=== PATIENT | female | born 1950 | race Caucasian/White ===

== ENCOUNTER 2018-02-09 08:09 | Day surgery (SDC) | payer OTHER ==
--- OUTSIDE RECORDS SUMMARY | 2018-02-09 08:12 | XMS REPORT | Clinical Summary ---
:1950 Author Organization [facility] Address [address] [place] [address] Care Team Providers Name Role Phone Asked, No Pcp Primary Care Provider Unavailable Allergies Active Allergy Reactions Severity Noted Date Comments Codeine 05/09/2017 DROWSY, SLOW TO EMERGE. Meperidine 05/09/2017 STATES AWARE DURING ANESTHESIA Penicillin Itching, Rash Low 05/09/2017 Sulfa (Sulfonamide Itching, Rash Low 05/09/2017 Antibiotics) Medications Medication Sig Dispensed Refills Start Date End Date Status ascorbic acid, Take 1,000 mg 0 Active vitamin C, (vitamin by mouth daily. C) 1000 MG tablet cholecalciferol, Take 1,000 0 Active vitamin D3, (VITAMIN Units by mouth D3) 1,000 unit tablet daily. VITAMIN A ORAL Take by mouth. 0 Active levothyroxine Take 75 mcg by 0 Active (SYNTHROID, LEVOXYL) mouth every 75 mcg tablet morning. CYANOCOBALAMIN, Inject as 0 Active VITAMIN B-12, directed. (VITAMIN B-12 INJ) lisinopril Take 15 mg by 0 Active (PRINIVIL,ZESTRIL) 30 mouth daily. mg tablet insulin NPH Inject 7 Units 0 Active (HumuLIN-N) 100 under the skin unit/mL injection nightly. anastrozole Take 1 mg by 0 Active (ARIMIDEX) 1 mg chemo mouth daily. tablet TRASTUZUMAB Infuse into a 0 Active (HERCEPTIN IV) venous catheter every 21 days. traMADol (ULTRAM) 50 Take 2 tablets 40 tablet 0 06/08/2017 06/18/2017 mg tablet (100 mg total) by mouth every 6 (six) hours as needed for moderate pain for up to 10 days. docusate sodium Take 1 capsule 20 capsule 0 06/08/2017 06/18/2017 (COLACE) 100 MG (100 mg total) capsule by mouth 2 (two) times a day for 10 days. Active Problems Problem Noted Date Right renal mass 06/06/2017 Encounters Date Type Specialty Care Team Description 06/06/2017 Anesthesia Event Urology Emilia Lang, ERICA 06/06/2017 Surgery Urology Calvin Rabago ROBOTIC ASSISTED MD Nichelle LAPAROSCOPIC RIGHT PARTIAL NEPHRECTOMY 06/06/2017 - Hospital Encounter General Internal Calvin Rabago Right renal mass 06/08/2017 Medicine MD Nichelle 05/23/2017 Pre-Admit Testing Pre-Admission Calvin Rabago Preop examination Appointment Testing MD Nichelle 05/09/2017 Pre-Admit Testing Pre-Admission Calvin Rabago Preop examination Appointment Testing MD Nichelle (Primary Dx) after 02/08/2017 Social History Tobacco Use Types Packs/Day Years Used Date Former Smoker Cigarettes 0.25 3 Quit: 1979 Smokeless Tobacco: Never Used Alcohol Use Drinks/Week oz/Week Comments No Sex Assigned at Date Recorded Not on file Job Start Date Occupation Industry Not on file Not on file Not on file Travel History Travel Start Travel End No recent travel history available. Last Filed Vital Signs Vital Sign Reading Time Taken Blood Pressure 135/60 06/08/2017 11:24 AM CDT Pulse 78 06/08/2017 11:24 AM CDT Temperature 37.7 C (99.9 F) 06/08/2017 11:24 AM CDT Respiratory Rate 16 06/08/2017 11:24 AM CDT Oxygen Saturation 98% 06/08/2017 11:24 AM CDT Inhaled Oxygen Concentration - - Weight 63.2 kg (139 lb 6.4 oz) 05/09/2017 3:45 PM CLINICAL PSYCHOLOGIST Height 156.2 cm (5' 1.5") 05/09/2017 3:45 PM CLINICAL PSYCHOLOGIST Body Mass Index 25.91 05/09/2017 3:45 PM CLINICAL PSYCHOLOGIST Plan of Treatment Health Maintenance Due Date Last Done Comments BREAST CANCER SCREENING 1998 COLON CANCER SCREENING 1998 SHINGRIX VACCINE (1 of 2) 1998 ZOSTER VACCINE 2008 PNEUMOCOCCAL POLYSACCHARIDE VACCINE AGE 65 AND OVER 2013 PNEUMOCOCCAL-13 2013 INFLUENZA VACCINE 10/15/2017 Implants Implanted Type Area Biodiesel Plant Superintendent Device Shelf Model / Identifier Expiration Serial / Date Lot Clip Ligtng Hem-O-Farhan Endoscpc Aplr Plymr Lg - [id number] Surgical N/A: N/A WECK CLOSURE [id number] / Implanted: 06/06/2017 (Quantity not on file) Implants; SYSTEMS / Expanders; Extenders; Surgical Wires Kit Selnt Fibrin Humn Hmsts Surgy 5ml Evicel - [id number] Surgical N/A: N/A ETHICON - [id number] / Implanted: Qty: 1 on 06/06/2017 by Calvin Rabago MD Implants; / Expanders; Extenders; Surgical Wires Procedures Procedure Name Priority Date/Time Associated Comments Diagnosis POC GLUCOSE Routine 06/08/2017 11:26 Results for this AM CDT procedure are in the results section. POC GLUCOSE Routine 06/08/2017 7:19 Results for this AM CDT procedure are in the results section. POC GLUCOSE Routine 06/07/2017 9:42 Results for this PM CDT procedure are in the results section. POC GLUCOSE Routine 06/07/2017 5:10 Results for this PM CDT procedure are in the results section. POC GLUCOSE Routine 06/07/2017 12:54 Results for this PM CDT procedure are in the results section. POC GLUCOSE Routine 06/07/2017 7:37 Results for this AM CDT procedure are in the results section. CBC HEMOGRAM Routine 06/07/2017 4:46 Results for this AM CDT procedure are in the results section. ZZESTIMATED GFR Routine 06/07/2017 4:00 Results for this AM CDT procedure are in the results section. BASIC METABOLIC PANEL Routine 06/07/2017 4:00 Results for this AM CDT procedure are in the results section. POC GLUCOSE Routine 06/06/2017 8:13 Results for this PM CDT procedure are in the results section. ZZESTIMATED GFR Routine 06/06/2017 5:25 Results for this PM CDT procedure are in the results section. BASIC METABOLIC PANEL Routine 06/06/2017 5:25 Results for this PM CDT procedure are in the results section. HEMATOCRIT Routine 06/06/2017 5:25 Results for this PM CDT procedure are in the results section. HEMOGLOBIN Routine 06/06/2017 5:25 Results for this PM CDT procedure are in the results section. POC GLUCOSE Routine 06/06/2017 5:21 Results for this PM CDT procedure are in the results section. HEMOGLOBIN, SYRINGE STAT 06/06/2017 4:23 Results for this PM CDT procedure are in the results section. GLUCOSE LEVEL, STAT 06/06/2017 4:23 Results for this SYRINGE PM CDT procedure are in the results section. POTASSIUM, SYRINGE STAT 06/06/2017 4:23 Results for this PM CDT procedure are in the results section. IONIZED CALCIUM, STAT 06/06/2017 4:23 Results for this ARTERIAL PM CDT procedure are in the results section. ARTERIAL BLOOD GAS, STAT 06/06/2017 4:23 Results for this CORRECTED PM CDT procedure are in the results section. SODIUM LEVEL, SYRINGE STAT 06/06/2017 4:23 Results for this PM CDT procedure are in the results section. HEMOGLOBIN, SYRINGE Routine 06/06/2017 3:03 Results for this PM CDT procedure are in the results section. IONIZED CALCIUM, Routine 06/06/2017 3:03 Results for this ARTERIAL PM CDT procedure are in the results section. GLUCOSE LEVEL, Routine 06/06/2017 3:03 Results for this SYRINGE PM CDT procedure are in the results section. SODIUM LEVEL, SYRINGE Routine 06/06/2017 3:03 Results for this PM CDT procedure are in the results section. POTASSIUM, SYRINGE Routine 06/06/2017 3:03 Results for this PM CDT procedure are in the results section. ARTERIAL BLOOD GAS, Routine 06/06/2017 3:03 Results for this CORRECTED PM CDT procedure are in the results section. ARTERIAL LINE Routine 06/06/2017 12:59 PM CDT Procedure Note - Tana Chandler CRNA - 06/06/2017 12:59 PM CDT Arterial line Performed by: NÉSTOR TORRES Authorized by: NÉSTOR TORRES Patient Location: OR Staff: Anesthesiologist: NÉSTOR TORRES Performed by: Anesthesiologist Pre-procedure: patient identified, IV checked, site and side verified, risks and benefits discussed, procedure verified, surgical consent complete, patient position confirmed, monitors and equipment checked and pre-op evaluation complete MSBT: antiseptic used, all elements of maximal sterile barrier technique followed, hand hygiene performed, cap/gown used by other personnel and solutions labeled Indications: Indications: multiple ABGs and hemodynamic monitoring Anesthesia: Anesthesia: General Procedure Details: Arterial Line placement: Placed post induction Line placement site: Radial Line placement side: Left Arterial line gauge: 20 G Number of attempts: 1 Ultrasound guidance used: No Post-procedure: Post-procedure: Sterile dressing applied Patient tolerance: Patient tolerated the procedure well with no immediate complications POC PANEL Routine 06/06/2017 12:39 PM Results for this CDT procedure are in the results section. ESTIMATED GFR Routine 06/06/2017 12:39 PM Results for this CDT procedure are in the results section. NEPHRECTOMY, 06/06/2017 12:30 PM Right renal mass PARTIAL, CDT LAPAROSCOPIC, ROBOT-ASSISTED Case Notes DAVINCI, POSSIBLE EXTENDED RECOVERY NEEDED Special Needs DAVINCI POSSIBLE EXTENDED RECOVERY NEEDED CBC HEMOGRAM STAT 06/06/2017 12:23 PM Results for this CDT procedure are in the results section. ZZESTIMATED GFR STAT 06/06/2017 11:54 AM Results for this CDT procedure are in the results section. BASIC METABOLIC PANEL STAT 06/06/2017 11:54 AM Results for this CDT procedure are in the results section. SURGICAL PATHOLOGY Routine 06/06/2017 7:14 AM Results for this REQUEST CDT procedure are in the results section. PREPARE RBC Routine 05/23/2017 1:35 PM Results for this CLINICAL PSYCHOLOGIST procedure are in the results section. E ANTIGEN PATIENT Routine 05/23/2017 1:35 PM Results for this TYPING CLINICAL PSYCHOLOGIST procedure are in the results section. ANTIBODY IDENTIFICATION Routine 05/23/2017 1:35 PM Results for this CLINICAL PSYCHOLOGIST procedure are in the results section. TYPE AND SCREEN Routine 05/23/2017 1:35 PM Preop examination Results for this CLINICAL PSYCHOLOGIST procedure are in the results section. URINALYSIS SCREEN AND Routine 05/09/2017 4:15 PM Preop examination Results for this MICROSCOPY, WITH REFLEX CLINICAL PSYCHOLOGIST procedure are in TO CULTURE the results section. URINE CULTURE Routine 05/09/2017 4:15 PM Results for this CLINICAL PSYCHOLOGIST procedure are in the results section. ECG PRE/POST OP Routine 05/09/2017 3:10 PM Preop examination Results for this CLINICAL PSYCHOLOGIST procedure are in the results section. ZZESTIMATED GFR Routine 05/09/2017 3:08 PM Results for this CLINICAL PSYCHOLOGIST procedure are in the results section. PARTIAL THROMBOPLASTIN Routine 05/09/2017 3:08 PM Preop examination Results for this TIME (PTT) CLINICAL PSYCHOLOGIST procedure are in the results section. PROTHROMBIN TIME WITH Routine 05/09/2017 3:08 PM Preop examination Results for this INR CLINICAL PSYCHOLOGIST procedure are in the results section. HEMOGLOBIN A1C Routine 05/09/2017 3:08 PM Preop examination Results for this CLINICAL PSYCHOLOGIST procedure are in the results section. HC COMPLETE BLD COUNT Routine 05/09/2017 3:08 PM Preop examination Results for this W/AUTO DIFF CLINICAL PSYCHOLOGIST procedure are in the results section. COMPREHENSIVE METABOLIC Routine 05/09/2017 3:08 PM Preop examination Results for this PANEL CLINICAL PSYCHOLOGIST procedure are in the results section. after 02/08/2017 Results POC glucose (06/08/2017 11:26 AM CDT)Only the most recent of8 resultswithin the time period is included. POC glucose 126 (H) 65 - 99 mg/dL [facility] DEPARTMENT OF PATHOLOGY AND Comment: [employer] MEDICINE [facility] Notified RN Meter ID: [id number] Flotation Operator: Sheriff Charlene Rene Performing Organization Address City/[facility] Cent[facility]ode Phone Number [facility] DEPARTMENT OF PATHOLOGY AND [address] [place] [phone] [employer] CBC hemogram (06/07/2017 4:46 AM CDT)Only the most recent of2 resultswithin the time period is included. WBC 6.50 4.50 - 11.00 k/uL [facility] DEPARTMENT OF PATHOLOGY AND GENOMIC MEDICINE RBC 2.42 (L) 4.20 - 5.50 m/uL [facility] DE[facility] OF PATHOLOGY AND GENOMIC MEDICINE HGB 7.9 (L) 12.0 - 16.0 g/dL [facility] DEPARTMENT OF PATHOLOGY AND GENOMIC MEDICINE HCT 23.2 (L) 37.0 - 47.0 % [facility] DEPARTMENT OF PATHOLOGY AND GENOMIC MEDICINE MCV 95.9 82.0 - 100.0 fL [facility] DE[facility]MENT OF PATHOLOGY AND GENOMIC MEDICINE MCH 32.6 27.0 - 34.0 pg [facility] DEPARTMENT OF PATHOLOGY AND GENOMIC MEDICINE MCHC 34.1 31.0 - 37.0 g/dL [facility] DEPARTMENT OF PATHOLOGY AND GENOMIC MEDICINE RDW - SD 43.3 37.0 - 55.0 fL [facility] DEPARTMENT OF PATHOLOGY AND GENOMIC MEDICINE MPV 10.4 8.8 - 13.2 fL [facility] DEPARTMENT OF PATHOLOGY AND GENOMIC MEDICINE Platelet count 113 (L) 150 - 400 k/uL [facility] DEPARTMENT OF PATHOLOGY AND GENOMIC MEDICINE Nucleated RBC 0.00 /100 WBC [facility] DEPARTMENT OF PATHOLOGY AND GENOMIC MEDICINE Specimen Blood Performing Organization Address City/[facility]ode Phone Number [facility] DEPARTMENT OF PATHOLOGY AND [address] [place] [address] [employer] [facility]IC[facility] Estimated GFR (06/07/2017 4:00 AM CDT)Only the most recent of4 resultswithin the time period is included. GFR Non Af Amer 62 mL/min/1.73 m2 [facility] DEPARTMENT OF PATHOLOGY AND GENOMIC MEDICINE GFR Af Amer 75 mL/min/1.73 m2 [facility] DEPARTMENT OF Comment: PATHOLOGY AND GENOMIC Chronic kidney disease: <60 mL/min/1.73m2 MEDICINE Kidney failure: <15 mL/min/1.73m2 The estimated GFR is calculated from the IDMS-traceable Modification of Diet in Renal Disease Equation. The accuracy of the calculation is poor when the creatinine is normal. Calculated values >90 mL/min/1.73m2 are not reported. This equation has not been validated in children (<18 years), women, the elderly (>70 years), or ethnic groups other than Caucasians and Americans. Specimen Plasma specimen Performing Organization Address City/[facility] Cent[facility]ode Phone Number [facility] DEPARTMENT OF PATHOLOGY AND [address] [place] [phone] [facility] Basic metabolic panel (06/07/2017 4:00 AM CDT)Only the most recent of3 resultswithin the time period is included. Sodium 135 135 - 148 mEq/L [facility] DEPARTMENT OF PATHOLOGY AND GENOMIC MEDICINE Potassium 4.1 3.5 - 5.0 mEq/L [facility] DEPARTMENT OF PATHOLOGY AND GENOMIC MEDICINE Chloride 99 98 - 112 mEq/L [facility] DEPARTMENT OF PATHOLOGY AND GENOMIC MEDICINE CO2 25 24 - 31 mEq/L [facility] DEPARTMENT OF PATHOLOGY AND GENOMIC MEDICINE Anion gap 11 7 - 15 mEq/L [facility] DEPARTMENT OF PATHOLOGY Comment: AND [facility] Starting from June , anion gap calculation no longer incorporates potassium. Please note the change. BUN 13 8 - 23 mg/dL [facility] DEPARTMENT OF PATHOLOGY AND GENOMIC MEDICINE Creatinine 0.9 0.5 - 0.9 mg/dL [facility] DEPARTMENT OF PATHOLOGY AND GENOMIC MEDICINE Glucose 111 (H) 65 - 99 mg/dL [facility] DE[facility]MENT OF PATHOLOGY AND GENOMIC MEDICINE Calcium 9.0 8.8 - 10.2 mg/dL [facility] DEPARTMENT OF PATHOLOGY AND GENOMIC MEDICINE Specimen Plasma specimen Performing Organization Address City/[facility]ercode Phone Number [facility] DEPARTMENT OF PATHOLOGY AND [address] [place] [phone] [facility] Hemoglobin (06/06/2017 5:25 PM CDT) HGB 7.8 (L) 12.0 - 16.0 g/dL [facility] DEPARTMENT OF PATHOLOGY AND GENOMIC MEDICINE Specimen Blood Performing Organization Address [facility] Phone Number [facility] DEPARTMENT OF PATHOLOGY AND [address] [place] [address] GENOMIC [facility] Hematocrit (06/06/2017 5:25 PM CDT) HCT 21.9 (L) 37.0 - 47.0 % [facility] DEPARTMENT OF PATHOLOGY AND GENOMIC MEDICINE Specimen Blood Performing Organization Address [facility] Phone Number [facility] DEPARTMENT OF PATHOLOGY AND [address] [place] [address] Sodium level, syringe (06/06/2017 4:23 PM CDT)Only the most recent of2 resultswithin the time period is included. Sodium, syringe 129 (L) 135 - 148 mEq/L [facility] DEPARTMENT OF PATHOLOGY AND GENOMIC MEDICINE Specimen Blood Performing Organization Address [facility] Phone Number [facility] DEPARTMENT OF PATHOLOGY AND [address] [place] [address] Potassium, syringe (06/06/2017 4:23 PM CDT)Only the most recent of2 resultswithin the time period is included. Potassium, syringe 4.1 3.5 - 5.0 mEq/L [facility] DEPARTMENT OF PATHOLOGY AND GENOMIC MEDICINE Specimen Blood Performing Organization Address [facility] Number [facility] DEPARTMENT OF PATHOLOGY AND [address] [place] [address] Ionized calcium, arterial (06/06/2017 4:23 PM CDT)Only the most recent of2 resultswithin the time period is included. Ionized calcium, arterial 1.23 1.11 - 1.32 mmol/L [facility] DEPARTMENT OF PATHOLOGY AND GENOMIC MEDICINE Specimen Blood Performing Organization Address [facility] Phone Number [facility] DEPARTMENT OF PATHOLOGY AND [address] [place] [address] Hemoglobin, syringe (06/06/2017 4:23 PM CDT)Only the most recent of2 resultswithin the time period is included. Hemoglobin, syringe 8.3 (L) 12.0 - 16.0 g/dL [facility] DEPARTMENT OF PATHOLOGY AND GENOMIC MEDICINE Specimen Blood Performing Organization Address City/[facility] Phone Number [facility] DEPARTMENT OF PATHOLOGY AND [address] [place] [phone] [place] [address] Glucose level, syringe (06/06/2017 4:23 PM CDT)Only the most recent of2 resultswithin the time period is included. Glucose, syringe 196 (H) 65 - 99 mg/dL [facility] DEPARTMENT OF PATHOLOGY AND GENOMIC MEDICINE Specimen Blood Performing Organization Address [facility] Centercode Phone Number [facility] DEPARTMENT OF PATHOLOGY AND [address] [place] [phone] [place] [address] Arterial blood gas, corrected (06/06/2017 4:23 PM CDT)Only the most recent of2 resultswithin the time period is included. pH, arterial 7.38 7.35 - 7.45 [facility] DEPARTMENT OF PATHOLOGY AND GENOMIC MEDICINE pCO2, arterial 37 35 - 45 mmHg [facility] DEPARTMENT OF PATHOLOGY AND GENOMIC MEDICINE pO2, arterial 208 (H) 80 - 90 mmHg [facility] DEPARTMENT OF PATHOLOGY AND GENOMIC MEDICINE Temperature, Celsius 37.0 Degrees C [facility] DEPARTMENT OF PATHOLOGY AND GENOMIC MEDICINE O2 saturation, arterial 100 95 - 100 % [facility] DEPARTMENT OF PATHOLOGY AND GENOMIC MEDICINE pH, arterial corrected 7.38 [facility] DEPARTMENT OF PATHOLOGY AND GENOMIC MEDICINE pCO2, arterial corrected 37 mmHg [facility] DEPARTMENT OF PATHOLOGY AND GENOMIC MEDICINE pO2, arterial corrected 208 mmHg [facility] DEPARTMENT OF PATHOLOGY AND GENOMIC MEDICINE Base excess, arterial -3 (L) -2 - 2 mEq/L [facility] DEPARTMENT OF PATHOLOGY AND GENOMIC MEDICINE Specimen Blood Performing Organization Address [facility] Phone Number [facility] DEPARTMENT OF PATHOLOGY AND [address] [place] [phone] [facility] Estimated GFR (06/06/2017 12:39 PM CDT) GFR Non Af Amer 83 mL/min/1.73 m2 [facility] DEPARTMENT OF PATHOLOGY AND GENOMIC MEDICINE GFR Af Amer >90 mL/min/1.73 m2 [facility] DEPARTMENT OF Comment: PATHOLOGY AND GENOMIC Chronic kidney disease: <60 mL/min/1.73m2 MEDICINE Kidney failure: <15 mL/min/1.73m2 The estimated GFR is calculated from the IDMS-traceable Modification of Diet in Renal Disease Equation. The accuracy of the calculation is poor when the creatinine is normal. Calculated values >90 mL/min/1.73m2 are not reported. This equation has not been validated in children (<18 years), women, the elderly (>70 years), or ethnic groups other than Caucasians and Americans. Specimen Blood Performing Organization Address City/State/Zipcode Phone Number [facility] DEPARTMENT OF PATHOLOGY AND [address] [place] [address] GENOMIC MEDICINE POC panel (06/06/2017 12:39 PM CDT) POC sodium 131 (L) 135 - 148 mmol/L [facility] DEPARTMENT OF PATHOLOGY AND GENOMIC MEDICINE POC potassium 4.0 3.5 - 5.0 mmol/L [facility] DEPARTMENT OF PATHOLOGY AND GENOMIC MEDICINE POC chloride 97 (L) 99 - 109 mmol/L [facility] DEPARTMENT OF PATHOLOGY AND GENOMIC MEDICINE POC CO2 27 24 - 31 mmol/L [facility] DEPARTMENT OF PATHOLOGY AND GENOMIC MEDICINE POC glucose 120 (H) 65 - 99 mg/dL [facility] DEPARTMENT OF PATHOLOGY AND GENOMIC MEDICINE POC BUN 15 8 - 24 mg/dL [facility] DEPARTMENT OF PATHOLOGY AND GENOMIC MEDICINE POC creatinine 0.7 0.5 - 0.9 mg/dl [facility] DEPARTMENT OF PATHOLOGY AND GENOMIC MEDICINE POC hematocrit 32 (L) 37 - 47 % [facility] DEPARTMENT OF PATHOLOGY AND GENOMIC MEDICINE POC anion gap 11 8 - 20 [facility] DEPARTMENT OF PATHOLOGY Comment: AND GENOMIC MEDICINE Meter ID: [id number] Flotation Operator: Ted Devlin Performing Organization Address City/[facility]ercode Phone Number [facility] DEPARTMENT OF PATHOLOGY AND [address] [place] [address] GENOMIC MEDICINE Surgical pathology request (06/06/2017 7:14 AM CDT) [facility] DEPARTMENT OF PATHOLOGY AND GENOMIC MEDICINE Surgical pathology report See link below for PDF [facility] DEPARTMENT OF Lab Report PATHOLOGY AND GENOMIC MEDICINE Result status This is Final Report to [facility] DEPARTMENT OF [id number] PATHOLOGY AND GENOMIC MEDICINE Performing Organization Address City/State/Zipcode Phone Number [facility] DEPARTMENT OF PATHOLOGY AND [address] [place] [address] GENOMIC MEDICINE E antigen patient typing (05/23/2017 1:35 PM CLINICAL PSYCHOLOGIST) E Antigen Patient Typing NEG [facility] DEPARTMENT OF PATHOLOGY AND GENOMIC MEDICINE Performing Organization Address City/State/Zipcode Phone Number [facility] DEPARTMENT OF PATHOLOGY AND [address] [place] [address] MEDICINE Antibody identification (05/23/2017 1:35 PM CLINICAL PSYCHOLOGIST) Antibody ID POS, Anti-E [facility] DEPARTMENT OF PATHOLOGY AND Comment: GENOMIC MEDICINE This antibody can cause red cell damage and is considered clinically significant.Red cells for transfusion will be negative for the antigen and crossmatch compatible.Verified by [id number]. Performing Organization Address City/State/Zipcode Phone Number [facility] DEPARTMENT OF PATHOLOGY AND [address] [place] [phone] GENOMIC MEDICINE Prepare RBC (05/23/2017 1:35 PM CLINICAL PSYCHOLOGIST) Product name Red Blood Cells -1, [facility] DEPARTMENT OF Leukored PATHOLOGY AND GENOMIC MEDICINE Unit number [id number] [facility] DEPARTMENT OF PATHOLOGY AND GENOMIC MEDICINE Product code [id number] [facility] DEPARTMENT OF PATHOLOGY AND GENOMIC MEDICINE Dispense status Returned to not [facility] DEPARTMENT OF transfused PATHOLOGY AND GENOMIC MEDICINE Blood expiration date [facility] DEPARTMENT OF PATHOLOGY AND GENOMIC MEDICINE Blood type code 6200 [facility] DEPARTMENT OF PATHOLOGY AND GENOMIC MEDICINE Blood type A POSITIVE [facility] DEPARTMENT OF PATHOLOGY AND GENOMIC MEDICINE Product name Red Blood Cells -1, [facility] DEPARTMENT OF Leukored PATHOLOGY AND GENOMIC MEDICINE Unit number [id number] [facility] DEPARTMENT OF PATHOLOGY AND GENOMIC MEDICINE Product code [id number] [facility] DEPARTMENT OF PATHOLOGY AND GENOMIC MEDICINE Dispense status Returned to not [facility] DEPARTMENT OF transfused PATHOLOGY AND GENOMIC MEDICINE Blood expiration date [facility] DEPARTMENT OF PATHOLOGY AND GENOMIC MEDICINE Blood type code 5100 [facility] DEPARTMENT OF PATHOLOGY AND GENOMIC MEDICINE Blood type O POSITIVE [facility] DEPARTMENT OF PATHOLOGY AND GENOMIC MEDICINE Performing Organization Address City/[facility]ode Phone Number [facility] DEPARTMENT OF PATHOLOGY AND [address] [place] [phone] GENOMIC MEDICINE Type and screen (05/23/2017 1:35 PM CLINICAL PSYCHOLOGIST) ABO grouping A [facility] DEPARTMENT OF PATHOLOGY AND GENOMIC MEDICINE Rh type POS [facility] DEPARTMENT OF PATHOLOGY AND GENOMIC MEDICINE Antibody screen (gel) POS [facility] DEPARTMENT OF PATHOLOGY AND GENOMIC MEDICINE Specimen Blood Performing Organization Address City/[facility]/Zipcode Phone Number [facility] DEPARTMENT OF PATHOLOGY AND [address] [place] [phone] GENOMIC MEDICINE Urinalysis screen and microscopy, with reflex to culture (05/09/2017 4:15 PM CLINICAL PSYCHOLOGIST) Specimen site Clean catch [facility] DEPARTMENT OF PATHOLOGY AND GENOMIC MEDICINE Color, UA Yellow [facility] DEPARTMENT OF PATHOLOGY AND GENOMIC MEDICINE Appearance, UA Hazy [facility] DEPARTMENT OF PATHOLOGY AND GENOMIC MEDICINE Specific gravity, UA 1.011 1.001 - 1.035 [facility] DEPARTMENT OF PATHOLOGY AND GENOMIC MEDICINE pH, UA 7.0 5.0 - 8.5 [facility] DEPARTMENT OF PATHOLOGY AND GENOMIC MEDICINE Protein, UA Negative Negative [facility] DEPARTMENT OF PATHOLOGY AND GENOMIC MEDICINE Glucose, UA Negative Negative [facility] DEPARTMENT OF PATHOLOGY AND GENOMIC MEDICINE Ketones, UA Negative Negative [facility] DEPARTMENT OF PATHOLOGY AND GENOMIC MEDICINE Bilirubin, UA Negative Negative [facility] DEPARTMENT OF PATHOLOGY AND GENOMIC MEDICINE Blood, UA Negative Negative [facility] DEPARTMENT OF PATHOLOGY AND GENOMIC MEDICINE Nitrite, UA Negative Negative [facility] DEPARTMENT OF PATHOLOGY AND GENOMIC MEDICINE Urobilinogen, UA <2.0 <2.0 [facility] DEPARTMENT OF PATHOLOGY AND GENOMIC MEDICINE Leukocyte esterase, UA Negative Negative [facility] DEPARTMENT OF PATHOLOGY AND GENOMIC MEDICINE Epithelial cells, UA <1 /HPF [facility] DEPARTMENT OF PATHOLOGY AND GENOMIC MEDICINE WBC, UA <1 0 - 4 /HPF [facility] DEPARTMENT OF PATHOLOGY AND GENOMIC MEDICINE RBC, UA 1 0 - 2 /HPF [facility] DEPARTMENT OF PATHOLOGY AND GENOMIC MEDICINE Bacteria, UA None seen None seen [facility] DEPARTMENT OF PATHOLOGY AND GENOMIC MEDICINE Yeast, UA None seen [facility] DEPARTMENT OF PATHOLOGY AND GENOMIC MEDICINE Yeast with pseudohyphae, UA None seen [facility] DEPARTMENT OF PATHOLOGY AND GENOMIC MEDICINE Specimen Urine Performing Organization Address City/[facility]ode Phone Number [facility] DEPARTMENT OF PATHOLOGY AND [address] [place] [phone] [facility] Urine culture (05/09/2017 4:15 PM CLINICAL PSYCHOLOGIST) Urine culture SEE COMMENTComment: Bacteriuria [facility] DEPARTMENT OF PATHOLOGY screen negative. AND GENOMIC MEDICINE Performing Organization Address [facility]ercode Phone Number [facility] DEPARTMENT OF PATHOLOGY AND [address] [place] [phone] [facility] ECG Pre/Post Op (05/09/2017 3:10 PM CLINICAL PSYCHOLOGIST) Ventricular rate 61 [facility] MUSE Atrial rate 61 [facility] AL interval 136 [facility]USE QRSD interval 82 [facility] QT interval 398 [facility] QTC interval 400 [facility] P axis 1 62 [facility] QRS axis 1 53 [facility] T wave axis 60 [facility] EKG impression Normal sinus rhythm-Normal ECG-No previous [facility] ECGs available- Performing Organization Address City/[facility]ode Phone Number [facility] [address] [place] [address] Partial thromboplastin time, activated (05/09/2017 3:08 PM CLINICAL PSYCHOLOGIST) PTT 32.4 23.0 - 36.0 sec [facility] DEPARTMENT OF PATHOLOGY Comment: AND GENOMIC MEDICINE PTT therapeutic range for unfractionated heparin is 61.0-112.0 seconds which corresponds to Anti-Xa 0.3-0.7 U/ml. Specimen Blood Performing Organization Address City/[facility]ercode Phone Number [facility] PATH[facility] AND [address] [place] [id number] [place] [address] Prothrombin time with INR (05/09/2017 3:08 PM CLINICAL PSYCHOLOGIST) Prothrombin time 13.6 12.0 - 15.0 sec [facility] DEPARTMENT OF PATHOLOGY AND GENOMIC MEDICINE INR 1.0 [facility] DEPARTMENT OF Comment: PATHOLOGY AND GENOMIC The International Normalized Ratio (INR) is a therapeutic MEDICINE monitoring tool for patients who are stable on oral anticoagulant therapy. An INR of 2.0-3.0 is suggested for deep vein thrombosis/pulmonary embolism. Specimen Blood Performing Organization Address City/[facility] Centercohi Phone Number [facility] DEPARTMENT PATHOLOGY AND [address] [place] [phone] [facility] CBC with platelet and differential (05/09/2017 3:08 PM CLINICAL PSYCHOLOGIST) WBC 5.63 4.50 - 11.00 k/uL [facility] DEPARTMENT OF PATHOLOGY AND GENOMIC MEDICINE RBC 2.98 (L) 4.20 - 5.50 m/uL [facility] DEPARTMENT OF PATHOLOGY AND GENOMIC MEDICINE HGB 10.3 (L) 12.0 - 16.0 g/dL [facility] DEPARTMENT OF PATHOLOGY AND GENOMIC MEDICINE HCT 29.8 (L) 37.0 - 47.0 % [facility] DEPARTMENT OF PATHOLOGY AND GENOMIC MEDICINE MCV 100.0 82.0 - 100.0 fL [facility] DEPARTMENT OF PATHOLOGY AND GENOMIC MEDICINE MCH 34.6 (H) 27.0 - 34.0 pg [facility] DEPARTMENT OF PATHOLOGY AND GENOMIC MEDICINE MCHC 34.6 31.0 - 37.0 g/dL [facility] DEPARTMENT OF PATHOLOGY AND GENOMIC MEDICINE RDW - SD 47.6 37.0 - 55.0 fL [facility] DEPARTMENT OF PATHOLOGY AND GENOMIC MEDICINE MPV 10.4 8.8 - 13.2 fL [facility] DEPARTMENT OF PATHOLOGY AND GENOMIC MEDICINE Platelet count 125 (L) 150 - 400 k/uL [facility] DEPARTMENT OF PATHOLOGY AND GENOMIC MEDICINE Nucleated RBC 0.00 /100 WBC [facility] DEPARTMENT OF PATHOLOGY AND GENOMIC MEDICINE Neutrophils 56.5 39.0 - 69.0 % [facility] DEPARTMENT OF PATHOLOGY AND GENOMIC MEDICINE Lymphocytes 31.4 25.0 - 45.0 % [facility] DEPARTMENT OF PATHOLOGY AND GENOMIC MEDICINE Monocytes 8.0 0.0 - 10.0 % [facility] DEPARTMENT OF PATHOLOGY AND GENOMIC MEDICINE Eosinophils 3.2 0.0 - 5.0 % [facility] DEPARTMENT OF PATHOLOGY AND GENOMIC MEDICINE Basophils 0.4 0.0 - 1.0 % [facility] DEPARTMENT OF PATHOLOGY AND GENOMIC MEDICINE Immature granulocytes 0.5Comment: 0.0 - 1.0 % [facility] DEPARTMENT OF "Immature PATHOLOGY AND GENOMIC granulocytes" MEDICINE (promyelocytes, myelocytes, metamyelocytes) Specimen Blood Performing Organization Address City/State/Zipcode Phone Number [facility] DEPARTMENT OF PATHOLOGY AND [address] [place] [address] Hemoglobin A1c (05/09/2017 3:08 PM CLINICAL PSYCHOLOGIST) Hemoglobin A1C 5.0 4.0 - 5.6 % [facility] DEPARTMENT OF PATHOLOGY Comment: AND [employer] [facility] HbA1c cutoffs for diagnosing diabetes: 4.0% - 5.6%=normal 5.7% - 6.4%=increased risk for diabetes (prediabetes) >=6.5%=diabetes Goals for glycemic control (ADA 2016) < 7.0%Target for non adults with diabetes. More or less stringent targets may be appropriate for individual patients. <7.5% Target for Children and adolescents with type 1 diabetes. Specimen Blood Performing Organization Address City/State/[facility]ercode Phone Number [facility] DEPARTMENT OF PATHOLOGY AND [address] [place] [phone] [facility] Comprehensive metabolic panel (05/09/2017 3:08 PM CLINICAL PSYCHOLOGIST) Sodium 131 (L) 135 - 148 mEq/L [facility] DEPARTMENT OF PATHOLOGY AND GENOMIC MEDICINE Potassium 4.1 3.5 - 5.0 mEq/L [facility] DEPARTMENT OF PATHOLOGY AND GENOMIC MEDICINE Chloride 90 (L) 98 - 112 mEq/L [facility] DEPARTMENT OF PATHOLOGY AND GENOMIC MEDICINE CO2 27 24 - 31 mEq/L [facility] DEPARTMENT OF PATHOLOGY AND GENOMIC MEDICINE Anion gap 14 7 - 15 mEq/L [facility] DEPARTMENT OF Comment: PATHOLOGY AND GENOMIC Starting from June , anion gap calculation MEDICINE no longer incorporates potassium. Please note the change. BUN 15 8 - 23 mg/dL [facility] DEPARTMENT OF PATHOLOGY AND GENOMIC MEDICINE Creatinine 0.7 0.5 - 0.9 mg/dL [facility] DEPARTMENT OF PATHOLOGY AND GENOMIC MEDICINE Glucose 105 (H) 65 - 99 mg/dL [facility] DEPARTMENT OF PATHOLOGY AND GENOMIC MEDICINE Calcium 10.0 8.8 - 10.2 mg/dL [facility] DEPARTMENT OF PATHOLOGY AND GENOMIC MEDICINE Protein 7.7 6.3 - 8.3 g/dL [facility] DEPARTMENT OF Comment: PATHOLOGY AND GENOMIC 4.6-7.0 g/dL MEDICINE 1 week 4.4-7.6 g/dL 7 months-1year5.1-7.3 g/dL 1-2 years5.6-7.5 g/dL >3 years6.0-8.0 g/dL 18-150 6.3-8.3 g/dL Albumin 4.0 3.5 - 5.0 g/dL [facility] DEPARTMENT OF PATHOLOGY AND GENOMIC MEDICINE A/G ratio 1.1 0.7 - 3.8 [facility] DEPARTMENT OF PATHOLOGY AND GENOMIC MEDICINE Alkaline phosphatase 44 35 - 104 U/L [facility] DEPARTMENT OF PATHOLOGY AND GENOMIC MEDICINE AST 24 10 - 35 U/L [facility] DEPARTMENT OF PATHOLOGY AND GENOMIC MEDICINE ALT 21 5 - 50 U/L [facility] DEPARTMENT OF PATHOLOGY AND GENOMIC MEDICINE Total bilirubin 0.5 0.0 - 1.2 mg/dL [facility] DEPARTMENT OF PATHOLOGY AND GENOMIC MEDICINE Specimen Plasma specimen Performing Organization Address City/State/Zipcode Phone Number [facility] DEPARTMENT OF PATHOLOGY AND [address] [place] [address] GENOMIC MEDICINE after 02/08/2017 Insurance Payer Benefit Plan / Group Subscriber ID Type Phone Address MEDICARE MEDICARE PART A AND B xxxxxxxxxx Medicare [place], [place] COMMERCIAL MISC MISC COMMERCIAL xxxxxxxx Commercial Advance Directives Patient has advance care planning documents on file. For more information, please contact:Josep Rosales[address] [place] [address]
--- OUTSIDE RECORDS SUMMARY | 2018-02-09 08:13 | XMS REPORT ---
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 Problem Type 2 diabetes mellitus without E11.9 Active complications Problem Obesity E66.9 Active Problem Hypothyroidism E03.9 Active Problem Hypertension I10 Active Problem Renal mass N28.89 Active 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 Problem Vitamin B12 deficiency E53.8 Active Problem Type 2 diabetes E11.9 Active Assessment Estrogen receptor positive status Z17.0 Active [ER+] Assessment Renal mass N28.89 Active Assessment Hypothyroidism E03.9 Active Assessment 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 Assessment Hypertension I10 Active Assessment Vitamin B12 deficiency E53.8 Active Assessment Type 2 diabetes mellitus without E11.9 Active complications Medications Medication Code Code Instructions Start End Status Dosage System Date Date Bactroban [facility] 25261186363 2 % Externally Active 1 application Three times a to affected day area Cyanocobalamin [facility] 90860029678 1000 MCG/ML June Active 1 ml Injection IM 13, 10, once a month 2017 2017 Lisinopril [place] 27084067761 30 MG Orally Active 1 tablet Once a day Vitamin B Complex [facility] 80342-[address]25 - Injection Active not defined Novolin N ND 36923894392 100 UNIT/ML Active 7 units Subcutaneous once a day in PM Levothyroxine ND 94085583321 75 MCG Orally Active 1 tablet on Sodium Once a day an empty stomach in the morning Anastrozole ND 62551467790 1 MG Orally June Active 1 tablet Once a day 2017 Results No Known Results Summary Purpose eClinicalWorks Submission
--- OUTSIDE RECORDS SUMMARY | 2018-02-09 08:13 | XMS REPORT ---
:1950 Author Organization eClinicalWorks Care Team Providers Name Role Phone Moon, Na Provider Role Unavailable Allergies, Adverse Reactions, Alerts Substance Reaction Event Type Amoxicillin Info Not Available Drug Allergy Demerol Info Not Available Drug Allergy Codeine Sulfate Info Not Available Drug Allergy Problems Problem Type Condition Code Onset Dates Condition Status Problem Vitamin B12 deficiency E53.8 Active Problem Obesity E66.9 Active Problem Hypothyroidism E03.9 Active Problem Estrogen receptor positive status Z17.0 Active [ER+] Assessment Estrogen receptor positive status Z17.0 Active [ER+] Problem Superficial abrasion T14.8XXA Active Assessment Superficial abrasion T14.8XXA Active Problem Seasonal allergies J30.2 Active Problem Type 2 diabetes mellitus without E11.9 Active complications Problem Hypertension I10 Active 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 Problem 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 Assessment Seasonal allergies J30.2 Active Assessment Hypothyroidism E03.9 Active Assessment 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 Assessment Vitamin B12 deficiency E53.8 Active Assessment Type 2 diabetes mellitus without E11.9 Active complications Assessment Hypertension I10 Active Problem Renal mass N28.89 Active 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 Problem Type 2 diabetes E11.9 Active Medications Medication Code Code Instructions Start End Status Dosage System Date Date Novolin N [facility] 27293664497 100 UNIT/ML Active 7 units Subcutaneous once a day in PM Levothyroxine [facility] 32349699599 75 MCG Orally Active 1 tablet on Sodium Once a day an empty stomach in the morning Vitamin B Complex [facility] 421[address] - Injection Active not defined Cyanocobalamin [facility] 70448621164 1000 MCG/ML Active 1 ml Injection IM once a month Mupirocin [facility] 36265052177 2 % Externally September Active 1 application Three times a 13, 28, to affected day 2017 2018 area Lisinopril [facility] 81893218440 30 MG Orally Active 1 tablet Once a day Bactroban [facility] 51892508802 2 % Externally Active 1 application Three times a to affected day area Results No Known Results Summary Purpose eClinicalWorks Submission
--- OUTSIDE RECORDS SUMMARY | 2018-02-09 08:13 | XMS REPORT ---
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 Problem Estrogen receptor positive status Z17.0 Active [ER+] Problem Superficial abrasion T14.8XXA Active Assessment Hypothyroidism E03.9 Active Assessment Type 2 diabetes mellitus without E11.9 Active complications Assessment Hypertension I10 Active Problem Renal mass N28.89 Active Problem Type 2 diabetes E11.9 Active Assessment Vitamin B12 deficiency E53.8 Active Problem Vitamin B12 deficiency E53.8 Active Problem Hypothyroidism E03.9 Active Medications Medication Code Code Instructions Start End Status Dosage System Date Date Novolin N [facility] 42046558495 100 UNIT/ML Active 7 units Subcutaneous once a day in PM Levothyroxine ND 21905792140 75 MCG Orally Active 1 tablet Sodium Once a day on an empty stomach in the morning Lisinopril ND 91527895455 30 MG Orally Active 1 tablet Once a day Cyanocobalamin [facility] 62997961509 1000 MCG/ML Active 1 ml Injection IM once a month Results No Known Results Summary Purpose eClinicalWorks Submission
--- OUTSIDE RECORDS SUMMARY | 2018-02-09 08:13 | XMS REPORT ---
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 07702214731 0.12 % September Active 15 ML swish Gluconate Mouth/Throat 26, and spit twice a day [address] [facility] 68850641349 75 MCG Orally Active 1 tablet on Sodium Once a day an empty stomach in the morning Mupirocin [facility] 16967932392 2 % Externally September Active 1 application Three times a 13, 28, to affected day [address] [facility] 41381084751 2 % Externally Active 1 application Three times a to affected day area Vitamin B Complex [facility] 86347-[address]53 - Injection Active not defined Novolin N [facility] 23488124912 100 UNIT/ML Active 7 units Subcutaneous once a day in PM Lisinopril ND 42941519721 30 MG Orally Active 1 tablet Once a day Cyanocobalamin [facility] 85273604051 1000 MCG/ML Active 1 ml Injection IM once a month Keflex [facility] 77906245750 500 MG Orally September Active 1 capsule every 12 hrs 2017 Results No Known Results Summary Purpose eClinicalWorks Submission
[2018-02-09] MEDS ORDERED: CEFAZOLIN/SWI 1gm 0 GM/0 ML SYR ONE (09:09)
[2018-02-09] MEDS ORDERED: NA CHLORIDE 0.9% 1,000 ML ONE (09:09)
[2018-02-09] MEDS ORDERED: MIDAZOLAM HCL 2 MG/2 ML INJ ONE (09:25)
[2018-02-09] MEDS ORDERED: LIDOCAINE 2% MPF 5 ML VIAL ONE (09:25)
[2018-02-09] MEDS ORDERED: PROPOFOL 200 MG/20 ML VIAL IV ONE ×2 (09:25→10:03)
[2018-02-09] MEDS ORDERED: CEFOXITIN/SWI 1gm 1 GM/10 ML SYR ONE (10:22)
--- NOTE | 2018-02-09 22:30 | OP ---
Date of Procedure: 02/09/2018 Surgeon: Franklin Bailey MD Preoperative Diagnosis: Right breast cancer. Postoperative Diagnosis: Right breast cancer. Procedure: Removal of left chest Port-A-Cath device. Estimated Blood Loss: Minimal. Specimen: Port-A-Cath device. Findings: Normal anatomy. Anesthesia: MAC. Complications: None. Disposition: The patient tolerated the procedure in stable condition. Taken to Recovery in good gen eral condition. Procedure In Detail: The patient was brought to the OR and placed in supine position. MAC anesthesi a was begun. The patient was prepped and draped in usual sterile fashion. Lidocaine 1% infiltrated locally. Then, a 15-blade was used to make a 3 cm incision over the Port-A-Cath. Subcutaneous tissu e divided, and then a Port-A-Cath device was identified and freed from the surrounding tissues with s harp and blunt dissection. Bleeding was controlled with cautery. The Port-A-Cath device was removed and sent to Pathology for identification. Wound was irrigated. Bleeding was controlled with cauter y. A 3-0 chromic was used to approximate the subcutaneous tissue and close the skin. Sterile dressing was applied. The patient was awakened and taken to [facility] very in good general condition. /MODL Voice ID: [id number] Report ID: [id number]
== END 2018-02-09 11:25 | disposition home or self-care (01) ==
LOC: OR 08:09
PROVIDERS: ATTEND Surgery
PROC: 0JPT0WZ Removal of Totally Implantable Vascular Access Device from Trunk Subcutaneous Tissue and Fascia, Open Approach (ICD-10-PCS; principal; 2018-02-09 09:30)
DX: Z45.2 Encounter for adjustment and management of vascular access device (principal); C50.911 Malignant neoplasm of unspecified site of right female breast; I10 Essential (primary) hypertension; E11.9 Type 2 diabetes mellitus without complications; E07.9 Disorder of thyroid, unspecified; Z88.0 Allergy status to penicillin; Z88.2 Allergy status to sulfonamides; Z88.6 Allergy status to analgesic agent
CPT/HCPCS: 36590; 82962 ×2; 88300; J2250; J2704 ×2; J7030; J0690

== ENCOUNTER 2022-07-12 19:12 | Inpatient (IN) | payer OTHER ==
--- OUTSIDE RECORDS SUMMARY | 2022-07-12 19:29 | XMS REPORT | Continuity of Care Document ---
:1950 Author Organization [facility] t Address [address] [place] [address] Care Team Providers Name Role Phone Asked, No Pcp Primary Care Physician Unavailable Samuel Burnham Attending Clinician Unavailable Swapna Castillo Attending Clinician Unavailable Tram BARBER Attending Clinician Unavailable MARAH MARTINEZ Attending Clinician Unavailable Payers Payer Name Policy Type Policy Number Effective Date Expiration Date S sharona PHILLIP C1 [id number] 2003 [facility] 00:00:00 - [facility] MEDICARE MB [id number] 2013 [facility] NOVITAS 00:00:00 - [facility] MEDICARE MB [id number] 2013 [facility] NOVITAS 00:00:00 - [facility] C1 [id number] 2003 [facility] 00:00:00 - [facility] MEDICARE MB [id number] 2013 [facility] NOVITAS 00:00:00 [facility] C1 [id number] 2003 [facility] 00:00:00 - [facility] MEDICARE MB [id number] 2013 [facility] NOVITAS 00:00:00 - [facility] C1 [id number] 2003 [facility] 00:00:00 [facility] MEDICARE MB [id number] 2013 [facility] [id number] 00:00:00 [facility] Problems Condition Condition Condition Status Onset Resolution Last Treating Co mments Source Name Details Category Date Date Treatment Clinician Date Right Right Disease Active Methodi renal mass renal mass 06-06 00:00: Hospita 00 l Age Age Problem Common related related Spirit osteoporos osteoporos - [facility] is is [facility] 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 [facility] kidney [facility] Iron Iron Problem Common deficiency deficiency Sp birdie anemia anemia, - [facility] unspecifie [facility] Hypothyroi Hypothyroi Problem C ommon dism dism [facility] Vitamin Vitamin Problem Common B12 B12 [facility] deficiency deficiency [facility] Hypertensi Hypertensi Problem C ommon on on [facility] Obesity Obesity Problem Common [facility] [id number] Type 2 Problem Common diabetes Spirit mellitus - [id number] care Problem Com mon current Spirit use of [facility] insulin [facility] [id number] Superficia Problem Co mmon l abrasion [facility] [id number] 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 [facility] breast [id number] Burn of Problem Commo n oral Spirit mucosa [facility] [id number] Oral Problem Common infection [facility] Pure Pure Problem Common hyperchole hyperchole Sp birdie sterolemia sterolemia - [facility] [id number] Memory Problem Common deficit [facility] [id number] Seasonal Problem Comm on allergies [facility] [id number] Arthritis Problem Co mmon [id number] of knee, Spirit left [facility] [id number] Estrogen Problem Comm on receptor Spirit positive - [facility] status St [ER+] [facility] Type II Type 2 Problem Common diabetes diabetes Spirit mellitus - [facility] without [facility] [id number] History of Problem Co mmon right Spirit breast - [facility] cancer [facility] [id number] Anemia, Problem Commo n unspecifie Spirit d [facility] [id number] Fatigue, Problem Commo n unspecifie Spirit d [facility] [id number] [place] [id number] dementia [facility] Allergies, Adverse Reactions, Alerts Allergy Allergy Status Severity Reaction(s) Onset Inactive Treating Comm ents Source Name Type Date Date Clinician Codeine Propensi Active DROWSY, Method i ty to 05-[address] adverse 00:00: EMERGE. Hospita reaction 00 l s to drug Meperidi Propensi Active STATES Method i ne ty to 05-[address] adverse 00:00: DURING Hospita reaction 00 ANESTHESI l s to A drug Penicill Propensi Active Rash Method i in ty to 05-09 st adverse 00:00: Hospita reaction 00 l s to drug Sulfa Propensi Active Rash Methodi (Sulfona ty to 05-09 st mide adverse 00:00: Hospita Antibiot reaction 00 l ics) s to drug codeine codeine Active Unknown Common [facility] meperidi meperidi Active Unknown Commo n ne ne [facility] amoxicil amoxicil Active Unknown Commo n luisa luisa [facility] Social History Social Habit Start Date Stop Date Quantity Comments Source History of Tobacco [facility] - [facility] Gender identity [facility] Sexual orientation [facility] History of Social 2022-05-23 2022-05-[address] function 00:00:00 00:00:00 Hospital Alcohol intake 2017-06-10 2017-06-10 Current [facility] 00:00:00 00:00:00 non-drinker of Hospital alcohol (finding) Cigarette 2017-05-09 2017-05-09 [facility] pack-years 00:00:00 00:00:00 Hospital Tobacco use and 2017-05-09 2017-05-09 Smokeless [facility] exposure 00:00:00 00:00:00 tobacco non-user Hospital Cigarettes smoked 2017-05-09 2017-05-[address] current (pack per 00:00:00 00:00:00 Hospita l ) - Reported Sex Ass[birth year] At [birth year] [facility] 00:00:00 00:00:00 Hospital Smoking Status Start Date Stop Date Source Former Smoker 2021-11-23 00:00:00 2021-11-23 00:00:00 [facility] Never Smoker [facility] - [facility] Medications Ordered Filled Start Stop Current Ordering Indication Dosage Frequency Signature Comments Components Source Medication Medication Date Date Medication? Clinician (SIG) Name Name Hyalgan 20 Hyalgan 20 2020-03 No 20mg C ommon mg mg 03-20 Spirit 00:00: - [facility] Hyalgan 20 Hyalgan 20 2020-03 No 20mg C ommon mg mg 03-20 Spirit 00:00: - [facility] Hyalgan 20 Hyalgan 20 2020-03 No 20mg C ommon mg mg 1 Spirit 00:00: - [facility] Hyalgan 20 Hyalgan 20 2020-03 No 20mg C ommon mg mg 1 Spirit 00:00: - [facility] Hyalgan 20 Hyalgan 20 2020-03 No 20mg C ommon mg mg 1 Spirit 00:00: - [facility] Hyalgan 20 Hyalgan 20 2020-03 No 20mg C ommon mg mg 03-20 Spirit 00:00: - [facility] Hyalgan 20 Hyalgan 20 2020-03 No 20mg C ommon mg mg 03-20 Spirit 00:00: - [facility] Hyalgan 20 Hyalgan 20 2020-03 No 20mg C ommon mg mg 0 Spirit 00:00: - [facility] Hyalgan 20 Hyalgan 20 2020-03 No 20mg C ommon mg mg 0 Spirit 00:00: - [facility] Hyalgan 20 Hyalgan 20 2020-03 No 20mg C ommon mg mg 0- Spirit 00:00: - [facility] Hyalgan 20 Hyalgan 20 2020-03 No 20mg C ommon mg mg 0-26 Spirit 00:00: - [facility] 00 [facility] Hyalgan 20 Hyalgan 20 2020-03 No 20mg C ommon mg mg 0-26 Spirit 00:00: - [facility] 00 [facility] Hyalgan 20 Hyalgan 20 2020-03 No 20mg C ommon mg mg 0-26 Spirit 00:00: - [facility] 00 [facility] Hyalgan 20 Hyalgan 20 2020-03 No 20mg C ommon mg mg 0-26 Spirit 00:00: - [facility] 00 [facility] Hyalgan 20 Hyalgan 20 2020-03 No 20mg C ommon mg mg 0-19 Spirit 00:00: - [facility] 00 [facility] Hyalgan 20 Hyalgan 20 2020-03 No 20mg C ommon mg mg 0-19 Spirit 00:00: - [facility] 00 [facility] Hyalgan 20 Hyalgan 20 2020-03 No 20mg C ommon mg mg 0-19 Spirit 00:00: - [facility] Hyalgan 20 Hyalgan 20 2020-03 No 20mg C ommon mg mg 0-19 Spirit 00:00: - [facility] 00 [facility] Hyalgan 20 Hyalgan 20 2020-03 No 20mg C ommon mg mg 0-19 Spirit 00:00: - [facility] Hyalgan 20 Hyalgan 20 2020-03 No 20mg C ommon mg mg 0-19 Spirit 00:00: - [facility] 00 [facility] Hyalgan 20 Hyalgan 20 2020-03 No 20mg C ommon mg mg 0-19 Spirit 00:00: - [facility] Bupivicaine Bupivicaine 2020-0 No Common Wirtz Wirtz 8-19 Spirit 00:00: - [facility] 00 [facility] Kenalog Kenalog 2020-0 No 40mg Common (Triamcinol (Triamcinol 8-19 S pirit one) one) 00:00: - [facility]I 00 [facility] Bupivicaine Bupivicaine 2020-0 No 2.5mg Common Wirtz Wirtz 8-19 Spirit 00:00: - [facility] 00 [facility] Kenalog Kenalog 2020-0 No 40mg Common (Triamcinol (Triamcinol 8-19 S pirit one) one) 00:00: - [facility]I 00 [facility] Bupivicaine Bupivicaine 2020-0 No 2.5mg Common Wirtz Wirtz 8-19 Spirit 00:00: - [facility] 00 [facility] Kenalog Kenalog 0 No 40mg Common (Triamcinol (Triamcinol 8-19 S pirit one) one) 00:00: - [facility] Bupivicaine Bupivicaine 0 No 2.5mg Common Wirtz Wirtz 8-19 Spirit 00:00: - [facility] 00 [facility] Kenalog Kenalog 0 No 40mg Common (Triamcinol (Triamcinol 8-19 S pirit one) one) 00:00: - [facility] Bupivicaine Bupivicaine 2020-0 No 2.5mg Common Wirtz Wirtz 8-19 Spirit 00:00: - [facility] Michael Kenalog 0 No 40mg Common (Triamcinol (Triamcinol 8-19 S pirit one) one) 00:00: - [facility] Bupivicaine Bupivicaine 2020-0 No 2.5mg Common Wirtz Wirtz 8-19 Spirit 00:00: - [facility] 00 [facility] Michael Kenalog 0 No 40mg Common (Triamcinol (Triamcinol 8-19 S pirit one) one) 00:00: - [facility] Bupivicaine Bupivicaine 2020-0 No 2.5mg Common Wirtz Wirtz 8-19 Spirit 00:00: - [facility] 00 [facility] Bradlyalog Kenalog 0 No 40mg Common (Triamcinol (Triamcinol 8-19 S pirit one) one) 00:00: - [facility] 00 [facility] anastrozole Yes 1mg QD Take 1 mg M ethodi (ARIMIDEX) 09-[address] 1 mg chemo 16:46: daily. Hospi ta tablet 53 l TRASTUZUMAB Yes Q21D Infuse Meth luis antonio (HERCEPTIN 09-[address] IV) 16:46: venous Hospita 53 catheter l every 21 days. Syringe Syringe Yes Na Barber as Comm on 03-22 directed Spirit 00:00: - [facility] Reli-On Reli-On Yes Na Barber as Comm on Insulin Insulin 03-22 directed Spiri t Syringe Syringe 00:00: - [facility] Keflex Keflex Yes Na Barber 1 capsule C ommon 10-09 Spirit 00:00: - [facility] Chlorhexidi Chlorhexidi Yes Na Barber 15 ML Common ne ne 7 swish and Spirit Gluconate Gluconate 00:00: spit - C HI [facility] Keflex 500 Keflex 500 No 1{capsu BID Keflex 500 MG MG 10-09 le} MG 00:00: 00 Chlorhexidi Chlorhexidi No BID Chlorhexid ne ne 10-09 ine Gluconate Gluconate 00:00: Gluconate 0.12 % 0.12 % 00 0.12 % Keflex 500 Keflex 500 No 1{capsu BID Keflex 500 MG MG 10-09 le} MG 00:00: 00 Chlorhexidi Chlorhexidi No BID Chlorhexid ne ne 10-09 ine Gluconate Gluconate 00:00: Gluconate 0.12 % 0.12 % 00 0.12 % Keflex 500 Keflex 500 No 1{capsu BID Keflex 500 MG MG 10-09 le} MG 00:00: 00 Chlorhexidi Chlorhexidi 0 No BID Chlorhexid ne ne 7 ine Gluconate Gluconate 00:00: Gluconate 0.12 % 0.12 % 00 0.12 % Chlorhexidi Chlorhexidi 0 No BID Chlorhexid ne ne 10-09 ine Gluconate Gluconate 00:00: Gluconate 0.12 % 0.12 % 00 0.12 % Keflex 500 Keflex 500 No 1{capsu BID Keflex 500 MG MG 10-09 le} MG 00:00: 00 Keflex 500 Keflex 500 No 1{capsu BID Keflex 500 MG MG 10-09 le} MG 00:00: 00 Chlorhexidi Chlorhexidi 0 No BID Chlorhexid ne ne 7 ine Gluconate Gluconate 00:00: Gluconate 0.12 % 0.12 % 00 0.12 % Chlorhexidi Chlorhexidi No BID Chlorhexid ne ne 10-09 ine Gluconate Gluconate 00:00: Gluconate 0.12 % 0.12 % 00 0.12 % Keflex 500 Keflex 500 No 1{capsu BID Keflex 500 MG MG 7-26 le} MG 00:00: 00 Chlorhexidi Chlorhexidi No BID Chlorhexid ne ne 10-09 ine Gluconate Gluconate 00:00: Gluconate 0.12 % 0.12 % 00 0.12 % Keflex 500 Keflex 500 No 1{capsu BID Keflex 500 MG MG 7-26 le} MG 00:00: 00 Chlorhexidi Chlorhexidi No BID Chlorhexid ne ne 10-09 ine Gluconate Gluconate 00:00: Gluconate 0.12 % 0.12 % 00 0.12 % Keflex 500 Keflex 500 No 1{capsu BID Keflex 500 MG MG 7-26 le} MG 00:00: 00 Anastrozole Anastrozole Yes Na Barber 1 tablet Common -13 Spirit 00:00: - [facility] 00 [facility] Cyanocobala Cyanocobala 2020- No Na Barber 1 ml Common min min 4-13 -04 Spirit 00:00: 00:00 - [facility]I 00 :00 [facility] ascorbic Yes 1000mg QD Take 1,000 M ethodi acid, 3-25 mg by vitamin C, 15:11: mouth Hospit a (vitamin C) 30 daily. l 1000 MG tablet cholecalcif Yes 1000U QD Take 1,000 Methodi fly, 3-25 Units by vitamin D3, 15:11: mouth Hospi ta (VITAMIN 30 daily. l D3) 1,000 unit tablet VITAMIN A Yes Take by Metho di ORAL 3-25 mouth. 15:11: Hospita 30 l levothyroxi Yes 75ug QD Take 75 Met hodi ne 3-25 mcg by (SYNTHROID, 15:11: mouth Hospi ta LEVOXYL) 75 30 every l mcg tablet morning. CYANOCOBALA Yes Inject as M ethodi MIN, 3-25 directed. VITAMIN 15:11: Hospita B-12, 30 l (VITAMIN B-12 INJ) lisinopril Yes 15mg QD Take 15 mg M ethodi (PRINIVIL,Z 3-[address] ESTRIL) 30 15:11: daily. Hospi ta mg tablet 30 l insulin NPH Yes 7U QD Inject 7 Me thodi (HumuLIN-N) 3-[address] 100 unit/mL 15:11: under the H ospita injection 30 skin l nightly. Levothyroxi Levothyroxi Yes Na Barber 1 tablet Common ne Sodium ne Sodium on an Spir it empty - CHI stomach in [facility] Bactroban Bactroban Yes Na Barber 1 Co mmon applicatio Spirit n to - [facility] affected [facility] Vitamin B Vitamin B Yes Na Barber not Co mmon Complex Complex defined [facility] Lisinopril Lisinopril Yes Na Barber 1 tablet Common [facility] Novolin N Novolin N Yes Na Barber 7 units Common [facility] Anastrozole Anastrozole No 1{table QD Anastrozol 1 MG 1 MG t} e 1 MG Bactroban 2 Bactroban 2 No 1{appli TID Bactroban % % cation_ 2 % to_affe cted_ar ea} Vitamin B Vitamin B No Vitamin B Complex - Complex - Complex - Cyanocobala Cyanocobala No 1{ml} Cyanocobal min 1000 min 1000 benson 1000 MCG/ML MCG/ML MCG/ML Syringe 25G Syringe 25G No Syringe X 1" 3 ML X 1" 3 ML 25G X 1" 3 ML Mupirocin 2 Mupirocin 2 No Mupirocin % % 2 % Levothyroxi Levothyroxi No QD Levothyrox ne Sodium ne Sodium ine Sodium 75 MCG 75 MCG 75 MCG Lisinopril Lisinopril No 1{table QD Lisinopril 30 MG 30 MG t} 30 MG Memantine Memantine No 1{table QD Memantine HCl 5 MG HCl 5 MG t} HCl 5 MG Levothyroxi Levothyroxi No QD Levothyrox ne Sodium ne Sodium ine Sodium 75 MCG 75 MCG 75 MCG Syringe 25G Syringe 25G No Syringe X 1" 3 ML X 1" 3 ML 25G X 1" 3 ML Lisinopril Lisinopril No 1{table QD Lisinopril 30 MG 30 MG t} 30 MG Rosuvastati Rosuvastati No 1{table Rosuvastat n Calcium n Calcium t} in Calcium 10 MG 10 MG 10 MG Cyanocobala Cyanocobala No 1{ml} Cyanocobal min 1000 min 1000 benson 1000 MCG/ML MCG/ML MCG/ML Vitamin B Vitamin B No Vitamin B Complex - Complex - Complex - BD Insulin BD Insulin No BD Insulin Syringe U/F Syringe U/F Syringe 1/2Unit 31G 1/2Unit 31G U/F X 16" 0.3 X 16" 0.3 1/2Unit ML ML 31G X 16" 0.3 ML Reli-On Reli-On No QD Reli-On Insulin Insulin Insulin Syringe 30G Syringe 30G Syringe 1 ML 1 ML 30G 1 ML Mupirocin 2 Mupirocin 2 No Mupirocin % % 2 % NovoLIN N NovoLIN N No NovoLIN N 100 UNIT/ML 100 UNIT/ML 100 UNIT/ML Anastrozole Anastrozole No 1{table QD Anastrozol 1 MG 1 MG t} e 1 MG Memantine Memantine No 1{table QD Memantine HCl 5 MG HCl 5 MG t} HCl 5 MG Bactroban 2 Bactroban 2 No 1{appli TID Bactroban % % cation_ 2 % to_affe cted_ar ea} Levothyroxi Levothyroxi No QD Levothyrox ne Sodium ne Sodium ine Sodium 75 MCG 75 MCG 75 MCG Syringe 25G Syringe 25G No Syringe X 1" 3 ML X 1" 3 ML 25G X 1" 3 ML Lisinopril Lisinopril No 1{table QD Lisinopril 30 MG 30 MG t} 30 MG Rosuvastati Rosuvastati No 1{table Rosuvastat n Calcium n Calcium t} in Calcium 10 MG 10 MG 10 MG Cyanocobala Cyanocobala No 1{ml} Cyanocobal min 1000 min 1000 benson 1000 MCG/ML MCG/ML MCG/ML Vitamin B Vitamin B No Vitamin B Complex - Complex - Complex - BD Insulin BD Insulin No BD Insulin Syringe U/F Syringe U/F Syringe 1/2Unit 31G 1/2Unit 31G U/F X 16" 0.3 X 5/16" 0.3 1/2Unit ML ML 31G X 5/16" 0.3 ML Reli-On Reli-On No QD Reli-On Insulin Insulin Insulin Syringe 30G Syringe 30G Syringe 1 ML 1 ML 30G 1 ML Mupirocin 2 Mupirocin 2 No Mupirocin % % 2 % NovoLIN N NovoLIN N No NovoLIN N 100 UNIT/ML 100 UNIT/ML 100 UNIT/ML Anastrozole Anastrozole No 1{table QD Anastrozol 1 MG 1 MG t} e 1 MG Memantine Memantine No 1{table QD Memantine HCl 5 MG HCl 5 MG t} HCl 5 MG Bactroban 2 Bactroban 2 No 1{appli TID Bactroban % % cation_ 2 % to_affe cted_ar ea} Cyanocobala Cyanocobala No 1{ml} Cyanocobal min 1000 min 1000 benson 1000 MCG/ML MCG/ML MCG/ML Levothyroxi Levothyroxi No QD Levothyrox ne Sodium ne Sodium ine Sodium 75 MCG 75 MCG 75 MCG NovoLIN N NovoLIN N No NovoLIN N 100 UNIT/ML 100 UNIT/ML 100 UNIT/ML Lisinopril Lisinopril No 1{table QD Lisinopril 30 MG 30 MG t} 30 MG Levothyroxi Levothyroxi No QD Levothyrox ne Sodium ne Sodium ine Sodium 75 MCG 75 MCG 75 MCG Bactroban 2 Bactroban 2 No 1{appli TID Bactroban % % cation_ 2 % to_affe cted_ar ea} Vitamin B Vitamin B No Vitamin B Complex - Complex - Complex - Reli-On Reli-On No QD Reli-On Insulin Insulin Insulin Syringe 30G Syringe 30G Syringe 1 ML 1 ML 30G 1 ML Memantine Memantine No 1{table QD Memantine HCl 5 MG HCl 5 MG t} HCl 5 MG Anastrozole Anastrozole No 1{table QD Anastrozol 1 MG 1 MG t} e 1 MG Rosuvastati Rosuvastati No 1{table Rosuvastat n Calcium n Calcium t} in Calcium 10 MG 10 MG 10 MG Cyanocobala Cyanocobala No Cyanocobal min 1000 min 1000 benson 1000 MCG/ML MCG/ML MCG/ML Mupirocin 2 Mupirocin 2 No Mupirocin % % 2 % Syringe 25G Syringe 25G No Syringe X 1" 3 ML X 1" 3 ML 25G X 1" 3 ML BD Insulin BD Insulin No BD Insulin Syringe U/F Syringe U/F Syringe 1/2Unit 31G 1/2Unit 31G U/F X 16" 0.3 X 07/30" 0.3 1/2Unit ML ML 31G X 16" 0.3 ML Levothyroxi Levothyroxi No QD Levothyrox ne Sodium ne Sodium ine Sodium 75 MCG 75 MCG 75 MCG Cyanocobala Cyanocobala No 1{ml} Cyanocobal min 1000 min 1000 benson 1000 MCG/ML MCG/ML MCG/ML Syringe 25G Syringe 25G No Syringe X 1" 3 ML X 1" 3 ML 25G X 1" 3 ML Memantine Memantine No 1{table QD Memantine HCl 5 MG HCl 5 MG t} HCl 5 MG NovoLIN N NovoLIN N No NovoLIN N 100 UNIT/ML 100 UNIT/ML 100 UNIT/ML Vitamin B Vitamin B No Vitamin B Complex - Complex - Complex - Mupirocin 2 Mupirocin 2 No Mupirocin % % 2 % Anastrozole Anastrozole No 1{table QD Anastrozol 1 MG 1 MG t} e 1 MG Reli-On Reli-On No QD Reli-On Insulin Insulin Insulin Syringe 30G Syringe 30G Syringe 1 ML 1 ML 30G 1 ML Levothyroxi Levothyroxi No QD Levothyrox ne Sodium ne Sodium ine Sodium 75 MCG 75 MCG 75 MCG Lisinopril Lisinopril No 1{table QD Lisinopril 30 MG 30 MG t} 30 MG Cyanocobala Cyanocobala No Cyanocobal min 1000 min 1000 benson 1000 MCG/ML MCG/ML MCG/ML Bactroban 2 Bactroban 2 No 1{appli TID Bactroban % % cation_ 2 % to_affe cted_ar ea} BD Insulin BD Insulin No BD Insulin Syringe U/F Syringe U/F Syringe 1/2Unit 31G 1/2Unit 31G U/F X 16" 0.3 X 07/30" 0.3 1/2Unit ML ML 31G X 16" 0.3 ML Rosuvastati Rosuvastati No 1{table Rosuvastat n Calcium n Calcium t} in Calcium 10 MG 10 MG 10 MG Lisinopril Lisinopril No 1{table QD Lisinopril 30 MG 30 MG t} 30 MG Rosuvastati Rosuvastati No 1{table Rosuvastat n Calcium n Calcium t} in Calcium 10 MG 10 MG 10 MG BD Insulin BD Insulin No BD Insulin Syringe U/F Syringe U/F Syringe 1/2Unit 31G 1/2Unit 31G U/F X 5/16" 0.3 X 5/16" 0.3 1/2Unit ML ML 31G X 5/16" 0.3 ML Syringe 25G Syringe 25G No Syringe X 1" 3 ML X 1" 3 ML 25G X 1" 3 ML Anastrozole Anastrozole No 1{table QD Anastrozol 1 MG 1 MG t} e 1 MG Bactroban 2 Bactroban 2 No 1{appli TID Bactroban % % cation_ 2 % to_affe cted_ar ea} Memantine Memantine No 1{table QD Memantine HCl 5 MG HCl 5 MG t} HCl 5 MG Levothyroxi Levothyroxi No Levothyrox ne Sodium ne Sodium ine Sodium 75 MCG 75 MCG 75 MCG Reli-On Reli-On No QD Reli-On Insulin Insulin Insulin Syringe 30G Syringe 30G Syringe 1 ML 1 ML 30G 1 ML Mupirocin 2 Mupirocin 2 No Mupirocin % % 2 % Cyanocobala Cyanocobala No Cyanocobal min 1000 min 1000 benson 1000 MCG/ML MCG/ML MCG/ML NovoLIN N NovoLIN N No NovoLIN N 100 UNIT/ML 100 UNIT/ML 100 UNIT/ML Vitamin B Vitamin B No Vitamin B Complex - Complex - Complex - Vitamin B Vitamin B No Vitamin B Complex - Complex - Complex - Levothyroxi Levothyroxi No Levothyrox ne Sodium ne Sodium ine Sodium 75 MCG 75 MCG 75 MCG Syringe 25G Syringe 25G No Syringe X 1" 3 ML X 1" 3 ML 25G X 1" 3 ML Lisinopril Lisinopril No 1{table QD Lisinopril 30 MG 30 MG t} 30 MG Cyanocobala Cyanocobala No 1{ml} Cyanocobal min 1000 min 1000 benson 1000 MCG/ML MCG/ML MCG/ML Anastrozole Anastrozole No 1{table QD Anastrozol 1 MG 1 MG t} e 1 MG Mupirocin 2 Mupirocin 2 No Mupirocin % % 2 % Reli-On Reli-On No QD Reli-On Insulin Insulin Insulin Syringe 30G Syringe 30G Syringe 1 ML 1 ML 30G 1 ML Memantine Memantine No 1{table QD Memantine HCl 5 MG HCl 5 MG t} HCl 5 MG Bactroban 2 Bactroban 2 No 1{appli TID Bactroban % % cation_ 2 % to_affe cted_ar ea} NovoLIN N NovoLIN N No NovoLIN N 100 UNIT/ML 100 UNIT/ML 100 UNIT/ML Rosuvastati Rosuvastati No 1{table Rosuvastat n Calcium n Calcium t} in Calcium 10 MG 10 MG 10 MG BD Insulin BD Insulin No BD Insulin Syringe U/F Syringe U/F Syringe 1/2Unit 31G 1/2Unit 31G U/F X 5/16" 0.3 X 5/16" 0.3 1/2Unit ML ML 31G X 5/16" 0.3 ML Cyanocobala Cyanocobala No Cyanocobal min 1000 min 1000 benson 1000 MCG/ML MCG/ML MCG/ML Levothyroxi Levothyroxi No Levothyrox ne Sodium ne Sodium ine Sodium 75 MCG 75 MCG 75 MCG Syringe 25G Syringe 25G No Syringe X 1" 3 ML X 1" 3 ML 25G X 1" 3 ML NovoLIN N NovoLIN N No NovoLIN N 100 UNIT/ML 100 UNIT/ML 100 UNIT/ML Mupirocin 2 Mupirocin 2 No Mupirocin % % 2 % Cyanocobala Cyanocobala No 1{ml} Cyanocobal min 1000 min 1000 benson 1000 MCG/ML MCG/ML MCG/ML Rosuvastati Rosuvastati No 1{table Rosuvastat n Calcium n Calcium t} in Calcium 10 MG 10 MG 10 MG Bactroban 2 Bactroban 2 No 1{appli TID Bactroban % % cation_ 2 % to_affe cted_ar ea} Anastrozole Anastrozole No 1{table QD Anastrozol 1 MG 1 MG t} e 1 MG Vitamin B Vitamin B No Vitamin B Complex - Complex - Complex - Levothyroxi Levothyroxi No QD Levothyrox ne Sodium ne Sodium ine Sodium 75 MCG 75 MCG 75 MCG Reli-On Reli-On No QD Reli-On Insulin Insulin Insulin Syringe 30G Syringe 30G Syringe 1 ML 1 ML 30G 1 ML Memantine Memantine No 1{table QD Memantine HCl 5 MG HCl 5 MG t} HCl 5 MG Lisinopril Lisinopril No 1{table QD Lisinopril 30 MG 30 MG t} 30 MG BD Insulin BD Insulin No BD Insulin Syringe U/F Syringe U/F Syringe 1/2Unit 31G 1/2Unit 31G U/F X 16" 0.3 X 16" 0.3 1/2Unit ML ML 31G X 5/16" 0.3 ML Cyanocobala Cyanocobala No Cyanocobal min 1000 min 1000 benson 1000 MCG/ML MCG/ML MCG/ML Cyanocobala Cyanocobala No 1{ml} Cyanocobal min 1000 min 1000 benson 1000 MCG/ML MCG/ML MCG/ML Levothyroxi Levothyroxi No QD Levothyrox ne Sodium ne Sodium ine Sodium 75 MCG 75 MCG 75 MCG Reli-On Reli-On No QD Reli-On Insulin Insulin Insulin Syringe 30G Syringe 30G Syringe 1 ML 1 ML 30G 1 ML Mupirocin 2 Mupirocin 2 No Mupirocin % % 2 % BD Insulin BD Insulin No BD Insulin Syringe U/F Syringe U/F Syringe 1/2Unit 31G 1/2Unit 31G U/F X /16" 0.3 X 16" 0.3 1/2Unit ML ML 31G X 16" 0.3 ML Lisinopril Lisinopril No 1{table QD Lisinopril 30 MG 30 MG t} 30 MG Levothyroxi Levothyroxi No QD Levothyrox ne Sodium ne Sodium ine Sodium 75 MCG 75 MCG 75 MCG Anastrozole Anastrozole No 1{table QD Anastrozol 1 MG 1 MG t} e 1 MG Rosuvastati Rosuvastati No 1{table Rosuvastat n Calcium n Calcium t} in Calcium 10 MG 10 MG 10 MG NovoLIN N NovoLIN N No NovoLIN N 100 UNIT/ML 100 UNIT/ML 100 UNIT/ML Syringe 25G Syringe 25G No Syringe X 1" 3 ML X 1" 3 ML 25G X 1" 3 ML Memantine Memantine No 1{table QD Memantine HCl 5 MG HCl 5 MG t} HCl 5 MG Cyanocobala Cyanocobala No Cyanocobal min 1000 min 1000 benson 1000 MCG/ML MCG/ML MCG/ML Cyanocobala Cyanocobala No 1{ml} Cyanocobal min 1000 min 1000 benson 1000 MCG/ML MCG/ML MCG/ML Levothyroxi Levothyroxi No QD Levothyrox ne Sodium ne Sodium ine Sodium 75 MCG 75 MCG 75 MCG Reli-On Reli-On No QD Reli-On Insulin Insulin Insulin Syringe 30G Syringe 30G Syringe 1 ML 1 ML 30G 1 ML Mupirocin 2 Mupirocin 2 No Mupirocin % % 2 % BD Insulin BD Insulin No BD Insulin Syringe U/F Syringe U/F Syringe 1/2Unit 31G 1/2Unit 31G U/F X 16" 0.3 X 16" 0.3 1/2Unit ML ML 31G X 516" 0.3 ML Lisinopril Lisinopril No 1{table QD Lisinopril 30 MG 30 MG t} 30 MG Levothyroxi Levothyroxi No QD Levothyrox ne Sodium ne Sodium ine Sodium 75 MCG 75 MCG 75 MCG Anastrozole Anastrozole No 1{table QD Anastrozol 1 MG 1 MG t} e 1 MG Rosuvastati Rosuvastati No 1{table Rosuvastat n Calcium n Calcium t} in Calcium 10 MG 10 MG 10 MG NovoLIN N NovoLIN N No NovoLIN N 100 UNIT/ML 100 UNIT/ML 100 UNIT/ML Syringe 25G Syringe 25G No Syringe X 1" 3 ML X 1" 3 ML 25G X 1" 3 ML Memantine Memantine No 1{table QD Memantine HCl 5 MG HCl 5 MG t} HCl 5 MG Cyanocobala Cyanocobala No Cyanocobal min 1000 min 1000 benson 1000 MCG/ML MCG/ML MCG/ML Lisinopril Lisinopril No 1{table QD Lisinopril 30 MG 30 MG t} 30 MG Syringe 25G Syringe 25G No Syringe X 1" 3 ML X 1" 3 ML 25G X 1" 3 ML NovoLIN N NovoLIN N No NovoLIN N 100 UNIT/ML 100 UNIT/ML 100 UNIT/ML NovoLIN N NovoLIN N No NovoLIN N 100 UNIT/ML 100 UNIT/ML 100 UNIT/ML Mupirocin 2 Mupirocin 2 No Mupirocin % % 2 % Levothyroxi Levothyroxi No QD Levothyrox ne Sodium ne Sodium ine Sodium 75 MCG 75 MCG 75 MCG Anastrozole Anastrozole No 1{table QD Anastrozol 1 MG 1 MG t} e 1 MG Reli-On Reli-On No QD Reli-On Insulin Insulin Insulin Syringe 30G Syringe 30G Syringe 1 ML 1 ML 30G 1 ML Memantine Memantine No 1{table QD Memantine HCl 5 MG HCl 5 MG t} HCl 5 MG BD Insulin BD Insulin No BD Insulin Syringe U/F Syringe U/F Syringe 1/2Unit 31G 1/2Unit 31G U/F X 5/16" 0.3 X 5/16" 0.3 1/2Unit ML ML 31G X 5/16" 0.3 ML Levothyroxi Levothyroxi No QD Levothyrox ne Sodium ne Sodium ine Sodium 75 MCG 75 MCG 75 MCG Cyanocobala Cyanocobala No Cyanocobal min 1000 min 1000 benson 1000 MCG/ML MCG/ML MCG/ML Rosuvastati Rosuvastati No 1{table Rosuvastat n Calcium n Calcium t} in Calcium 10 MG 10 MG 10 MG Cyanocobala Cyanocobala No 1{ml} Cyanocobal min 1000 min 1000 benson 1000 MCG/ML MCG/ML MCG/ML Lisinopril Lisinopril No 1{table QD Lisinopril 30 MG 30 MG t} 30 MG Syringe 25G Syringe 25G No Syringe X 1" 3 ML X 1" 3 ML 25G X 1" 3 ML NovoLIN N NovoLIN N No NovoLIN N 100 UNIT/ML 100 UNIT/ML 100 UNIT/ML NovoLIN N NovoLIN N No NovoLIN N 100 UNIT/ML 100 UNIT/ML 100 UNIT/ML Mupirocin 2 Mupirocin 2 No Mupirocin % % 2 % Levothyroxi Levothyroxi No QD Levothyrox ne Sodium ne Sodium ine Sodium 75 MCG 75 MCG 75 MCG Anastrozole Anastrozole No 1{table QD Anastrozol 1 MG 1 MG t} e 1 MG Reli-On Reli-On No QD Reli-On Insulin Insulin Insulin Syringe 30G Syringe 30G Syringe 1 ML 1 ML 30G 1 ML Memantine Memantine No 1{table QD Memantine HCl 5 MG HCl 5 MG t} HCl 5 MG BD Insulin BD Insulin No BD Insulin Syringe U/F Syringe U/F Syringe 1/2Unit 31G 1/2Unit 31G U/F X 16" 0.3 X 16" 0.3 1/2Unit ML ML 31G X 16" 0.3 ML Levothyroxi Levothyroxi No QD Levothyrox ne Sodium ne Sodium ine Sodium 75 MCG 75 MCG 75 MCG Cyanocobala Cyanocobala No Cyanocobal min 1000 min 1000 benson 1000 MCG/ML MCG/ML MCG/ML Rosuvastati Rosuvastati No 1{table Rosuvastat n Calcium n Calcium t} in Calcium 10 MG 10 MG 10 MG Cyanocobala Cyanocobala No 1{ml} Cyanocobal min 1000 min 1000 benson 1000 MCG/ML MCG/ML MCG/ML Lisinopril Lisinopril No 1{table QD Lisinopril 30 MG 30 MG t} 30 MG Syringe 25G Syringe 25G No Syringe X 1" 3 ML X 1" 3 ML 25G X 1" 3 ML NovoLIN N NovoLIN N No NovoLIN N 100 UNIT/ML 100 UNIT/ML 100 UNIT/ML NovoLIN N NovoLIN N No NovoLIN N 100 UNIT/ML 100 UNIT/ML 100 UNIT/ML Mupirocin 2 Mupirocin 2 No Mupirocin % % 2 % Levothyroxi Levothyroxi No QD Levothyrox ne Sodium ne Sodium ine Sodium 75 MCG 75 MCG 75 MCG Anastrozole Anastrozole No 1{table QD Anastrozol 1 MG 1 MG t} e 1 MG Reli-On Reli-On No QD Reli-On Insulin Insulin Insulin Syringe 30G Syringe 30G Syringe 1 ML 1 ML 30G 1 ML Memantine Memantine No 1{table QD Memantine HCl 5 MG HCl 5 MG t} HCl 5 MG BD Insulin BD Insulin No BD Insulin Syringe U/F Syringe U/F Syringe 1/2Unit 31G 1/2Unit 31G U/F X 16" 0.3 X 07/30" 0.3 1/2Unit ML ML 31G X 16" 0.3 ML Levothyroxi Levothyroxi No QD Levothyrox ne Sodium ne Sodium ine Sodium 75 MCG 75 MCG 75 MCG Cyanocobala Cyanocobala No Cyanocobal min 1000 min 1000 benson 1000 MCG/ML MCG/ML MCG/ML Rosuvastati Rosuvastati No 1{table Rosuvastat n Calcium n Calcium t} in Calcium 10 MG 10 MG 10 MG Cyanocobala Cyanocobala No 1{ml} Cyanocobal min 1000 min 1000 benson 1000 MCG/ML MCG/ML MCG/ML BD Insulin BD Insulin No BD Insulin Syringe U/F Syringe U/F Syringe 1/2Unit 31G 1/2Unit 31G U/F X 5/16" 0.3 X 5/16" 0.3 1/2Unit ML ML 31G X 5/16" 0.3 ML Rosuvastati Rosuvastati No 1{table Rosuvastat n Calcium n Calcium t} in Calcium 10 MG 10 MG 10 MG Reli-On Reli-On No QD Reli-On Insulin Insulin Insulin Syringe 30G Syringe 30G Syringe 1 ML 1 ML 30G 1 ML NovoLIN N NovoLIN N No NovoLIN N 100 UNIT/ML 100 UNIT/ML 100 UNIT/ML Immunizations Ordered Immunization Filled Immunization Date Status Commen ts Source Name Name FluAD FluAD 2021-01-23 [facility] FluAD FluAD 2021-01-23 [facility] 12:24[facility] - [facility] FluAD FluAD 2021-01-23 [facility] 12:24:[facility] - [facility] FluAD FluAD 2021-01-23 [facility] 12:24:[facility] - [facility] FluAD FluAD 2021-01-23 [facility] 12:24:[facility] - [facility] FluAD FluAD 2021-01-23 [facility] 12[facility]24:[facility] - [facility] FluAD FluAD 2021-01-23 [facility] 12:24:[facility] - [facility] FluAD FluAD 2021-01-23 [facility] 12:24:[facility] - [facility] FluAD FluAD 2021-01-23 [facility] 12:24:00 - [facility] FluAD FluAD 2021-01-23 [facility] 12:24:[facility] - [facility] Hyalgan 20 mg Hyalgan 20 mg 2021-01-09 Completed [facility] - [facility] Hyalgan 20 mg Hyalgan 20 mg 2021-01-02 Completed [facility]:27[facility] - [facility] Bupivicaine Wirtz Bupivicaine Wirtz 2020-11-02 [facility]pleted [facility] 14:02:[facility] - [facility] Kenalog Kenalog 2020-11-02 Com[facility] (Triamcinolone) (Triamcinolone) 14:02:00 - [facility] Bupivicaine Wirtz Bupivicaine Wirtz 2020-11-02 [facility]pleted [facility] 14:02:00 - [facility] Kenalog Kenalog 2020-11-02 [facility] (Triamcinolone) (Triamcinolone) 14:02:00 - [facility] Moderna COVID-19 Moderna COVID-19 2020-03-29 Completed [facility] Vaccine Vaccine 11:58:00 - [facility] Moderna COVID-19 Moderna COVID-19 2020-03-29 Completed [facility] Vacc[facility] 11:58:00 - [facility] Moderna COVID-19 Moderna COVID-19 2020-03-29 Completed [facility] Vacc[facility] 11:58:00 - [facility] Moderna COVID-19 Moderna COVID-19 2020-03-29 Completed [facility] 11:58:00 - [facility] Moderna COVID-19 Moderna COVID-19 2020-03-29 Completed [facility] 11:58:00 - [facility] Moderna COVID-19 Moderna COVID-19 2020-03-29 Completed [facility] 11:58:00 [facility] Moderna COVID-19 Moderna COVID-19 2020-03-29 Completed [facility] Vaccine 11:58:00 - [facility] Moderna COVID-19 Moderna COVID-19 2020-03-29 Completed [facility] Vacc[facility] 11:58:00 - [facility] Moderna COVID-19 Moderna COVID-19 2020-03-29 Completed [facility] Vacc[facility] 11:58:00 - [facility] Moderna COVID-19 Moderna COVID-19 2020-03-29 Completed [facility] Vacc[facility] 11:58:00 - [facility] Moderna COVID-19 Moderna COVID-19 2020-03-29 Completed [facility] Vacc[facility] 11:58:00 - [facility] Moderna COVID-19 Moderna COVID-19 2020-03-29 Completed [facility] Vacc[facility] 11:58:00 - [facility] Moderna COVID-19 Moderna COVID-19 2020-03-29 Completed [facility] 11:58:00 - [facility] FluAD FluAD 2019-12-20 [facility] 10:13:00 - [facility] FluAD FluAD 2019-12-20 [facility] 10:13:00 - [facility] FluAD FluAD 2019-12-20 [facility]pleted [facility] 10:13:00 - [facility] FluAD FluAD 2019-12-20 [facility]pleted [facility] 10:13:00 - [facility] FluAD FluAD 2019-12-20 [facility]pleted [facility] 10:13:00 - [facility] FluAD FluAD 2019-12-20 [facility]pleted [facility] 10:13:00 - [facility] FluAD FluAD 2019-12-20 [facility]pleted [facility] 10:13:00 - [facility] FluAD FluAD 2019-12-20 [facility]pleted [facility] 10:13:00 - [facility] FluAD FluAD 2019-12-20 Completed [facility] 10:13:00 - [facility] FluAD FluAD 2019-12-20 [facility]pleted [facility] 10:13:00 - [facility] FluAD FluAD 2019-12-20 [facility]pleted [facility] 10:13:00 - [facility] FluAD FluAD 2019-12-20 Completed [facility] 10:13:00 - [facility] FluAD FluAD 2019-12-20 [facility]pleted [facility] 10:13:00 - [facility] FluAD FluAD 2018-11-26 Completed [facility] 10:47:00 - [facility] FluAD FluAD 2018-11-26 Completed [facility] 10:47:00 - [facility] FluAD FluAD 2018-11-26 Completed [facility] 10:47:00 - [facility] FluAD FluAD 2018-11-26 Completed [facility] 10:47:00 - [facility] FluAD FluAD 2018-11-26 Completed [facility] 10:47:00 - [facility] FluAD FluAD 2018-11-26 Completed [facility] 10:47:00 - [facility] FluAD FluAD 2018-11-26 Completed [facility] 10:47:00 - [facility] FluAD FluAD 2018-11-26 Completed [facility] 10:47:00 - [facility] FluAD FluAD 2018-11-26 Completed [facility] 10:47:00 - [facility] FluAD FluAD 2018-11-26 Completed [facility] 10:47:00 - [facility] FluAD FluAD 2018-11-26 Completed [facility] 10:47:00 - [facility] FluAD FluAD 2018-11-26 [facility]pleted [facility] 10:47:00 - [facility] FluAD FluAD 2018-11-26 [facility]pleted [facility] 10:47:00 - [facility] FluAD FluAD 2018-11-26 [facility]pleted [facility] 00:00:00 - [facility] FluAD FluAD 2017-12-26 Completed [facility] 13:39:00 - [facility] FluAD FluAD 2017-12-26 [facility]pleted [facility] 13:39:00 - [facility] FluAD FluAD 2017-12-26 [facility]pleted [facility] 13:39:00 - [facility] FluAD FluAD 2017-12-26 [facility]pleted [facility] 13:39:00 - [facility] FluAD FluAD 2017-12-26 [facility]pleted [facility] 13:39:00 - [facility] FluAD FluAD 2017-12-26 Completed [facility] 13:39:00 - [facility] FluAD FluAD 2017-12-26 Completed [facility] 13:39:00 - [facility] FluAD FluAD 2017-12-26 Completed [facility] 13:39:00 - [facility] FluAD FluAD 2017-12-26 Completed [facility] 13:39:00 - [facility] FluAD FluAD 2017-12-26 Completed [facility] 13:39:00 - [facility] Flu 2017-12-26 Completed [facility] 13:39:00 - [facility] Flu 2017-12-26 Completed [facility] 13:39:00 - [facility] Flu 2017-12-26 Completed [facility] 13:39:00 - [facility] Vital Signs Vital Name Observation Time Observation Value Comments Source height 2021-11-23 14:00:00 61.00 [in_i] [facility] weight 2021-11-23 14:00:00 120.0 [lb_av] [facility] temperature 2021-11-23 14:00:00 97.2 [degF] [facility] bmi 2021-11-23 14:00:00 22.67 kg/m2 [facility] oximetry 2021-11-23 14:00:00 100 % [facility] respiratory rate 2021-11-23 14:00:00 18 /min Comm on [facility] blood pressure 2021-11-23 14:00:00 138 mm[Hg] [facility] - systolic [facility] blood pressure 2021-11-23 14:00:00 87 mm[Hg] [facility] - diastolic [facility] height 2021-11-23 13:40:00 61.00 [in_i] [facility] weight 2021-11-23 13:40:00 120.0 [lb_av] [facility] temperature 2021-11-23 13:40:00 97.2 [degF] [facility] bmi 2021-11-23 13:40:00 22.67 kg/m2 [facility] oximetry 2021-11-23 13:40:00 100 % [facility] respiratory rate 2021-11-23 13:40:00 18 /min Comm on [facility] blood pressure 2021-11-23 13:40:00 138 mm[Hg] [facility] - systolic [facility] blood pressure 2021-11-23 13:40:00 87 mm[Hg] [facility] - [facility] height 2021-08-21 10:40:00 61.00 [in_i] [facility] weight 2021-08-21 10:40:00 119 [lb_av] [facility] temperature 2021-08-21 10:40:00 97.9 [degF] [facility] bmi 2021-08-21 10:40:00 22.48 kg/m2 [facility] oximetry 2021-08-21 10:40:00 100 % [facility] respiratory rate 2021-08-21 10:40:00 16 /min Comm on [facility] blood pressure 2021-08-21 10:40:00 138 mm[Hg] [facility] - systolic [facility] blood pressure 2021-08-21 10:40:00 84 mm[Hg] [facility] - diastolic [facility] height 2021-07-24 11:40:00 61.00 [in_i] [facility] weight 2021-07-24 11:40:00 120.0 [lb_av] Common [facility] temperature 2021-07-24 11:40:00 97.3 [degF] [facility] bmi 2021-07-24 11:40:00 22.67 kg/m2 [facility] oximetry 2021-07-24 11:40:00 98 % [facility] respiratory rate 2021-07-24 11:40:00 18 /min [facility] on [facility] blood pressure 2021-07-24 11:40:00 160 mm[Hg] [facility] - [facility] blood pressure 2021-07-24 11:40:00 78 mm[Hg] [facility] - diastolic [facility] height 2021-04-26 13:00:00 61.00 [in_i] [facility] weight 2021-04-26 13:00:00 122.0 [lb_av] Common [facility] temperature 2021-04-26 13:00:00 98.0 [degF] [facility] bmi 2021-04-26 13:00:00 23.05 kg/m2 [facility] oximetry 2021-04-26 13:00:00 99 % [facility] respiratory rate 2021-04-26 13:00:00 18 /min Comm [facility] blood pressure 2021-04-26 13:00:00 136 mm[Hg] [facility] - systolic [facility] blood pressure 2021-04-26 13:00:00 80 mm[Hg] [facility] - diastolic [facility] height 2021-03-22 14:30:00 61.00 [in_i] [facility] 2021-[facility]-22 14:30:00 128 [lb_av] [facility] temperature 2021-03-22 14:30:00 98.7 [degF] [facility] bmi 2021-03-22 14:30:00 24.18 [facility]m2 [facility] 2021-03-22 14:30:00 136 mm[Hg] [facility] - systolic [facility] blood pressure 2021-03-22 14:30:00 74 mm[Hg] [facility] - diastolic [facility] height 2021-01-23 11:20:00 61.00 [in_i] [facility] weight 2021-01-23 11:20:00 128.8 [lb_av] [facility] temperature 2021-01-23 11:20:00 97.5 [degF] [facility] bmi 2021-01-23 11:20:00 24.33 kg/m2 [facility] oximetry 2021-01-23 11:20:00 100 % [facility] respiratory rate 2021-01-23 11:20:00 18 /min [facility] blood pressure 2021-01-23 11:20:00 132 mm[Hg] [facility] - systolic [facility] blood pressure 2021-01-23 11:20:00 78 mm[Hg] [facility] - diastolic [facility] height 2021-01-18 13:45:00 61.00 [in_i] [facility] weight 2021-01-18 13:45:00 134 [lb_av] [facility] temperature 2021-01-18 13:45:00 97.3 [degF] [facility] bmi 2021-01-18 13:45:00 25.32 kg/m2 [facility] blood pressure 2021-01-18 13:45:00 132 mm[Hg] [facility] - systolic [facility] blood pressure 2021-01-18 13:45:00 78 mm[Hg] [facility] - diastolic [facility] height 2021-01-09 14:45:00 61.00 [in_i] [facility] weight 2021-01-09 14:45:00 134 [lb_av] [facility] bmi 2021-01-09 14:45:00 25.32 kg/m2 [facility] blood pressure 2021-01-09 14:45:00 142 mm[Hg] [facility] - systolic [facility] blood pressure 2021-01-09 14:45:00 82 mm[Hg] [facility] - diastolic [facility] height 2021-01-02 14:30:00 61.00 [in_i] [facility] weight 2021-01-02 14:30:00 134 [lb_av] [facility] bmi 2021-01-02 14:30:00 25.32 kg/m2 [facility] blood pressure 2021-01-02 14:30:00 159 mm[Hg] [facility] - systolic [facility] blood pressure 2021-01-02 14:30:00 81 mm[Hg] [facility] - diastolic [facility] Procedures This patient has no known procedures. Plan of Care Planned Activity Planned Date Details Comments Source Future Scheduled 2022-06-15 Hepatitis C screening [facility] Test 18:27:26 (procedure) [code = [id number]] Future Scheduled 2022-06-15 BREAST CANCER [facility] Test 18:27:26 SCREENING [code = BREAST CANCER SCREENING] Future Scheduled 2022-06-15 COLONOSCOPY SCREENING [facility] Test 18:27:26 [code = COLONOSCOPY SCREENING] Future Scheduled 2022-06-15 SHINGLES VACCINES (1 [facility] Test 18:27:26 of 2) [code = SHINGLES VACCINES (1 of 2)] Future Scheduled 2022-06-15 65+ PNEUMOCOCCAL [facility] Test 18:27:26 VACCINE (1 - PCV) [code = 65+ PNEUMOCOCCAL VACCINE (1 - PCV)] Future Scheduled 2022-06-15 COVID-19 VACCINE (2 - [facility] Test 18:27:26 Moderna series) [code = COVID-19 VACCINE (2 - Moderna series)] Future Scheduled 2022-06-15 INFLUENZA VACCINE [facility] Test 18:27:26 [code = INFLUENZA VACCINE] Encounters Start End Encounter Admission Attending Care Care Encounter Source Date/Time Date/Time Type Type Clinicians Facility Department ID 2022-06-13 Outpatient Tej [facility] [id number] [facility] 15:08:00 [facility] [id number] [facility] 2022-05-09 [facility] [id number] 16:31:00 Samuel [id number] [facility] 2022-04-22 Outpatient Anna, STLMLC STL[facility]C [id number] [facility] 08:40:01 Swapna [id number] [facility] 2022-03-19 Outpatient BARBER, Na STLMLC STLMLC [id number] 2 [facility] 09:15:00 [id number] [facility] 2022-02-21 Outpatient Barber, Na STLMLC STLMLC [id number] 2 [facility] 10:25:00 [facility] 2021-11-21 Outpatient Barber, Na STLMLC STLMLC [id number] 2 [facility] 09:22:01 [facility] 2021-10-11 Outpatient Barber, Na STLMLC STLMLC [id number] 2 [facility] 12:00:00 [facility] 2021-08-23 Outpatient Barber, Na STLMLC STLMLC [id number] 2 [facility] 08:15:00 [facility] 2021-07-20 Outpatient Barber, Na STLMLC STLMLC [id number] 2 [facility] 09:12:01 [facility] 2021-04-11 Outpatient Barber, Na STLMLC STLMLC [id number] 2 [facility] 13:39:53 [id number] [facility] 2021-04-11 Outpatient Barber, Na STLMLC STLMLC [id number] 2 [facility] 13:35:01 [facility] 2021-04-11 Outpatient Barber, Na STLMLC STLMLC [id number] 2 [facility] 13:33:22 [facility] 2021-04-11 Outpatient Barber, Na STLMLC STLMLC [id number] 2 [facility] 13:31:32 [facility] 2021-04-11 Outpatient Barber, Na STLMLC STLMLC [id number] 2 [facility] 13:29:30 [facility] 2021-04-11 Outpatient Barber, Na STLMLC STLMLC [id number] 2 [facility] 13:25:17 [facility] 2021-04-11 Outpatient Barber, Na STLMLC STLMLC [id number] 2 [facility] 13:21:32 [id number] [facility] 2021-04-11 Outpatient Barber, Na STLMLC STLMLC [id number] 2 [facility] 12:47:27 [id number] [facility] 2021-04-11 Outpatient Barber, Na STLMLC STLMLC [id number] 2 [facility] 12:45:17 [id number] [facility] 2021-04-11 Outpatient Barber, Na STLMLC STLMLC [id number] 2 [facility] 12:17:29 [id number] [facility] 2021-04-11 Outpatient Barber, Na STLMLC STLMLC [id number] 2 [facility] 11:51:20 [id number] [facility] 2021-04-11 Outpatient Barber, Na STLMLC STLMLC [id number] 2 [facility] 11:29:14 [id number] [facility] 2021-04-11 Outpatient Barber, Na STLMLC STLMLC [id number] 2 [facility] 11:16:52 [id number] [facility] 2021-04-11 Outpatient Barber, Na STLMLC STLMLC [id number] 2 [facility] 11:16:46 [id number] [facility] 2021-04-11 Outpatient Barber, Na STLMLC STLMLC [id number] 2 [facility] 10:58:14 [id number] [facility] 2021-04-11 Outpatient Barber, Na STLMLC STLMLC [id number] 2 [facility] 10:57:37 [id number] [facility] 2022-03-15 2022-03-15 (TEL) STLMLC STLMLC [id number] [facility] 00:00:00 00:00:00 [facility] 2021-11-23 2021-11-23 SUB ANNUAL STLMLC STLMLC [id number] [facility] 00:00:00 00:00:00 MCR [facility] VISIT [facility] 2021-11-23 2021-11-23 OFFICE STLMLC STLMLC [id number] [facility] 00:00:00 00:00:00 VISIT EST Sp[facility] PT LEVEL 3 [facility] 2021-10-11 2021-10-11 (TEL) STLMLC STLMLC [id number] [facility] 00:00:00 00:00:00 [facility] 2021-08-21 2021-08-21 OFFICE STLMLC STLMLC [id number] [facility] 00:00:00 00:00:00 VISIT EST [facility] PT LEVEL 3 - [facility] 2021-07-24 2021-07-24 OFFICE STLMLC STLMLC [id number] [facility] 00:00:00 00:00:00 [facility] EST[facility] - [facility] LEVEL 4 [facility] 2021-04-26 2021-04-26 OFFICE STLMLC STLMLC [id number] [facility] 00:00:00 00:00:00 [facility] EST[facility] PT - [facility] LEVEL 4 [facility] 2021-03-22 2021-03-22 OFFICE STLMLC STLMLC [id number] [facility] 00:00:00 00:00:00 [facility] ESTAB PT - [facility] LEVEL 4 [facility] 2021-01-23 2021-01-23 OFFICE STLMLC STLMLC [id number] [facility] 00:00:00 00:00:00 [facility] ESTAB PT - [facility] LEVEL 4 [facility] 2021-01-18 2021-01-18 (IN/ASP) STLMLC STLMLC [id number] [facility] 00:00:00 00:00:00 INJ ASP [facility] 2021-01-09 2021-01-09 (IN/ASP) STLMLC STLMLC [id number] [facility] 00:00:00 00:00:00 INJ [facility] 2021-01-02 2021-01-02 OFFICE STLMLC STLMLC [id number] Co mmon 00:00:00 00:00:00 VISIT Spirit ESTAB PT - CHI LEVEL 4 [facility] 2020-12-21 2020-12-21 (TEL) STLMLC STLMLC [id number] Co mmon 00:00:00 00:00:00 Spirit - [facility]I [facility] 2020-11-02 2020-11-02 Outpatient STLMLC STLMLC [id number] Common 00:00:00 00:00:00 [facility] 2020-10-27 2020-10-27 Outpatient JUAN [facility] [id number] [place] 00:00:00 00:00:[address] 2020-10-23 2020-10-23 Outpatient STLMLC STLMLC [id number] Common 00:00:00 00:00:00 [facility] 2020-10-04 2020-10-04 Outpatient STLMLC STLMLC [id number] Common 00:00:00 00:00:00 [facility] 2020-09-19 2020-09-19 Outpatient STLMLC STLMLC [id number] Common 00:00:00 00:00:00 [facility] 2020-07-18 2020-07-18 Outpatient STLMLC STLMLC [id number] Common 00:00:00 00:00:00 [facility] 2020-06-19 2020-06-19 Outpatient STLMLC STLMLC [id number] Common 00:00:00 00:00:00 [facility] 2020-06-15 2020-06-15 Outpatient STLMLC STLMLC [id number] Common 00:00:00 00:00:00 [facility] 2020-05-18 2020-05-18 Outpatient STLMLC STLMLC [id number] Common 00:00:00 00:00:00 [facility] 2020-05-15 2020-05-15 Outpatient STLMLC STLMLC [id number] Common 00:00:00 00:00:00 [facility] 2020-05-12 2020-05-12 Outpatient STLMLC STLMLC [id number] Common 00:00:00 00:00:00 [facility] 2020-05-08 2020-05-08 Outpatient STLMLC STLMLC [id number] Common 00:00:00 00:00:00 [facility] 2020-04-04 2020-04-04 Outpatient STLMLC STLMLC [id number] Common 00:00:00 00:00:00 [facility] 2020-03-21 2020-03-21 Outpatient STLMLC STLMLC [id number] Common 00:00:00 00:00:00 [facility] 2020-02-16 2020-02-16 Outpatient STLMLC STLMLC [id number] Common 00:00:00 00:00:00 [facility] 2019-12-20 2019-12-20 Outpatient STLMLC STLMLC [id number] Common 00:00:00 00:00:00 [facility] 2019-11-12 2019-11-12 [id number] Common 15:19:00 15:19:[address] [facility] 2019-11-05 2019-11-05 [facility] [id number] Common 10:30:00 10:30:[address] [facility] 2019-09-20 2019-09-20 [facility] [id number] Common 10:00:00 10:00:[address] [facility] 2019-06-29 2019-06-29 [facility] [id number] Common 15:42:00 15:42:[address] [facility] 2019-06-29 2019-06-29 [facility] [id number] Common 11:10:00 11:10:[address] [facility] 2019-06-21 2019-06-21 [facility] [id number] Common 13:00:00 13:00:[address] [facility] 2019-03-22 2019-03-22 [facility] [id number] Common 11:20:00 11:20:[address] [facility] 2018-11-26 2018-11-26 [facility] [id number] Common 09:40:00 09:40:[address] [facility] 2018-10-29 2018-10-29 [facility] [id number] Common 12:00:00 12:00:[address] [facility] 2018-08-26 2018-08-26 [facility] [id number] Common 10:20:00 10:20:[address] [facility] 2018-07-16 2018-07-16 [facility] [id number] Common 14:57:00 14:57:[address] [facility] 2018-05-27 2018-05-27 [facility] [id number] Common 10:00:00 10:00:[address] [facility] 2018-03-27 2018-03-27 [facility] [id number] Common 09:30:00 09:30:[address] [facility] 2017-12-29 2017-12-29 [facility] [id number] Common 12:01:00 12:01:[address] [facility] 2017-10-09 2017-10-09 [facility] [id number] Common 10:45:00 10:45:[address] [facility] 2017-09-26 2017-09-26 [facility] [id number] Common 10:30:00 10:30:[address] [facility] 2017-06-27 2017-06-27 [facility] [id number] Common 09:15:00 09:15:[address] [facility] Results This patient has no known results.
[2022-07-12] MEDS ORDERED: ONDANSETRON 4 MG/2 ML VIAL ONE (19:56)
[2022-07-12] MEDS ORDERED: Ringers Lactate 1,000 ML IV ONE ×2 (19:56→23:33)
[2022-07-12] MEDS ORDERED: FAMOTIDINE 20 MG/2 ML VIAL IV ONE (19:56)
[2022-07-12 20:24] LABS: Absolute Lymphocytes (CBC) 1.4 K/uL (0.7-4.9); Hematocrit 43.7 % (36.0-45.0); Lymphocytes % 6.8 % (15.3-44.8); MCV 84.8 fL (80-100); MPV 8.3 fL (7.6-11.3); RBC Red Blood Cell Count 5.16 M/uL (3.86-4.86)
[2022-07-12 20:38] LABS: Albumin 4.1 g/dL (3.4-5.0); Bilirubin Total 0.5 mg/dL (0.2-1.0); Potassium 4.4 mEq/L (3.5-5.1); Protein, Total 8.4 g/dL (6.4-8.2)
--- NOTE | 2022-07-12 21:18 | RAD REPORT ---
EXAM DESCRIPTION: CT - Abdomen Pelvis W Contrast - 07/12/2022 8:59 pm CLINICAL HISTORY: Abdominal pain COMPARISON: 2019 TECHNIQUE: Computed axial tomography of the abdomen pelvis was obtained. 100 cc Isovue-300 was admin istered intravenously. Oral contrast was not requested which limits evaluation of bowel and appendix All CT scans are performed using dose optimization technique as appropriate and may include automated exposure control or mA/KV adjustment according to patient size. FINDINGS: The liver, spleen, pancreas, adrenal and left kidney appear unremarkable. Partial right nephrectomy. No hydronephrosis. No mass Cholecystectomy Calcification left hemidiaphragm There is no evidence of diverticulitis. Jejunum and most of the ileum is fluid-filled. The caliber is upper limits normal. Feces is present w ithin the distal ileum. IMPRESSION: Fluid throughout most of the small bowel which is upper limits normal caliber most likel y an enteritis. An early obstruction is considered less likely. If the patient's symptoms persist fol low-up abdominal plain film series would be recommended
[2022-07-12 21:58] LABS: Protime INR 0.97
--- NOTE | 2022-07-12 22:00 | ER ---
Nurse's Notes [facility] Name: More Bledsoe Age: 72 yrs Sex: Female : 1950 Arrival Date: 07/12/2022 Time: 19:12 Bed 3 Private MD: Diagnosis: Vomiting Presentation: 07/12 19:30 Chief complaint: Patient states: intermittent generalized abdominal cramping pain of pf1 10,onset 2 days. Patient denies any N/V/D, Patient stated LBM was today with normal stool. Patient FSBGL 177 with [facility] [employer]. Coronavirus screen: Vaccine status: Patient reports being unvaccinated. Client denies travel out of the [place] in the last 14 days. At this time, the client does not indicate any symptoms associated with coronavirus-19. Ebola Screen: Patient negative for fever greater than or equal to 101.5 degrees Fahrenheit, and additional compatible Ebola Virus Disease symptoms. Initial Sepsis Screen: Does the patient meet any 2 criteria? No. Patient's initial sepsis screen is negative. Does the patient have a suspected source of infection? No. Patient's initial sepsis screen is negative. Risk Assessment: Do you want to hurt yourself or someone else? Patient reports no desire to harm self or others. Onset of symptoms was July 10, 2022. 19:30 Method Of Arrival: EMS: [facility] pf1 19:30 Acuity: KAMALJIT 3 pf1 Historical: - Allergies: 19:33 Codeine; pf1 19:33 Demerol; pf1 19:33 PENICILLINS; pf1 19:33 Sulfa (Sulfonamide Antibiotics); pf1 - PMHx: 19:33 BREAST CA; Diabetes - IDDM; Hypertension; pf1 07/13 10:28 Alzheimer's disease; aa5 - PSHx: 07/12 19:42 bilateral breast mastectomy; Cholecystectomy; pf1 - Immunization history:: Adult Immunizations up to date, Client reports having NOT received the Covid vaccine. Last tetanus immunization: < 5 years ago. - Social history:: Smoking status: Patient denies any tobacco usage or history of. Screenin:10 [facility] ED Fall Risk Assessment (Adult) Score/Fall Risk Level 0 - 2 = Low Risk. Abuse as6 screen: Denies threats or abuse. Denies injuries from another. Nutritional screening: No deficits noted. Tuberculosis screening: No symptoms or risk factors identified. Assessment: 20:11 General: Appears ill, slender, Behavior is calm, cooperative. Pain: Denies pain. Neuro: as6 Level of Consciousness is awake, alert, obeys commands, Oriented to person, place, time, situation. GI: Reports nausea, vomiting. 21:29 Reassessment: Patient states symptoms have improved. as6 23:53 General: Son (Jake) [phone]. as6 Vital Signs: 19:30 BP 155 / 84; Pulse 71; Resp 18; Temp 97.9; Pulse Ox 100% on R/A; Weight 68.04 kg; pf1 Height 5 ft. 1 in. ; Pain 10/10; 20:10 BP 142 / 72; Pulse 74; Resp 18 S; Pulse Ox 100% on R/A; as6 21:26 BP 154 / 79; Pulse 85; Resp 18 S; Pulse Ox 100% on R/A; as6 22:30 BP 148 / 77; Pulse 76; Resp 18 S; Pulse Ox 100% on R/A; as6 23:30 BP 145 / 89; Pulse 73; Resp 20 S; Pulse Ox 99% on R/A; as6 07/13 00:30 BP 161 / 70; Pulse 77; Resp 18 S; Pulse Ox 100% on R/A; as6 01:30 BP 152 / 73; Pulse 72; Resp 18 S; Pulse Ox 100% on R/A; as6 07/12 19:30 Body Mass Index 28.34 (68.04 kg, 154.94 cm) pf1 07/12 19:30 Pain Scale: Adult pf1 ED Course: 07/12 19:29 Patient arrived in ED. as6 19:33 Triage completed. pf1 19:38 Stephon Reynolds PA is PHCP. [facility] 19:38 Monroe Schaffer MD is Attending Physician. [facility] 19:51 Marco Mcneil, SHONA is Primary Nurse. as6 20:08 Inserted saline lock: 22 gauge in right forearm, using aseptic technique. Blood as6 collected. 20:10 Arm band placed on. as6 20:10 Placed in gown. Bed in low position. Call light in reach. Side rails up X 1. Adult w/ as6 patient. Pulse ox on. NIBP on. Warm blanket given. 21:00 CT Abd/Pelvis - IV Contrast Only In Process Unspecified. [facility]CA 21:59 Monroe Schaffer MD is Hospitalizing Provider. [facility] 21:59 Srinivas Archibald MD is Hospitalizing Provider. [facility] 07/13 01:17 Bed in low position. Call light in reach. Side rails up X2. Client placed on continuous wm cardiac and pulse oximetry monitoring. NIBP monitoring applied. Pulse ox on. Assisted to bathroom. Assisted with dressing. Cleaned of incontinence. 01:36 No provider procedures requiring assistance completed. Patient admitted, IV remains in as6 place. Administered Medications: 07/12 20:09 Drug: Famotidine IVP 20 mg Route: IVP; Site: right forearm; 07/13 04:31 Follow up: Response: No adverse reaction [facility] 07/12 20:09 Drug: Ondansetron IVP 4 mg Route: IVP; Site: right forearm; 07/13 04:31 Follow up: Response: No adverse reaction [facility] 07/12 20:09 Drug: Lactated Ringers Solution IV 500 ml Route: IV; Rate: 500 bolus; Site: right as6 forearm; 07/13 04:31 Follow up: Response: No adverse reaction; IV Status: Completed infusion; IV Intake: as6 500ml 07/12 22:20 Drug: metroNIDAZOLE IVPB 500 mg Volume: 100 ml; Route: IVPB; Rate: 200 ml/hr; Infused as6 Over: 30 mins; Site: right forearm; 07/13 04:30 Follow up: Response: No adverse reaction; IV Status: Completed infusion; IV Intake: as6 100ml 07/12 22:28 CANCELLED (Other Intervention Used): Lactated Ringers Solution IV 1000 ml IV at 500 la1 bolus continuous 22:31 Drug: Lactated Ringers Solution IV 500 ml Route: IV; Rate: 150 bolus; Site: right as6 forearm; 07/13 04:30 Follow up: Response: No adverse reaction; IV Status: Completed infusion; IV Intake: as6 500ml 07/12 23:24 Drug: Ciprofloxacin IVPB 400 mg Volume: 200 ml; Route: IVPB; Infused Over: 60 mins; jb4 Site: right wrist; 07/13 04:30 Follow up: Response: No adverse reaction; IV Status: Completed infusion; IV Intake: as6 200ml 07/12 23:32 Drug: Lactated Ringers Solution IV 1000 ml Route: IV; Rate: 126 ml/hr; Site: right jb4 wrist; 07/13 04:30 Follow up: Response: No adverse reaction; IV Status: Infusion continued upon admission; as6 IV Intake: 200ml Medication: 01:36 VIS not applicable for this client. as6 Intake: 04:30 IV: 200ml; Total: 200ml. as6 04:30 IV: 500ml; Total: 700ml. as6 04:30 IV: 100ml; Total: 800ml. as6 04:30 IV: 200ml; Total: 1000ml. as6 04:31 IV: 500ml; Total: 1500ml. as6 Outcome: 07/12 21:59 Decision to Hospitalize by Provider. [facility] 07/13 01:36 Admitted to ER Hold. Please see [facility] for further documentation. as6 Condition: stable Instructed on the need for admit. 16:02 Patient left the ED. iw Signatures: Dispatcher [employer] EDMS Stephon Reynolds PA PA Alissa Pretty, RN SHONA iw Delores Turner RN RN desi5 Jeff Arias RN RN [email or web address] [address] Ashby, RN RN as6 Cassy thomas RN RN pf1 [place] [facility]
--- NOTE | 2022-07-12 22:00 | EDPHYS ---
Physician Documentation [facility] Name: More Bledsoe Age: 72 yrs Sex: Female : 1950 Arrival Date: 07/12/2022 Time: 19:12 Bed 3 Private MD: ED Physician Monroe Schaffer HPI: 07/12 21:58 This 72 yrs old Female presents to ER via EMS with complaints of abdominal pain, jmm vomiting. 21:58 The patient presents with abdominal pain. Onset: The symptoms/episode began/occurred jmm acutely, today. The symptoms do not radiate. Historical: - Allergies: 19:33 Codeine; pf1 19:33 Demerol; pf1 19:33 PENICILLINS; pf1 19:33 Sulfa (Sulfonamide Antibiotics); pf1 - PMHx: 19:33 BREAST CA; Diabetes - IDDM; Hypertension; pf1 07/13 10:28 Alzheimer's disease; aa5 - PSHx: 07/12 19:42 bilateral breast mastectomy; Cholecystectomy; pf1 - Immunization history:: Adult Immunizations up to date, Client reports having NOT received the Covid vaccine. Last tetanus immunization: < 5 years ago. - Social history:: Smoking status: Patient denies any tobacco usage or history of. ROS: 07/13 02:50 Constitutional: Positive for body aches. jmm Abdomen/GI: Positive for abdominal pain, nausea and vomiting. All other systems are negative. Exam: 02:50 Head/Face: atraumatic. Eyes: EOMI, no conjunctival erythema appreciated ENT: Moist jmm Mucus Membranes Neck: Trachea midline, Supple Chest/axilla: Normal chest wall appearance and motion. Cardiovascular: Regular rate and rhythm. No edema appreciated Respiratory: Normal respirations, no respiratory distress appreciated 02:50 Back: Normal ROM Skin: General appearance color normal MS/ Extremity: Moves all extremities, no obvious deformities appreciated, no edema noted to the lower extremities Neuro: Awake and alert Psych: Behavior is normal, Mood is normal, Patient is cooperative and pleasant 02:50 Constitutional: The patient appears alert, awake, anxious, in obvious pain. 02:50 Abdomen/GI: Inspection: abdomen appears normal, Bowel sounds: normal, Palpation: soft, mild abdominal tenderness, in all quadrants. Vital Signs: 07/12 19:30 BP 155 / 84; Pulse 71; Resp 18; Temp 97.9; Pulse Ox 100% on R/A; Weight 68.04 kg; pf1 Height 5 ft. 1 in. ; Pain 10/10; 20:10 BP 142 / 72; Pulse 74; Resp 18 S; Pulse Ox 100% on R/A; as6 21:26 BP 154 / 79; Pulse 85; Resp 18 S; Pulse Ox 100% on R/A; as6 22:30 BP 148 / 77; Pulse 76; Resp 18 S; Pulse Ox 100% on R/A; as6 23:30 BP 145 / 89; Pulse 73; Resp 20 S; Pulse Ox 99% on R/A; as6 07/13 00:30 BP 161 / 70; Pulse 77; Resp 18 S; Pulse Ox 100% on R/A; as6 01:30 BP 152 / 73; Pulse 72; Resp 18 S; Pulse Ox 100% on R/A; as6 07/12 19:30 Body Mass Index 28.34 (68.04 kg, 154.94 cm) pf1 07/12 19:30 Pain Scale: Adult pf1 MDM: 07/12 19:38 Patient medically screened. [facility] 07/13 02:51 Differential diagnosis: appendicitis, bowel obstruction, cholecystitis, Cholelithiasis, [facility] diverticulitis, gastritis, Mesenteric ischemia or infarction, non-specific abd pain, pancreatitis, Peptic Ulcer Disease. Data reviewed: vital signs, nurses notes. Consideration of Admission/Observation Patient was admitted/placed on observation. Management of patient was discussed with the following: Hospitalist: [place]. I considered the following discharge prescriptions or medication management in the emergency department Medications were administered in the Emergency Department. See MAY. 07/12 19:42 Order name: CBC with Diff; Complete Time: 22:11 [facility] 07/12 19:42 Order name: CMP; Complete Time: 20:41 [facility] 07/12 19:42 Order name: Lipase; Complete Time: 20:41 [facility] 07/12 20:38 Order name: Lactate w/ 2H reflex if indic.; Complete Time: 22:09 [facility] 07/12 20:38 Order name: Blood Culture Adult (2) [facility] 07/12 20:38 Order name: PT-INR; Complete Time: 21:59 [facility] 07/12 21:58 Order name: C.difficile la1 07/12 21:58 Order name: Stool Culture nv1 07/12 21:58 Order name: Ova And Parasites [facility] 07/12 22:11 Order name: CBC Smear Scan; Complete Time: 22:11 [facility] 07/13 02:57 Order name: CBC with Automated Diff; Complete Time: 02:57 [facility] 07/13 03:19 Order name: Basic Metabolic Panel [facility] 07/13 03:19 Order name: T4 Free [facility] 07/13 03:19 Order name: Magnesium [facility] 07/13 03:19 Order name: Thyroid Stimulating Hormone [facility] 07/13 06:41 Order name: Lactate Sepsis 2 HR Follow-up [facility] 07/13 07:50 Order name: Glucose, Ancillary Testing [facility] 07/13 11:20 Order name: Urinalysis w/ reflexes [facility] 07/13 11:50 Order name: Glucose, Ancillary Testing [facility] 07/12 20:38 Order name: CT Abd/Pelvis - IV Contrast Only; Complete Time: 21:19 [facility] 07/13 08:18 Order name: RAD [facility] 07/12 19:42 Order name: IV Saline Lock; Complete Time: 20:08 [facility] 07/12 19:42 Order name: Labs collected and sent; Complete Time: 20:08 [facility] Administered Medications: 07/12 20:09 Drug: Famotidine IVP 20 mg Route: IVP; Site: right forearm; 07/13 04:31 Follow up: Response: No adverse reaction 07/12 20:09 Drug: Ondansetron IVP 4 mg Route: IVP; Site: right forearm; 07/13 04:31 Follow up: Response: No adverse reaction 07/12 20:09 Drug: Lactated Ringers Solution IV 500 ml Route: IV; Rate: 500 bolus; Site: right as6 forearm; 07/13 04:31 Follow up: Response: No adverse reaction; IV Status: Completed infusion; IV Intake: as6 500ml 07/12 22:20 Drug: metroNIDAZOLE IVPB 500 mg Volume: 100 ml; Route: IVPB; Rate: 200 ml/hr; Infused as6 Over: 30 mins; Site: right forearm; 07/13 04:30 Follow up: Response: No adverse reaction; IV Status: Completed infusion; IV Intake: as6 100ml 07/12 22:28 CANCELLED (Other Intervention Used): Lactated Ringers Solution IV 1000 ml IV at 500 la1 bolus continuous 22:31 Drug: Lactated Ringers Solution IV 500 ml Route: IV; Rate: 150 bolus; Site: right as6 forearm; 07/13 04:30 Follow up: Response: No adverse reaction; IV Status: Completed infusion; IV Intake: as6 500ml 07/12 23:24 Drug: Ciprofloxacin IVPB 400 mg Volume: 200 ml; Route: IVPB; Infused Over: 60 mins; jb4 Site: right wrist; 07/13 04:30 Follow up: Response: No adverse reaction; IV Status: Completed infusion; IV Intake: as6 200ml 07/12 23:32 Drug: Lactated Ringers Solution IV 1000 ml Route: IV; Rate: 126 ml/hr; Site: right jb4 wrist; 07/13 04:30 Follow up: Response: No adverse reaction; IV Status: Infusion continued upon admission; as6 IV Intake: 200ml Disposition: 03:33 Co-signature as Attending Physician, Monroe Schaffer MD I agree with the assessment sp4 and plan of care. I reviewed the patient's care provided by the Advanced Practice Provider and agree with the diagnosis and treatment plan. Disposition Summary: 07/12/22 21:59 Hospitalization Ordered Hospitalization Status: Observation [facility] Provider: Srinivas Archibald Condition: Stable jmm Problem: new jmm Symptoms: have improved jmm Bed/Room Type: Standard [facility] Location: [facility] ER HOLD(07/12/22 22:59) Room Assignment: ERHOLD-(07/12/22 22:59) cg Diagnosis - Vomiting jmm Forms: - Medication Reconciliation Form jmm - SBAR form jmm Signatures: Dispatcher [employer] EDMS Stephon Reynolds PA PA jmm Delores Turner RN RN aa5 [place], INVOICE CLASSIFICATION CLERK-C INVOICE CLASSIFICATION CLERK-Cla1 Adriana Basurto RN RN cg Jeff Arias RN RN jb4 Marco Mcneil RN RN as6 Cassy thomas RN RN pf1 Monroe Schaffer MD MD sp4 Corrections: (The following items were deleted from the chart) 07/12 22:28 22:28 Lactated Ringers Solution IV 1000 ml IV at 500 bolus continuous ordered. la1 la1 22:59 21:59 Telemetry/MedSurg (observation) [facility] :59 [facility]
[2022-07-12 22:10] LABS: Platelet Estimate ADEQ; White Blood Cell Scan OK (OK)
[2022-07-12 22:11] LABS: Blood Morphology Comment NOT SEEN (NOT SEEN)
[2022-07-12] MEDS ORDERED: CIPROFLOXACIN 400mg IV 400 MG/200 ML BAG IV ONE (22:12)
[2022-07-12] MEDS ORDERED: METRONIDAZOLE 500mg IVPB 500 MG/100 ML BAG IV ONE (22:12)
--- NOTE | 2022-07-12 23:30 | P.HP ---
Certification for Inpatient Patient admitted to: Inpatient With expected LOS: >2 Midnights Patient will require the following post-hospital care: None Practitioner: I am a practitioner with admitting privileges, knowledge of patient current condition, hospital course, and medical plan of care. Services: Services provided to patient in accordance with Admission requirements found in Title 42 Section 412.3 of the Code of Federal Regulations Patient History Date of Service: 07/12/22 Reason for admission: Enteritis History of Present Illness: 72-year-old female with history of breast cancer status post bilateral mastectomy, insulin-dependent diabetes, hypertension presents to the emergency department with chief complaint of nausea/vomiting/diarrhea/abdominal pain she has been having symptoms for the past few days, she does report having a mild illness approximately 2 weeks ago at that time she had taken 3 to 4 days of some amoxicillin that she had at home. She was evaluated in the emergency department her labs were significant for leukocytosis with a white blood cell count of 20.5 sodium 132 Leukos 197 lactic acid initially two-point [address] of the abdomen pelvis was performed which revealed fluid throughout most of the small bowel which is upper limits normal caliber most likely an enteritis. An early obstruction was considered less likely. If the patient's symptoms persist follow-up abdominal plain film series would be recommended. Currently only SIRS criteria present is leukocytosis, no tachycardia tachypnea or fevers. She is given antibiotics Cipro/Flagyl blood cultures were obtained, have also ordered C. difficile, stool culture, O&P. Will admit for further evaluation and management of enteritis. Allergies Penicillins Allergy (Verified 02/09/18 09:34) Hives/Rash Sulfa (Sulfonamide Antibiotics) Allergy (Verified 02/09/18 09:34) Rash codeine Adverse Reaction (Verified 02/09/18 09:34) hyper, agitated meperidine [From Demerol] Adverse Reaction (Verified 02/09/18 09:34) "made me run all over, then cldnt move,could hear everthing" Home Medications: Ascorbic Acid [Vitamin C] 500 mg PO DAILY 08/20/16 Aspirin [Aspirin EC 81 MG] 81 mg PO DAILY 08/20/16 Cholecalciferol (Vitamin D3) [Vitamin D] 400 unit PO DAILY 08/20/16 Cyanocobalamin [B12 Injection] 1,000 mcg IM ONCE 08/20/16 Ferrous Fumarate/Vit Bcomp&C [Super B-Complex Caplet] 1 each PO DAILY 08/20/16 Folic Acid 0.4 mg PO DAILY 08/20/16 Garlic 1,000 mg PO DAILY 08/20/16 Insulin NPH Human [Novolin N (Humulin N)*] 7 units SQ DAILY AFTER SUPPER 08/20/16 Levothyroxine Sodium 75 mcg PO DAILY 08/20/16 Lisinopril [Zestril] 15 mg PO [id number] 08/20/16 Potassium Gluconate 500 mg PO DAILY 08/20/16 Vitamin A 8,000 unit PO DAILY 08/20/16 Vitamin E (Dl,Tocopheryl Acet) [Vitamin E] 400 unit PO DAILY 08/20/16 - Past Medical/Surgical History -: Insulin-dependent diabetes -: History of breast cancer -: Hypertension -: Bilateral mastectomy -: Cholecystectomy Psychosocial/ Personal History: Patient lives at home with her - Family History Mother -: Diabetes - Social History Smoking Status: Never smoker Alcohol use: No CD- Drugs: No Caffeine use: Yes Place of Residence: Home Review of Systems 10-point ROS is otherwise unremarkable Gastrointestinal: Nausea, Vomiting, Abdominal Pain, Diarrhea Physical Examination - Physical Exam General: Alert, In no apparent distress, Oriented x3 HEENT: Atraumatic, PERRLA, Mucous membr. moist/pink, EOMI, Sclerae nonicteric Neck: Supple, 2+ carotid pulse no bruit, No LAD, Without JVD or thyroid abnormality Respiratory: Clear to auscultation bilaterally, Normal air movement Cardiovascular: Regular rate/rhythm, Normal S1 S2 Gastrointestinal: No tenderness, Tenderness (Mild generalized abdominal tenderness) Musculoskeletal: No tenderness Integumentary: No rashes Neurological: Normal speech, Normal strength at 5/5 x4 extr, Normal tone, Normal affect - Studies Laboratory Data (last 24 hrs) 07/12/22 21:23: PT 10.7, INR 0.97 07/12/22 20:01: Sodium 132 L, Potassium 4.4, BUN 21 H, Creatinine 0.92, Glucose 197 H, Total Bilirubin 0.5, AST 27, ALT 26, Alkaline Phosphatase 90, Lipase 37 07/12/22 20:01: WBC 20.50 H, Hgb 14.9, Hct 43.7, Plt Count 254 Assessment and Plan - Plan Assessment: Enteritis, leukocytosis Diabetes mellitus type 2insulin-dependent Hypertension Plan: Enteritis, leukocytosis Marked leukocytosis noted, patient does report vomiting/diarrhea has also taken 3 days of oral antibiotics. Will test for C. difficile, cover with antibiotics Cipro/Flagyl, continue IV fluids. KUB in the morning. N.p.o. for today. Only SIRS criteria present currently as leukocytosis does not meet sepsis criteria. Diabetes mellitus type 2insulin-dependent ACHS Accu-Chek, sliding scale insulin. Hypertension Continue home medications when appropriate. DVT PPX: Lovenox Code status: Full Discharge Plan: Home Plan to discharge in: 48 Hours - Advance Directives Does patient have a Living Will: No Does patient have a Durable POA for Healthcare: No - Code Status/Comfort Care Code Status Assessed: Yes (Full code) Critical Care: No Time Spent Managing Pts Care (In Minutes): 55
[2022-07-13] MEDS: Ringers Lactate 1,000 ML IV SCH ×2 (01:14→08:14)
[2022-07-13] MEDS ORDERED: ACETAMINOPHEN 500 MG TAB PO PRN (01:14)
[2022-07-13] MEDS ORDERED: MORPHINE 2 MG/ML SYR IV PRN (01:14)
[2022-07-13] MEDS ORDERED: ONDANSETRON 4 MG/2 ML VIAL IV PRN (01:14)
[2022-07-13] MEDS ORDERED: METRONIDAZOLE 500mg IVPB 500 MG/100 ML BAG IV SCH ×2 (01:14→08:00)
[2022-07-13 02:51] LABS: Hematocrit 34.7 % (36.0-45.0); Lymphocytes % 8.8 % (15.3-44.8); MCV 84.3 fL (80-100); MPV 8.2 fL (7.6-11.3); RBC Red Blood Cell Count 4.12 M/uL (3.86-4.86)
[2022-07-13 03:04] VITALS: BMI 28.3
[2022-07-13 03:15] LABS: Magnesium 1.6 mg/dL (1.6-2.4); Potassium 3.8 mEq/L (3.5-5.1); Thyroid Stimulating Hormone 2.18 uIU/mL (0.358-3.740)
[2022-07-13] MEDS: INSULIN -REGULAR HUMAN 50 UNIT/0.5 ML ML SQ SCH ×2 (07:30→11:30)
--- NOTE | 2022-07-13 08:07 | P.PN ---
Date of Service: 07/13/22 Subjective: Feeling much better today; wants to go home no nausea / vomiting no abdominal pain ROS: 10 point ROS as noted above, otherwise negative Physical Exam: GEN: Alert, oriented, NAD HEENT: Normal conjunctiva, sclera anicteric CV: Regular rate and rhythm, no edema Pulm: Nonlabored respirations on room air ABD: Soft, Mild generalized abdominal tenderness, nondistended MSK: No joint tenderness Integumentary: No rashes Neuro: Normal speech, normal affect vitals reviewed Problem List: Enteritis, leukocytosis [id number] Hypertension Enteritis, leukocytosis Marked leukocytosis noted; patient does report vomiting/diarrhea has also taken 3 days of oral antibiotics. C. difficile Continue Cipro/Flagyl continue IVF KUB pending NPO [id number] continue sliding scale insulin Hypertension Continue home medications when appropriate VTE: Lovenox Code: Full Dispo: Home 24-48hrs
[2022-07-13] MEDS ORDERED: CIPROFLOXACIN 400mg IV 400 MG/200 ML BAG IV ONE (08:08)
[2022-07-13] MEDS ORDERED: METRONIDAZOLE 500mg IVPB 500 MG/100 ML BAG IV ONE (08:08)
[2022-07-13] MEDS ORDERED: Ringers Lactate 1,000 ML IV ONE (08:09)
--- NOTE | 2022-07-13 08:18 | RAD REPORT ---
EXAM DESCRIPTION: RAD - Abdomen 1 View (KUB) - 07/13/2022 7:29 am CLINICAL HISTORY: eval bowel gas pattern COMPARISON: Abdomen Pelvis W Contrast dated 07/12/2022 TECHNIQUE: Single AP view of the abdomen. FINDINGS: Mild gaseous distention along small bowel loops in the right hemiabdomen. No air-fluid lev els, free air, or pneumatosis. Mild stool burden along the ascending colon No suspicious calcificatio ns. No significant bony abnormality. IMPRESSION: Mild gaseous distention of small bowel loops in the right hemiabdomen.
[2022-07-13] MEDS ORDERED: CIPROFLOXACIN 400mg IV 400 MG/200 ML BAG IV SCH (09:00)
[2022-07-13] MEDS ORDERED: RIVASTIGMINE 9.5 MG/24 HR PATCH TD SCH (10:46)
[2022-07-13 11:20] LABS: Specific Gravity 1.028 (1.005-1.030); Urine Bacteria None Seen /HPF (<20); Urine Bilirubin NEGATIVE (Negative); Urine Blood Negative (Negative); Urine Clarity Clear (Clear); Urine Color Light-Yellow (Yellow); Urine Glucose NEGATIVE (Negative); Urine Mucus Slight /HPF (None Seen); Urine Protein TRACE (Negative); Urine RBC <5 /HPF (None Seen); Urine Urobilinogen Normal (Normal)
[2022-07-13 13:25] VITALS: BP 162/70; TEMP 98.2
[2022-07-13 14:46] LABS: C.diff Antigen/Toxin Ag neg : Tox neg (NEG : NEG)
--- NOTE | 2022-07-13 14:55 | P.DS ---
Admission Date: 07/12/22 Discharge Date: 07/13/22 Disposition: ROUTINE DISCHARGE Discharge Condition: GOOD Reason for Admission: Enteritis Brief History of Present Illness: 72yo F, PMH: breast cancer status post bilateral mastectomy, insulin-dependent diabetes, hypertension Patient presents to the emergency department with chief complaint of nausea/vomiting/diarrhea/abdominal pain she has been having symptoms for the past few days, she does report having a mild illness approximately 2 weeks ago at that time she had taken 3 to 4 days of some amoxicillin that she had at home. She was evaluated in the emergency department her labs were significant for leukocytosis with a white blood cell count of 20.5 sodium 132 Leukos 197 lactic acid initially two-point [address] of the abdomen pelvis was performed which revealed fluid throughout most of the small bowel which is upper limits normal caliber most likely an enteritis. An early obstruction was considered less likely. If the patient's symptoms persist follow-up abdominal plain film series would be recommended. Currently only SIRS criteria present is leukocytosis, no tachycardia tachypnea or fevers. She is given antibiotics Cipro/Flagyl blood cultures were obtained, have also ordered C. difficile, stool culture, O&P. Will admit for further evaluation and management of enteritis. Hospital Course: Problem List: Enteritis, leukocytosis [id number] Hypertension Patient presented with abdominal pain, nausea, and diarrhea. CT abdomen noted enteritis. She was treated with IV fluids, antibiotics, and bowel rest. She had quick improvement. WBC improved from 20k to 12k, remained afebrile. Her diet was advanced and she was tolerating full liquid diet without nausea/pain. Stool was formed and she only had 2 BMs on day of discharge. Patient and family felt she was doing much better and requesting to be discharged home. Cdiff was ordered and sent, however stool was formed. Doubt c. diff. Given her significant /quick improvement and will be monitored by family, I think it is reasonable to discharge home. Return precautions given. Complete 7 days of cipro and flagyl. Recommend daily over the counter probiotic while on antibiotics. Follow up: PCP within 1 week Physical Exam: GEN: Alert, oriented, NAD HEENT: Normal conjunctiva, sclera anicteric CV: Regular rate and rhythm, no edema Pulm: Nonlabored respirations on room air ABD: Soft, Mild generalized abdominal tenderness, nondistended Integumentary: No rashes Neuro: Normal speech, normal affect Vital Signs/Physical Exam: Temp Pulse Resp BP Pulse Ox 98.2 F 69 16 162/70 H 98 07/13/22 12:00 07/13/22 12:00 07/13/22 12:00 07/13/22 12:00 07/13/22 12:00 Laboratory Data at Discharge: WBC 11.60 thou/uL (4.3-10.9) H 07/13/22 02:28 Hgb 12.0 g/dL (12.0-15.0) D 07/13/22 02:28 Hct 34.7 % (36.0-45.0) L 07/13/22 02:28 Plt Count 231 thou/uL (152-406) 07/13/22 02:28 PT 10.7 SECONDS (9.5-12.5) 07/12/22 21:23 INR 0.97 07/12/22 21:23 Sodium 135 mEq/L (136-145) L 07/13/22 02:28 Potassium 3.8 mEq/L (3.5-5.1) D 07/13/22 02:28 BUN 16 mg/dL (7-18) 07/13/22 02:28 Creatinine 0.65 mg/dL (0.55-1.02) 07/13/22 02:28 Glucose 207 mg/dL (74-106) H 07/13/22 02:28 Magnesium 1.6 mg/dL (1.6-2.4) 07/13/22 02:28 Total Bilirubin 0.5 mg/dL (0.2-1.0) 07/12/22 20:01 AST 27 U/L (15-37) 07/12/22 20:01 ALT 26 U/L (13-56) 07/12/22 20:01 Alkaline Phosphatase 90 U/L (45-117) 07/12/22 20:01 Lipase 37 U/L (13-75) 07/12/22 20:01 Home Medications: Ciprofloxacin HCl [Cipro 500 MG Tablet] 500 mg PO BID 7 Days #14 tab 07/13/22 Rivastigmine Patch [Exelon 9.5 mg Patch] 9.5 mg DAILY 07/13/22 metroNIDAZOLE [Flagyl] 500 mg PO Q8H 7 Days #21 tab 07/13/22 New Medications: Ciprofloxacin HCl [Cipro 500 MG Tablet] 500 mg PO BID 7 Days #14 tab metroNIDAZOLE [Flagyl] 500 mg PO Q8H 7 Days #21 tab Physician Discharge Instructions: Patient presented with abdominal pain, nausea, and diarrhea. CT abdomen noted enteritis. She was treated with IV fluids, antibiotics, and bowel rest. She had quick improvement. WBC improved from 20k to 12k, remained afebrile. Her diet was advanced and she was tolerating full liquid diet without nausea/pain. Stool was formed and she only had 2 BMs on day of discharge. Patient and family felt she was doing much better and requesting to be discharged home. Cdiff was ordered and sent, however stool was formed. Doubt c. diff. Given her significant /quick improvement and will be monitored by family, I think it is reasonable to discharge home. Return precautions given. Complete 7 days of cipro and flagyl. Recommend daily over the counter probiotic while on antibiotics. Follow up: PCP within 1 week Time spent managing pt's care (in minutes): 45
[2022-07-13 16:28] VITALS: O2SAT 100
== END 2022-07-13 16:00 | disposition home or self-care (01) | DRG 392 ==
LOC: ER 19:12 → ERHOLD 22:47
PROVIDERS: ADMIT Hospitalist; ATTEND Hospitalist
DX: K52.9 Noninfective gastroenteritis and colitis, unspecified (principal); E11.9 Type 2 diabetes mellitus without complications; I10 Essential (primary) hypertension; D72.829 Elevated white blood cell count, unspecified; Z79.82 Long term (current) use of aspirin; Z79.4 Long term (current) use of insulin; Z79.899 Other long term (current) drug therapy; Z88.0 Allergy status to penicillin; Z88.2 Allergy status to sulfonamides; Z88.5 Allergy status to narcotic agent; Z88.6 Allergy status to analgesic agent; Z85.3 Personal history of malignant neoplasm of breast; Z90.13 Acquired absence of bilateral breasts and nipples; Z90.49 Acquired absence of other specified parts of digestive tract; Z28.310 Unvaccinated for COVID-19; Z83.3 Family history of diabetes mellitus
CPT/HCPCS: 36415; 74018; 74177; 80048; 80053; 81001; 82947; 83605; 83690; 83735; 84439; 84443; 85025; 85610; 87040; 87045; 87046; 87177; 87209; 87324; 99285; J0744; J2405; J7120; Q9967

== ENCOUNTER 2023-01-30 22:24 | Inpatient (IN) | payer OTHER ==
--- OUTSIDE RECORDS SUMMARY | 2023-01-30 22:30 | XMS REPORT | Continuity of Care Document ---
:1950 Author Organization [facility] t Address [address] [place] [address]. [address] [place] [address] Care Team Providers Name Role Phone Asked, No Pcp Primary Care Physician Unavailable Samuel Burnham Attending Clinician Unavailable Swapna Castillo Attending Clinician Unavailable Tram BARBER Attending Clinician Unavailable MARAH MARTINEZ Attending Clinician Unavailable Payers Payer Name Policy Type Policy Number Effective Date Expiration Date S sharona C1 [id number] 2003 [facility] 00:00:00 - [facility] MEDICARE MB [id number] 2013 [facility] NOVITAS 00:00:00 - [facility] MEDICARE MB [id number] 2013 [facility] NOVITAS 00:00:00 - [facility] C1 [id number] 2003 [facility] 00:00:00 - [facility] MEDICARE MB [id number] 2013 [facility] NOVITAS 00:00:00 - [facility] C1 [id number] 2003 [facility] 00:00:00 [facility] MEDICARE MB [id number] 2013 [facility] [id number] 00:[facility]:00 [facility] MEDICARE MB [id number] 2013 [facility] [id number] 00:[facility]:00 [facility] Problems Condition Condition Condition Status Onset Resolution Last Treating Co mments Source Name Details Category Date Date Treatment Clinician Date Right Right Disease Active [facility] renal mass renal mass 06-06 [facility] 00:00: [facility]ospita 00 l Age Age Problem Common related related Spirit osteoporos osteoporos - [facility] is is [facility] 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 - [facility] kidney, [facility] renal Medical pelvis Center Iron Iron (Fe) Problem Common deficiency deficiency Sp birdie anemia anemia - [facility] Essential Essential Problem Com mon hypertensi (primary) Spi rit on hypertensi - [facility] on [facility] [id number] Type 2 Problem Common diabetes Spirit mellitus - [facility] with [facility] Hypothyroi Hypothyroi Problem C ommon dism dism [facility] Vitamin Vitamin Problem Common B12 B12 Spirit deficiency deficiency - [facility] Hypertensi Hypertensi Problem C ommon on on [facility] Obesity Obesity Problem Common [facility] [id number] Type 2 Problem Common diabetes Spirit mellitus - [facility] [id number] continuous churn buttermaker Problem Com mon current Spirit use of - [facility]I insulin [facility] [id number] Superficia Problem Co mmon l abrasion Spirit [facility] [id number] 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[facility] of right Medical female Center breast [id number] Burn of Problem Commo n oral Spirit mucosa - [facility] [id number] Oral Problem Common infection [facility] Pure Pure Problem Common hyperchole hyperchole Sp birdie sterolemia sterolemia - [facility] [id number] Memory Problem Common deficit [facility] [id number] Seasonal Problem Comm on allergies [facility] [id number] Arthritis Problem Co mmon [id number] of knee, Spirit left [facility] [id number] Estrogen Problem Comm on receptor Spirit positive - [facility] status St [ER+] [facility] Type II Type 2 Problem Common diabetes diabetes [facility] mellitus - [facility] without St complicati [facility] [id number] History of Problem Co mmon right Spirit breast - [facility] cancer [facility] [id number] Anemia, Problem Commo n unspecifie Spirit d type [facility] [id number] Fatigue, Problem Commo n unspecifie Spirit d type [facility] [id number] [place] [id number] dementia [facility] Allergies, Adverse Reactions, Alerts Allergy Allergy Status [...] to drug codeine codeine Active Unknown Common [facility] meperidi meperidi Active Unknown Commo n ne ne [facility] amoxicil amoxicil Active Unknown Commo n luisa luisa [facility] Social History Social Habit Start Date Stop Date Quantity Comments Source Gender identity [facility] History of Tobacco [facility] - Use [facility] Sexual orientation [facility] History of Social 2018-01-27 2018-01-[address] function 00:00:00 00:00:00 Hospital Alcohol intake 2017-06-10 2017-06-10 Current [facility] 00:00:00 00:00:00 non-drinker of Hospital alcohol (finding) Tobacco use and 2017-05-09 2017-05-09 Smokeless [facility] exposure 00:00:00 00:00:00 tobacco non-user Hospital Cigarette 2017-05-09 2017-05-09 [facility] pack-years 00:00:00 00:00:00 Hospital Cigarettes smoked 2017-05-09 2017-05-[address] current (pack per 00:00:00 00:00:00 [facility] l ) - Reported Sex Ass[birth year] At [birth year] [facility] 00:00:00 00:00:00 Hospital Smoking Status Start Date Stop Date Source Former Smoker 2022-06-19 00:00:00 2022-06-19 00:00:00 Common S pirit [facility] Never Smoker Common [facility] Medications Ordered Filled Start Stop Current Ordering Indication Dosage Frequency Signature Comments Components Source Medication Medication Date Date Medication? Clinician (SIG) Name Name Hyalgan 20 Hyalgan 20 2020-03 No 20mg C ommon mg mg 03-20 Spirit 00:00: - [facility] Hyalgan 20 Hyalgan 20 2020-03 No 20mg C ommon mg mg 03-20 Spirit 00:00: - [facility] Hyalgan 20 Hyalgan 20 2020-03 No 20mg C ommon mg mg 03-20 Spirit 00:00: - [facility] Hyalgan 20 Hyalgan 20 2020-03 No 20mg C ommon mg mg 03-20 Spirit 00:00: - [facility] Hyalgan 20 Hyalgan 20 2020-03 No 20mg C ommon mg mg 03-20 Spirit 00:00: - [facility] Hyalgan 20 Hyalgan 20 2020-03 No 20mg C ommon mg mg 03-20 Spirit 00:00: - [facility] Hyalgan 20 Hyalgan 20 2020-03 No 20mg C ommon mg mg 03-20 Spirit 00:00: - [facility] Hyalgan 20 Hyalgan 20 2020-03 No 20mg C ommon mg mg 03-20 Spirit 00:00: - [facility] Hyalgan 20 Hyalgan 20 2020-03 No 20mg C ommon mg mg 03-20 Spirit 00:00: - [facility]I 00 [facility] Hyalgan 20 Hyalgan 20 2020-03 No 20mg C ommon mg mg 1 Spirit 00:00: - [facility] Hyalgan 20 Hyalgan 20 2020-03 No 20mg C ommon mg mg 0- Spirit 00:00: - [facility] Hyalgan 20 Hyalgan 20 2020-03 No 20mg C ommon mg mg 0- Spirit 00:00: - [facility]I 00 [facility] Hyalgan 20 Hyalgan 20 2020-03 No 20mg C ommon mg mg 0- Spirit 00:00: - [facility] Hyalgan 20 Hyalgan 20 2020-03 No 20mg C ommon mg mg 0- Spirit 00:00: - [facility] Hyalgan 20 Hyalgan 20 2020-03 No 20mg C ommon mg mg 0- Spirit 00:00: - [facility] Hyalgan 20 Hyalgan 20 2020-03 No 20mg C ommon mg mg 0- Spirit 00:00: - [facility] Hyalgan 20 Hyalgan 20 2020-03 No 20mg C ommon mg mg 0- Spirit 00:00: - [facility] Hyalgan 20 Hyalgan 20 2020-03 No 20mg C ommon mg mg 0- Spirit 00:00: - [facility] Hyalgan 20 Hyalgan 20 2020-03 No 20mg C ommon mg mg 0- Spirit 00:00: - [facility] Hyalgan 20 Hyalgan 20 2020-03 No 20mg C ommon mg mg 0- Spirit 00:00: - [facility]I 00 [facility] Hyalgan 20 Hyalgan 20 2020-03 No 20mg C ommon mg mg 0- Spirit 00:00: - [facility] Hyalgan 20 Hyalgan 20 2020-03 No 20mg C ommon mg mg 0- Spirit 00:00: - [facility]I 00 [facility] Hyalgan 20 Hyalgan 20 2020-03 No 20mg C ommon mg mg 0-19 Spirit 00:00: - [facility]I 00 [facility] Hyalgan 20 Hyalgan 20 2021-1 No 20mg C ommon mg mg 0-19 Spirit 00:00: - [facility]I 00 [facility] Hyalgan 20 Hyalgan 20 2020-1 No 20mg C ommon mg mg 0-19 Spirit 00:00: - [facility]I 00 [facility] Hyalgan 20 Hyalgan 20 2020-1 No 20mg C ommon mg mg 0-19 Spirit 00:00: - [facility]I 00 [facility] Hyalgan 20 Hyalgan 20 2020-1 No 20mg C ommon mg mg 0-19 Spirit 00:00: - [facility]I 00 [facility] Hyalgan 20 Hyalgan 20 2020-1 No 20mg C ommon mg mg 0-19 Spirit 00:00: - [facility]I 00 [facility] Hyalgan 20 Hyalgan 20 1 No 20mg C ommon mg mg 0-19 Spirit 00:00: - CHI 00 [facility] Hyalgan 20 Hyalgan 20 1 No 20mg C ommon mg mg 0-19 Spirit 00:00: - CHI 00 [facility] Bupivicaine Bupivicaine 2020-0 No Common [place] 8-19 Spirit 00:00: - CHI 00 [facility] Kenalog Kenalog 2020-0 No 40mg Common (Triamcinol (Triamcinol 8-19 S pirit one) one) 00:00: - CHI 00 [facility] Bupivicaine Bupivicaine 2020-0 No 2.5mg Common [place] 8-19 Spirit 00:00: - CHI 00 [facility] Kenalog Kenalog 2020-0 No 40mg Common (Triamcinol (Triamcinol 8-19 S pirit one) one) 00:00: - CHI 00 [facility] Bupivicaine Bupivicaine 2020-0 No 2.5mg Common [place] 8-19 Spirit 00:00: - CHI 00 [facility] Kenalog Kenalog 2020-0 No 40mg Common (Triamcinol (Triamcinol 8-19 S pirit one) one) 00:00: - CHI 00 [facility] Bupivicaine Bupivicaine 2020-0 No 2.5mg Common [place] 8-19 Spirit 00:00: - CHI 00 [facility] Kenalog Kenalog 2020-0 No 40mg Common (Triamcinol (Triamcinol 8-19 S pirit one) one) 00:00: - CHI 00 [facility] Bupivicaine Bupivicaine 2020-0 No 2.5mg Common [place] 8-19 Spirit 00:00: - CHI 00 [facility] Kenalog Kenalog 2020-0 No 40mg Common (Triamcinol (Triamcinol 8-19 S pirit one) one) 00:00: - CHI 00 [facility] Bupivicaine Bupivicaine 2020-0 No 2.5mg Common [place] 8-19 Spirit 00:00: - CHI 00 [facility] Kenalog Kenalog 2020-0 No 40mg Common (Triamcinol (Triamcinol 8-19 S pirit one) one) 00:00: - CHI 00 [facility] Bupivicaine Bupivicaine 2020-0 No 2.5mg Common [place] 8-19 Spirit 00:00: - CHI 00 [facility] Kenalog Kenalog 2020-0 No 40mg Common (Triamcinol (Triamcinol 8-19 S pirit one) one) 00:00: - CHI 00 [facility] Bupivicaine Bupivicaine 2020-0 No 2.5mg Common [place] 8-19 Spirit 00:00: - CHI 00 [facility] Kenalog Kenalog 2020-0 No 40mg Common (Triamcinol (Triamcinol 8-19 S pirit one) one) 00:00: - CHI 00 [facility] Bupivicaine Bupivicaine 2020-0 No 2.5mg Common [place] 8-19 Spirit 00:00: - CHI 00 [facility] Kenalog Kenalog 2020-0 No 40mg Common (Triamcinol (Triamcinol 8-19 S pirit one) one) 00:00: - CHI 00 [facility] Bupivicaine Bupivicaine 2020-0 No 2.5mg Common [place] 8-19 Spirit 00:00: - CHI 00 [facility] Kenalog Kenalog 2020-0 No 40mg Common (Triamcinol (Triamcinol 8-19 S pirit one) one) 00:00: - CHI [facility] anastrozole 0 Yes 1mg QD Take 1 mg M ethodi (ARIMIDEX) 09-[address] 1 mg chemo 16:46: daily. Hospi ta tablet 53 l TRASTUZUMAB 2020-0 Yes Q21D Infuse Meth luis atnonio (HERCEPTIN 09-[address] IV) 16:46: venous Hospita 53 catheter l every 21 days. anastrozole Yes 1mg QD Take 1 mg M ethodi (ARIMIDEX) 09-[address] 1 mg chemo 16:46: daily. Hospi ta tablet 53 l TRASTUZUMAB 0 Yes Q21D Infuse Meth luis antonio (HERCEPTIN 09-[address] IV) 16:46: venous Hospita 53 catheter l every 21 days. Syringe Syringe Yes Na Barber as Comm on 03-22 directed Spirit 00:00: - CH[facility] Reli-On Reli-On Yes Na Barber as Comm on Insulin Insulin 03-22 directed Spiri t Syringe Syringe 00:00: - CHI [facility] Keflex Keflex 0 Yes Na Barber 1 capsule C ommon 10-09 Spirit 00:00: - [facility] Chlorhexidi Chlorhexidi 0 Yes Na Barber 15 ML Common ne ne 10-09 swish and Spirit Gluconate Gluconate 00:00: spit - C HI [facility] Keflex 500 Keflex 500 No 1{capsu BID Keflex 500 MG MG 10-09 le} MG 00:00: 00 Chlorhexidi Chlorhexidi 0 No BID Chlorhexid ne ne 10-09 ine Gluconate Gluconate 00:00: Gluconate 0.12 % 0.12 % 00 0.12 % Keflex 500 Keflex 500 0 No 1{capsu BID Keflex 500 MG MG - le} MG 00:00: 00 Chlorhexidi Chlorhexidi 2017-0 No BID Chlorhexid ne ne 10-09 ine Gluconate Gluconate 00:00: Gluconate 0.12 % 0.12 % 00 0.12 % Keflex 500 Keflex 500 0 No 1{capsu BID Keflex 500 MG MG [...] No 1{capsu BID Keflex 500 MG MG 7- le} MG 00:00: 00 Keflex 500 Keflex 500 No 1{capsu BID Keflex 500 MG MG 7- le} MG 00:00: 00 Chlorhexidi Chlorhexidi No BID Chlorhexid ne ne 10-09 ine Gluconate Gluconate 00:00: Gluconate 0.12 % 0.12 % 00 0.12 % Chlorhexidi Chlorhexidi No BID Chlorhexid ne ne 10-09 ine Gluconate Gluconate 00:00: Gluconate 0.12 % 0.12 % 00 0.12 % Keflex 500 Keflex 500 No 1{capsu BID Keflex 500 MG MG - le} MG 00:00: 00 Chlorhexidi Chlorhexidi No BID Chlorhexid ne ne 10-09 ine Gluconate Gluconate 00:00: Gluconate 0.12 % 0.12 % 00 0.12 % Keflex 500 Keflex 500 No 1{capsu BID Keflex 500 MG MG - le} MG 00:00: 00 Chlorhexidi Chlorhexidi No BID Chlorhexid ne ne 10-09 ine Gluconate Gluconate 00:00: Gluconate 0.12 % 0.12 % 00 0.12 % Keflex 500 Keflex 500 No 1{capsu BID Keflex 500 MG MG - le} MG 00:00: 00 Anastrozole Anastrozole Yes Na Barber 1 tablet Common 06-27 Spirit 00:00: - CHI 00 [facility] Cyanocobala Cyanocobala 0 2020- No Na Barber 1 ml Common min min 06-27-04 Spirit 00:00: 00:00 - CHI 00 :00 [facility] ascorbic 0 Yes 1000mg QD Take 1,000 M ethodi acid, 3-25 mg by vitamin C, 15:11: mouth Hospit a (vitamin C) 30 daily. l 1000 MG tablet cholecalcif 0 Yes 1000U QD Take 1,000 Methodi fly, 3-25 Units by vitamin D3, 15:11: mouth Hospi ta (VITAMIN 30 daily. l D3) 1,000 unit tablet VITAMIN A 0 Yes Take by Metho di ORAL 3-[address] 15:11: Hospita 30 l levothyroxi 2018-0 Yes 75ug QD Take 75 Met hodi ne 3-[address] (SYNTHROID, 15:11: mouth Hospi ta LEVOXYL) 75 30 every l mcg tablet morning. CYANOCOBALA 0 Yes Inject as M ethodi MIN, 3-[address] VITAMIN 15:11: Hospita B-12, 30 l (VITAMIN B-12 INJ) lisinopril Yes 15mg QD Take 15 mg M ethodi (PRINIVIL,Z 3-[address] ESTRIL) 30 15:11: daily. Hospi ta mg tablet 30 l insulin NPH Yes 7U QD Inject 7 Me thodi (HumuLIN-N) 3-[address] 100 unit/mL 15:11: under the H ospita injection 30 skin l nightly. ascorbic 0 Yes 1000mg QD Take 1,000 M ethodi acid, 3-25 mg by vitamin C, 15:11: mouth Hospit a (vitamin C) 30 daily. l 1000 MG tablet cholecalcif 20180 Yes 1000U QD Take 1,000 Methodi fly, 3-25 Units by vitamin D3, 15:11: mouth Hospi ta (VITAMIN 30 daily. l D3) 1,000 unit tablet VITAMIN A 0 Yes Take by Metho di ORAL 3-[address] 15:11: Hospita 30 l levothyroxi 2018-0 Yes 75ug QD Take 75 Met hodi ne 3-[address] (SYNTHROID, 15:11: mouth Hospi ta LEVOXYL) 75 30 every l mcg tablet morning. CYANOCOBALA 2017-0 Yes Inject as M ethodi MIN, 3-[address] VITAMIN 15:11: Hospita B-12, 30 l (VITAMIN B-12 INJ) lisinopril 2018-0 Yes 15mg QD Take 15 mg M [...] Spir it empty - CHI stomach in [facility] Bactroban Bactroban Yes Na Barber 1 Co mmon applicatio Spirit n to - CHI affected [facility] Vitamin B Vitamin B Yes Na Barber not Co mmon Complex Complex defined [facility] Lisinopril Lisinopril Yes Na Barber 1 tablet Common [facility] Novolin N Novolin N Yes Na Barber 7 units Common [facility] Anastrozole Anastrozole No 1{table QD Anastrozol 1 [...] 1/2Unit 31G U/F X 5/16" 0.3 X 516" 0.3 1/2Unit ML ML 31G X 5/16" [...] Syringe 1/2Unit 31G 1/2Unit 31G U/F X 516" 0.3 X 16" 0.3 1/2Unit ML ML [...] 16" 0.3 1/2Unit ML ML 31G X /16" 0.3 ML Lisinopril Lisinopril No 1{table QD [...] 1/2Unit 31G U/F X 5/16" 0.3 X 516" 0.3 1/2Unit ML ML 31G X 5/16" 0.3 ML Lisinopril Lisinopril No 1{table QD [...] 1/2Unit 31G U/F X 5/16" 0.3 X 516" 0.3 1/2Unit ML ML 31G X 516" 0.3 ML Levothyroxi Levothyroxi No QD Levothyrox [...] 1 ML 1 ML 30G 1 ML Rosuvastati Rosuvastati No 1{table Rosuvastat n Calcium n Calcium t} in Calcium 10 MG 10 MG 10 MG Levothyroxi Levothyroxi No QD Levothyrox ne Sodium ne Sodium ine Sodium 75 MCG 75 MCG 75 MCG NovoLIN N NovoLIN N No NovoLIN N 100 UNIT/ML 100 UNIT/ML 100 UNIT/ML Memantine Memantine No 1{table QD Memantine HCl [...] 3 ML 25G X 1" 3 ML Levothyroxi Levothyroxi No QD Levothyrox ne Sodium ne Sodium ine Sodium 75 MCG 75 MCG 75 MCG Mupirocin 2 Mupirocin 2 No Mupirocin % % 2 % Lisinopril Lisinopril No 1{table QD Lisinopril 30 MG 30 MG t} 30 MG Cyanocobala Cyanocobala No Cyanocobal min 1000 min 1000 benson 1000 MCG/ML MCG/ML MCG/ML Anastrozole Anastrozole No 1{table QD Anastrozol 1 MG 1 MG t} e 1 MG Reli-On Reli-On No QD Reli-On Insulin Insulin Insulin Syringe 30G Syringe 30G Syringe 1 ML 1 ML 30G 1 ML Rosuvastati Rosuvastati No 1{table Rosuvastat n Calcium n Calcium t} in Calcium 10 MG 10 MG 10 MG Levothyroxi Levothyroxi No QD Levothyrox ne Sodium ne Sodium ine Sodium 75 MCG 75 MCG 75 MCG NovoLIN N NovoLIN N No NovoLIN N 100 UNIT/ML 100 UNIT/ML 100 UNIT/ML Memantine Memantine No 1{table QD Memantine HCl 5 MG HCl 5 MG t} HCl 5 MG BD Insulin BD Insulin No BD Insulin Syringe U/F Syringe U/F Syringe 1/2Unit 31G 1/2Unit 31G U/F X /16" 0.3 X /16" 0.3 1/2Unit ML ML 31G X 516" 0.3 ML Syringe 25G Syringe 25G No Syringe X 1" 3 ML X 1" 3 ML 25G X 1" 3 ML Levothyroxi Levothyroxi No QD Levothyrox ne Sodium ne Sodium ine Sodium 75 MCG 75 MCG 75 MCG Mupirocin 2 Mupirocin 2 No Mupirocin % % 2 % Lisinopril Lisinopril No 1{table QD Lisinopril 30 MG 30 MG t} 30 MG Cyanocobala Cyanocobala No Cyanocobal min 1000 min 1000 benson 1000 MCG/ML MCG/ML MCG/ML Anastrozole Anastrozole No 1{table QD Anastrozol 1 MG 1 MG t} e 1 MG Reli-On Reli-On No QD Reli-On Insulin Insulin Insulin Syringe 30G Syringe 30G Syringe 1 ML 1 ML 30G 1 ML Rosuvastati Rosuvastati No 1{table Rosuvastat n Calcium n Calcium t} in Calcium 10 MG 10 MG 10 MG Levothyroxi Levothyroxi No QD Levothyrox ne Sodium ne Sodium ine Sodium 75 MCG 75 MCG 75 MCG NovoLIN N NovoLIN N No NovoLIN N 100 UNIT/ML 100 UNIT/ML 100 UNIT/ML Memantine Memantine No 1{table QD Memantine HCl [...] 3 ML 25G X 1" 3 ML Levothyroxi Levothyroxi No QD Levothyrox ne Sodium ne Sodium ine Sodium 75 MCG 75 MCG 75 MCG Mupirocin 2 Mupirocin 2 No Mupirocin % % 2 % BD Insulin BD Insulin No BD Insulin Syringe U/F Syringe U/F Syringe 1/2Unit 31G 1/2Unit 31G U/F X 07/30" 0.3 X 07/30" 0.3 1/2Unit ML ML 31G X 07/30" 0.3 ML Rosuvastati Rosuvastati No 1{table Rosuvastat n Calcium n Calcium t} in Calcium 10 MG 10 MG 10 MG Reli-On Reli-On No QD Reli-On Insulin Insulin Insulin Syringe 30G Syringe 30G Syringe 1 ML 1 ML 30G 1 ML NovoLIN N NovoLIN N No NovoLIN N 100 UNIT/ML 100 UNIT/ML 100 UNIT/ML Immunizations Ordered Filled Immunization Date Status Comments [facility] Immunization Name Name FluAD FluAD 2021-01-23 Completed [facility] 12:24:00 - [facility] FluAD FluAD 2021-01-23 Completed [facility] 12:24:00 - [facility] FluAD FluAD 2021-01-23 Completed [facility] 12:24:00 - [facility] FluAD FluAD 2021-01-23 Completed [facility] 12:24:00 - [facility] FluAD FluAD 2021-01-23 Completed [facility] 12:24:00 - [facility] FluAD FluAD 2021-01-23 Completed [facility] 12:24:00 - [facility] FluAD FluAD 2021-01-23 Completed [facility] 12:24:00 - [facility] FluAD FluAD 2021-01-23 Completed [facility] 12:24:00 - [facility] FluAD FluAD 2021-01-23 Completed [facility] 12:24:00 - [facility] FluAD FluAD 2021-01-23 Completed [facility] 12:24:00 - [facility] Hyalgan 20 mg Hyalgan 20 mg 2021-01-09 Completed Common S pirit 15:42:00 - [facility] Hyalgan 20 mg Hyalgan 20 mg 2021-01-02 Completed Common S pirit 15:27:00 - [facility] Bupivicaine [place] Bupivicaine [place] 2020-11-02 Completed [facility] 14:02:00 - [facility] Kenalog Kenalog 2020-11-02 Completed [facility] (Triamcinolone) (Triamcinolone) 14:02:00 - [facility] Bupivicaine [place] Bupivicaine [place] 2020-11-02 Completed [facility] 14:02:00 - [facility] Kenalog Kenalog 2020-11-02 Completed [facility] (Triamcinolone) (Triamcinolone) 14:02:00 - [facility] Moderna COVID-19 Moderna COVID-19 2020-03-29 Completed Co mmon [facility] Vaccine Vaccine 11:58:00 - [facility] Moderna COVID-19 Moderna COVID-19 2020-03-29 Completed Co mmon [facility] Vaccine Vaccine 11:58:00 - [facility] Moderna COVID-19 Moderna COVID-19 2020-03-29 Completed Co mmon [facility] Vaccine Vaccine 11:58:00 - [facility] Moderna COVID-19 Moderna COVID-19 2020-03-29 Completed Co mmon [facility] Vaccine Vaccine 11:58:00 - [facility] Moderna COVID-19 Moderna COVID-19 2020-03-29 Completed Co mmon [facility] Vaccine Vaccine 11:58:00 - [facility] Moderna COVID-19 Moderna COVID-19 2020-03-29 Completed Co mmon [facility] Vaccine Vaccine 11:58:00 - [facility] Moderna COVID-19 Moderna COVID-19 2020-03-29 Completed Co mmon [facility] Vaccine Vaccine 11:58:00 - [facility] Moderna COVID-19 Moderna COVID-19 2020-03-29 Completed Co mmon [facility] Vaccine Vaccine 11:58:00 - [facility] Moderna COVID-19 Moderna COVID-19 2020-03-29 Completed Co mmon [facility] Vaccine Vaccine 11:58:00 - [facility] Moderna COVID-19 Moderna COVID-19 2020-03-29 Completed Co mmon [facility] Vaccine Vaccine 11:58:00 - [facility] Moderna COVID-19 Moderna COVID-19 2020-03-29 Completed Co mmon [facility] Vaccine Vaccine 11:58:00 - [facility] Moderna COVID-19 Moderna COVID-19 2020-03-29 Completed Co mmon [facility] Vaccine Vaccine 11:58:00 - [facility] Moderna COVID-19 Moderna COVID-19 2020-03-29 Completed Co mmon [facility] Vaccine Vaccine 11:58:00 - [facility] FluAD FluAD 2019-12-20 Completed [facility] 10:13:00 - [facility] FluAD FluAD 2019-12-20 Completed [facility] 10:13:00 - [facility] FluAD FluAD 2019-12-20 Completed [facility] 10:13:00 - [facility] FluAD FluAD 2019-12-20 Completed [facility] 10:13:00 - [facility] FluAD FluAD 2019-12-20 Completed [facility] 10:13:00 - [facility] FluAD FluAD 2019-12-20 Completed [facility] 10:13:00 - [facility] FluAD FluAD 2019-12-20 Completed [facility] 10:13:00 - [facility] FluAD FluAD 2019-12-20 Completed [facility] 10:13:00 - [facility] FluAD FluAD 2019-12-20 Completed [facility] 10:13:00 - [facility] FluAD FluAD 2019-12-20 Completed [facility] 10:13:00 - [facility] FluAD FluAD 2019-12-20 Completed [facility] 10:13:00 - [facility] FluAD FluAD 2019-12-20 Completed [facility] 10:13:00 - [facility] FluAD FluAD 2019-12-20 Completed [facility] 10:13:00 - [facility] FluAD FluAD 2018-11-26 Completed [facility] 10:47:00 - [facility] FluAD FluAD 2018-11-26 Completed [facility] 10:47:00 - [facility] FluAD FluAD 2018-11-26 Completed [facility] 10:47:00 - [facility] FluAD FluAD 2018-11-26 Completed [facility] 10:47:00 - [facility] FluAD FluAD 2018-11-26 [facility] 10:47:00 - [facility] FluAD FluAD 2018-11-26 Completed [facility] 10:47:00 - [facility] FluAD FluAD 2018-11-26 Completed [facility] 10[facility]47:00 - [facility] FluAD FluAD 2018-11-26 Completed [facility] 10:47:00 - [facility] FluAD FluAD 2018-11-26 Completed [facility] 10:47:00 - [facility] FluAD FluAD 2018-11-26 [facility]pleted [facility] 10:47:00 - [facility] FluAD FluAD 2018-11-26 [facility]pleted [facility] 10[facility]47:00 - [facility] FluAD FluAD 2018-11-26 [facility]pleted [facility] 10:47:00 - [facility] FluAD FluAD 2018-11-26 Completed [facility] 10:47:00 - [facility] FluAD FluAD 2018-11-26 Completed [facility] 00:00:00 - [facility] FluAD FluAD 2017-12-26 Completed [facility] 13:39:00 - [facility] FluAD FluAD 2017-12-26 [facility]pleted [facility] 13:39:00 - [facility] FluAD FluAD 2017-12-26 Completed [facility] 13:39:00 - [facility] FluAD FluAD 2017-12-26 Completed [facility] 13:39:00 - [facility] FluAD FluAD 2017-12-26 Completed [facility] 13:39:00 - [facility] FluAD FluAD 2017-12-26 Completed [facility] 13:39:00 - [facility] FluAD FluAD 2017-12-26 Completed [facility] 13:39:00 - [facility] FluAD FluAD 2017-12-26 Completed [facility] 13:39:00 - [facility] FluAD FluAD 2017-12-26 [facility]pleted [facility] 13:39:00 [facility] FluAD FluAD 2017-12-26 Completed [facility] 13:39:00 [facility] FluAD FluAD 2017-12-26 Completed [facility] 13:39:00 [facility] FluAD FluAD 2017-12-26 Completed [facility] 13[facility]39:00 [facility] FluAD FluAD 2017-12-26 Completed [facility] 13:39:00 [facility] Moderna COVID-19 Moderna COVID-19 Unknown Completed [facility] Vaccine Vaccine [facility] FluAD FluAD Unknown Completed [facility] FluAD FluAD Unknown Completed [facility] FluAD FluAD Unknown Completed [facility] FluAD FluAD Unknown Completed [facility] Moderna COVID-19 Moderna COVID-19 Unknown Completed [facility] Vaccine Vaccine [facility] FluAD FluAD Unknown Completed [facility] FluAD FluAD Unknown Completed [facility] FluAD FluAD Unknown Completed [facility] FluAD FluAD Unknown Completed [facility] Moderna COVID-19 Moderna COVID-19 Unknown Completed [facility] Vaccine Vaccine [facility] FluAD FluAD Unknown Completed [facility] FluAD FluAD Unknown Completed [facility] FluAD FluAD Unknown Completed [facility] FluAD FluAD Unknown Completed [facility] Vital Signs Vital Name Observation Time Observation Value Comments Source height 2022-06-19 13:30:00 61.00 [in_i] [facility] weight 2022-06-19 13:30:00 122.8 [lb_av] [facility] temperature 2022-06-19 13:30:00 97.8 [degF] [facility] bmi 2022-06-19 13:30:00 23.8 kg/m2 [facility] oximetry 2022-06-19 13:30:00 100 % [facility] respiratory rate 2022-06-19 13:30:00 16 /min Comm on [facility] blood pressure 2022-06-19 13:30:00 137 mm[Hg] Common [facility] - systolic [facility] blood pressure 2022-06-19 13:30:00 77 mm[Hg] Common [facility] - diastolic [facility] height 2021-11-23 14:00:00 61.00 [in_i] [facility] weight 2021-11-23 14:00:00 120.0 [lb_av] [facility] temperature 2021-11-23 14:00:00 97.2 [degF] [facility] bmi 2021-11-23 14:00:00 22.67 kg/m2 [facility] oximetry 2021-11-23 14:00:00 100 % [facility] respiratory rate 2021-11-23 14:00:00 18 /min Comm on [facility] blood pressure 2021-11-23 14:00:00 138 mm[Hg] [facility] systolic [facility] blood pressure 2021-11-23 14:00:00 87 mm[Hg] Common [facility] - diastolic [facility] height 2021-11-23 13:40:00 61.00 [in_i] [facility] weight 2021-11-23 13:40:00 120.0 [lb_av] [facility] temperature 2021-11-23 13:40:00 97.2 [degF] [facility] bmi 2021-11-23 13:40:00 22.67 kg/m2 [facility] oximetry 2021-11-23 13:40:00 100 % [facility] respiratory rate 2021-11-23 13:40:00 18 /min Comm on [facility] blood pressure 2021-11-23 13:40:00 138 mm[Hg] Common [facility] - systolic [facility] blood pressure 2021-11-23 13:40:00 87 mm[Hg] Common [facility] - diastolic [facility] height 2021-08-21 10:40:00 61.00 [in_i] [facility] weight 2021-08-21 10:40:00 119 [lb_av] [facility] temperature 2021-08-21 10:40:00 97.9 [degF] Common [facility] bmi 2021-08-21 10:40:00 22.48 kg/m2 [facility] oximetry 2021-08-21 10:40:00 100 % [facility] respiratory rate 2021-08-21 10:40:00 16 /min Comm on [facility] blood pressure 2021-08-21 10:40:00 138 mm[Hg] Common [facility] - systolic [facility] blood pressure 2021-08-21 10:40:00 84 mm[Hg] Common [facility] - diastolic [facility] height 2021-07-24 11:40:00 61.00 [in_i] Common [facility] weight 2021-07-24 11:40:00 120.0 [lb_av] Common [facility] temperature 2021-07-24 11:40:00 97.3 [degF] Common [facility] bmi 2021-07-24 11:40:00 22.67 kg/m2 [facility] oximetry 2021-07-24 11:40:00 98 % [facility] respiratory rate 2021-07-24 11:40:00 18 /min Comm on [facility] blood pressure 2021-07-24 11:40:00 160 mm[Hg] Common [facility] - systolic [facility] blood pressure 2021-07-24 11:40:00 78 mm[Hg] [facility] - [facility] height 2021-04-26 13:00:00 61.00 [in_i] [facility] weight 2021-04-26 13:00:00 122.0 [lb_av] Common [facility] temperature 2021-04-26 13:00:00 98.0 [degF] [facility] bmi 2021-04-26 13:00:00 23.05 kg/m2 [facility] oximetry 2021-04-26 13:00:00 99 % Common [facility] respiratory rate 2021-04-26 13:00:00 18 /min Comm on [facility] blood pressure 2021-04-26 13:00:00 136 mm[Hg] Common [facility] - systolic [facility] blood pressure 2021-04-26 13:00:00 80 mm[Hg] [facility] - diastolic [facility] height 2021-03-22 14:30:00 61.00 [in_i] [facility] weight 2021-03-22 14:30:00 128 [lb_av] [facility] temperature 2021-03-22 14:30:00 98.7 [degF] [facility] bmi 2021-03-22 14:30:00 24.18 kg/m2 [facility] blood pressure 2021-03-22 14:30:00 136 mm[Hg] [facility] - systolic [facility] blood pressure 2021-03-22 14:30:00 74 mm[Hg] [facility] - diastolic [facility] height 2021-01-23 11:20:00 61.00 [in_i] Common [facility] weight 2021-01-23 11:20:00 128.8 [lb_av] Common [facility] temperature 2021-01-23 11:20:00 97.5 [degF] [facility] bmi 2021-01-23 11:20:00 24.33 kg/m2 [facility] oximetry 2021-01-23 11:20:00 100 % [facility] respiratory rate 2021-01-23 11:20:00 18 /min Comm on [facility] - [facility] blood pressure 2021-01-23 11:20:00 132 mm[Hg] [facility] - systolic [facility] blood pressure 2021-01-23 11:20:00 78 mm[Hg] [facility] - diastolic [facility] height 2021-01-18 13:45:00 61.00 [in_i] [facility] weight 2021-01-18 13:45:00 134 [lb_av] [facility] temperature 2021-01-18 13:45:00 97.3 [degF] [facility] bmi 2021-01-18 13:45:00 25.32 kg/m2 [facility] blood pressure 2021-01-18 13:45:00 132 mm[Hg] [facility] - systolic [facility] blood pressure 2021-01-18 13:45:00 78 mm[Hg] [facility] - diastolic [facility] height 2021-01-09 14:45:00 61.00 [in_i] [facility] weight 2021-01-09 14:45:00 134 [lb_av] [facility] bmi 2021-01-09 14:45:00 25.32 kg/m2 [facility] blood pressure 2021-01-09 14:45:00 142 mm[Hg] [facility] - systolic [facility] blood pressure 2021-01-09 14:45:00 82 mm[Hg] [facility] - diastolic [facility] height 2021-01-02 14:30:00 61.00 [in_i] [facility] weight 2021-01-02 14:30:00 134 [lb_av] [facility] bmi 2021-01-02 14:30:00 25.32 kg/m2 [facility] blood pressure 2021-01-02 14:30:00 159 mm[Hg] [facility] - systolic [facility] blood pressure 2021-01-02 14:30:00 81 mm[Hg] [facility] - diastolic [facility] Procedures This patient has no known procedures. Plan of Care Planned Activity Planned Date Details Comments Source Future Scheduled 2023-01-10 Hepatitis C screening [facility] Test 16:07:23 (procedure) [code = 448133567] Future Scheduled 2023-01-10 BREAST CANCER [facility] Test 16:07:23 SCREENING [code = BREAST CANCER SCREENING] Future Scheduled 2023-01-10 SHINGLES VACCINES (1 [facility] Test 16:07:23 of 2) [code = SHINGLES VACCINES (1 of 2)] Future Scheduled 2023-01-10 65+ P[facility]UMOCOCCAL [facility] Test 16:07:23 VACCINE (1 - PCV) [code = 65+ PNEUMOCOCCAL VACCINE (1 - PCV)] Future Scheduled 2023-01-10 COVID-19 VACCINE (2 - [facility] Test 16:07:23 season) [code = COVID-19 VACCINE (2 - season)] Future Scheduled 2023-01-10 INFLUENZA VACCINE (#1) [facility] Test 16:07:23 [code = INFLUENZA VACCINE (#1)] Future Scheduled 2022-06-15 Hepatitis C screening [facility] Test 18:27:26 (procedure) [code = [id number]] Future Scheduled 2022-06-15 BREAST CANCER [facility] Test 18:27:26 SCREENING [code = BREAST CANCER SCREENING] Future Scheduled 2022-06-15 COLONOSCOPY SCREENING [facility] Test 18:27:26 [code = COLONOSCOPY SCREENING] Future Scheduled 2022-06-15 SHINGLES VACCINES (1 [facility] Test 18:27:26 of 2) [code = SHINGLES VACCINES (1 of 2)] Future Scheduled 2022-06-15 65+ [facility]AL [facility] Test 18:27:26 VACCINE (1 - PCV) [code = 65+ PNEUMOCOCCAL VACCINE (1 - PCV)] Future Scheduled 2022-06-15 COVID-19 VACCINE (2 - [facility] Test 18:27:26 Moderna series) [code = COVID-19 VACCINE (2 - Moderna series)] Future Scheduled 2022-06-15 INFLUENZA VACCINE [facility] 18:27:26 [code = INFLUENZA VACCINE] Encounters Start End Encounter Admission Attending Care Care Encounter Source Date/Time Date/Time Type Type Clinicians Facility Department ID 2022-10-04 Outpatient Burnham, STLMLC STLMLC [id number] Common 14:34:00 Samuel 06010 [facility] 2022-07-17 Outpatient Burnham, STLMLC STLMLC [id number] Common 09:25:00 Samuel 23832 [facility] 2022-06-13 Outpatient Burnham, STLMLC STLMLC [id number] Common 15:08:00 Samuel 28024 [facility] 2022-05-09 Outpatient Burnham, STLMLC STLMLC [id number] Common 16:31:00 Samuel 17358 [facility] 2022-04-22 Outpatient Anna, STLMLC STLMLC [id number] Common 08:40:01 Swapna 08386 [facility] 2022-03-19 Outpatient BARBER, Na STLMLC STLMLC [id number] 2 Common 09:15:00 [id number] [facility] 2022-02-21 Outpatient Barber, Na STLMLC STLMLC [id number] Common 10:25:00 [id number] [facility] 2021-11-21 Outpatient Barber, Na STLMLC STLMLC [id number] Common 09:22:01 [facility] 2021-10-11 Outpatient Barber, Na STLMLC STLMLC [id number] 2 Common 12:00:00 [facility] 2021-08-23 Outpatient Barber, Na STLMLC STLMLC [id number] 2 Common 08:15:00 [facility] 2021-07-20 Outpatient Barber, Na STLMLC STLMLC [id number] 2 Common 09:12:01 [facility] 2021-04-11 Outpatient Barber, Na STLMLC STLMLC [id number] 2 Common 13:39:53 [id number] [facility] 2021-04-11 Outpatient Barber, Na STLMLC STLMLC [id number] 2 Common 13:35:01 [facility] 2021-04-11 Outpatient Barber, Na STLMLC STLMLC [id number] 2 Common 13:33:22 [facility] 2021-04-11 Outpatient Barber, Na STLMLC STLMLC [id number] 2 Common 13:31:32 50604 [facility] 2021-04-11 Outpatient Barber, Na STLMLC STLMLC [id number] 2 Common 13:29:30 88631 [facility] 2021-04-11 Outpatient Barber, Na STLMLC STLMLC [id number] 2 Common 13:25:17 80291 [facility] 2021-04-11 Outpatient Barber, Na STLMLC STLMLC [id number] 2 Common 13:21:32 96877 [facility] 2021-04-11 Outpatient Barber, Na STLMLC STLMLC [id number] 2 Common 12:47:27 76879 [facility] 2021-04-11 Outpatient Barber, Na STLMLC STLMLC [id number] 2 Common 12:45:17 [id number] [facility] 2021-04-11 Outpatient Barber, Na STLMLC STLMLC [id number] 2 Common 12:17:29 26927 [facility] 2021-04-11 Outpatient Barber, Na STLMLC STLMLC [id number] 2 Common 11:51:20 17286 [facility] 2021-04-11 Outpatient Barber, Na STLMLC STLMLC [id number] 2 Common 11:29:14 43830 [facility] 2021-04-11 Outpatient Barber, Na STLMLC STLMLC [id number] 2 Common 11:16:52 19725 [facility] 2021-04-11 Outpatient Barber, Na STLMLC STLMLC [id number] 2 Common 11:16:46 59866 [facility] 2021-04-11 Outpatient Barber, Na STLMLC STLMLC [id number] 2 Common 10:58:14 35930 [facility] 2021-04-11 Outpatient Barber, Na STLMLC STLMLC [id number] 2 Common 10:57:37 [id number] [facility] 2022-06-19 2022-06-19 OFFICE STLMLC STLMLC [id number] Co mmon 00:00:00 00:00:00 [facility] ESTAB PT - [facility] LEVEL 4 [facility] 2022-06-13 2022-06-13 (TEL) STLMLC STLMLC [id number] Co mmon 00:00:00 00:00:00 [facility] 2022-05-09 2022-05-09 (TEL) STLMLC STLMLC [id number] Co mmon 00:00:00 00:00:00 [facility] 2022-03-15 2022-03-15 (TEL) STLMLC STLMLC [id number] Co mmon 00:00:00 00:00:00 [facility] 2021-11-23 2021-11-23 SUB ANNUAL STLMLC STLMLC [id number] Common 00:00:00 00:00:[address] [facility] WELLNESS - [facility] VISIT [facility] 2021-11-23 2021-11-23 OFFICE STLMLC STLMLC [id number] Co mmon 00:00:00 00:00:00 VISIT EST Spir it PT LEVEL 3 - [facility] 2021-10-11 2021-10-11 (TEL) STLMLC STLMLC [id number] Co mmon 00:00:00 00:00:00 [facility] 2021-08-21 2021-08-21 OFFICE STLMLC STLMLC [id number] Co mmon 00:00:00 00:00:00 VISIT EST Spir it PT LEVEL 3 - [facility] 2021-07-24 2021-07-24 OFFICE STLMLC STLMLC [id number] Co mmon 00:00:00 00:00:00 [facility] ESTAB PT - [facility] LEVEL 4 [facility] 2021-04-26 2021-04-26 OFFICE STLMLC STLMLC [id number] Co [facility] 00:00:00 00:00:00 [facility] ESTAB PT - [facility] LEVEL 4 [facility] 2021-03-22 2021-03-22 OFFICE STLMLC STLMLC [id number] Co mmon 00:00:00 00:00:00 [facility] ESTAB PT - [facility] LEVEL 4 [facility] 2021-01-23 2021-01-23 OFFICE STLMLC STLMLC [id number] Co mmon 00:00:00 00:00:00 [facility] ESTAB PT - [facility] LEVEL 4 [facility] 2021-01-18 2021-01-18 (IN/ASP) STLMLC STLMLC [id number] C ommon 00:00:00 00:00:00 INJ ASP [facility] 2021-01-09 2021-01-09 (IN/ASP) STLMLC STLMLC [id number] C ommon 00:00:00 00:00:00 INJ ASP [facility] 2021-01-02 2021-01-02 OFFICE STLMLC STLMLC [id number] Co [facility] 00:00:00 00:00:00 [facility] ESTAB PT - [facility] LEVEL 4 [facility] 2020-12-21 2020-12-21 (TEL) STLMLC STLMLC [id number] Co mmon 00:00:00 00:00:00 [facility] 2020-11-02 2020-11-02 Outpatient STLMLC STLMLC [id number] Common 00:00:00 00:00:00 [facility] 2020-10-27 2020-10-27 Outpatient [facility] [id number] [place] 00:00:00 00:00:[address] [facility] [address] 2020-10-23 2020-10-23 Outpatient STLMLC STLMLC [id number] Common 00:00:00 00:00:00 [facility] 2020-10-04 2020-10-04 Outpatient STLMLC STLMLC [id number] Common 00:00:00 00:00:00 [facility] 2020-09-19 2020-09-19 Outpatient STLMLC STLMLC [id number] Common 00:00:00 00:00:00 [facility] 2020-07-18 2020-07-18 Outpatient STLMLC STLMLC [id number] Common 00:00:00 00:00:00 [facility] 2020-06-19 2020-06-19 Outpatient STLMLC STLMLC [id number] Common 00:00:00 00:00:00 [facility] 2020-06-15 2020-06-15 Outpatient STLMLC STLMLC [id number] Common 00:00:00 00:00:00 [facility] 2020-05-18 2020-05-18 Outpatient STLMLC STLMLC [id number] Common 00:00:00 00:00:00 [facility] 2020-05-15 2020-05-15 Outpatient STLMLC STLMLC [id number] Common 00:00:00 00:00:00 [facility] 2020-05-12 2020-05-12 Outpatient STLMLC STLMLC [id number] Common 00:00:00 00:00:00 [facility] 2020-05-08 2020-05-08 Outpatient STLMLC STLMLC [id number] Common 00:00:00 00:00:00 [facility] 2020-04-04 2020-04-04 Outpatient STLMLC STLMLC [id number] Common 00:00:00 00:00:00 [facility] 2020-03-21 2020-03-21 Outpatient STLMLC STLMLC [id number] Common 00:00:00 00:00:00 [facility] 2020-02-16 2020-02-16 Outpatient STLMLC STLMLC [id number] Common 00:00:00 00:00:00 [facility] 2019-12-20 2019-12-20 Outpatient STLMLC STLMLC [id number] Common 00:00:00 00:00:00 [facility] 2019-11-12 2019-11-12 [facility] [id number] Common 15:19:00 15:19:[address] [facility] 2019-11-05 2019-11-05 [facility] [id number] Common 10:30:00 10:30:[address] [facility] [facility] 2019-09-20 2019-09-20 [facility] [id number] Common 10:00:00 10:00:[address] [facility] [facility] 2019-06-29 2019-06-29 [facility] [id number] Common 15:42:00 15:42:[address] [facility] [facility] 2019-06-29 2019-06-29 [facility] [id number] Common 11:10:00 11:10:[address] [facility] [facility] 2019-06-21 2019-06-21 [facility] [id number] Common 13:00:00 13:00:[address] [facility] [facility] 2019-03-22 2019-03-22 [facility] [id number] Common 11:20:00 11:20:[address] [facility] [facility] 2018-11-26 2018-11-26 [facility] [id number] Common 09:40:00 09:40:[address] [facility] [facility] 2018-10-29 2018-10-29 [facility] [id number] Common 12:00:00 12:00:[address] [facility] [facility] 2018-08-26 2018-08-26 [facility] [id number] Common 10:20:00 10:20:[address] [facility] [facility] 2018-07-16 2018-07-16 [facility] [id number] Common 14:57:00 14:57:[address] [facility] [facility] 2018-05-27 2018-05-27 [facility] [id number] Common 10:00:00 10:00:[address] [facility] [facility] 2018-03-27 2018-03-27 [facility] [id number] Common 09:30:00 09:30:[address] [facility] [facility] 2017-12-29 2017-12-29 [facility] [id number] Common 12:01:00 12:01:[address] [facility] [facility] 2017-10-09 2017-10-09 [facility] [id number] Common 10:45:00 10:45:[address] [facility] [facility] 2017-09-26 2017-09-26 [facility] [id number] Common 10:30:00 10:30:[address] [facility] [facility] 2017-06-27 2017-06-27 [facility] [id number] Common 09:15:00 09:15:[address] [facility] [facility] Results This patient has no known results.
[2023-01-30 22:48] LABS: Absolute Lymphocytes (CBC) 1.8 K/uL (0.7-4.9); Hematocrit 31.8 % (36.0-45.0); Lymphocytes % 21.5 % (15.3-44.8); MCV 80.5 fL (80-100); MPV 7.7 fL (7.6-11.3); Platelets 248 thou/uL (152-406); RBC Red Blood Cell Count 3.95 M/uL (3.86-4.86)
[2023-01-30 22:49] LABS: Protime INR 0.94
[2023-01-30 23:32] LABS: Albumin 3.2 g/dL (3.4-5.0); Bilirubin Direct 0.1 mg/dL (0-0.2); Bilirubin Indirect, Calculated 0.4 mg/dL (0.2-0.8); Bilirubin Total 0.5 mg/dL (0.2-1.0); Protein, Total 6.5 g/dL (6.4-8.2); Troponin High Sensitivity 8.1 pg/mL (<58.9)
[2023-01-30 23:35] LABS: Magnesium 1.7 mg/dL (1.6-2.4); Potassium 3.7 mEq/L (3.5-5.1)
[2023-01-31] MEDS ORDERED: HYDRALAZINE HCL 25 MG TABLET ONE (00:58)
[2023-01-31] MEDS ORDERED: NA CHLORIDE 0.9% 1,000 ML ONE (00:58)
--- NOTE | 2023-01-31 01:13 | EDPHYS ---
Physician Documentation [facility] Name: More Bledsoe Age: 72 yrs Sex: Female : 1950 Arrival Date: 01/30/2023 Time: 22:24 Bed 14 Private MD: ED Physician Monroe Schaffer HPI: 01/30 22:29 This 72 yrs old Female presents to ER via Unassigned with complaints of sp4 elevated blood sugar . 01/31 00:53 72-year-old female brought in by EMS for concern of elevated blood sugars and sp4 insulin at home. EMS noted patient's blood pressure was elevated 207/85. Patient was administered 2 doses of IV labetalol prior to arrival. Patient herself has no complaints.. Patient's past medical history includes bilateral mastectomy secondary to breast cancer, insulin-dependent diabetes, hypertension. Also enteritis with recent admission on 07/12/2022. Patient's medications include rivastigmine patch, additional medications include sorbic acid, aspirin 81 mg daily, cholecalciferol, cyanocobalamin, ferrous fumarate, folic acid, garlic, insulin NPH 70 units daily after supper, levothyroxine 75 mg p.o. daily, lisinopril 50 mg daily potassium gluconate 500. Historical: - Allergies: 01/30 22:40 Codeine; la4 22:40 Demerol; la4 22:40 PENICILLINS; la4 22:40 Sulfa (Sulfonamide Antibiotics); la4 - Home Meds: 22:40 Novolin R Sub-Q [Active]; cephalexin 500 mg Oral tab 1 tab every 6 hours [Active]; la4 lisinopril Oral [Active]; - PMHx: 22:40 Alzheimer's disease; BREAST CA; Diabetes - IDDM; Hypertension; la4 - PSHx: 22:40 bilateral breast mastectomy; Cholecystectomy; la4 - Immunization history:: Adult Immunizations up to date, Client reports receiving the 2nd dose of the Covid vaccine. - Social history:: Smoking status: Patient denies any tobacco usage or history of. - Code Status:: Full code. ROS: 01/31 01:07 Constitutional: Negative for fever, chills, and weight loss, positive for medication sp4 noncompliance All other systems are negative, Exam: 01:07 Constitutional: This is a well developed, well nourished patient who is awake, alert, sp4 and in no acute distress. Patient is frail elderly female, hypotensive on arrival, denies any complaints, signs of mild to moderate dementia Head/Face: Normocephalic, atraumatic. Eyes: Pupils equal round and reactive to light, extra-ocular motions intact. Lids and lashes normal. Conjunctiva and sclera are not injected. Cornea within normal limits. Periorbital areas with no swelling, redness, or edema. ENT: Nares patent. No nasal discharge, no septal abnormalities noted. Tympanic membranes are normal and external auditory canals are clear. Oropharynx with no redness, swelling, or masses, exudates, or evidence of obstruction, uvula midline. Mucous membranes moist. Neck: Trachea midline, no thyromegaly or masses palpated, and no cervical lymphadenopathy. Supple, full range of motion without nuchal rigidity, or vertebral point tenderness. Chest/axilla: Normal chest wall appearance and motion. Nontender with no deformity. No lesions are appreciated. Cardiovascular: Regular rate and rhythm with a normal S1 and S2. No gallops, murmurs, or rubs. Normal PMI, no JVD. No pulse deficits. Respiratory: Lungs have equal breath sounds bilaterally, clear to auscultation and percussion. No rales, rhonchi or wheezes noted. No increased work of breathing, no retractions or nasal flaring. Abdomen/GI: Soft, non-tender, with normal bowel sounds. No distension or tympany. No guarding or rebound. No evidence of tenderness throughout. Back: No spinal tenderness. No costovertebral tenderness. Skin: Warm, dry with normal turgor. Normal color with no rashes, no lesions, and no evidence of cellulitis. MS/ Extremity: Pulses equal, no cyanosis. Neurovascular intact. Full, normal range of motion. Neuro: Awake and alert, GCS 15, oriented to person, place, time, and situation. Cranial nerves II-XII grossly intact. Motor strength 5/5 in all extremities. Sensory grossly intact. Psych: Awake, alert, with orientation to person, place and time. Behavior, mood, and affect are within normal limits 01:07 ECG was reviewed by the Attending Physician. EKG 2235, sinus bradycardia at 55 bpm, no ectopy, stable EKG, no sign of acute ischemia Vital Signs: 01/30 22:20 BP 177 / 79; Pulse 59; Resp 18; Temp 97.8(O); Pulse Ox 98% ; Weight 58 kg; Height 5 ft. la4 2 in. ; Pain 0/10; 23:00 BP 153 / 71; Pulse 54; Resp 14; Pulse Ox 97% ; nw1 23:20 BP 157 / 68; Pulse 56; Resp 14; Pulse Ox 96% ; nw1 23:40 BP 134 / 104; Pulse 56; Resp 15; Pulse Ox 97% on R/A; nw1 01/31 00:00 BP 167 / 70; Pulse 61; Resp 14; Pulse Ox 94% ; nw1 00:34 BP 164 / 96; Pulse 66; Resp 14; Pulse Ox 100% ; nw1 01:00 BP 166 / 93; Pulse 66; Resp 15; Pulse Ox 98% ; la4 02:00 BP 152 / 66; Pulse 60; Resp 15; Pulse Ox 98% ; la4 01/30 22:20 Body Mass Index 23.39 (58.00 kg, 157.48 cm) la4 01/30 22:20 Pain Scale: Adult la4 [place] Coma Score: 03:12 Eye Response: spontaneous(4). Motor Response: obeys commands(6). Verbal Response: la4 confused(4). Total: 14. MDM: 01/30 22:30 Patient medically screened. sp4 01/31 00:52 ED course: CXR - COMPARISON: No relevant prior studies available. FINDINGS: LUNGS: Low sp4 right axillary surgical clips demonstrated, partially overlying the lateral right lung base. Bandlike scar versus atelectasis noted overlying the left lung base/hemidiaphragm. No additional consolidation. PLEURAL SPACE: Unremarkable. No pleural effusion. No pneumothorax. HEART: Unremarkable. No cardiomegaly. MEDIASTINUM: Unremarkable. Normal mediastinal contour. BONES/JOINTS: Multilevel spondylosis. No acute fracture. IMPRESSION: No acute findings in the chest.. 01:09 Differential Diagnosis altered mental status, sepsis, flu. sp4 01:11 Data reviewed: vital signs, nurses notes, EMS record, old medical records, lab test sp4 result(s), cardiac enzymes, CBC, electrolytes, hepatic panel, EKG, radiologic studies, plain films. Consideration of Admission/Observation Patient was admitted/placed on observation. Escalation of care including admission/observation considered. Management of patient was discussed with the following: Hospitalist: Conchita JAIME . ED course: Patient at this time warrants admission to the hospital for blood pressure control and to be established on her regular medications also for IV hydration with saline for acute hyponatremia. . 01/30 22:29 Order name: Basic Metabolic Panel; Complete Time: 00:23 sp4 01/30 22:29 Order name: CBC with Diff; Complete Time: 00:23 sp4 01/30 22:29 Order name: LFT's; Complete Time: 00:23 sp4 01/30 22:29 Order name: Magnesium; Complete Time: 00:23 sp4 01/30 22:29 Order name: NT PRO-BNP; Complete Time: 00:23 sp4 01/30 22:29 Order name: PT-INR; Complete Time: 00:23 sp4 01/30 22:29 Order name: Troponin HS; Complete Time: 00:23 sp4 01/31 01:05 Order name: TSH; Complete Time: 04: sp4 01/31 01:05 Order name: T4 Free; Complete Time: 04: sp4 01/31 01:10 Order name: COVID-19 SARS RT PCR; Complete Time: 04: 4 01/31 01:27 Order name: Basic Metabolic Panel [facility] 01/31 01:27 Order name: Basic Metabolic Panel [facility] 01/30 22:29 Order name: XRAY Chest (1 view) [facility] 01/30 22:29 Order name: EKG; Complete Time: 22:30 4 01/30 22:29 Order name: Cardiac monitoring; Complete Time: 01:13 sp4 01/30 22:29 Order name: EKG - Nurse/Tech; Complete Time: 22:39 sp4 01/30 22:29 Order name: IV Saline Lock; Complete Time: 01:13 sp4 01/30 22:29 Order name: Labs collected and sent; Complete Time: 03:11 sp4 01/30 22:29 Order name: O2 Per Protocol; Complete Time: 01:13 sp4 01/30 22:29 Order name: O2 Sat Monitoring; Complete Time: :13 sp4 EC:07 Rate is 55 beats/min. Rhythm is regular, Sinus bradycardia. QRS [place] is Normal. [place] sp4 interval is normal. QRS interval is normal. QT interval is normal. No Q waves. T waves are Normal. No ST changes noted. Clinical impression: Normal ECG. Interpreted by me. Reviewed by me. Administered Medications: 00:49 Drug: NS 0.9% IV 1000 ml IV at 125 ml/hr continuous Route: IV; Rate: 125 ml/hr; Site: nw1 right forearm; 00:50 Drug: HydrALAZINE PO 25 mg PO once Route: PO; nw1 03:11 Drug: Lisinopril PO 20 mg PO once Route: PO; la4 03:11 Drug: Synthroid PO 75 mcg PO once Route: PO; la4 03:11 Drug: foLIC Acid PO 1 mg PO once Route: PO; la4 Disposition Summary: 01/31/23 01:13 Hospitalization Ordered Notes: Hospitalization Status: Observation sp4 Provider: Adeel Arango spManas Location: Telemetry/MedSurg (observation) sp4 Condition: Stable sp4 Problem: new sp4 Symptoms: have improved sp4 Bed/Room Type: Standard sp4 Room Assignment: 205(01/31/23 01:52) jr Diagnosis - Hypo-osmolality and hyponatremia sp4 - Acute hyponatremia, noncompliance with medical management, hyperglycemia, sp4 hypertensive urgency, Forms: - Medication Reconciliation Form sp4 - SBAR form sp4 - Leadership Thank You Letter sp4 Signatures: Dispatcher [employer] Monroe Slater MD MD sp4 Daniela Ford jr12 Nancy Mckeon RN RN la4 Chiara Palacio RN RN nw1 Corrections: (The following items were deleted from the chart) 01:52 01:13 sp4 [facility]
--- NOTE | 2023-01-31 01:13 | ER ---
Nurse's Notes [facility] Name: More Bledsoe Age: 72 yrs Sex: Female : 1950 Arrival Date: 01/30/2023 Time: 22:24 Bed 14 Private MD: Diagnosis: Hypo-osmolality and hyponatremia;Acute hyponatremia, noncompliance with medical management, hyperglycemia, hypertensive urgency, Presentation: 01/30 22:20 Chief complaint: EMS states: called to home for high blood sugar and high blood la4 pressure. Sugar of 202 and BP 207/85. Given labetalol 10mg twice in route for total of 20mg last BP 163/85. Pt is pleasantly confused and recently diagnosed w/ dementia/Alzheimer's. Pt is unable to tell what medications she is taking or not. 22:20 Chief complaint: Patient's son or daughter states: Son states that he ate dinner with la4 the patient earlier, gave her her new medication prescribed by Dr. Connor for her Dementia and went home. The patient was reported fine at that time. States that the patient began to call him repeatedly around 1930. He called his aunt who went to check on the patient and upon checking her blood sugar noted it was 202. Pt is reported to normally administer her own insulin but medication was noted to be per EMS. Coronavirus screen: Vaccine status: Patient reports receiving the 2nd dose of the covid vaccine. Ebola Screen: Patient denies travel to an Ebola-affected area in the 21 days before illness onset. No symptoms or risks identified at this time. Initial Sepsis Screen: Does the patient meet any 2 criteria? No. Patient's initial sepsis screen is negative. Does the patient have a suspected source of infection? No. Patient's initial sepsis screen is negative. Risk Assessment: Do you want to hurt yourself or someone else? Patient reports no desire to harm self or others. Onset of symptoms was January 30, 2023 at 19:30. 22:20 Method Of Arrival: EMS: [facility] la4 22:20 Acuity: KAMALJIT 2 la4 Triage Assessment: 22:40 General: Appears in no apparent distress. slender, Behavior is calm, cooperative, la4 appropriate for age. Pain: Denies pain. Neuro: No deficits noted. [place] Agitation-Sedation Scale (RASS): 0 - Alert and Calm Level of Consciousness is awake, obeys commands, confused, Oriented to person, Hand Stone Polisher are equal bilaterally Moves all extremities. Speech is normal, Facial symmetry appears normal, Pupils are PERRLA, Pupil Size: 3. Respiratory: No deficits noted. Airway is patent Trachea midline Respiratory effort is even, unlabored, Respiratory pattern is regular, symmetrical, Breath sounds are clear bilaterally. GI: No deficits noted. No signs and/or symptoms were reported involving the gastrointestinal system. Abdomen is flat, non-distended, Bowel sounds present X 4 quads. Historical: - Allergies: 22:40 Codeine; la4 22:40 Demerol; la4 22:40 PENICILLINS; la4 22:40 Sulfa (Sulfonamide Antibiotics); la4 - Home Meds: 22:40 Novolin R Sub-Q [Active]; cephalexin 500 mg Oral tab 1 tab every 6 hours [Active]; la4 lisinopril Oral [Active]; - PMHx: 22:40 Alzheimer's disease; BREAST CA; Diabetes - IDDM; Hypertension; la4 - PSHx: 22:40 bilateral breast mastectomy; Cholecystectomy; la4 - Immunization history:: Adult Immunizations up to date, Client reports receiving the 2nd dose of the Covid vaccine. - Social history:: Smoking status: Patient denies any tobacco usage or history of. - Code Status:: Full code. Screenin/17 03:27 [facility] ED Fall Risk Assessment (Adult) History of falling in the last 3 months, la4 including since admission No falls in past 3 months (0 pts) Confusion or Disorientation Yes (5 pts) Intoxicated or Sedated No (0 pts) Impaired Gait No (0 pts) Mobility Assist Device Used No (0 pt) Altered Elimination No (0 pt) Score/Fall Risk Level 3 or more points = High Risk Oriented to surroundings, Educated pt \T\ family on fall prevention, incl call for assistance when getting out of bed, Provided non-skid footwear, Hourly rounding (assess needs \T\ fall precautionary measures) done, Implemented a Fall Risk Plan of Care, Apply high fall risk patient identification: yellow non skid footwear/ fall signage. Abuse screen: Denies threats or abuse. Denies injuries from another. Nutritional screening: No deficits noted. Tuberculosis screening: No symptoms or risk factors identified. Assessment: 03:12 Neuro: [place]obbins Agitation-Sedation Scale (RASS): 0 - Alert and Calm Level of la4 Consciousness is alert, obeys commands, confused, Oriented to person. Cardiovascular: No deficits noted. Heart tones S1 S2 Capillary refill < 3 seconds Rhythm is regular. Respiratory: Airway is patent Trachea deviated to right Respiratory effort is even, unlabored, Breath sounds are clear bilaterally. 04:39 General: Family Phone numbers: Son Jake [phone], [id number] [phone]. la4 Vital Signs: 01/30 22:20 BP 177 / 79; Pulse 59; Resp 18; Temp 97.8(O); Pulse Ox 98% ; Weight 58 kg; Height 5 ft. la4 2 in. ; Pain 0/10; 23:00 BP 153 / 71; Pulse 54; Resp 14; Pulse Ox 97% ; nw1 23:20 BP 157 / 68; Pulse 56; Resp 14; Pulse Ox 96% ; nw1 23:40 BP 134 / 104; Pulse 56; Resp 15; Pulse Ox 97% on R/A; nw1 01/31 00:00 BP 167 / 70; Pulse 61; Resp 14; Pulse Ox 94% ; nw1 00:34 BP 164 / 96; Pulse 66; Resp 14; Pulse Ox 100% ; nw1 01:00 BP 166 / 93; Pulse 66; Resp 15; Pulse Ox 98% ; la4 02:00 BP 152 / 66; Pulse 60; Resp 15; Pulse Ox 98% ; la4 01/30 22:20 Body Mass Index 23.39 (58.00 kg, 157.48 cm) la4 01/30 22:20 Pain Scale: Adult la4 [place] Coma Score: 03:12 Eye Response: spontaneous(4). Motor Response: obeys commands(6). Verbal Response: la4 confused(4). Total: 14. ED Course: 01/30 22:28 Patient arrived in ED. la4 22:29 Monroe Schaffer MD is Attending Physician. sp4 22:40 Triage completed. la4 22:40 Inserted saline lock: 20 gauge in right forearm, using aseptic technique. la4 22:53 XRAY Chest (1 view) In Process Unspecified. EDMS 01/31 00:20 Patient placed in an exam room, on a stretcher, on showroom executive director. la4 01:10 Nancy Mckeon, RN is Primary Nurse. la4 01:12 Adeel Arango MD is Hospitalizing Provider. sp4 03:27 Patient has correct armband on for positive identification. Bed in low position. Call la4 light in reach. Side rails up X2. Provided Education on: plan of care. 03:27 No provider procedures requiring assistance completed. Inserted saline lock: 20 gauge la4 in right wrist, using aseptic technique. Missed attempt(s): 20 gauge in right wrist. IV discontinued, intact, bleeding controlled, No redness/swelling at site. Pressure dressing applied, pt accidentally removed previously place 20G to the right forearm When attempted to get out of the bed to go to the bathroom. Pressure applied to area and bleeding controlled. Administered Medications: 00:49 Drug: NS 0.9% IV 1000 ml IV at 125 ml/hr continuous Route: IV; Rate: 125 ml/hr; Site: nw1 right forearm; 00:50 Drug: HydrALAZINE PO 25 mg PO once Route: PO; nw1 03:11 Drug: Lisinopril PO 20 mg PO once Route: PO; la4 03:11 Drug: Synthroid PO 75 mcg PO once Route: PO; la4 03:11 Drug: foLIC Acid PO 1 mg PO once Route: PO; la4 Medication: 02:00 VIS not applicable for this client. la4 Outcome: 01:13 Decision to Hospitalize by Provider. sp4 02:00 Admitted to Med/surg accompanied by tech, via stretcher, Report called to Gay NAGEL la4 02:00 Condition: stable 02:00 Instructed on the need for admit, 04:47 Patient left the ED. bp Signatures: Dispatcher [employer] EDMS Ernesto Ulloa RN RN bp Monroe Schaffer MD MD sp4 Nancy Mckeon RN RN la4 Williams, Nicole, RN RN nw1 Corrections: (The following items were deleted from the chart) 00:50 00:49 NS 0.9% IV 1000 ml IV at 125 ml/hr in left forearm nw1 nw1 03:42 01:00 BP 152 / 66; Pulse 60bpm; Resp 15bpm; Pulse Ox 98%; la4 la4
[2023-01-31] MEDS ORDERED: ONDANSETRON 4 MG/2 ML VIAL IV PRN (01:21)
[2023-01-31] MEDS ORDERED: ACETAMINOPHEN 325 MG TABLET PO PRN (01:21)
--- NOTE | 2023-01-31 01:27 | P.HP ---
Certification for Inpatient Patient admitted to: Observation With expected LOS: <2 Midnights Practitioner: I am a practitioner with admitting privileges, knowledge of patient current condition, hospital course, and medical plan of care. Services: Services provided to patient in accordance with Admission requirements found in Title 42 Section 412.3 of the Code of Federal Regulations Patient History Date of Service: 01/31/23 Reason for admission: Elevated blood pressure, hyponatremia. History of Present Illness: 72 y o female patient with medical history significant for non-insulin- dependent diabetes, hypertension, hyperlipidemia, history of hypothyroidism and history of breast cancer was evaluated for episode of elevated blood sugar and elevated blood pressure. She reported that she ran out of insulin therapy at home and she had come to the hospital for care and when she was initially evaluated and found to have a systolic blood pressure over 200. She could not tell the home medication she takes for blood pressure control. She was also worked up with lab work that showed sodium of 126 and blood glucose of 170s. She was asked to be admitted for management of elevated blood pressure and hyponatremia. She denies overt episode of nausea, vomiting, fever, chills, rigor, persistent headache prior to this encounter. Allergies Penicillins Allergy (Verified 02/09/18 09:34) Hives/Rash Sulfa (Sulfonamide Antibiotics) Allergy (Verified 02/09/18 09:34) Rash codeine Adverse Reaction (Verified 02/09/18 09:34) hyper, agitated meperidine [From Demerol] Adverse Reaction (Verified 02/09/18 09:34) "made me run all over, then cldnt move,could hear everthing" Home Medications: Ciprofloxacin HCl [Cipro 500 MG Tablet] 500 mg PO BID 7 Days #14 tab 07/13/22 Rivastigmine Patch [Exelon 9.5 mg Patch] 9.5 mg DAILY 07/13/22 metroNIDAZOLE [Flagyl] 500 mg PO Q8H 7 Days #21 tab 07/13/22 - Past Medical/Surgical History -: Insulin-dependent diabetes -: History of breast cancer -: Hypertension -: alzheimer's -: Bilateral mastectomy -: Cholecystectomy Psychosocial/ Personal History: Patient lives at home with her - Family History Mother -: Diabetes - Social History Alcohol use: No CD- Drugs: No Caffeine use: Yes Review of Systems General: Unremarkable Eyes: Unremarkable ENT: Unremarkable Respiratory: Unremarkable Cardiovascular: Unremarkable Gastrointestinal: Unremarkable Genitourinary: Unremarkable Musculoskeletal: Unremarkable Integumentary: Unremarkable Neurological: Unremarkable Physical Examination - Physical Exam General: Alert, Oriented x3 HEENT: Atraumatic Neck: Supple Cardiovascular: Regular rate/rhythm, Normal S1 S2 Gastrointestinal: Soft and benign Musculoskeletal: No swelling Integumentary: Other (reduced skin tugor.) Neurological: Normal speech, Normal strength at 5/5 x4 extr - Studies Laboratory Data (last 24 hrs) 01/30/23 01/30/23 01/30/23 22:30 22:30 22:30 WBC 8.30 Hgb 11.5 L Hct 31.8 L Plt Count 248 PT 10.3 INR 0.94 Sodium 126 L Potassium 3.7 BUN 16 Creatinine 0.67 Glucose 175 H Magnesium 1.7 Total Bilirubin 0.5 AST 16 ALT 23 Alkaline Phosphatase 68 Assessment and Plan - Plan Hypertension: Elevated blood pressure noted on admission. Oral home antihypertensive medication were restarted. We will follow vital signs per unit protocol and continue outpatient prescribe antihypertensive medication. Goal blood pressure is less than 130/80 mmHg. IDDM: We will continue patient on insulin therapy as prescribed outpatient. We will continue carb restricted diet. We will continue sliding scale insulin for as needed control of blood glucose and monitor blood glucose before meals and at bedtime. Hyponatremia: Serum sodium is low at 160. Etiology is yet to be fully determined. She is not on diuretic therapy prior to encounter. We will hydrate with IV saline infusion and monitor serum sodium on daily basis. We will follow trend of electrolyte. Prophylaxis: Lovenox for DVT prophylax Code status: Full code Disposition: We will treat her multiple medical issues and she will be discharged when she is deemed clinically stable Discharge Plan: Home - Advance Directives Does patient have a Living Will: No Does patient have a Durable POA for Healthcare: No
[2023-01-31] MEDS ORDERED: lisinopriL 20 MG TAB ONE (01:29)
[2023-01-31] MEDS ORDERED: FOLIC ACID 1 MG TABLET ONE (01:30)
[2023-01-31] MEDS ORDERED: LEVOTHYROXINE SOD 0.075 MG TAB ONE (02:15)
[2023-01-31 03:40] LABS: Thyroid Stimulating Hormone 4.89 uIU/mL (0.358-3.740)
[2023-01-31] MEDS: NA CHLORIDE 0.9% 1,000 ML IV SCH ×2 (05:42→16:18)
[2023-01-31] MEDS: INSULIN REGULAR (HUMAN) 100 UNIT/ML SQ SCH ×4 (07:30→21:00)
[2023-01-31] MEDS ORDERED: MAGNESIUM SULFATE 1 gm IVPB 1 GM/100 ML BAG IV ONE (08:00)
[2023-01-31] MEDS ORDERED: POTASSIUM CL SA 10 MEQ TAB PO ONE (09:00)
[2023-01-31] MEDS: AMLODIPINE 10 MG TAB PO SCH (10:21)
[2023-01-31] MEDS: ENOXAPARIN 40 MG/0.4 ML SQ SCH (10:22)
--- NOTE | 2023-01-31 13:26 | RAD REPORT ---
EXAM DESCRIPTION: RAD - Chest Single View - 01/30/2023 10:51 pm CLINICAL HISTORY: The patient is 72 years old and is Female; dizziness Bed Name: 14 TECHNIQUE: Frontal view of the chest. COMPARISON: No relevant prior studies available. FINDINGS: LUNGS: Low right axillary surgical clips demonstrated, partially overlying the lateral r ight lung base. Bandlike scar versus atelectasis noted overlying the left lung base/hemidiaphragm. No additional consolidation. PLEURAL SPACE: Unremarkable. No pleural effusion. No pneumothorax. HEART: Unremarkable. No cardiomegaly. MEDIASTINUM: Unremarkable. Normal mediastinal contour. BONES/JOINTS: Multilevel spondylosis. No acute fracture. IMPRESSION: No acute findings in the chest. Electronically signed by: Brenden Roque MD 01/30/2023 11:05 PM INSULATION TECHNICIAN Due to temporary technical issues with the PACS/Fluency reporting system, reports are being signed by the in house radiologists without review as a courtesy to insure prompt reporting. The interpreting radiologist is fully responsible for the content of the report.
--- NOTE | 2023-01-31 14:23 | EKG ---
Test Date: 2023-01-30 Test Time: 22:34:49 Dyer Helper: MARQUES MEASUREMENT RESULTS: Intervals: Rate: 56 SC: 144 QRSD: 84 QT: 434 QTc: 418 [place]: P: 58 SC: 144 QRS: 58 T: 59 INTERPRETIVE STATEMENTS: Sinus bradycardia Otherwise normal ECG Compared to ECG 08/20/2016 14:20:02 No significant changes Electronically Signed On 01-31-23 14:21:58 NUCLEAR TECHNICIAN by Waldemar Rouse
[2023-01-31 23:41] VITALS: O2SAT 99
[2023-02-01] MEDS: NA CHLORIDE 0.9% 1,000 ML IV SCH ×3 (00:01→16:21)
[2023-02-01] MEDS ORDERED: QUETIAPINE 25 MG TAB PO ONE (01:17)
[2023-02-01 04:54] LABS: Magnesium 1.9 mg/dL (1.6-2.4); Potassium 4.1 mEq/L (3.5-5.1)
[2023-02-01] MEDS ORDERED: HALOPERIDOL LACT 5 MG/ML INJ IM ONE (06:17)
[2023-02-01] MEDS: INSULIN REGULAR (HUMAN) 100 UNIT/ML SQ SCH ×4 (07:30→21:00)
[2023-02-01] MEDS: AMLODIPINE 10 MG TAB PO SCH (08:39)
[2023-02-01] MEDS: ENOXAPARIN 40 MG/0.4 ML SQ SCH (08:39)
[2023-02-01] MEDS ORDERED: DONEPEZIL HCL 23 MG PO SCH (09:00)
[2023-02-01] MEDS ORDERED: HALOPERIDOL LACT 5 MG/ML INJ IV ONE (10:07)
[2023-02-01] MEDS ORDERED: ZIPRASIDONE MESYLA 20 MG/VIAL IM ONE (10:16)
[2023-02-01] MEDS ORDERED: WATER FOR INJ,STERILE 10 ML IM PRN (10:17)
[2023-02-01] MEDS ORDERED: WATER FOR INJ,STERILE 10 ML ONE (10:41)
[2023-02-01] MEDS: HALOPERIDOL LACT 5 MG/ML INJ IV PRN ×2 (17:08→22:22)
[2023-02-02 03:58] VITALS: BMI 21.7
[2023-02-02] MEDS: NA CHLORIDE 0.9% 1,000 ML IV SCH (06:55)
[2023-02-02] MEDS: INSULIN REGULAR (HUMAN) 100 UNIT/ML SQ SCH ×2 (07:30→11:30)
[2023-02-02 08:54] LABS: Absolute Lymphocytes (CBC) 1.3 K/uL (0.7-4.9); Hematocrit 36.2 % (36.0-45.0); Lymphocytes % 19.1 % (15.3-44.8); MCV 82.1 fL (80-100); MPV 7.6 fL (7.6-11.3); Platelets 242 thou/uL (152-406); RBC Red Blood Cell Count 4.41 M/uL (3.86-4.86)
[2023-02-02 09:34] LABS: Albumin 3.4 g/dL (3.4-5.0); Bilirubin Total 1.2 mg/dL (0.2-1.0); Magnesium 1.7 mg/dL (1.6-2.4); Phosphorus 3.1 mg/dL (2.5-4.9); Potassium 4.1 mEq/L (3.5-5.1); Protein, Total 6.7 g/dL (6.4-8.2); Thyroid Stimulating Hormone 2.4 uIU/mL (0.358-3.740)
[2023-02-02] MEDS: AMLODIPINE 10 MG TAB PO SCH (09:45)
[2023-02-02] MEDS: ENOXAPARIN 40 MG/0.4 ML SQ SCH (09:46)
[2023-02-02 12:09] VITALS: BP 169/80; TEMP 67.8
[2023-02-02] MEDS ORDERED: LOSARTAN POTASSIUM 50 MG TABLET PO ONE (12:30)
[2023-02-02 14:40] LABS: Specific Gravity 1.012 (1.005-1.030); Urine Bilirubin NEGATIVE (Negative); Urine Blood Negative (Negative); Urine Clarity Clear (Clear); Urine Color Light-Yellow (Yellow); Urine Glucose NEGATIVE (Negative); Urine Protein NEGATIVE (Negative); Urine Urobilinogen Normal (Normal); Urine pH 6.5 (5.0-7.0)
--- NOTE | 2023-02-05 17:11 | EKG ---
Test Date: 2023-01-30 Test Time: 22:35:16 Paralegal Supervisor: MARQUES MEASUREMENT RESULTS: Intervals: Rate: 55 AR: 158 QRSD: 82 QT: 436 QTc: 417 [place]: P: 73 AR: 158 QRS: 54 T: 65 INTERPRETIVE STATEMENTS: Sinus bradycardia Otherwise normal ECG Compared to ECG 01/30/2023 22:34:49 No significant changes Electronically Signed On 02-05-23 16:56:47 ZIPPER MEASURER by Waldemar Rouse
== END 2023-02-02 15:25 | disposition home or self-care (01) | DRG 641 ==
LOC: ER 22:24 → ERHOLD 01-31 01:50 → 2ND 01-31 04:47
PROVIDERS: ADMIT Internal Medicine Nephrology; ATTEND Hospitalist
DX: E87.1 Hypo-osmolality and hyponatremia (principal); E03.9 Hypothyroidism, unspecified; E78.5 Hyperlipidemia, unspecified; I10 Essential (primary) hypertension; E11.65 Type 2 diabetes mellitus with hyperglycemia; Z85.3 Personal history of malignant neoplasm of breast; Z79.4 Long term (current) use of insulin; Z88.5 Allergy status to narcotic agent; Z88.0 Allergy status to penicillin; Z88.2 Allergy status to sulfonamides; Z90.49 Acquired absence of other specified parts of digestive tract; Z79.82 Long term (current) use of aspirin; Z11.52 Encounter for screening for COVID-19; Z90.13 Acquired absence of bilateral breasts and nipples; Z79.899 Other long term (current) drug therapy; Z79.890 Hormone replacement therapy; Z91.148 Patient's other noncompliance with medication regimen for other reason
CPT/HCPCS: 36415; 71045; 80048; 80053; 80076; 81003; 82140; 82570; 82607; 82947; 83605; 83735; 83880; 84100; 84300; 84439; 84443; 84484; 85025; 85610; 87635; 93005; 99285; J1630; J1650; J3475; J3486; J7030

== ENCOUNTER 2023-02-04 15:30 | Inpatient (IN) | payer OTHER ==
--- OUTSIDE RECORDS SUMMARY | 2023-02-04 15:37 | XMS REPORT | Continuity of Care Document ---
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 height 2021-01-23 11:20:00 61.00 [in_i] Common [facility] weight 2021-01-23 11:20:00 128.8 [lb_av] Common [facility] temperature 2021-01-23 11:20:00 97.5 [degF] Common [facility] bmi 2021-01-23 11:20:00 24.33 kg/m2 Common S [facility] oximetry 2021-01-23 11:20:00 100 % Common S [facility] respiratory rate 2021-01-23 11:20:00 18 /min Comm on [facility] blood pressure 2021-01-23 11:20:00 132 mm[Hg] [facility] blood pressure 2021-01-23 11:20:00 78 mm[Hg] [facility] - diastolic [facility] height 2021-01-18 13:45:00 61.00 [in_i] Common S pirit - [facility] weight 2021-01-18 13:45:00 134 [lb_av] Common S [facility]irit - [facility] temperature 2021-01-18 13:45:00 97.3 [degF] Common S pirit - [facility] bmi 2021-01-18 13:45:00 25.32 kg/m2 Common S pirit - [facility] blood pressure 2021-01-18 13:45:00 132 mm[Hg] [facility] - [facility] blood pressure 2021-01-18 13:45:00 78 mm[Hg] [facility] - diastolic [facility] height 2021-01-09 14:45:00 61.00 [in_i] Common S pirit - [facility] weight 2021-01-09 14:45:00 134 [lb_av] Common S pirit [facility] bmi 2021-01-09 14:45:00 25.32 kg/m2 Common S pirit - [facility] blood pressure 2021-01-09 14:45:00 142 mm[Hg] [facility] - systolic [facility] blood pressure 2021-01-09 14:45:00 82 mm[Hg] [facility] - diastolic [facility] height 2021-01-02 14:30:00 61.00 [in_i] Common S [facility]irit - [facility] weight 2021-01-02 14:30:00 134 [lb_av] Common S pirit - [facility] bmi 2021-01-02 14:30:00 25.32 kg/m2 Common S pirit - [facility] blood pressure 2021-01-02 14:30:00 159 mm[Hg] [facility] - systolic [facility] blood pressure 2021-01-02 14:30:00 81 mm[Hg] [facility] - diastolic [facility] Procedures This patient has no known procedures. Plan of Care Planned Activity Planned Date Details Comments Source Future Scheduled 2023-01-10 Hepatitis C screening [facility] Test 16:07:23 (procedure) [code = 000756722] Future Scheduled 2023-01-10 BREAST CANCER [facility] Test 16:07:23 SCREENING [code = BREAST CANCER SCREENING] Future Scheduled 2023-01-10 SHINGLES VACCINES ([address] [facility] Test 16:07:23 of 2) [code = SHINGLES VACCINES (1 of 2)] Future Scheduled 2023-01-10 65+ PNEUMOCOCCAL [facility] Test 16:07:23 VACCINE (1 - PCV) [code = 65+ PNEUMOCOCCAL VACCINE (1 - PCV)] Future Scheduled 2023-01-10 COVID-19 VACCINE (2 - [facility] Test 16:07:23 season) [code = COVID-19 VACCINE (2 - season)] Future Scheduled 2023-01-10 INFLUENZA VACCINE (#1) [facility] Test 16:07:23 [code = INFLUENZA VACCINE (#1)] Future Scheduled 2023-01-10 Hepatitis C screening [facility] Test 16:07:23 (procedure) [code = [id number]] Future Scheduled 2023-01-10 BREAST CANCER [facility] Test 16:07:23 SCREENING [code = BREAST CANCER SCREENING] Future Scheduled 2023-01-10 SHINGLES VACCINES ([address] [facility] Test 16:07:23 of 2) [code = SHINGLES VACCINES (1 of 2)] Future Scheduled 2023-01-10 65+ PNEUMOCOCCAL [facility] Test 16:07:23 VACCINE (1 - PCV) [code = 65+ PNEUMOCOCCAL VACCINE (1 - PCV)] Future Scheduled 2023-01-10 COVID-19 VACCINE (2 - [facility] Test 16:07:23 season) [code = COVID-19 VACCINE (2 - season)] Future Scheduled 2023-01-10 INFLUENZA VACCINE (#1) [facility] Test 16:07:23 [code = INFLUENZA VACCINE (#1)] Future Scheduled 2022-06-15 Hepatitis C screening [facility] Test 18:27:26 (procedure) [code = [id number]] Future Scheduled 2022-06-15 BREAST CANCER [facility] Test 18:27:26 SCREENING [code = BREAST CANCER SCREENING] Future Scheduled 2022-06-15 COLONOSCOPY SCREENING [facility] Test 18:27:26 [code = COLONOSCOPY SCREENING] Future Scheduled 2022-06-15 SHINGLES VACCINES (1 Met [facility] Test 18:27:26 of 2) [code = SHINGLES VACCINES (1 of 2)] Future Scheduled 2022-06-15 65+ [facility] Test 18:27:26 VACCINE (1 - PCV) [code = 65+ PNEUMOCOCCAL VACCINE (1 - PCV)] Future Scheduled 2022-06-15 COVID-19 VACCINE (2 - [facility] Test 18:27:26 Moderna series) [code = COVID-19 VACCINE (2 - Moderna series)] Future Scheduled 2022-06-15 [facility]INE [facility] 18:27:26 [code = INFLUENZA VACCINE] Encounters Start End Encounter Admission Attending Care Care Encounter Source Date/Time Date/Time Type Type Clinicians Facility Department ID 2023-02-03 Outpatient Burnham, STLMLC STLC [id number] Common 14:13:00 Samuel [id number] [facility] 2022-10-04 Outpatient Burnham, STLMLC STLMLC [id number] Common 14:34:00 Samuel [id number] [facility] 2022-07-17 Outpatient Burnham, STLMLC STLMLC [id number] Common 09:25:00 Samuel [id number] [facility] 2022-06-13 Outpatient Burnham, STLMLC STLMLC [id number] Common 15:08:00 Samuel 81730 [facility] 2022-05-09 Outpatient Burnham, STLMLC STLMLC [id number] Common 16:31:00 Samuel 88633 [facility] 2022-04-22 Outpatient Anna, STLMLC STLMLC [id number] Common 08:40:01 Swapna [id number] [facility] 2022-03-19 Outpatient BARBER, Na STLMLC STLC [id number] Common 09:15:00 [id number] [facility] 2022-02-21 Outpatient Barber, Na STLMLC STLMLC [id number] Common 10:25:00 [facility] 2021-11-21 Outpatient Barber, Na STLMLC STLMLC [id number] Common 09:22:01 [facility] 2021-10-11 Outpatient Barber, Na STLMLC STLMLC [id number] Common 12:00:00 [facility] 2021-08-23 Outpatient Barber, Na STLMLC STLMLC [id number] Common 08:15:00 [facility] 2021-07-20 Outpatient Barber, Na STLMLC STLMLC [id number] Common 09:12:01 [facility] 2021-04-11 Outpatient Barber, Na STLMLC STLMLC [id number] Common 13:39:53 [id number] [facility] 2021-04-11 Outpatient Barber, Na STLMLC STLMLC [id number] Common 13:35:01 [facility] 2021-04-11 Outpatient Barber, Na STLMLC STLMLC [id number] Common 13:33:22 [facility] 2021-04-11 Outpatient Barber, Na STLMLC STLMLC [id number] Common 13:31:32 [id number] [facility] 2021-04-11 Outpatient Barber, Na STLMLC STLMLC [id number] Common 13:29:30 [id number] [facility] 2021-04-11 Outpatient Barber, Na STLMLC STLMLC [id number] Common 13:25:17 [id number] [facility] 2021-04-11 Outpatient Barber, Na STLMLC STLMLC [id number] Common 13:21:32 13071 [facility] 2021-04-11 Outpatient Barber, Na STLMLC STLMLC [id number] Common 12:47:27 [id number] [facility] 2021-04-11 Outpatient Barber, Na STLMLC STLMLC [id number] Common 12:45:17 13903 [facility] 2021-04-11 Outpatient Barber, Na STLMLC STLMLC [id number] Common 12:17:29 13910 [facility] 2021-04-11 Outpatient Barber, Na STLMLC STLMLC [id number] Common 11:51:20 [id number] [facility] 2021-04-11 Outpatient Barber, Na STLMLC STLMLC [id number] Common 11:29:14 23596 [facility] 2021-04-11 Outpatient Barber, Na STLMLC STLMLC [id number] Common 11:16:52 [id number] [facility] 2021-04-11 Outpatient Barber, Na STLMLC STLMLC [id number] Common 11:16:46 [id number] [facility] 2021-04-11 Outpatient Barber, Na STLMLC STLMLC [id number] Common 10:58:14 [id number] [facility] 2021-04-11 Outpatient Barber, Na STLMLC STLMLC [id number] Common 10:57:37 [id number] [facility] 2022-06-19 2022-06-19 OFFICE STLMLC STLMLC [id number] Co mmon 00:00:00 00:00:00 VISIT [facility] 4 [facility] 2022-06-13 2022-06-13 (TEL) STLMLC STLMLC [id number] Co mmon 00:00:00 00:00:00 [facility] 2022-05-09 2022-05-09 (TEL) STLMLC STLMLC [id number] Co mmon 00:00:00 00:00:00 [facility] 2022-03-15 2022-03-15 (TEL) STLMLC STLMLC [id number] Co mmon 00:00:00 00:00:00 [facility] 2021-11-23 2021-11-23 SUB ANNUAL STLMLC STLMLC [id number] Common 00:00:00 00:00:00 [facility] WELLNESS - CHI VISIT [facility] 2021-11-23 2021-11-23 OFFICE STLMLC STLMLC [id number] Co mmon 00:00:00 00:00:00 VISIT EST Spir it PT LEVEL 3 - CHI [facility] 2021-10-11 2021-10-11 (TEL) STLMLC STLMLC [id number] Co mmon 00:00:00 00:00:00 Spirit - [facility] 2021-08-21 2021-08-21 OFFICE STLMLC STLMLC [id number] Co mmon 00:00:00 00:00:00 VISIT EST Spir it PT LEVEL 3 - CHI [facility] 2021-07-24 2021-07-24 OFFICE STLMLC STLMLC [id number] Co mmon 00:00:00 00:00:00 VISIT Spirit ESTAB PT - CHI LEVEL 4 [facility] 2021-04-26 2021-04-26 OFFICE STLMLC STLMLC [id number] Co mmon 00:00:00 00:00:00 VISIT Spirit ESTAB PT - CHI LEVEL 4 [facility] 2021-03-22 2021-03-22 OFFICE STLMLC STLMLC [id number] Co mmon 00:00:00 00:00:00 VISIT Spirit ESTAB PT - CHI LEVEL 4 [facility] 2021-01-23 2021-01-23 OFFICE STLMLC STLMLC [id number] Co mmon 00:00:00 00:00:00 VISIT Spirit ESTAB PT - CHI LEVEL 4 [facility] 2021-01-18 2021-01-18 (IN/ASP) STLMLC STLMLC [id number] C ommon 00:00:00 00:00:00 INJ ASP [facility] - CHI [facility] 2021-01-09 2021-01-09 (IN/ASP) STLMLC STLMLC [id number] C ommon 00:00:00 00:00:00 INJ ASP [facility] - [facility]I [facility] 2021-01-02 2021-01-02 OFFICE STLMLC STLMLC [id number] Co mmon 00:00:00 00:00:00 VISIT Spirit ESTAB PT - CHI LEVEL 4 [facility] 2020-12-21 2020-12-21 (TEL) STLMLC STLMLC [id number] Co mmon 00:00:00 00:00:00 [facility] 2020-11-02 2020-11-02 Outpatient STLMLC STLMLC [id number] Common 00:00:00 00:00:00 [facility] 2020-10-27 2020-10-27 [facility] [id number] [place] 00:00:00 00:00:[address] [facility]AH [address] 2020-10-23 2020-10-23 Outpatient STLMLC STLMLC [id number] Common 00:00:00 00:00:00 [facility] 2020-10-04 2020-10-04 Outpatient STLMLC STLMLC [id number] Common 00:00:00 00:00:00 [facility] 2020-09-19 2020-09-19 Outpatient STLMLC STLMLC [id number] Common 00:00:00 00:00:00 [facility] 2020-07-18 2020-07-18 Outpatient STLMLC STLMLC [id number] Common 00:00:00 00:00:00 [facility] 2020-06-19 2020-06-19 Outpatient STLMLC STLMLC [id number] Common 00:00:00 00:00:00 [facility] 2020-06-15 2020-06-15 Outpatient STLMLC STLMLC [id number] Common 00:00:00 00:00:00 [facility] 2020-05-18 2020-05-18 Outpatient STLMLC STLMLC [id number] Common 00:00:00 00:00:00 [facility] 2020-05-15 2020-05-15 Outpatient STLMLC STLMLC [id number] Common 00:00:00 00:00:00 [facility] 2020-05-12 2020-05-12 Outpatient STLMLC STLMLC [id number] Common 00:00:00 00:00:00 [facility] 2020-05-08 2020-05-08 Outpatient STLMLC STLMLC [id number] Common 00:00:00 00:00:00 [facility] 2020-04-04 2020-04-04 Outpatient STLMLC STLMLC [id number] Common 00:00:00 00:00:00 [facility] 2020-03-21 2020-03-21 Outpatient STLMLC STLMLC [id number] Common 00:00:00 00:00:00 [facility] 2020-02-16 2020-02-16 Outpatient STLMLC STLMLC [id number] Common 00:00:00 00:00:00 [facility] 2019-12-20 2019-12-20 Outpatient STLMLC STLMLC [id number] Common 00:00:00 00:00:00 [facility] 2019-11-12 2019-11-12 [id number] Common 15:19:00 15:19:[address] [facility] 2019-11-05 2019-11-05 [facility] [id number] Common 10:30:00 10:30:[address] [facility] 2019-09-20 2019-09-20 [facility] [id number] Common 10:00:00 10:00:[address] [facility] 2019-06-29 2019-06-29 [facility] [id number] Common 15:42:00 15:42:[address] [facility] 2019-06-29 2019-06-29 [facility] [id number] Common 11:10:00 11:10:[address] [facility] 2019-06-21 2019-06-21 [facility] [id number] Common 13:00:00 13:00:[address] [facility] 2019-03-22 2019-03-22 [facility] [id number] Common 11:20:00 11:20:[address] [facility] 2018-11-26 2018-11-26 [facility] [id number] Common 09:40:00 09:40:[address] [facility] 2018-10-29 2018-10-29 [facility] [id number] Common 12:00:00 12:00:[address] [facility] 2018-08-26 2018-08-26 [facility] [id number] Common 10:20:00 10:20:[address] [facility] 2018-07-16 2018-07-16 [facility] [id number] Common 14:57:00 14:57:[address] [facility] 2018-05-27 2018-05-27 [facility] [id number] Common 10:00:00 10:00:[address] [facility] 2018-03-27 2018-03-27 [facility] [id number] Common 09:30:00 09:30:[address] [facility] 2017-12-29 2017-12-29 [facility] [id number] Common 12:01:00 12:01:[address] [facility] 2017-10-09 2017-10-09 [facility] [id number] Common 10:45:00 10:45:[address] [facility] 2017-09-26 2017-09-26 [facility] [id number] Common 10:30:00 10:30:[address] [facility] 2017-06-27 2017-06-27 [facility] [id number] Common 09:15:00 09:15:00 [facility] Results This patient has no known results.
[2023-02-04 15:52] LABS: Absolute Lymphocytes (CBC) 1.3 K/uL (0.7-4.9); Hematocrit 35.1 % (36.0-45.0); Lymphocytes % 14.5 % (15.3-44.8); MCV 80.4 fL (80-100); MPV 7.4 fL (7.6-11.3); Platelets 284 thou/uL (152-406); RBC Red Blood Cell Count 4.37 M/uL (3.86-4.86)
[2023-02-04 16:06] LABS: Urine Bacteria None Seen /HPF (<20); Urine Bilirubin NEGATIVE (Negative); Urine Blood Negative (Negative); Urine Clarity Clear (Clear); Urine Color Yellow (Yellow); Urine Glucose 1+ (Negative); Urine Mucus Slight /HPF (None Seen); Urine Protein TRACE (Negative); Urine Urobilinogen 1+ (Normal); Urine pH 6.5 (5.0-7.0)
[2023-02-04 16:15] LABS: Albumin 3.4 g/dL (3.4-5.0); Potassium 3.7 mEq/L (3.5-5.1); Protein, Total 7.1 g/dL (6.4-8.2)
--- NOTE | 2023-02-04 16:15 | RAD REPORT ---
EXAM DESCRIPTION: RAD - Chest Single View - 02/04/2023 4:03 pm CLINICAL HISTORY: eval for pna COMPARISON: Chest Single View dated 01/30/2023; Abdomen 1 View (KUB) dated 07/13/2022; Chest Single V iew dated 12/16/2016; Chest Single View dated 08/31/2016 FINDINGS: Lines: None. Lungs: No evidence of edema or pneumonia. Pleural: No significant pleural effusions or pneumothorax. Cardiac: The heart size is within normal limits. Mediastinum: Within normal limits. Bones: No acute fractures. Other: Surgical clips in the right breast. IMPRESSION: No acute cardiopulmonary disease.
--- NOTE | 2023-02-04 16:26 | EDPHYS ---
Physician Documentation [facility] Name: More Bledsoe Age: 72 yrs Sex: Female : 1950 Arrival Date: 02/04/2023 Time: 15:30 Bed 7 Private MD: ED Physician Kostas Rosen HPI: 02/04 15:47 This 72 yrs old Female presents to ER via EMS with complaints of General ec2 Weakness. 15:47 Patient arrives today for evaluation of generalized weakness. Patient was recently ec2 hospitalized for hyponatremia, has been having issues with strength. No reported falls or trauma, patient with history of dementia, history limited due to patient's dementia. Patient does not complain of any headache or chest pain or shortness of breath or abdominal pain or issue with the urine.. Historical: - Allergies: 15:34 Codeine; mb9 15:34 Demerol; mb9 15:34 PENICILLINS; mb9 15:34 Sulfa (Sulfonamide Antibiotics); mb9 - Home Meds: 15:34 lisinopril Oral [Active]; mb9 - PMHx: 15:34 Alzheimer's disease; BREAST CA; Diabetes - IDDM; Hypertension; mb9 - PSHx: 15:34 bilateral breast mastectomy; Cholecystectomy; mb9 - Immunization history:: Adult Immunizations up to date. - Social history:: Smoking status: Patient denies any tobacco usage or history of. ROS: 15:47 Constitutional: as per hpi ec2 Exam: 15:47 Constitutional: GEN: NAD Head: atraumatic Eyes: EOMI Ears: External ears are ec2 normal. CV: regular rate LUNGS: no respiratory distress ABD: non-distended, soft, nontender, guarding, not rigid SKIN: no evidence of rashes MSK: no evidence of trauma NEURO: moves all extremities equally Vital Signs: 15:32 BP 157 / 82; Pulse 73; Resp 18; Temp 98.5(O); Pulse Ox 100% on R/A; Weight 65.77 kg; mb9 Height 5 ft. 2 in. ; Pain 0/10; 16:34 BP 153 / 70; Pulse 74; Resp 14; Pulse Ox 99% ; mb9 18:04 BP 167 / 73; Pulse 64; Resp 16; Pulse Ox 100% on R/A; mb9 15:32 Body Mass Index 26.52 (65.77 kg, 157.48 cm) mb9 15:32 Pain Scale: Adult mb9 MDM: 15:37 Patient medically screened. ec2 15:47 Data reviewed: vital signs. ED course: Patient is well-appearing nontoxic dividual who ec2 is in no acute distress with a reassuring examination. Will obtain basic lab work to evaluate for electrolyte disturbance such as hyponatremia or acute renal failure, also send urine studies to evaluate for UTI. Currently considering multiple processes.. 16:24 ED course: CBC is reassuring without evidence of anemia. Metabolic profile shows ec2 hyponatremia with a sodium of 124. Urine is noninfectious appearing. Chest x-ray shows no acute intrathoracic process. Will admit for hyponatremia. Discussed case with hospitalist, pending admission. . 02/04 15:38 Order name: CBC with Diff; Complete Time: 16:24 ec2 02/04 15:38 Order name: CMP; Complete Time: 16:24 ec2 02/04 15:38 Order name: UAM; Complete Time: 16:24 ec2 02/04 17:57 Order name: Magnesium EDWA 02/04 17:57 Order name: Phosphorus EDWA 02/04 17:57 Order name: T4 Free EDWA 02/04 17:58 Order name: Thyroid Stimulating Hormone EDWA 02/04 17:58 Order name: Urinalysis w/ reflexes EDMS 02/04 17:58 Order name: Basic Metabolic Panel EDWA 02/04 17:58 Order name: Basic Metabolic Panel EDWA 02/04 17:58 Order name: CBC with Automated Diff EDMS 02/04 17:58 Order name: CBC with Automated Diff EDMS 02/04 17:58 Order name: Lipid Profile EDWA 02/04 17:58 Order name: Lipid Profile EDMS 02/04 17:58 Order name: Hemoglobin A1c EDWA 02/04 15:38 Order name: CXR XRAY; Complete Time: 16:24 ec2 02/04 15:39 Order name: IV Saline Lock; Complete Time: 15:44 9 02/04 15:56 Order name: Straight Cath - Urine; Complete Time: 15:56 9 Administered Medications: 16:33 Drug: NS IV 0.45 % 1000 ml IV at 125 ml/hr continuous Route: IV; Rate: 125 ml/hr; Site: [facility] right hand; Disposition Summary: 02/04/23 16:26 Hospitalization Ordered Notes: Hospitalization Status: Inpatient Admission ec2 Location: Telemetry/MedSurg (Inpatient) ec2 Condition: Stable ec2 Problem: an acute exacerbation ec2 Symptoms: are unchanged ec2 Bed/Room Type: Standard ec2 Provider: Adeel Arango(02/04/23 16:27) ec2 Room Assignment: [facility](02/04/23 18:22) bd Diagnosis - Hypo-osmolality and hyponatremia ec2 Forms: - Medication Reconciliation Form ec2 - SBAR form ec2 - Leadership Thank You Letter ec2 Signatures: Dispatcher [employer] EDAna Martinez Mary Beth, RN RN mb9 Kostas Rosen MD MD ec2 Corrections: (The following items were deleted from the chart) 16: 16:26 Srinivas Archibald ec2 ec2 18:22 16:26 ec2 bd
--- NOTE | 2023-02-04 16:26 | ER ---
Nurse's Notes [facility] Name: More Bledsoe Age: 72 yrs Sex: Female : 1950 Arrival Date: 02/04/2023 Time: 15:30 Bed 7 Private MD: Diagnosis: Hypo-osmolality and hyponatremia Presentation: 02/04 15:32 Chief complaint: EMS states: "toned out for being unsteady on feet, not acting like mb9 self, and weaker than normal per family. BGL 173". Coronavirus screen: Vaccine status: Patient reports receiving the 2nd dose of the covid vaccine. Ebola Screen: No symptoms or risks identified at this time. Initial Sepsis Screen: Does the patient meet any 2 criteria? No. Patient's initial sepsis screen is negative. Does the patient have a suspected source of infection? No. Patient's initial sepsis screen is negative. Risk Assessment: Do you want to hurt yourself or someone else? Patient reports no desire to harm self or others. Onset of symptoms was February 04, 2023. 15:32 Method Of Arrival: EMS: [facility] mb9 15:32 Acuity: KAMALJIT 3 mb9 Triage Assessment: 15:34 General: Appears in no apparent distress. Behavior is calm, cooperative. Pain: Denies mb9 pain. EENT: No signs and/or symptoms were reported regarding the EENT system. Neuro: Dobbins Agitation-Sedation Scale (RASS): 0 - Alert and Calm. Neuro: Level of Consciousness is awake, alert, obeys commands, Oriented to person, place, situation, Appropriate for age. Cardiovascular: Heart tones S1 S2 present Patient's skin is warm and dry. Respiratory: Airway is patent Respiratory effort is even, unlabored, Respiratory pattern is regular, symmetrical, Breath sounds are clear bilaterally. GI: Abdomen is flat, non-distended, Bowel sounds present X 4 quads. Abd is soft and non tender X 4 quads. : No signs and/or symptoms were reported regarding the genitourinary system. Derm: Skin is pink, warm \\T\\ dry. Musculoskeletal: Range of motion: intact in all extremities. Historical: - Allergies: 15:34 Codeine; mb9 15:34 Demerol; mb9 15:34 PENICILLINS; mb9 15:34 Sulfa (Sulfonamide Antibiotics); mb9 - Home Meds: 15:34 lisinopril Oral [Active]; mb9 - PMHx: 15:34 Alzheimer's disease; BREAST CA; Diabetes - IDDM; Hypertension; mb9 - PSHx: 15:34 bilateral breast mastectomy; Cholecystectomy; mb9 - Immunization history:: Adult Immunizations up to date. - Social history:: Smoking status: Patient denies any tobacco usage or history of. Screenin:[address] [facility] ED Fall Risk Assessment (Adult) History of falling in the last 3 months, mb9 including since admission No falls in past 3 months (0 pts) Confusion or Disorientation Yes (5 pts) Intoxicated or Sedated No (0 pts) Impaired Gait Yes (1 pt) Mobility Assist Device Used No (0 pt) Altered Elimination No (0 pt) Score/Fall Risk Level 3 or more points = High Risk Oriented to surroundings, Maintained a safe environment, Educated pt \\T\\ family on fall prevention, incl call for assistance when getting out of bed. Abuse screen: Denies threats or abuse. Nutritional screening: No deficits noted. Tuberculosis screening: No symptoms or risk factors identified. Assessment: 15:35 Reassessment: see triage assessment. mb9 16:34 Reassessment: Son at bedside. mb9 17:13 Reassessment: No changes from previously documented assessment. Patient and/or family mb9 updated on plan of care and expected duration. Pain level reassessed. 18:04 Reassessment: No changes from previously documented assessment. Patient and/or family mb9 updated on plan of care and expected duration. Pain level reassessed. 18:30 Reassessment: see [facility] for further charting. mb9 19:20 Reassessment: notified pts sonJake, about new room assignment, rm 408. mb9 Vital Signs: 15:32 BP 157 / 82; Pulse 73; Resp 18; Temp 98.5(O); Pulse Ox 100% on R/A; Weight 65.77 kg; mb9 Height 5 ft. 2 in. ; Pain 0/10; 16:34 BP 153 / 70; Pulse 74; Resp 14; Pulse Ox 99% ; mb9 18:04 BP 167 / 73; Pulse 64; Resp 16; Pulse Ox 100% on R/A; mb9 15:32 Body Mass Index 26.52 (65.77 kg, 157.48 cm) mb9 15:32 Pain Scale: Adult mb9 ED Course: 15:20 Inserted saline lock: 20 gauge in right hand, using aseptic technique. mb9 15:32 Patient arrived in ED. mb9 15:34 Triage completed. mb9 15:34 Arm band placed on. mb9 15:35 Dilma Avalos, SHONA is Primary Nurse. mb9 15:35 Placed in gown. Bed in low position. Call light in reach. Side rails up X 1. Client mb9 placed on continuous cardiac and pulse oximetry monitoring. NIBP monitoring applied. manager monitoring on. 15:36 No provider procedures requiring assistance completed. mb9 15:37 Kostas Rosen MD is Attending Physician. ec2 15:44 CMP Sent. mb9 15:44 CBC with Diff Sent. mb9 15:52 UAM Sent. mb9 15:54 Straight cath inserted, using sterile technique, 16 Fr. Specimen obtained. Returned zm clear yellow urine. Patient tolerated well. 16:05 CXR XRAY In Process Unspecified. EDMS 16:25 Srinivas Archibald MD is Hospitalizing Provider. ec2 16:27 Adeel Arango MD is Hospitalizing Provider. ec2 19:31 Patient admitted, IV remains in place. mb9 Administered Medications: 16:33 Drug: NS IV 0.45 % 1000 ml IV at 125 ml/hr continuous Route: IV; Rate: 125 ml/hr; Site: mb9 right hand; Medication: 15:35 VIS not applicable for this client. mb9 Outcome: 16:26 Decision to Hospitalize by Provider. ec2 19:30 Admitted to Tele room 408, with chart, Report called to SHONA Jordan mb9 19:30 Condition: stable 19:30 Instructed on the need for admit, Demonstrated understanding of follow-up care, 19:40 Patient left the ED. mb9 Signatures: Dispatcher [employer] EDDemetrice Hansen Mary Beth, RN RN mb9 Corral, Edwin, MD MD ec2
[2023-02-04] MEDS ORDERED: NACHLORIDE 0.45% 1,000 ML IV ONE (16:42)
[2023-02-04] MEDS ORDERED: ACETAMINOPHEN 325 MG TABLET PO PRN (17:53)
[2023-02-04] MEDS ORDERED: ONDANSETRON 4 MG/2 ML VIAL IV PRN (17:55)
--- NOTE | 2023-02-04 17:56 | P.HP ---
Certification for Inpatient Patient admitted to: Observation With expected LOS: <2 Midnights Patient will require the following post-hospital care: None Practitioner: I am a practitioner with admitting privileges, knowledge of patient current condition, hospital course, and medical plan of care. Services: Services provided to patient in accordance with Admission requirements found in Title 42 Section 412.3 of the Code of Federal Regulations Patient History Date of Service: 02/04/23 Reason for admission: Weakness, History of Present Illness: Patient is a 72-year-old female with past medical history significant Alzheimer's dementia, breast cancer, DM 2, hypertension, hypothyroidism, hyperlipidemia who presents with c\\o of weakness. Patient alert and oriented x 2, confused and unable to provide accurate history. Family reported that patient became more confused yesterday and was also noted to be weak and fatigued. Family also reported that patient has not been compliant with her home medications and has also had poor appetite. Patient reported associated signs and symptoms of nausea. Patient denies any other signs and symptoms. Symptoms are aggravated and relieved by nothing. Patient was brought to the hospital for medical evaluation. Allergies Penicillins Allergy (Verified 02/09/18 09:34) Hives/Rash Sulfa (Sulfonamide Antibiotics) Allergy (Verified 02/09/18 09:34) Rash codeine Adverse Reaction (Verified 02/09/18 09:34) hyper, agitated meperidine [From Demerol] Adverse Reaction (Verified 02/09/18 09:34) "made me run all over, then cldnt move,could hear everthing" Home Medications: Donepezil HCl 1 tab PO DAILY 01/31/23 Rosuvastatin [Crestor*] 1 tab PO BEDTIME 02/04/23 lisinopriL [Lisinopril] 1 tab PO DAILY 02/04/23 - Past Medical/Surgical History -: Insulin-dependent diabetes -: History of breast cancer -: Hypertension -: alzheimer's -: Bilateral mastectomy -: Cholecystectomy Psychosocial/ Personal History: Patient lives at home with her - Family History Mother -: Diabetes - Social History Smoking Status: Unknown if ever smoked Alcohol use: No CD- Drugs: No Caffeine use: Yes Place of Residence: Home Review of Systems is unable to be obtained (Patint confused) Physical Examination - Physical Exam General: Alert, In no apparent distress, Oriented x2, Confused HEENT: Atraumatic, PERRLA, Mucous membr. moist/pink, EOMI, Sclerae nonicteric Neck: Supple, 2+ carotid pulse no bruit, No LAD, Without JVD or thyroid abnormality Respiratory: Clear to auscultation bilaterally, Normal air movement Cardiovascular: No edema, Regular rate/rhythm, Normal S1 S2 Capillary refill: <2 Seconds Gastrointestinal: Normal bowel sounds, Soft and benign, No tenderness Musculoskeletal: No clubbing, No swelling, No tenderness Integumentary: No rashes Neurological: Normal speech, Normal tone, Normal affect, Dementia Lymphatics: No axilla or inguinal lymphadenopathy - Studies Laboratory Data (last 24 hrs) 02/04/23 02/04/23 15:43 15:43 WBC 8.90 Hgb 12.7 Hct 35.1 L Plt Count 284 Sodium 124 L Potassium 3.7 BUN 14 Creatinine 0.66 Glucose 147 H Total Bilirubin 1.0 AST 38 H ALT 43 Alkaline Phosphatase 76 Assessment and Plan - Plan -- Hyponatremia. Unclear etiology. Urine\\Serum osmolality, serum sodium, urine Sodium\\Potassium pending for further evaluation. Nephrology consulted. Will await further recommendations. --DM2. BS monitoring with sliding scale insulin. --Hypertension. Poorly controlled. Continue home medications and hydralazine as needed. --Hypothyroidism. Continue Synthroid. --Alzheimer's dementia. Continue home medication. --Nausea. Antiemetics on board. --Hyperlipidemia. Continue statin. --Hypomagnesemia. Replete as needed. --DVT prophylaxis with Lovenox subQ - Advance Directives Does patient have a Living Will: No Does patient have a Durable POA for Healthcare: No
[2023-02-04] MEDS ORDERED: D10W 250 ML BAG IV PRN (17:57)
[2023-02-04] MEDS ORDERED: GLUCAGON 1 MG/VIAL IM PRN (17:57)
[2023-02-04 18:35] VITALS: BMI 26.5
[2023-02-04] MEDS ORDERED: ENOXAPARIN 40 MG/0.4 ML SQ ONE (18:53)
[2023-02-04] MEDS: ENOXAPARIN 40 MG/0.4 ML SQ SCH (18:57)
[2023-02-04 20:00] LABS: Magnesium 1.5 mg/dL (1.6-2.4); Phosphorus 2.7 mg/dL (2.5-4.9)
[2023-02-04] MEDS: INSULIN REGULAR (HUMAN) 100 UNIT/ML SQ SCH (20:01)
[2023-02-04 20:10] LABS: Thyroid Stimulating Hormone 3.96 uIU/mL (0.358-3.740)
[2023-02-04] MEDS ORDERED: POTASSIUM CL SA 10 MEQ TAB PO ONE (20:40)
[2023-02-04] MEDS ORDERED: MAGNESIUM SULFATE 1 gm IVPB 1 GM/100 ML BAG IV ONE (20:41)
[2023-02-04] MEDS ORDERED: HYDRALAZINE HCL 20 MG/ML VIAL IV PRN (21:02)
[2023-02-04] MEDS: lisinopriL 20 MG TAB PO SCH (21:26)
[2023-02-05 01:30] LABS: Specific Gravity 1.007 (1.005-1.030); Urine Bilirubin NEGATIVE (Negative); Urine Blood Negative (Negative); Urine Clarity Clear (Clear); Urine Color Colorless (Yellow); Urine Glucose NEGATIVE (Negative); Urine Protein NEGATIVE (Negative); Urine Urobilinogen Normal (Normal)
[2023-02-05 07:07] LABS: Absolute Lymphocytes (CBC) 1.1 K/uL (0.7-4.9); Hematocrit 33.3 % (36.0-45.0); Lymphocytes % 12.4 % (15.3-44.8); MCV 80.2 fL (80-100); MPV 7.4 fL (7.6-11.3); Platelets 271 thou/uL (152-406); RBC Red Blood Cell Count 4.15 M/uL (3.86-4.86)
[2023-02-05 07:17] LABS: Potassium 3.9 mEq/L (3.5-5.1)
[2023-02-05] MEDS: INSULIN REGULAR (HUMAN) 100 UNIT/ML SQ SCH ×4 (07:30→19:48)
[2023-02-05] MEDS: DONEPEZIL HCL 5 MG TAB PO SCH (08:27)
[2023-02-05] MEDS: lisinopriL 20 MG TAB PO SCH (08:27)
[2023-02-05] MEDS: ASPIRIN 81 MG CHEWABLE TABLET PO SCH (08:27)
[2023-02-05] MEDS: ENOXAPARIN 40 MG/0.4 ML SQ SCH (08:28)
--- NOTE | 2023-02-05 11:31 | P.CNS ---
Date of Consult: 02/05/23 Reason for Consult: Acute on chronic hyponatremia Requesting Physician: Adeel Arango Chief Complaint: Weakness, History of Present Illness: Patient is a 72-year-old female with reports in the medical records of underlying Alzheimer's dementia, unspecified severity, breast cancer, hypertension with ACEi listed among mes, hypothyroidism who presents with primary complaint of weakness. Pt apparently was admitted just recently to the hospital and was found on that admission to have low serum Na levels as well. Pt denies knowledge of hyponatremia. Pt denies loss of appetite, N/V/D. She does not know if her weight has decreased. No family members present at bedside but per the records, family had suggested pt was more confused from baseline, easily fatigued and with poor appetite. n. Allergies Penicillins Allergy (Verified 02/09/18 09:34) Hives/Rash Sulfa (Sulfonamide Antibiotics) Allergy (Verified 02/09/18 09:34) Rash codeine Adverse Reaction (Verified 02/09/18 09:34) hyper, agitated meperidine [From Demerol] Adverse Reaction (Verified 02/09/18 09:34) "made me run all over, then cldnt move,could hear everthing" Home Medications: Donepezil HCl 1 tab PO DAILY 01/31/23 Rosuvastatin [Crestor*] 1 tab PO BEDTIME 02/04/23 lisinopriL [Lisinopril] 1 tab PO DAILY 02/04/23 - Past Medical/Surgical History -: Insulin-dependent diabetes -: History of breast cancer -: Hypertension -: alzheimer's -: Bilateral mastectomy -: Cholecystectomy Psychosocial/ Personal History: Patient lives at home with her - Family History Mother Medical History: Diabetes - Social History Alcohol use: No CD- Drugs: No Caffeine use: Yes Place of Residence: Home Review of Systems General: Weakness Eyes: Unremarkable ENT: Unremarkable Respiratory: Unremarkable Cardiovascular: Unremarkable Gastrointestinal: As per HPI Genitourinary: Unremarkable Musculoskeletal: As per HPI Integumentary: Unremarkable Neurological: Weakness, As per HPI Physical Examination Temp Pulse Resp BP Pulse Ox 97.3 F 64 16 135/67 98 02/05/23 07:26 02/05/23 07:26 02/05/23 07:26 02/05/23 07:26 02/05/23 07:26 General: Other (Appears mildly lethargic but NAD) HEENT: Atraumatic, Normocephalic Neck: Supple Respiratory: Clear to auscultation bilaterally, Normal air movement Cardiovascular: Regular rate/rhythm, Normal S1 S2 Gastrointestinal: Soft and benign, Non-distended, No tenderness, No rebound Musculoskeletal: No swelling, No contractures Integumentary: No rashes, No tenderness/swelling Neurological: Other (Awake, flat affect, responds slowly/briefly, partially oriented, did not know year ) Laboratory Data (last 24 hrs) 02/04/23 02/04/23 02/04/23 15:43 15:43 15:43 WBC 8.90 Hgb 12.7 Hct 35.1 L Plt Count 284 Sodium 124 L Potassium 3.7 BUN 14 Creatinine 0.66 Glucose 147 H Phosphorus 2.7 Magnesium 1.5 L Total Bilirubin 1.0 AST 38 H ALT 43 Alkaline Phosphatase 76 Conclusions/Impression: A/P) 1. Sub-acute on chronic moderately severe hypotonic hyponatremia, euvolemic, symptomatic. 2. Urine studies fit with SIADH pattern given random Sindi > 40 and Uosm > 100. Unclear exact etiology at this time. 3. Will attempt conservative measures first such as free water restriction, salts tabs given reports of low appetite/intake and Ure-Na 15 gm BID x 48h. 4. If pt does not respond to these measures and serum Na level remains < 130, m ay consider low dose Tolvaptan 5. Chronic HTN -labile pressures here, cont to trend, ok to cont ACEi. Rarely, ACEi/lisinopril can be associated with SIADH, will cont for now but may explore alternatives such as lower dose CCB therapy/other Sd Catherine MD, JASVIR
[2023-02-05] MEDS: SODIUM CHLORIDE 1 GM TAB PO SCH ×2 (12:39→19:47)
[2023-02-05] MEDS: UREA 15 GM POWDER PACKET PO SCH ×2 (12:40→19:47)
[2023-02-05] MEDS ORDERED: TRAZODONE 50 MG TABLET PO PRN (19:26)
[2023-02-05] MEDS: ROSUVASTATIN 10 MG TAB PO SCH (19:47)
[2023-02-05] MEDS: TRAMADOL HCL 50 MG TAB PO PRN (19:47)
[2023-02-05] MEDS: ENSURE ENLIVE 237 ML CAN PO SCH (19:51)
--- NOTE | 2023-02-05 23:23 | P.PN ---
Subjective Date of Service: 02/05/23 Chief Complaint: Weakness Subjective: No new changes Patient seen at bedside. No complaints reported. Continue supportive care. Review of Systems is unable to be obtained (Patient confused.) Physical Examination - Vital Signs Temperature: 97 F Blood Pressure: 131/63 Pulse: 69 Respirations: 16 Pulse Ox (%): 99 - Physical Exam General: Alert, In no apparent distress, Oriented x1, Confused HEENT: Atraumatic, PERRLA, EOMI Neck: Supple, JVD not distended Respiratory: Clear to auscultation bilaterally, Normal air movement Cardiovascular: No edema, Regular rate/rhythm, Normal S1 S2 Capillary refill: <2 Seconds Gastrointestinal: Normal bowel sounds, Non-distended, No tenderness Musculoskeletal: No clubbing, No tenderness Integumentary: No rashes Neurological: Normal speech, Normal tone, Normal affect Lymphatics: No axilla or inguinal lymphadenopathy - Studies Laboratory Data (last 24 hrs) 02/05/23 02/05/23 02/04/23 06:46 06:46 Unknown WBC 9.10 Hgb 12.0 Hct 33.3 L Plt Count 271 Sodium 125 L Cancelled Potassium 3.9 BUN 9 Creatinine 0.51 L Glucose 141 H Triglycerides 77 Cholesterol 172 HDL Cholesterol 83 H Cholesterol/HDL Ratio 2.07 Assessment And Plan - Plan Interval history. 02/05/23 Patient seen at bedside. Denies any signs and symptoms of distress. Patient alert oriented x 1 but confused. Sodium levels improving gradually. Rotor Balancer suspects patient has SIADH based on Lab results. Patient placed on urea and sodium tablets by assistant real estate manager. Further management by assistant real estate manager. --DVT prophylaxis with Lovenox subQ. -- Hyponatremia. Unclear etiology. Urine\Serum osmolality, serum sodium, urine Sodium\Potassium pending for further evaluation. Nephrology consulted. Will await further recommendations. --DM2. BS monitoring with sliding scale insulin. --Hypertension. Poorly controlled. Continue home medications and hydralazine as needed. --Hypothyroidism. Continue Synthroid. --Alzheimer's dementia. Continue home medication. --Nausea. Antiemetics on board. --Hyperlipidemia. Continue statin. --Hypomagnesemia. Replete as needed. --DVT prophylaxis with Lovenox subQ Discharge Plan: Home Plan to discharge in: 48 Hours - Code Status/Comfort Care Code Status Assessed: Yes Physician Review: Patient Assessed, Agree with Above Assessment and Plan Critical Care: No
[2023-02-06] MEDS: INSULIN REGULAR (HUMAN) 100 UNIT/ML SQ SCH ×4 (07:30→20:27)
[2023-02-06 07:38] LABS: Potassium 4.3 mEq/L (3.5-5.1)
[2023-02-06] MEDS: TRAMADOL HCL 50 MG TAB PO PRN (08:44)
[2023-02-06] MEDS: ASPIRIN 81 MG CHEWABLE TABLET PO SCH (08:45)
[2023-02-06] MEDS: SODIUM CHLORIDE 1 GM TAB PO SCH ×2 (08:45→20:27)
[2023-02-06] MEDS: ENOXAPARIN 40 MG/0.4 ML SQ SCH (08:45)
[2023-02-06] MEDS: DONEPEZIL HCL 5 MG TAB PO SCH (08:45)
[2023-02-06] MEDS: lisinopriL 20 MG TAB PO SCH (08:45)
[2023-02-06] MEDS: UREA 15 GM POWDER PACKET PO SCH (08:46)
[2023-02-06] MEDS: ENSURE ENLIVE 237 ML CAN PO SCH ×2 (08:59→20:27)
[2023-02-06] MEDS ORDERED: TOLVAPTAN 15 MG TABLET PO ONE (13:00)
--- NOTE | 2023-02-06 13:37 | P.PN ---
(S) Na levels remain low, did not respond to measures yesterday, based on total recorded PO intake, fluid intake exceeded fluid restrictions placed. Pt denies any acute complaints, remains a bit lethargic and symptomatic from hyponatrmia (O) Vitals reviewed in the EMR General: Other (Appears mildly lethargic but NAD) HEENT: Atraumatic, Normocephalic Neck: Supple Respiratory: Clear to auscultation bilaterally, Normal air movement Cardiovascular: Regular rate/rhythm, Normal S1 S2 Gastrointestinal: Soft and benign, Non-distended, No tenderness, No rebound Musculoskeletal: No swelling, No contractures Integumentary: No rashes, No tenderness/swelling Neurological: Other (Awake, flat affect, responds slowly/briefly, partially oriented, some confusion evident ) Conclusions/Impression: A/P) 1. Sub-acute on chronic moderately severe hypotonic hyponatremia, euvolemic, symptomatic. 2. Urine studies fit with SIADH pattern given random Sindi > 40 and Uosm > 100. Unclear exact etiology at this time. 3. Did attempt conservative measures first such as free water restriction, salts tabs given reports of low appetite/intake and Ure-Na 15 gm BID x 48h. 4. Since pt did not respond to these measures and serum Na level remains < 125, will proceed with V2 receptor antagonist, tolvaptan 7.5 mg PO once and recheck Na level 6h post dose 5. Chronic HTN -labile pressures here, cont to trend. Rarely, ACEi/lisinopril can be associated with SIADH, will explore alternatives such as lower dose CCB therapy/other Sd Catherine MD, JASVIR
--- NOTE | 2023-02-06 15:27 | P.PN ---
Subjective Date of Service: 02/06/23 Chief Complaint: Weakness Subjective: Worsening Patient aggressive earlier in the day but Patient calm when son arrived. No signs or symptoms of distress noted or reported. Continue supportive care. Review of Systems is unable to be obtained (Patient confused) Physical Examination - Vital Signs Temperature: 97.4 F Blood Pressure: 145/69 Pulse: 68 Respirations: 16 Pulse Ox (%): 100 - Physical Exam General: Alert, In no apparent distress, Oriented x1, Confused HEENT: Atraumatic, PERRLA, EOMI Neck: Supple, JVD not distended Respiratory: Clear to auscultation bilaterally, Normal air movement Cardiovascular: No edema, Regular rate/rhythm, Normal S1 S2 Capillary refill: <2 Seconds Gastrointestinal: Normal bowel sounds, No tenderness Musculoskeletal: No clubbing, No tenderness Integumentary: No rashes Neurological: Normal speech, Normal tone, Normal affect Lymphatics: No axilla or inguinal lymphadenopathy Assessment And Plan - Plan Interval history. 02/06/23 Patient seen at bedside. Patient confused at baseline. Sodium levels worsening--further management per facilities mechanical design engineer. Nursing staff reported that patient was aggressive earlier in the day but patient remains calm when her family member came. Continue supportive care. 02/05/23 Patient seen at bedside. Denies any signs and symptoms of distress. Patient alert oriented x 1 but confused. Sodium levels improving gradually. Security Nurse suspects patient has SIADH based on Lab results. Patient placed on urea and sodium tablets by facilities mechanical design engineer. Further management by facilities mechanical design engineer. --DVT prophylaxis with Lovenox subQ. -- Hyponatremia. Unclear etiology. Urine\Serum osmolality, serum sodium, urine Sodium\Potassium pending for further evaluation. Nephrology consulted. Will await further recommendations. --DM2. BS monitoring with sliding scale insulin. --Hypertension. Poorly controlled. Continue home medications and hydralazine as needed. --Hypothyroidism. Continue Synthroid. --Alzheimer's dementia. Continue home medication. --Nausea. Antiemetics on board. --Hyperlipidemia. Continue statin. --Hypomagnesemia. Replete as needed. --DVT prophylaxis with Lovenox subQ Discharge Plan: Home Plan to discharge in: Greater than 2 days Physician Review: Patient Assessed, Agree with Above Assessment and Plan Critical Care: No
[2023-02-06] MEDS ORDERED: LORazepam 2 MG/ML VIAL IV ONE (15:40)
[2023-02-06] MEDS ORDERED: AMLODIPINE 5 MG TAB PO SCH (17:30)
[2023-02-06] MEDS: ROSUVASTATIN 10 MG TAB PO SCH (20:27)
[2023-02-07] MEDS: INSULIN REGULAR (HUMAN) 100 UNIT/ML SQ SCH ×3 (07:30→16:30)
[2023-02-07 08:39] LABS: Absolute Lymphocytes (CBC) 1.5 K/uL (0.7-4.9); Hematocrit 36.3 % (36.0-45.0); Lymphocytes % 21.9 % (15.3-44.8); MCV 81.8 fL (80-100); MPV 7.9 fL (7.6-11.3); Platelets 301 thou/uL (152-406); RBC Red Blood Cell Count 4.44 M/uL (3.86-4.86)
[2023-02-07 08:48] LABS: Potassium 4.4 mEq/L (3.5-5.1)
[2023-02-07] MEDS: ASPIRIN 81 MG CHEWABLE TABLET PO SCH (09:00)
[2023-02-07] MEDS: ENOXAPARIN 40 MG/0.4 ML SQ SCH (09:14)
[2023-02-07] MEDS: ENSURE ENLIVE 237 ML CAN PO SCH (09:15)
[2023-02-07 09:27] VITALS: O2SAT 97
[2023-02-07 12:12] VITALS: TEMP 97.8
[2023-02-07] MEDS ORDERED: TOLVAPTAN 15 MG TABLET PO ONE (13:30)
--- NOTE | 2023-02-07 14:51 | P.PN ---
(S) Na level improved after Tolvaptan dose and closer to 130, pt's condition stable, pt is taking in PO intake, discussed fluid restriction with primary RN. No family at bedside (O) Vitals reviewed in the EMR General: Other (Appears mildly lethargic but NAD) HEENT: Atraumatic, Normocephalic Neck: Supple Respiratory: Clear to auscultation bilaterally, Normal air movement Cardiovascular: Regular rate/rhythm, Normal S1 S2 Gastrointestinal: Soft and benign, Non-distended, No tenderness, No rebound Musculoskeletal: No swelling, No contractures Integumentary: No rashes, No tenderness/swelling Neurological: Other (Awake, flat affect, responds slowly/briefly, partially oriented, some confusion evident ) Conclusions/Impression: A/P) 1. Sub-acute on chronic moderately severe hypotonic hyponatremia, euvolemic, symptomatic on admission. 2. Urine studies fit with SIADH pattern given random Sindi > 40 and Uosm > 100. Unclear exact etiology at this time. 3. Did attempt conservative measures first such as free water restriction, salts tabs given reports of low appetite/intake and Ure-Na 15 gm BID x 48h. 4. Since pt did not respond to these measures and serum Na level remainsed yesterday < 125, did proceed with V2 receptor antagonist, tolvaptan 7.5 mg PO once. Good response with Na level up to 129. On discharge will cont NaCl tabs and Ure-Na and fluid restriction and offer pt f/u 5. Chronic HTN -labile pressures here, cont to trend. Rarely, ACEi/lisinopril can be associated with SIADH, so will suspend and did place on alternative, lower dose CCB therapy/other Sd Catherine MD, JASVIR
[2023-02-07] MEDS ORDERED: UREA 15 GM POWDER PACKET PO SCH (15:00)
--- NOTE | 2023-02-07 15:40 | P.DS ---
Admission Date: 02/05/23 Discharge Date: 02/07/23 Disposition: ROUTINE DISCHARGE Discharge Condition: GOOD Reason for Admission: Weakness Brief History of Present Illness: Patient is a 72-year-old female with past medical history significant Alzheimer's dementia, breast cancer, DM 2, hypertension, hypothyroidism, hyperlipidemia who presents with c\o of weakness. Patient alert and oriented x 2, confused and unable to provide accurate history. Family reported that patient became more confused yesterday and was also noted to be weak and fatigued. Family also reported that patient has not been compliant with her home medications and has also had poor appetite. Patient reported associated signs and symptoms of nausea. Patient denies any other signs and symptoms. Symptoms are aggravated and relieved by nothing. Patient was brought to the hospital for medical evaluation. Vital Signs/Physical Exam: Temp Pulse Resp BP Pulse Ox 97.8 F 68 17 140/63 100 02/07/23 12:00 02/07/23 12:00 02/07/23 12:00 02/07/23 12:00 02/07/23 12:00 Laboratory Data at Discharge: WBC 7.00 thou/uL (4.3-10.9) 02/07/23 07:50 Hgb 13.0 g/dL (12.0-15.0) 02/07/23 07:50 Hct 36.3 % (36.0-45.0) 02/07/23 07:50 Plt Count 301 thou/uL (152-406) 02/07/23 07:50 Sodium 129 mEq/L (136-145) L D 02/07/23 07:50 Potassium 4.4 mEq/L (3.5-5.1) 02/07/23 07:50 BUN 15 mg/dL (7-18) 02/07/23 07:50 Creatinine 0.63 mg/dL (0.55-1.02) 02/07/23 07:50 Glucose 132 mg/dL (74-106) H 02/07/23 07:50 Phosphorus 2.7 mg/dL (2.5-4.9) 02/04/23 15:43 Magnesium 1.5 mg/dL (1.6-2.4) L 02/04/23 15:43 Total Bilirubin 1.0 mg/dL (0.2-1.0) 02/04/23 15:43 AST 38 U/L (15-37) H 02/04/23 15:43 ALT 43 U/L (13-56) 02/04/23 15:43 Alkaline Phosphatase 76 U/L (45-117) 02/04/23 15:43 Triglycerides 77 mg/dL (<150) 02/05/23 06:46 Cholesterol 172 mg/dL (<200) 02/05/23 06:46 HDL Cholesterol 83 mg/dL (40-60) H 02/05/23 06:46 Cholesterol/HDL Ratio 2.07 02/05/23 06:46 Home Medications: Donepezil HCl 1 tab PO DAILY 01/31/23 Rosuvastatin [Crestor*] 1 tab PO BEDTIME 02/04/23 lisinopriL [Lisinopril] 1 tab PO DAILY 02/04/23 Levothyroxine [Synthroid*] 75 mcg PO [id number] 02/05/23 Sodium Chloride Tab [Sodium Chloride*] 1 gm PO BID 30 Days #60 tab 02/07/23 Urea [Ure-Na] 15 gm PO DAILY 30 Days #30 packet 02/07/23 New Medications: Sodium Chloride Tab [Sodium Chloride*] 1 gm PO BID 30 Days #60 tab Urea [Ure-Na] 15 gm PO DAILY 30 Days #30 packet Diet: HH Activity: Weight bearing as tolerated Followup: Samuel Burnham DO [Primary Care Provider] - 1 Week Sd Catherine [ACTIVE - CAN ADMIT] - 1 Week
[2023-02-07 16:20] VITALS: BP 158/74
[2023-02-07] MEDS ORDERED: SODIUM CHLORIDE 1 GM TAB PO SCH (17:00)
[2023-02-07] MEDS ORDERED: DONEPEZIL HCL 5 MG TAB PO SCH (17:00)
== END 2023-02-07 18:11 | disposition home or self-care (01) | DRG 645 ==
LOC: ER 15:30 → ERHOLD 17:58 → 4TH 19:34 → OBSVTOIN 02-05 19:37 → 4TH 02-06 09:44
PROVIDERS: ADMIT Internal Medicine Nephrology; ATTEND Internal Medicine Nephrology
DX: E22.2 Syndrome of inappropriate secretion of antidiuretic hormone (principal); I10 Essential (primary) hypertension; E03.9 Hypothyroidism, unspecified; E83.42 Hypomagnesemia; E78.5 Hyperlipidemia, unspecified; E11.9 Type 2 diabetes mellitus without complications; G30.9 Alzheimer's disease, unspecified; F02.80 Dementia in other diseases classified elsewhere, unspecified severity, without behavioral disturbance, psychotic disturbance, mood disturbance, and anxiety; Z85.3 Personal history of malignant neoplasm of breast; Z88.0 Allergy status to penicillin; Z88.2 Allergy status to sulfonamides; Z88.5 Allergy status to narcotic agent; Z79.4 Long term (current) use of insulin; Z90.49 Acquired absence of other specified parts of digestive tract; Z90.13 Acquired absence of bilateral breasts and nipples; Z79.899 Other long term (current) drug therapy
CPT/HCPCS: 36415; 51702; 71045; 80048; 80053; 80061; 81001; 81003; 82947; 83036; 83735; 83930; 83935; 84100; 84132; 84300; 84439; 84443; 85025; 97116; 97161; 99285; G0378; J0360; J1650; J1815; J3475; J8499

== ENCOUNTER 2023-06-26 12:34 | Emergency (ER) | payer OTHER ==
[2023-06-26] MEDS ORDERED: NA CHLORIDE 0.9% 1,000 ML ONE ×2 (12:45→15:49)
[2023-06-26] MEDS ORDERED: LORazepam 2 MG/ML VIAL ONE ×2 (12:57→15:28)
[2023-06-26 13:02] LABS: Absolute Basophils 0.1 K/uL (0-0.5); Absolute Lymphocytes (CBC) 1.5 K/uL (0.7-4.9); Absolute Monocytes 0.5 K/uL (0.1-1.3); Absolute Neutrophil 6.6 K/uL (1.8-8.0); Basophils % 0.9 % (0-1.3); Eosinophils % 0.1 % (0-4.4); Hematocrit 36.6 % (36.0-45.0); Lymphocytes % 17.3 % (15.3-44.8); MCH 29.2 pg (27.0-35.0); MCHC 35.7 g/dL (32.0-36.0); MCV 81.9 fL (80-100); Monocytes % 5.4 % (3.3-12.3); Neutrophils % 76.3 % (41.7-73.7); Platelets 277 thou/uL (152-406); RBC Red Blood Cell Count 4.47 M/uL (3.86-4.86); Red Cell Distribution Width 14.1 % (12.1-15.2)
[2023-06-26 13:22] LABS: Albumin 4.2 g/dL (3.4-5.0); Albumin/Globulin Ratio 1.1 (1.1-1.8); Anion Gap 13.9 mEq/L (5.0-15.0); Bilirubin Direct 0.4 mg/dL (0-0.2); Bilirubin Indirect, Calculated 1.2 mg/dL (0.2-0.8); Bilirubin Total 1.6 mg/dL (0.2-1.0); Magnesium 1.5 mg/dL (1.6-2.4); Potassium 4.9 mEq/L (3.5-5.1); Protein, Total 8.2 g/dL (6.4-8.2); Troponin High Sensitivity 34.1 pg/mL (<58.9)
[2023-06-26 13:31] LABS: PT Prothrombin Time 11.7 SECONDS (9.5-12.5); Protime INR 1.07
--- NOTE | 2023-06-26 13:36 | RAD REPORT ---
EXAM DESCRIPTION: CT - Head Brain Wo Cont - 06/26/2023 1:29 pm CLINICAL HISTORY: MENTAL STATUS CHANGE Headache, drowsiness COMPARISON: <Comparisons> TECHNIQUE: All CT scans are performed using dose optimization technique as appropriate and may inclu de automated exposure control or mA/KV adjustment according to patient size. FINDINGS: No intracranial hemorrhage, hydrocephalus or extra-axial fluid collection.Moderate general ized brain atrophy is present with moderate periventricular and deep white matter chronic microvascul ar ischemic changes.No areas of brain edema or evidence of midline shift. The paranasal sinuses and mastoids are clear. The calvarium is intact. IMPRESSION: No acute intracranial abnormality.
[2023-06-26 14:12] LABS: Specific Gravity 1.009 (1.005-1.030); Sqamous Epithelial <5 /HPF (None Seen); Urine Bacteria None Seen /HPF (<20); Urine Bilirubin NEGATIVE (Negative); Urine Blood 1+ (Negative); Urine Clarity Clear (Clear); Urine Color Light-Yellow (Yellow); Urine Culture Reflex Order NOT NEEDED; Urine Glucose NEGATIVE (Negative); Urine Ketones 1+ (Negative); Urine Microscopic Reflex YN ORDER UMIC; Urine Mucus Slight /HPF (None Seen); Urine Nitrite NEGATIVE (Negative); Urine Protein 1+ (Negative); Urine RBC <5 /HPF (None Seen); Urine Urobilinogen Normal (Normal); Urine WBC <5 /HPF (<5); Urine pH 6.5 (5.0-7.0)
--- NOTE | 2023-06-26 14:17 | RAD REPORT ---
EXAM DESCRIPTION: RAD - Chest Single View - 06/26/2023 1:53 pm CLINICAL HISTORY: COUGH Chest pain. COMPARISON: <Comparisons> FINDINGS: Portable technique limits examination quality. The lungs are grossly clear. The heart is normal in size. No displaced fractures. IMPRESSION: No acute intrathoracic process suspected.
[2023-06-26] MEDS ORDERED: FAMOTIDINE 20 MG/2 ML VIAL IV ONE (15:49)
[2023-06-26] MEDS ORDERED: MAGNESIUM SULFATE 1 gm IVPB 1 GM/100 ML BAG IV ONE (15:49)
--- NOTE | 2023-06-26 16:10 | EDPHYS ---
Physician Documentation [facility] Name: More Bledsoe Age: 73 yrs Sex: Female : 1950 Arrival Date: 06/26/2023 Time: 12:34 Bed 5 Private MD: [facility] ED Physician Frandy Alejandro HPI: 06/25 16:00 This 73 yrs old Female presents to ER via Ambulatory with complaints of horacio Altered Mental Status. 16:00 The patient presents with agitation, confusion, decreased mental status, decreased horacio responsiveness, disorientation, trouble concentrating. Onset: The symptoms/episode began/occurred this morning, last night. Possible causes: CVA or TIA, head injury, low blood sugar, seizure, sepsis, unknown. Associated signs and symptoms: Pertinent positives: agitation, combativeness, confusion. Current symptoms: In the emergency department the patient's symptoms are unchanged from the initial presentation. Patient's baseline: Neuro: alert and fully oriented. The patient has not experienced similar symptoms in the past. Historical: - Allergies: 12:37 Codeine; ll1 12:37 Demerol; ll1 12:37 PENICILLINS; ll1 12:37 Sulfa (Sulfonamide Antibiotics); ll1 - Home Meds: 15:55 memantine 5 mg oral tablet [Active]; lisinopril 20 mg Oral tablet [Active]; mb9 rosuvastatin 10 mg oral tablet [Active]; levothyroxine 75 mcg capsule [Active]; folic acid 1 mg Oral tablet [Active]; - PMHx: 12:37 Alzheimer's disease; BREAST CA; Diabetes - IDDM; Hypertension; ll1 - PSHx: 12:37 bilateral breast mastectomy; Cholecystectomy; ll1 - Immunization history:: Adult Immunizations up to date. - Infectious Disease History:: Denies. - Social history:: Smoking status: Patient denies any tobacco usage or history of. ROS: 16:01 Neuro: Positive for altered mental status, weakness, horacio Exam: 16:01 Constitutional: This is a well developed, well nourished patient who is awake, alert, horacio and in no acute distress. Head/Face: Normocephalic, atraumatic. Eyes: Pupils equal round and reactive to light, extra-ocular motions intact. Lids and lashes normal. Conjunctiva and sclera are non-icteric and not injected. Cornea within normal limits. Periorbital areas with no swelling, redness, or edema. ENT: Nares patent. No nasal discharge, no septal abnormalities noted. Tympanic membranes are normal and external auditory canals are clear. Oropharynx with no redness, swelling, or masses, exudates, or evidence of obstruction, uvula midline. Mucous membranes moist. Neck: Trachea midline, no thyromegaly or masses palpated, and no cervical lymphadenopathy. Supple, full range of motion without nuchal rigidity, or vertebral point tenderness. No Meningismus. Chest/axilla: Normal chest wall appearance and motion. Nontender with no deformity. No lesions are appreciated. Cardiovascular: Regular rate and rhythm with a normal S1 and S2. No gallops, murmurs, or rubs. Normal PMI, no JVD. No pulse deficits. Respiratory: Lungs have equal breath sounds bilaterally, clear to auscultation and percussion. No rales, rhonchi or wheezes noted. No increased work of breathing, no retractions or nasal flaring. Abdomen/GI: Soft, non-tender, with normal bowel sounds. No distension or tympany. No guarding or rebound. No evidence of tenderness throughout. Back: No spinal tenderness. No costovertebral tenderness. Full range of motion. Female : Normal external genitalia. MS/ Extremity: Pulses equal, no cyanosis. Neurovascular intact. Full, normal range of motion. Psych: Awake, alert, with orientation to person, place and time. Behavior, mood, and affect are within normal limits. 16:01 Skin: Appearance: Color: pale, Temperature: normal temperature, Moisture: normal moisture, petechiae, not noted, abscess, not appreciated, cellulitis, is not appreciated, 18:13 ECG was reviewed by the Attending Physician. horacio Vital Signs: 12:48 BP 142 / 106; Pulse 72; Resp 18; Temp 98; Pulse Ox 99% ; Pain 0/10; iw 14:10 BP 170 / 93; Pulse 70; Resp 16; Pulse Ox 100% on R/A; mb9 15:09 BP 175 / 72; Pulse 78; Resp 16; Pulse Ox 100% on R/A; mb9 16:45 BP 160 / 71; Pulse 68; Resp 16; Pulse Ox 98% on R/A; mb9 17:50 BP 197 / 87; Pulse 71; Resp 15; Pulse Ox 100% on R/A; mb9 18:36 BP 157 / 92; Pulse 61; Resp 15; Pulse Ox 100% on R/A; mb9 19:58 BP 149 / 65; Pulse 59; Resp 12; Pulse Ox 99% on R/A; tm6 12:48 Pain Scale: Adult iw MDM: 12:42 Patient medically screened. horacio 16:03 Differential Diagnosis altered mental status, sepsis, flu. Differential Diagnosis: CVA, horacio electrolyte abnormality, alcohol intoxication, hypoglycemia, intracranial bleed, overdose, pneumonia, TIA, UTI, volume depletion. Data reviewed: vital signs, nurses notes, lab test result(s), EKG, radiologic studies, CT scan, plain films. Consideration of Admission/Observation Patient was admitted/placed on observation. Escalation of care including admission/observation considered. I considered the following discharge prescriptions or medication management in the emergency department Medications were administered in the Emergency Department. See MAR. Independent interpretation of the following test(s) in the Emergency Department EKG: See my EKG interpretation above. Test considered but Not performed: MRI: no mri brain. Historians other than the Patient: EMS: ems well informed. Family Member: son and daughter well informed. Care significantly affected by the following chronic conditions: Diabetes, Hypertension, Obesity, Cancer, alzheimers. Counseling: I had a detailed discussion with the patient and/or guardian regarding the historical points, exam findings, and any diagnostic results supporting the discharge/admit diagnosis, lab results, radiology results, the need for further work-up and treatment in the hospital. 06/25 12:44 Order name: Basic Metabolic Panel; Complete Time: 15:43 [facility] 06/25 12:44 Order name: CBC with Diff; Complete Time: 15:43 06/25 12:44 Order name: LFT's; Complete Time: 15:43 06/25 12:44 Order name: Magnesium; Complete Time: 15:43 06/25 12:44 Order name: NT PRO-BNP; Complete Time: 15:43 06/25 12:44 Order name: PT-INR; Complete Time: 15:43 06/25 12:44 Order name: Troponin HS; Complete Time: 15:43 06/25 12:44 Order name: Urinalysis w/ reflexes; Complete Time: 15:43 06/25 12:44 Order name: Lipase; Complete Time: 15:43 06/25 15:45 Order name: Urine Osmolality; Complete Time: 17:46 06/25 15:45 Order name: Urine Sodium Random; Complete Time: 17:26 06/25 15:45 Order name: Osmolality, Serum; Complete Time: 17:46 06/25 16:00 Order name: AMMONIA; Complete Time: 17:26 06/25 16:10 Order name: TSH; Complete Time: 17:06/25 16:10 Order name: Flu; Complete Time: 17:06/25 16:10 Order name: SARS RAPID; Complete Time: 17:06/25 17:38 Order name: ABG; Complete Time: 18:04 06/25 12:44 Order name: XRAY Chest (1 view); Complete Time: 15:43 06/25 12:44 Order name: CT Head Brain wo Cont; Complete Time: 15:43 06/25 12:44 Order name: EKG; Complete Time: 12:45 06/25 12:44 Order name: Cardiac monitoring; Complete Time: 12:44 06/25 12:44 Order name: EKG - Nurse/Tech; Complete Time: 12:58 06/25 12:44 Order name: IV Saline Lock; Complete Time: 13:00 06/25 12:44 Order name: Labs collected and sent; Complete Time: 13:00 06/25 12:44 Order name: O2 Per Protocol; Complete Time: 12:44 06/25 12:44 Order name: O2 Sat Monitoring; Complete Time: 12:44 06/25 15:45 Order name: IV Saline Lock - Large Bore; Complete Time: 15:46 06/25 15:45 Order name: Seizure Precautions; Complete Time: 15:46 06/25 16:00 Order name: Restraint:Violent/Self Destructive (Adult:18yo or >); Complete Time: 16:08 [facility] EC:13 Rate is 100 beats/min. Rhythm is regular. QRS [place] is Normal. FL interval is normal. horacio QRS interval is normal. QT interval is normal. No Q waves. T waves are Normal. No ST changes noted. Clinical impression: NSR w/ Non-specific ST/T Changes and No evidence of ischemia. Interpreted by me. Reviewed by me. Administered Medications: 12:59 Drug: Ativan IVP 1 mg IVP once Route: IVP; Site: right forearm; mb9 13:45 Follow up: Response: No adverse reaction mb9 18:31 Follow up: Response: No adverse reaction mb9 13:59 Drug: NS 0.9% IV 1000 ml IV at 1 bolus Per protocol; 1000 mL bolus Route: IV; Rate: 1 mb9 bolus; Site: right forearm; 18:32 Follow up: Response: No adverse reaction; IV Status: Completed infusion mb9 14:32 Not Given (Physician Discretion): ativan1 mg IVP once mb9 15:32 Drug: Ativan IVP 1 mg IVP once Route: IVP; Site: right forearm; tl4 18:32 Follow up: Response: No adverse reaction mb9 15:44 CANCELLED (Duplicate Order): ativan1 mg IVP once tl4 15:55 Drug: Famotidine IVP 20 mg IVP once; dilute with 10 mL 0.9% NaCl; give over 2 minutes mb9 Route: IVP; Site: right forearm; 16:45 Follow up: Response: No adverse reaction mb9 15:57 Drug: Magnesium Sulfate IVPB 1 grams IVPB once over 1 hrs Route: IVPB; Infused Over: 1 mb9 hrs; Site: right forearm; 18:31 Follow up: Response: No adverse reaction; IV Status: Completed infusion mb9 15:57 Drug: NS 0.9% IV 1000 ml IV at 75 ml/hr continuous Route: IV; Rate: 75 ml/hr; Site: mb9 right forearm; 18:31 Follow up: Response: No adverse reaction; IV Status: Infusion continued upon transfer mb9 16:53 Drug: Solu-CORTEF IVP 100 mg IVP once Route: IVP; Site: right forearm; mb9 18:31 Follow up: Response: No adverse reaction mb9 18:18 Drug: hydrALAZINE IVP 5 mg IVP once Route: IVP; Site: right upper arm; iw 18:37 Follow up: Response: No adverse reaction mb9 18:37 Not Given (Hemodynamic Parameters): hydralazine5 mg IVP once mb9 Disposition Summary: 06/26/23 17:39 Transfer Ordered Notes: Transfer Location: [facility] horacio Reason: Higher level of care horacio Condition: Fair(06/26/23 17:39) horacio Problem: new(06/26/23 17:39) horacio Symptoms: have improved(06/26/23 17:39) horacio Accepting Physician: to [facility] neuro icu(06/26/23 20:00) curt Diagnosis - Altered mental status, unspecified(06/26/23 17:39) horacio - Hypomagnesemia(06/26/23 17:39) horacio - Hypo-osmolality and hyponatremia(06/26/23 17:39) horacio - Essential (primary) hypertension horacio - Alzheimer's disease, unspecified(06/26/23 18:28) horacio Forms: - Medication Reconciliation Form horacio - SBAR form horacio Signatures: Dispatcher [employer] EDMS Frandy Alejandro MD MD cha Williams, Irene, RN RN iw Eugenio Riggs RN RN ll1 Jasmin Fernandez PACarlitosC PACarlitosC sb4 Dilma Avalos RN RN mb9 Omari Parker RN RN tl4 Corrections: (The following items were deleted from the chart) 15:44 15:27 Ativan IVP 1 mg IVP once ordered. iw tl4 15:44 15:40 Ativan IVP 1 mg IVP once given. tl4 tl4 15:44 15:44 Ativan IVP 1 mg IVP once ordered. tl4 tl4 16:00 16:00 AMMONIA+C.LAB.BRZ ordered. EDHI EDMS 16:05 16:05 Constitutional: Negative for fever, chills, and weight loss, Eyes: Negative for horacio injury, pain, redness, and discharge, Cardiovascular: Negative for chest pain, palpitations, and edema, Respiratory: Negative for shortness of breath, cough, wheezing, and pleuritic chest pain, horacio 17:26 16:09 Inpatient Admission horacio horacio 17:26 16:09 [place] horacio horacio 17:26 16:09 Telemetry/MedSurg (Inpatient) horacio horacio 17:26 16:09 Fair horacio horacio 17:26 16:09 new horacio horacio 17:26 16:09 have improved horacio horacio 17:26 16:09 Standard horacio horacio 17:26 16:09 horacio horacio 17:26 16:09 Hypo-osmolality and hyponatremia horacio horacio 17:26 16:09 Altered mental status, unspecified horacio horacio 17:26 16:09 Hypomagnesemia horacio horacio 17: 16:09 Alzheimer's disease, unspecified horacio horacio 18:15 17:39 to [facility] neuro icu horacio horacio 18:28 17:39 Parkinson's disease horacio horacio 18:28 18:15 to [facility] neuro icu horacio horacio 20:00 18:28 to [facility] neuro icu horacio mb9
--- NOTE | 2023-06-26 16:10 | ER ---
Nurse's Notes [facility] Name: More Bledsoe Age: 73 yrs Sex: Female : 1950 Arrival Date: 06/26/2023 Time: 12:34 Bed 5 Private MD: Samuel Burnham Diagnosis: Altered mental status, unspecified;Hypomagnesemia;Hypo-osmolality and hyponatremia;Essential (primary) hypertension;Alzheimer's disease, unspecified Presentation: 06/25 12:43 Coronavirus screen: Client denies travel out of the [place] in the last 14 days. At this iw time, the client does not indicate any symptoms associated with coronavirus-19. Ebola Screen: Patient denies travel to an Ebola-affected area in the 21 days before illness onset. Initial Sepsis Screen: Does the patient meet any 2 criteria? No. Patient's initial sepsis screen is negative. Does the patient have a suspected source of infection? No. Patient's initial sepsis screen is negative. Risk Assessment: Do you want to hurt yourself or someone else? Patient reports no desire to harm self or others. 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 Not speaking, iw pulling at things, not acting like her normal self. Onset of symptoms was June 26, 2023. Triage Assessment: 12:42 General: Appears uncomfortable, ill, unkempt, Behavior is cooperative, appropriate for iw age, anxious. Neuro: Reports AMS per family. Historical: - Allergies: 12:37 Codeine; ll1 12:37 Demerol; ll1 12:37 PENICILLINS; ll1 12:37 Sulfa (Sulfonamide Antibiotics); ll1 - Home Meds: 15:55 memantine 5 mg oral tablet [Active]; lisinopril 20 mg Oral tablet [Active]; mb9 rosuvastatin 10 mg oral tablet [Active]; levothyroxine 75 mcg capsule [Active]; folic acid 1 mg Oral tablet [Active]; - PMHx: 12:37 Alzheimer's disease; BREAST CA; Diabetes - IDDM; Hypertension; ll1 - PSHx: 12:37 bilateral breast mastectomy; Cholecystectomy; ll1 - Immunization history:: Adult Immunizations up to date. - Infectious Disease History:: Denies. - Social history:: Smoking status: Patient denies any tobacco usage or history of. Screenin:02 [facility] ED Fall Risk Assessment (Adult) History of falling in the last 3 months, mb9 including since admission No falls in past 3 months (0 pts) Confusion or Disorientation Yes (5 pts) Intoxicated or Sedated No (0 pts) Impaired Gait No (0 pts) Mobility Assist Device Used No (0 pt) Altered Elimination No (0 pt) Score/Fall Risk Level 3 or more points = High Risk Oriented to surroundings, Maintained a safe environment, Educated pt \\T\\ family on fall prevention, incl call for assistance when getting out of bed, Assessed \\T\\ reinforced patient's understanding of fall precautions. Abuse screen: Denies threats or abuse. Nutritional screening: No deficits noted. Tuberculosis screening: No symptoms or risk factors identified. Assessment: 13:01 General: Appears uncomfortable, Behavior is agitated. Pain: Denies pain. Neuro: Level mb9 of Consciousness is confused, Oriented to none. Cardiovascular: Patient's skin is warm and dry. Respiratory: Airway is patent Respiratory effort is even, unlabored, Respiratory pattern is regular, symmetrical. GI: Abdomen is round non-distended, Bowel sounds present X 4 quads. Abd is soft and non tender X 4 quads. : No signs and/or symptoms were reported regarding the genitourinary system. EENT: No signs and/or symptoms were reported regarding the EENT system. Derm: Skin is pink, warm \\T\\ dry. Musculoskeletal: Range of motion: intact in all extremities. 14:10 Reassessment: No changes from previously documented assessment. Patient and/or family mb9 updated on plan of care and expected duration. Pain level reassessed. 15:12 Reassessment: Pt states she needs to urinate. Pt unable to be coached on remaining on tl4 bedpan. Pt states "I need to get up". Pt unable to use bedpan. Perineum cleaned and patient placed in new brief. Pt has removed the brief. Will attempt to reapply after medication is given. MD Alejandro aware of patient status. severity of illness coordinator Alissa aware of need for sitter for patient. 15:33 Reassessment: Pt remains agitated. Pt behavior unable to redirect verbally. Family at tl4 bedside states "I can't keep her in bed". severity of illness coordinator Alissa aware of need for sitter for patient safety. She states to medicate patient. Additional order for Ativan obtained from Dr. Alejandro. Medication administered. Family states they want to see a MD immediately or they are going to another hospital. MD Alejandro and severity of illness coordinator Alissa aware. Family remains at bedside. 16:40 Reassessment: Patient appears in no apparent distress at this time. No changes from mb9 previously documented assessment. Patient and/or family updated on plan of care and expected duration. Pain level reassessed. 17:45 Reassessment: Patient appears in no apparent distress at this time. No changes from mb9 previously documented assessment. Patient and/or family updated on plan of care and expected duration. Pain level reassessed. 17:51 Reassessment: ERP notified of pts BP. mb9 18:20 Reassessment: spoke with pts son, Jake, and updated on plan of care and transfer. mb9 20:00 Reassessment: report given to [facility]. mb9 20:01 Reassessment: Patient appears in no apparent distress at this time. No changes from tm6 previously documented assessment. Vital Signs: 12:48 BP 142 / 106; Pulse 72; Resp 18; Temp 98; Pulse Ox 99% ; Pain 0/10; iw 14:10 BP 170 / 93; Pulse 70; Resp 16; Pulse Ox 100% on R/A; mb9 15:09 BP 175 / 72; Pulse 78; Resp 16; Pulse Ox 100% on R/A; mb9 16:45 BP 160 / 71; Pulse 68; Resp 16; Pulse Ox 98% on R/A; mb9 17:50 BP 197 / 87; Pulse 71; Resp 15; Pulse Ox 100% on R/A; mb9 18:36 BP 157 / 92; Pulse 61; Resp 15; Pulse Ox 100% on R/A; mb9 19:58 BP 149 / 65; Pulse 59; Resp 12; Pulse Ox 99% on R/A; tm6 12:48 Pain Scale: Adult iw ED Course: 12:35 Patient arrived in ED. rg4 12:35 Samuel Burnham, is Private Physician. rg4 12:37 Arm band placed on. ll1 12:40 Patient placed in an exam room, on a stretcher. iw 12:41 Notified ED physician of other s/s started 0830. iw 12:42 Frandy Alejandro MD is Attending Physician. [facility] 12:43 Triage completed. iw 13:00 Dilma Avalos, RN is Primary Nurse. mb9 13:00 Basic Metabolic Panel Sent. mb9 13:00 CBC with Diff Sent. mb9 13:00 LFT's Sent. mb9 13:00 Magnesium Sent. mb9 13:00 NT PRO-BNP Sent. mb9 13:00 PT-INR Sent. mb9 13:00 Troponin HS Sent. mb9 13:00 EKG done, by ED staff, reviewed by Frandy Alejandro MD. Inserted saline lock: 22 gauge in mb9 right forearm, using aseptic technique. 13:02 Placed in gown. Bed in low position. Call light in reach. Side rails up X 1. Provided mb9 Education on: press call light if needing anything. Client placed on continuous cardiac and pulse oximetry monitoring. NIBP monitoring applied. site monitor on. Door closed. Noise minimized. Warm blanket given. 13:02 No provider procedures requiring assistance completed. mb9 13:03 Initial lab(s) drawn, by sc, sent to lab. mb9 13:29 CT Head Brain wo Cont In Process Unspecified. EDMS 13:55 XRAY Chest (1 view) In Process Unspecified. EDMS 16:08 Santos Meadows MD is Hospitalizing Provider. [facility] 16:45 AMMONIA Sent. mb9 16:45 TSH Sent. mb9 16:45 Flu Sent. mb9 16:45 SARS RAPID Sent. mb9 16:45 Inserted saline lock: 22 gauge in right upper arm, using aseptic technique. mb9 18:44 Patient transferred, IV remains in place. mb9 20:00 Report given to SHONA Gann. mb9 Restraints: 16:15 Non-Violent Restraint: Order obtained. Initiated on June 26, 2023 at 16:00 Restraint mb9 Education provided to family/significant other/legally authorized pest control service representative. Actions/Behavior observed: Confused/disoriented, has impaired decision making, repeated attempts to get up from bed/chair w/o assistance, unable to follow instructions, repeated attempts to remove/tamper lines/tubes/IV med devices \\T\\ wound dressing, Clinical justification for use: line protection, patient safety, Mental status: agitated/restless, Cognition: poor judgement, poor safety awareness, unable to follow commands, Circulation: Within defined parameters (based on Cardiovascular assessment) Skin integrity: Within defined parameters (based on Integumentary assessment) Range of Motion (ROM): performed. Elimination/Hygiene: perineal care performed, Restraint status: Soft wrist restraint (Right) Soft wrist restraint (Left) Started. 16:15 Non-Violent Restraint: Less restrictive alternatives attempted: decrease environmental mb9 stimuli, 1:1 patient care, placed near Nurse station, family at bedside, medicated for pain/anxiety, repositioned. 17:52 Non-Violent Restraint: Mental status: agitated/restless, Cognition: poor judgement, mb9 poor safety awareness, unable to follow commands, Circulation: Within defined parameters (based on Cardiovascular assessment) Skin integrity: Within defined parameters (based on Integumentary assessment) Signs of injury related to restraint: No injuries noted. Range of Motion (ROM): performed. Elimination/Hygiene: diapers changed. 18:57 Non-Violent Restraint: Mental status: agitated/restless, confused, Cognition: poor mb9 judgement, poor safety awareness, impulsive, Circulation: Within defined parameters (based on Cardiovascular assessment) Skin integrity: Within defined parameters (based on Integumentary assessment) Signs of injury related to restraint: No injuries noted. Range of Motion (ROM): performed. Elimination/Hygiene: diapers changed. Restraint status: Soft wrist restraint (Right) Continued. Soft wrist restraint (Left) Continued. 19:59 Non-Violent Restraint: Mental status: patient asleep, Cognition: Unable to assess. tm6 Circulation: Within defined parameters (based on Cardiovascular assessment) Skin integrity: Within defined parameters (based on Integumentary assessment) Signs of injury related to restraint: No injuries noted. Range of Motion (ROM): patient asleep. Hydration/Food: patient asleep. Elimination/Hygiene: perineal care performed, diapers changed. Restraint Discontinued on June 26, 2023 at 19:59 Effective alternative interventions implemented: medicated for pain/anxiety. Administered Medications: 12:59 Drug: Ativan IVP 1 mg IVP once Route: IVP; Site: right forearm; mb9 13:45 Follow up: Response: No adverse reaction mb9 18:31 Follow up: Response: No adverse reaction mb9 13:59 Drug: NS 0.9% IV 1000 ml IV at 1 bolus Per protocol; 1000 mL bolus Route: IV; Rate: 1 mb9 bolus; Site: right forearm; 18:32 Follow up: Response: No adverse reaction; IV Status: Completed infusion mb9 14:32 Not Given (Physician Discretion): ativan1 mg IVP once mb9 15:32 Drug: Ativan IVP 1 mg IVP once Route: IVP; Site: right forearm; tl4 18:32 Follow up: Response: No adverse reaction mb9 15:44 CANCELLED (Duplicate Order): ativan1 mg IVP once tl4 15:55 Drug: Famotidine IVP 20 mg IVP once; dilute with 10 mL 0.9% NaCl; give over 2 minutes mb9 Route: IVP; Site: right forearm; 16:45 Follow up: Response: No adverse reaction mb9 15:57 Drug: Magnesium Sulfate IVPB 1 grams IVPB once over 1 hrs Route: IVPB; Infused Over: 1 mb9 hrs; Site: right forearm; 18:31 Follow up: Response: No adverse reaction; IV Status: Completed infusion mb9 15:57 Drug: NS 0.9% IV 1000 ml IV at 75 ml/hr continuous Route: IV; Rate: 75 ml/hr; Site: mb9 right forearm; 18:31 Follow up: Response: No adverse reaction; IV Status: Infusion continued upon transfer mb9 16:53 Drug: Solu-CORTEF IVP 100 mg IVP once Route: IVP; Site: right forearm; mb9 18:31 Follow up: Response: No adverse reaction mb9 18:18 Drug: hydrALAZINE IVP 5 mg IVP once Route: IVP; Site: right upper arm; iw 18:37 Follow up: Response: No adverse reaction mb9 18:37 Not Given (Hemodynamic Parameters): hydralazine5 mg IVP once mb9 Medication: 13:02 VIS not applicable for this client. mb9 Outcome: 16:09 Decision to Hospitalize by Provider. horacio 17:39 ER care complete, transfer ordered by . horacio 18:44 Transferred by ground EMS to [facility], Transfer form completed. mb9 18:44 Condition: stable 18:44 Instructed on the need for transfer, Demonstrated understanding of instructions, follow-up care, 20:00 Patient left the ED. mb9 Signatures: Dispatcher [employer] Frandy Smith MD MD cha Williams, Irene, RN RN Joseline Oreilly rg4 Eugenio Riggs RN RN ll1 Dilma Avalos RN RN mb9 Rebecca Schulz RN RN tm6 Omari Parker RN RN tl4 Corrections: (The following items were deleted from the chart) 15:44 15:40 Ativan IVP 1 mg IVP in right forearm tl4 tl4 17:50 17:00 Pulse 68bpm; Resp 16bpm; Pulse Ox 98% RA; mb9 mb9
[2023-06-26] MEDS ORDERED: HYDROCORTISONE SUC 100 MG INJ ONE (16:46)
[2023-06-26 17:06] LABS: SARS-CoV-2 Antigen CONTROL BLUE LINE VIS/BG OK; SARS-CoV-2 Antigen Rapid Res Negative (Negative)
[2023-06-26 17:50] LABS: Arterial Blood Carboxyhemoglob 1.6 % (0-1.5); Blood Gas Oxyhemoglobin 93.5 % (94-97); Blood O2 Saturation 96.6 % (92-98.5)
[2023-06-26] MEDS ORDERED: HYDRALAZINE HCL 20 MG/ML VIAL ONE (18:17)
[2023-06-27 01:00] VITALS: TEMP 98
[2023-06-27 01:34] VITALS: BP 149/65; O2SAT 99
== END 2023-06-26 20:00 | disposition short-term general hospital (02) ==
LOC: ER 12:34
DX: R41.82 Altered mental status, unspecified (principal); E83.42 Hypomagnesemia; E87.1 Hypo-osmolality and hyponatremia; I10 Essential (primary) hypertension; G30.9 Alzheimer's disease, unspecified; F02.80 Dementia in other diseases classified elsewhere, unspecified severity, without behavioral disturbance, psychotic disturbance, mood disturbance, and anxiety; E11.9 Type 2 diabetes mellitus without complications; Z11.52 Encounter for screening for COVID-19; Z88.0 Allergy status to penicillin; Z88.2 Allergy status to sulfonamides; Z88.5 Allergy status to narcotic agent
CPT/HCPCS: 93005; 85025; 81001; 80048; 36415; 82140; 83735; 85610; 84300; 80076; 84443; 84484; 83690; 83880; 83930; 83935; 87804 ×2; 70450; 71045; 82805; 99285; 87811; 36600; J3475; J0360; J1720; J7030 ×2

== ENCOUNTER 2023-08-19 16:14 | Inpatient (IN) | payer OTHER ==
[2023-08-19 17:28] LABS: Absolute Eosinophils 0.1 K/uL (0-0.5); Absolute Lymphocytes (CBC) 1.7 K/uL (0.7-4.9); Absolute Monocytes 0.6 K/uL (0.1-1.3); Absolute Neutrophil 6.7 K/uL (1.8-8.0); Basophils % 0.5 % (0-1.3); Eosinophils % 0.7 % (0-4.4); Hematocrit 32.5 % (36.0-45.0); Hemoglobin 11.9 g/dL (12.0-15.0); Lymphocytes % 19.1 % (15.3-44.8); MCH 29.6 pg (27.0-35.0); MCHC 36.4 g/dL (32.0-36.0); MCV 81.4 fL (80-100); MPV 7.9 fL (7.6-11.3); Monocytes % 6.8 % (3.3-12.3); Neutrophils % 72.9 % (41.7-73.7); Platelets 299 thou/uL (152-406); Red Cell Distribution Width 14.6 % (12.1-15.2)
--- NOTE | 2023-08-19 17:40 | RAD REPORT ---
EXAM DESCRIPTION: Esteban Single View08/19/2023 5:18 pm CLINICAL HISTORY: cough COMPARISON: June 2023 FINDINGS: The lungs appear clear of acute infiltrate. The heart is normal size IMPRESSION: No acute abnormalities displayed
[2023-08-19 17:43] LABS: Anion Gap 11.5 mEq/L (5.0-15.0); Magnesium 1.5 mg/dL (1.6-2.4); Potassium 4.5 mEq/L (3.5-5.1)
[2023-08-19 17:59] LABS: Specific Gravity 1.008 (1.005-1.030); Sqamous Epithelial <5 /HPF (None Seen); Urine Bacteria <20 /HPF (<20); Urine Bilirubin NEGATIVE (Negative); Urine Blood Negative (Negative); Urine Clarity Turbid (Clear); Urine Color Light-Yellow (Yellow); Urine Crystals Unidentified Few /HPF (None Seen); Urine Culture Reflex Order REFLEXED; Urine Glucose NEGATIVE (Negative); Urine Ketones NEGATIVE (Negative); Urine Micro Reflex YN NO BILL MICROSCOPIC; Urine Nitrite NEGATIVE (Negative); Urine Protein NEGATIVE (Negative); Urine RBC <5 /HPF (None Seen); Urine Urobilinogen Normal (Normal); Urine WBC 20-50 /HPF (<5); Urine WBC Clump Rare /HPF (None Seen); Urine Yeast (Budding) Trace /HPF (None Seen)
--- NOTE | 2023-08-19 18:01 | ER ---
Nurse's Notes [facility] Name: More Bledsoe Age: 73 yrs Sex: Female : 1950 Arrival Date: 08/19/2023 Time: 16:14 Bed 18 Private MD: Diagnosis: Hypo-osmolality and hyponatremia Presentation: 08/18 16:31 Chief complaint: Patient's son or daughter states: "Dr. Catherine sent us here because her mb9 sodium level is 121. She is acting more confused than normal.". Coronavirus screen: Vaccine status: Patient reports receiving the 2nd dose of the covid vaccine. Ebola Screen: No symptoms or risks identified at this time. Initial Sepsis Screen: Does the patient meet any 2 criteria? No. Patient's initial sepsis screen is negative. Does the patient have a suspected source of infection? No. Patient's initial sepsis screen is negative. Risk Assessment: Do you want to hurt yourself or someone else? Patient reports no desire to harm self or others. Onset of symptoms was August 19, 2023. 16:31 Method Of Arrival: Ambulatory mb9 16:31 Acuity: KAMALJIT 3 mb9 Historical: - Allergies: 16:32 Codeine; mb9 16:32 Demerol; mb9 16:32 PENICILLINS; mb9 16:32 Sulfa (Sulfonamide Antibiotics); mb9 - Home Meds: 22:38 folic acid 1 mg Oral tablet 1 tab daily [Active]; levothyroxine 75 mcg oral tablet 1 tl4 tab daily [Active]; memantine 10 mg oral tablet 1 tab daily [Active]; rosuvastatin 10 mg Oral tablet 1 tab daily [Active]; lisinopril 40 mg oral tablet 1 tab daily [Active]; metformin 500 mg oral Tablet, Extended Release 24 hr 1 tab daily [Active]; clonazepam 0.25 mg Oral Tablet,disintegrating [Active]; - PMHx: 16:32 Alzheimer's disease; BREAST CA; BREAST CA; Diabetes - IDDM; Hypertension; mb9 - PSHx: 16:32 bilateral breast mastectomy; Cholecystectomy; mb9 - Immunization history:: Adult Immunizations up to date. - Infectious Disease History:: Denies. - Social history:: Smoking status: Patient denies any tobacco usage or history of. Screenin:47 [facility] ED Fall Risk Assessment (Adult) History of falling in the last 3 months, tl4 including since admission No falls in past 3 months (0 pts) Confusion or Disorientation No (0 pts) Intoxicated or Sedated No (0 pts) Impaired Gait No (0 pts) Mobility Assist Device Used No (0 pt) Altered Elimination No (0 pt) Score/Fall Risk Level 0 - 2 = Low Risk Oriented to surroundings, Maintained a safe environment, Educated pt \\T\\ family on fall prevention, incl call for assistance when getting out of bed, Assessed \\T\\ reinforced patient's understanding of fall precautions. Abuse screen: Denies threats or abuse. Denies injuries from another. Nutritional screening: No deficits noted. Tuberculosis screening: No symptoms or risk factors identified. Assessment: 17:30 General: Appears in no apparent distress. Behavior is calm, cooperative. Pain: Denies tl4 pain. Neuro: Level of Consciousness is awake, alert, obeys commands, Oriented to person, place, time, situation, Moves all extremities. Full function Gait is steady, Speech is normal, Facial symmetry appears normal. Cardiovascular: Capillary refill < 3 seconds Patient's skin is warm and dry. Respiratory: Airway is patent Respiratory effort is even, unlabored, Respiratory pattern is regular, symmetrical, Breath sounds are clear bilaterally. GI: No signs and/or symptoms were reported involving the gastrointestinal system. : No signs and/or symptoms were reported regarding the genitourinary system. EENT: No signs and/or symptoms were reported regarding the EENT system. Derm: No signs and/or symptoms reported regarding the dermatologic system. Musculoskeletal: No signs and/or symptoms reported regarding the musculoskeletal system. 18:22 Reassessment: Patient and/or family updated on plan of care and expected duration. Pain tl4 level reassessed. Patient is alert, oriented x 3, equal unlabored respirations, skin warm/dry/pink. Pt denies any needs at this time. Family at bedside. Will continue to monito. 19:30 Reassessment: Patient and/or family updated on plan of care and expected duration. Pain tl4 level reassessed. Patient is alert, oriented x 3, equal unlabored respirations, skin warm/dry/pink. Pt denies any needs at this time. Family at bedside. Will continue to monitor. 20:25 Reassessment: Patient and/or family updated on plan of care and expected duration. Pain tl4 level reassessed. Patient is alert, oriented x 3, equal unlabored respirations, skin warm/dry/pink. Pt resting quietly, denies any needs at this time. Son, Jake Paez [phone], call with updates. Will continue to monitor. Vital Signs: 16:31 BP 166 / 61; Pulse 82; Resp 18; Temp 97.3; Pulse Ox 100% on R/A; Weight 74.84 kg; mb9 Height 5 ft. 2 in. ; 17:30 BP 165 / 67; Pulse 73; Resp 16; Pulse Ox 100% on R/A; tl4 18:00 BP 161 / 70; Pulse 70; Resp 20; Pulse Ox 100% on R/A; tl4 18:30 BP 141 / 68; Pulse 70; Resp 15; Pulse Ox 100% on R/A; tl4 19:00 BP 133 / 64; Pulse 66; Resp 13; Pulse Ox 99% on R/A; tl4 19:30 BP 117 / 59; Pulse 66; Resp 16; Pulse Ox 99% on R/A; tl4 16:31 Body Mass Index 30.18 (74.84 kg, 157.48 cm) mb9 ED Course: 16:16 Patient arrived in ED. mr 16:32 Triage completed. mb9 16:32 Arm band placed on. mb9 16:33 Kostas Rosen MD is Attending Physician. ec2 17:20 XRAY Chest (1 view) In Process Unspecified. EDMS 17:30 Basic Metabolic Panel Sent. tl4 17:30 CBC with Diff Sent. tl4 17:30 Magnesium Sent. tl4 17:30 Initial lab(s) drawn, by ED staff, sent to lab. Urine collected: clean catch specimen, jg11 clear, EKG done, by ED staff, reviewed by Kostas Rosen MD. 17:30 Inserted saline lock: 22 gauge in right forearm, using aseptic technique. Blood jg11 collected. Missed attempt(s): 24 gauge in right hand. Bleeding controlled, band aid applied, catheter tip intact. 17:45 Notified ED physician of a critical lab result(s). sodium 114. mb9 17:48 Patient has correct armband on for positive identification. Placed in gown. Bed in low tl4 position. Call light in reach. Side rails up X2. Adult w/ patient. Provided Education on: ed process, call sutton. Client placed on continuous cardiac and pulse oximetry monitoring. NIBP monitoring applied. cold storage superintendent on. Door closed. Noise minimized. Lights dimmed. Moved to private room. Warm blanket given. Pillow given. 18:01 Dafne Martinez MD is Hospitalizing Provider. ec2 18:29 Warm blanket given. jg11 19:51 Omari Parker, RN is Primary Nurse. tl4 08/19 00:08 Report given to SHONA Fernandez. tl4 00:08 No provider procedures requiring assistance completed. tl4 00:38 Rebecca Schulz RN is Primary Nurse. tm6 00:40 Patient admitted, IV remains in place. tm6 08:16 Primary Nurse role handed off by Rebecca Schulz RN bd 12:18 Diet: Patient given a diabetic meal tray. jg11 Administered Medications: 08/18 18:08 Drug: NS 0.9% IV 1000 ml IV at 75 ml/hr continuous Route: IV; Rate: 75 ml/hr; Site: tl4 right forearm; Medication: 17:47 VIS not applicable for this client. tl4 Outcome: 18:01 Decision to Hospitalize by Provider. ec2 06 00:40 Admitted to ER Hold. [facility]. tm6 Condition: stable Instructed on the need for admit, 21:30 Patient left the ED. jb4 Signatures: Dispatcher [employer] EDMS Ana Anderson Mary, Reg Reg Jeff Benoit, RN RN jb4 Dilma Avalos, RN RN Kostas Bowie MD MD 2 Rebecca Schulz RN RN tm6 Omari Parker RN RN tl4 Scout Mejia jg11 Corrections: (The following items were deleted from the chart) 00:08 00:05 Reassessment: Report to SHONA Fernandez tl4 tl4
--- NOTE | 2023-08-19 18:02 | EDPHYS ---
Physician Documentation [facility] Name: More Bledsoe Age: 73 yrs Sex: Female : 1950 Arrival Date: 08/19/2023 Time: 16:14 Bed 18 Private MD: ED Physician Kostas Rosen HPI: 08/18 16:41 This 73 yrs old Female presents to ER via Ambulatory with complaints of ec2 Abnormal Lab Results. 16:41 Patient arrives today for evaluation of abnormal blood work. Patient reportedly had ec2 outpatient lab work that showed hyponatremia with a sodium of 121. Patient reports no significant concerns. Son also provides history, reports that she has history of hyponatremia, previous admissions. Some bouts of vomiting, no diarrhea symptoms. No issues with p.o. intake.. Historical: - Allergies: 16:32 Codeine; mb9 16:32 Demerol; mb9 16:32 PENICILLINS; mb9 16:32 Sulfa (Sulfonamide Antibiotics); mb9 - Home Meds: 22:38 folic acid 1 mg Oral tablet 1 tab daily [Active]; levothyroxine 75 mcg oral tablet 1 tl4 tab daily [Active]; memantine 10 mg oral tablet 1 tab daily [Active]; rosuvastatin 10 mg Oral tablet 1 tab daily [Active]; lisinopril 40 mg oral tablet 1 tab daily [Active]; metformin 500 mg oral Tablet, Extended Release 24 hr 1 tab daily [Active]; clonazepam 0.25 mg Oral Tablet,disintegrating [Active]; - PMHx: 16:32 Alzheimer's disease; BREAST CA; BREAST CA; Diabetes - IDDM; Hypertension; mb9 - PSHx: 16:32 bilateral breast mastectomy; Cholecystectomy; mb9 - Immunization history:: Adult Immunizations up to date. - Infectious Disease History:: Denies. - Social history:: Smoking status: Patient denies any tobacco usage or history of. ROS: 16:41 Constitutional: as per hpi ec2 Exam: 16:41 Constitutional: GEN: NAD Head: atraumatic Eyes: EOMI Ears: External ears are ec2 normal. CV: regular rate LUNGS: no respiratory distress ABD: non-distended SKIN: no evidence of rashes MSK: no evidence of trauma NEURO: moves all extremities equally Vital Signs: 16:31 BP 166 / 61; Pulse 82; Resp 18; Temp 97.3; Pulse Ox 100% on R/A; Weight 74.84 kg; mb9 Height 5 ft. 2 in. ; 17:30 BP 165 / 67; Pulse 73; Resp 16; Pulse Ox 100% on R/A; tl4 18:00 BP 161 / 70; Pulse 70; Resp 20; Pulse Ox 100% on R/A; tl4 18:30 BP 141 / 68; Pulse 70; Resp 15; Pulse Ox 100% on R/A; tl4 19:00 BP 133 / 64; Pulse 66; Resp 13; Pulse Ox 99% on R/A; tl4 19:30 BP 117 / 59; Pulse 66; Resp 16; Pulse Ox 99% on R/A; tl4 16:31 Body Mass Index 30.18 (74.84 kg, 157.48 cm) mb9 MDM: 16:33 Patient medically screened. ec2 16:41 Data reviewed: vital signs. ED course: Patient arrives today for evaluation of altered ec2 mental status. Examination remarkable for well-appearing nontoxic individual is otherwise in no acute distress with a reassuring examination. Will obtain lab work, urine studies. Differential diagnosis includes hyponatremia, renal dysfunction, anemia. . 17:10 ED course: EKG independently reviewed and interpreted by me, shows normal sinus rhythm, ec2 rate 77, no acute ST segment elevations, intervals are nonconcerning.. 18:00 ED course: Metabolic profile pertinent for hyponatremia with a sodium of 114, CBC with ec2 anemia noted, urine is noninfectious appearing. . 18:00 ED course: I will admit the patient for hyponatremia, sodium of 114. Patient is ec2 cooperative, awake and alert, no evidence of seizures. Discussed case with hospitalist, pending admission.. 18:03 ED course: MDM: Differential diagnosis as documented above in ED course; All lab tests ec2 ordered and reviewed as documented above; Independent interpretation of tests: EKG as above; History gathered from independent historian: Yes, family; Discuss inpatient hospitalization: Yes; I discussed the case with: Hospitalist . 08/18 16:34 Order name: Basic Metabolic Panel ec2 08/18 16:34 Order name: CBC with Diff; Complete Time: 18:00 ec2 08/18 16:34 Order name: UAM; Complete Time: 18:00 ec2 08/18 16:34 Order name: Urine Sodium Random; Complete Time: 18:00 ec2 08/18 16:34 Order name: Urine Osmolality ec2 08/18 16:34 Order name: Urine Creatinine; Complete Time: 18:00 ec2 08/18 16:34 Order name: Magnesium ec2 08/18 18:02 Order name: Urine Culture EDMS 08/18 19:40 Order name: Osmolality, Serum EDMS 08/18 19:40 Order name: Thyroid Stimulating Hormone EDMS 08/18 19:40 Order name: UR POTASSIUM EDMS 08/18 19:40 Order name: UR SODIUM EDMS 08/18 19:40 Order name: Uric Acid EDMS 08/18 19:40 Order name: Osmolality, Urine EDMS 08/18 19:40 Order name: CBC with Automated Diff EDMS 08/18 19:40 Order name: CBC with Automated Diff EDMS 08/18 19:40 Order name: Comprehensive Metabolic Panel EDMS 08/18 19:40 Order name: Comprehensive Metabolic Panel EDMS 08/18 19:40 Order name: Sodium Level EDMS 08/18 19:40 Order name: Sodium Level EDMS 08/18 19:40 Order name: Sodium Level EDMS / 19:40 Order name: Sodium Level EDMS 08/18 19:40 Order name: Sodium Level EDMS / 00:31 Order name: Uric Acid EDMS / 00:31 Order name: Thyroid Stimulating Hormone EDMS / 04:02 Order name: Glucose, Ancillary Testing EDMS / 08:12 Order name: Glucose, Ancillary Testing EDMS / 12:30 Order name: Glucose, Ancillary Testing EDMS / 17:19 Order name: Glucose, Ancillary Testing EDMS / 20:15 Order name: Basic Metabolic Panel EDMS / 20:15 Order name: Magnesium EDMS 08/18 16:34 Order name: XRAY Chest (1 view); Complete Time: 18:00 ec2 08/18 19:40 Order name: Echo with Doppler EDMS 08/18 19:41 Order name: Abdomen Exam Complete EDMS 08/18 19:40 Order name: CONS Physician Consult EDMS 08/18 16:34 Order name: Cardiac monitoring; Complete Time: 17:20 ec2 08/18 16:34 Order name: EKG - Nurse/Tech; Complete Time: 17:27 ec2 08/18 16:34 Order name: IV Saline Lock; Complete Time: 17:27 ec2 08/18 16:34 Order name: Labs collected and sent; Complete Time: 17:27 ec2 08/18 16:34 Order name: O2 Per Protocol; Complete Time: 17:20 ec2 08/18 16:34 Order name: O2 Sat Monitoring; Complete Time: 17:20 ec2 Administered Medications: 18:08 Drug: NS 0.9% IV 1000 ml IV at 75 ml/hr continuous Route: IV; Rate: 75 ml/hr; Site: tl4 right forearm; Disposition Summary: 08/19/23 18:01 Hospitalization Ordered Notes: Hospitalization Status: Inpatient Admission ec2 Provider: Dafne Martinez ec2 Condition: Stable ec2 Problem: an ongoing problem ec2 Symptoms: are unchanged ec2 Bed/Room Type: Standard ec2 Location: Intensive Care Unit(08/20/23 20:56) jb4 Room Assignment: 5-(08/20/23 20:56) [facility] Diagnosis - Hypo-osmolality and hyponatremia ec2 Forms: - Medication Reconciliation Form ec2 - SBAR form ec2 - Leadership Thank You Letter ec2 Critical care time excluding procedures: 18:01 Critical care time: Bedside Care: 30 minutes, Consultation: 5 minutes. Total time: 35 ec2 minutes Signatures: Dispatcher [employer] Jeff Walls, RN RN jb4 Dilma Avalos RN RN mb9 Fabiana Ford rv1 Kostas Rosen MD MD ec2 Omari Parker RN RN tl4 Corrections: (The following items were deleted from the chart) 16:35 16:34 BASIC METABOLIC PANEL+C.LAB.BRZ ordered. EDMS EDMS 16:35 16:34 CBC+H.LAB.BRZ ordered. EDMS EDMS 16:35 16:35 Urinalysis W/Microscopic+U.LAB.BRZ ordered. EDMS EDMS 16:35 16:35 URINE SODIUM RANDOM+CHEM UR.LAB.BRZ ordered. EDMS EDMS 16:35 16:35 Osmolality, Urine ordered. EDMS EDMS 16:35 16:35 URINE CREATININE+CHEM UR.LAB.BRZ ordered. EDMS EDMS 16:35 16:35 MAGNESIUM+C.LAB.BRZ ordered. EDMS EDMS 16:35 16:35 Chest Single View+RAD.RAD.BRZ ordered. EDMS EDMS 08/19 00:38 06 18:01 Intensive Care Unit ec2 rv08/19 00:38 06 18:01 ec2 rv08/19 20:56 00:38 [facility] ER HOLD rv1 jb4 20:56 00:38 ERHOLD- rv1 jb4
[2023-08-19] MEDS ORDERED: NA CHLORIDE 0.9% 1,000 ML ONE (18:06)
--- NOTE | 2023-08-19 19:30 | P.HP ---
Certification for Inpatient With expected LOS: >2 Midnights Patient will require the following post-hospital care: None Practitioner: I am a practitioner with admitting privileges, knowledge of patient current condition, hospital course, and medical plan of care. Services: Services provided to patient in accordance with Admission requirements found in Title 42 Section 412.3 of the Code of Federal Regulations Patient History Date of Service: 08/19/23 Reason for admission: Abnormal blood work History of Present Illness: 73-year-old female with past medical history of hypertension, dementia, history of breast cancer status post bilateral mastectomy, history of breast right kidney nephrectomy for kidney mass, recurrent chronic hyponatremia, status post hospitalization 6 months ago and follows with nephrology Dr. Lawton, patient was taken by family to do blood work today for Dr. Lawton I was called that serum sodium was low at 121 advised to come to the ED. On arrival in the ED and serum sodium repeat was low at 114. She admits to some regular free water intake but denies any excessive fluid intake. She has not had any recent fall. No reported seizures. Patient has a poor memory recall. Family at bedside helping with information. They said patient has never been diagnosed with SIADH. unsure what her cause of low serum sodium is. She was apparently on salt ta blets before but was taken off. She has been complaining of some increasing abdominal distention as well as body swelling. On arrival in the ED vital signs are stable. Chest x-ray shows no pulmonary edema Allergies Penicillins Allergy (Verified 02/09/18 09:34) Hives/Rash Sulfa (Sulfonamide Antibiotics) Allergy (Verified 02/09/18 09:34) Rash codeine Adverse Reaction (Verified 02/09/18 09:34) hyper, agitated meperidine [From Demerol] Adverse Reaction (Verified 02/09/18 09:34) "made me run all over, then cldnt move,could hear everthing" Home Medications: Donepezil HCl 1 tab PO DAILY 01/31/23 Rosuvastatin [Crestor*] 1 tab PO BEDTIME 02/04/23 lisinopriL [Lisinopril] 1 tab PO DAILY 02/04/23 Levothyroxine [Synthroid*] 75 mcg PO [id number] 02/05/23 Urea [Ure-Na] 15 gm PO DAILY 30 Days #30 packet 02/07/23 Sodium Chloride Tab [NaCl Tabs] 1 gm PO BID 30 Days #60 tab 02/08/23 - Past Medical/Surgical History -: Insulin-dependent diabetes -: History of breast cancer -: Hypertension -: alzheimer's -: Bilateral mastectomy -: Cholecystectomy Psychosocial/ Personal History: Patient lives at home with her - Family History Mother -: Diabetes - Social History Smoking Status: Never smoker Alcohol use: No CD- Drugs: No Caffeine use: Yes Place of Residence: Home Review of Systems 10-point ROS is otherwise unremarkable Physical Examination - Physical Exam General: Alert, In no apparent distress, Oriented x3 HEENT: Atraumatic, Normocephalic Neck: Supple, 2+ carotid pulse no bruit, JVD not distended Respiratory: Clear to auscultation bilaterally, Normal air movement Cardiovascular: Regular rate/rhythm, Normal S1 S2, Edema Gastrointestinal: Normal bowel sounds, Soft and benign, No ascites, Distended Musculoskeletal: No clubbing, Swelling Neurological: Normal speech, Normal strength at 5/5 x4 extr, Sensation intact, Cranial nerves 3-12 intact - Studies Laboratory Data (last 24 hrs) 08/19/23 08/19/23 17:06 17:06 WBC 9.20 Hgb 11.9 L Hct 32.5 L Plt Count 299 Sodium 114 L* Potassium 4.5 BUN 25 H Creatinine 0.83 Glucose 187 H Magnesium 1.5 L Assessment and Plan - Problems (Diagnosis) (1) Acute hyponatremia Current Visit: Yes Status: Acute - Plan Impression Acute on chronic hyponatremia Fluid overload with bilateral lower extremity edema and ascites Hypertension Hypothyroidism History of dementia Diabetes mellitus Plan Will admit patient to the ICU Serum sodium every 4 Fluid restriction to less than 1200 cc/day Nephrology consultDr. Cross in a.m. Follow TSH/uric acid Urine studies for free water clearance Start patient on salt tabs/urea packet as well as Lasix since fluid overload May benefit from hypertonic saline with Lasix diuresis if not improving Hold lisinopril since possible contribution to SIADH Obtain echo as well as ultrasound of the liver Insulin sliding scale with Accu-Cheks Total time spent in review of records and discussion with patient greater than 70 minutes - Advance Directives Does patient have a Living Will: No Does patient have a Durable POA for Healthcare: No Critical Care: Yes Time Spent Managing Pts Care (In Minutes): 70
[2023-08-19] MEDS ORDERED: MORPHINE 2 MG/ML SYR IV PRN (19:33)
[2023-08-19] MEDS ORDERED: ALBUTEROL 2.5 MG/3 ML NEB SOL NEB PRN (19:33)
[2023-08-19] MEDS: SODIUM CHLORIDE 1 GM TAB PO SCH (20:00)
--- NOTE | 2023-08-19 21:49 | RAD REPORT ---
EXAM DESCRIPTION: US - Abdomen Exam Complete - 08/19/2023 8:36 pm CLINICAL HISTORY: Acute renal failure COMPARISON: 2017 FINDINGS: The liver has a normal echotexture Cholecystectomy. The biliary tree is normal caliber. Poor visualization of the pancreas secondary to overlying bowel gas The right kidney measures 9 centimeters centimeters with a normal echotexture. . Partial right nephre ctomy The left kidney measures 11 centimeters centimeters with a normal echotexture. No hydronephrosis The spleen measures 9 centimeters. Abdominal aorta/IVC do not demonstrate a significant abnormality IMPRESSION: No acute abnormality displayed. No hydronephrosis
[2023-08-19] MEDS: ROSUVASTATIN 10 MG TAB PO SCH (22:15)
[2023-08-19] MEDS: UREA 15 GM POWDER PACKET PO SCH (22:15)
[2023-08-20 00:31] LABS: Thyroid Stimulating Hormone 1.13 uIU/mL (0.358-3.740); Uric Acid 2.7 mg/dL (2.6-6.0)
[2023-08-20 05:06] LABS: Absolute Eosinophils 0.1 K/uL (0-0.5); Absolute Lymphocytes (CBC) 1.5 K/uL (0.7-4.9); Absolute Monocytes 0.5 K/uL (0.1-1.3); Absolute Neutrophil 3.7 K/uL (1.8-8.0); Basophils % 0.5 % (0-1.3); Eosinophils % 1.1 % (0-4.4); Hematocrit 31.7 % (36.0-45.0); Hemoglobin 11.3 g/dL (12.0-15.0); Lymphocytes % 25.8 % (15.3-44.8); MCH 29.3 pg (27.0-35.0); MCHC 35.6 g/dL (32.0-36.0); MCV 82.1 fL (80-100); MPV 8.2 fL (7.6-11.3); Monocytes % 9.3 % (3.3-12.3); Neutrophils % 63.3 % (41.7-73.7); Platelets 238 thou/uL (152-406); RBC Red Blood Cell Count 3.86 M/uL (3.86-4.86); Red Cell Distribution Width 14.7 % (12.1-15.2)
[2023-08-20 05:15] LABS: Albumin 3.3 g/dL (3.4-5.0); Albumin/Globulin Ratio 0.9 (1.1-1.8); Anion Gap 10.3 mEq/L (5.0-15.0); Bilirubin Total 0.8 mg/dL (0.2-1.0); Globulin 3.6 g/dL (2.3-3.5); Potassium 4.3 mEq/L (3.5-5.1); Protein, Total 6.9 g/dL (6.4-8.2)
[2023-08-20] MEDS: LEVOTHYROXINE SOD 0.075 MG TAB PO SCH (06:00)
--- NOTE | 2023-08-20 08:53 | P.CNS ---
Date of Consult: 08/20/23 Reason for Consult: Hyponatremia Requesting Physician: Srinivas Archibald Chief Complaint: Abnormal blood work History of Present Illness: 73-year-old female with past medical history of hypertension, dementia, history of breast cancer status post bilateral mastectomy, history of breast right kidney nephrectomy for kidney mass, recurrent chronic hyponatremia, status post hospitalization 6 months ago and follows with nephrology Dr. Lawton, patient was taken by family to do blood work today for Dr. Lawton I was called that serum sodium was low at 121 advised to come to the ED. On arrival in the ED and serum sodium repeat was low at 114. She admits to some regular free water intake but denies any excessive fluid intake. She has not had any recent fall. No reported seizures. Patient has a poor memory recall. Family at bedside helping with information. They said patient has never been diagnosed with SIADH. unsure what her cause of low serum sodium is. She was apparently on salt tablets before but was taken off. She has been complaining of some increasing abdominal distention as well as body swelling. On arrival in the ED vital signs are stable. Chest x-ray shows no pulmonary edema [id number] 16:41 This 73 yrs old Female presents to ER via Ambulatory with complaints of ec2 Abnormal Lab Results. 16:41 Patient arrives today for evaluation of abnormal blood work. Patient reportedly had ec2 outpatient lab work that showed hyponatremia with a sodium of 121. Patient reports no significant concerns. Son also provides history, reports that she has history of hyponatremia, previous admissions. Some bouts of vomiting, no diarrhea symptoms. No issues with p.o. intake.. Allergies Penicillins Allergy (Verified 02/09/18 09:34) Hives/Rash Sulfa (Sulfonamide Antibiotics) Allergy (Verified 02/09/18 09:34) Rash codeine Adverse Reaction (Verified 02/09/18 09:34) hyper, agitated meperidine [From Demerol] Adverse Reaction (Verified 02/09/18 09:34) "made me run all over, then cldnt move,could hear everthing" Home medications list reviewed: Yes Home Medications: Rosuvastatin [Crestor*] 1 tab PO BEDTIME 02/04/23 Levothyroxine [Synthroid*] 75 mcg PO [id number] 02/05/23 Folic Acid 1 mg PO DAILY 08/20/23 Lisinopril [Zestril] 40 mg PO DAILY 08/20/23 Memantine HCl 1 tab PO DAILY 08/20/23 Metformin ER [Glucophage ER*] 1 tab PO DAILY 08/20/23 clonazePAM [Clonazepam] 0.25 mg PO DAILY 08/20/23 - Past Medical/Surgical History Diabetic: Yes -: Insulin-dependent diabetes -: History of breast cancer -: Hypertension -: Alzheimer's -: Bilateral mastectomy -: Cholecystectomy Psychosocial/ Personal History: Patient lives at home with her - Family History Mother Medical History: Diabetes - Social History Alcohol use: No CD- Drugs: No Caffeine use: Yes Place of Residence: Home Review of Systems 10-point ROS is otherwise unremarkable Physical Examination Temp Pulse Resp BP Pulse Ox 98 F 61 14 170/69 H 100 08/20/23 07:50 08/20/23 07:50 08/20/23 07:50 08/20/23 07:50 08/20/23 07:50 General: In no apparent distress, Cooperative HEENT: Atraumatic Neck: Supple Respiratory: Clear to auscultation bilaterally Cardiovascular: No edema, Regular rate/rhythm Gastrointestinal: Soft and benign, Non-distended Musculoskeletal: No clubbing, No contractures Integumentary: No rashes, No cyanosis Neurological: Normal speech Laboratory Data (last 24 hrs) 08/19/23 08/19/23 08/19/23 19:31 17:06 17:06 WBC 9.20 Hgb 11.9 L Hct 32.5 L Plt Count 299 Sodium 114 L* Potassium 4.5 BUN 25 H Creatinine 0.83 Glucose 187 H Uric Acid Cancelled 2.7 Magnesium 1.5 L Imagings Data: [id number] EXAM DESCRIPTION: US - Abdomen Exam Complete - 08/19/2023 8:36 pm CLINICAL HISTORY: Acute renal failure COMPARISON: 2017 FINDINGS: The liver has a normal echotexture Cholecystectomy. The biliary tree is normal caliber. Poor visualization of the pancreas secondary to overlying bowel gas The right kidney measures 9 centimeters centimeters with a normal echotexture. . Partial right nephrectomy The left kidney measures 11 centimeters centimeters with a normal echotexture. No hydronephrosis The spleen measures 9 centimeters. Abdominal aorta/IVC do not demonstrate a significant abnormality IMPRESSION: No acute abnormality displayed. No hydronephrosis [id number] EXAM DESCRIPTION: Esteban Single View08/19/2023 5:18 pm CLINICAL HISTORY: cough COMPARISON: June 2023 FINDINGS: The lungs appear clear of acute infiltrate. The heart is normal size IMPRESSION: No acute abnormalities displayed Conclusions/Impression: Hyponatremia -Encourage nutrition -Hold salt tabs and ure-na Hypomagnesemia -Replete as ordered HTN -Start Lisinopril DM II -RISS prn Anemia in chronic illness -Monitor H&H Hospitalist and ER notes reviewed Thank you kindly for the consultation
[2023-08-20] MEDS ORDERED: Magnesium Sulfate 2gm IVPB 2 G/50 ML BAG IV ONE (08:58)
[2023-08-20] MEDS: DONEPEZIL HCL 5 MG TAB PO SCH (09:00)
[2023-08-20] MEDS: Magnesium Sulfate 2gm IVPB 2 G/50 ML BAG IV ONE (09:45)
[2023-08-20] MEDS ORDERED: clonazePAM 0.5 MG TAB ONE (10:37)
[2023-08-20] MEDS: clonazePAM 0.5 MG TAB PO PRN (10:39)
--- NOTE | 2023-08-20 10:45 | P.PN ---
Date of Service: 08/20/23 Subjective: pleasant, confused does not recall events earlier today / prior to admision ROS: 10 point ROS as noted above, otherwise negative Physical Exam: GEN: Alert, orientedx1, NAD HEENT: Normal conjunctiva, sclera anicteric, CV: Regular rate and rhythm, no edema Pulm: Nonlabored respirations on room air, clear bilaterally ABD: soft, nontender, nondistended Neuro: Normal speech, normal affect, moves all extremities Problem List: Acute on chronic hyponatremia with confusion Fluid overload Hypertension Hypothyroidism Alzhiemer's Dementia IDDM2 hx breast cancer s/p bilateral mastectomy Acute on chronic hyponatremia with confusion Fluid overload Presented to ED following outpatient bloodwork with sodium of 121 abdominal u/s (08/19): no acute abnormalities. No hydro CXR negative for acute findings Nephrology consulted given salt tabs, Ure-Na overnight sodium corrected quickly - stopped Na replacement Daily labs. Check sodium q4h until more stable strict I/Os. Fluid restriction unclear etiology prior history of hypoNa as wel urine lytes ordered Hypertension Hypothyroidism Dementia confirm home meds restart as appropriate IDDM2 accu-checks, SSI confirm home dose insulin hx breast cancer s/p bilateral mastectomy confirm home meds, restart as appropriate continue supportive care Code: Full Dispo: Home, 1-2 days
[2023-08-20] MEDS: lisinopriL 10 MG TAB PO ONE (11:00)
[2023-08-20] MEDS ORDERED: lisinopriL 10 MG TAB ONE (11:07)
[2023-08-20] MEDS ORDERED: ONDANSETRON 4 MG/2 ML VIAL ONE (12:20)
[2023-08-20] MEDS: ONDANSETRON 4 MG/2 ML VIAL IV PRN (12:26)
--- NOTE | 2023-08-20 16:33 | EKG ---
Test Date: 2023-08-19 Test Time: 16:53:43 Electric [employer]cker: DANN MEASUREMENT RESULTS: Intervals: Rate: 77 MA: 142 QRSD: 88 QT: 372 QTc: 420 [place]: P: 66 MA: 142 QRS: 20 T: 54 INTERPRETIVE STATEMENTS: Normal sinus rhythm Normal ECG Compared to ECG 06/26/2023 12:53:58 Atrial premature complex(es) no longer present Accelerated junctional rhythm no longer present Fusion complex(es) no longer present Ventricular premature complex(es) no longer present ST (T wave) deviation no longer present Possible ischemia no longer present Electronically Signed On 08-20-23 16:31:48 CDT by Erik De La Fuente
[2023-08-21] MEDS: QUETIAPINE 25 MG TAB PO ONE ×2 (00:45→01:00)
[2023-08-21 05:08] LABS: Absolute Eosinophils 0.1 K/uL (0-0.5); Absolute Lymphocytes (CBC) 1.5 K/uL (0.7-4.9); Absolute Monocytes 0.5 K/uL (0.1-1.3); Absolute Neutrophil 3.7 K/uL (1.8-8.0); Basophils % 0.4 % (0-1.3); Eosinophils % 1.5 % (0-4.4); Hematocrit 31.7 % (36.0-45.0); Hemoglobin 11.5 g/dL (12.0-15.0); Lymphocytes % 25.5 % (15.3-44.8); MCH 29.7 pg (27.0-35.0); MCHC 36.3 g/dL (32.0-36.0); MCV 81.8 fL (80-100); Monocytes % 8.7 % (3.3-12.3); Neutrophils % 63.9 % (41.7-73.7); Platelets 240 thou/uL (152-406); RBC Red Blood Cell Count 3.88 M/uL (3.86-4.86); Red Cell Distribution Width 14.4 % (12.1-15.2)
[2023-08-21 05:29] LABS: Albumin 3.6 g/dL (3.4-5.0); Anion Gap 7.9 mEq/L (5.0-15.0); Bilirubin Total 0.9 mg/dL (0.2-1.0); Globulin 3.5 g/dL (2.3-3.5); Magnesium 1.9 mg/dL (1.6-2.4); Phosphorus 2.8 mg/dL (2.5-4.9); Potassium 3.9 mEq/L (3.5-5.1); Protein, Total 7.1 g/dL (6.4-8.2); Uric Acid 2.5 mg/dL (2.6-6.0)
--- NOTE | 2023-08-21 07:14 | ECHO ---
HEIGHT: 5 ft 2 in WEIGHT: 165 lb 0 oz DATE OF STUDY: 08/20/[address]: Dafne Martinez MD 2-DIMENSIONAL: YES M.MODE: YES DOPPLER: YES COLOR FLOW: YES TDS: PORTABLE: YES DEFINITY: BUBBLE STUDY: DIAGNOSIS: CEREBRAL VASCULAR ACCIDENT, RULE OUT VEGETATION CARDIAC HISTORY: CATHERIZATION: NO SURGERY: NO PROSTHETIC VALVE: NO PACEMAKER: NO MEASUREMENTS (cm) DIASTOLIC (NORMALS) SYSTOLIC (NORMALS) IVSd 0.7 (0.6-1.2) LA Diam 2.8 (1.9-4.0) LVEF 60-65% LVIDd 3.5 (3.5-5.7) LVIDs 2.2 (2.0-3.5) %FS 37% LVPWd 0.9 (0.6-1.2) Ao Diam 1.9 (2.0-3.7) 2 DIMENSIONAL ASSESSMENT: RIGHT ATRIUM: NORMAL LEFT ATRIUM: NORMAL RIGHT VENTRICLE: NORMAL LEFT VENTRICLE: NORMAL TRICUSPID VALVE: TRACE TRICUSPID REGURGITATION MITRAL VALVE: NORMAL PULMONIC VALVE: NORMAL AORTIC VALVE: NORMAL PERICARDIAL EFFUSION: NONE AORTIC ROOT: NORMAL LEFT VENTRICULAR WALL MOTION: NORMAL DOPPLER/COLOR FLOW: NORMAL COMMENTS: 1. NORMAL LEFT VENTRICULAR SYSTOLIC FUNCTION, EJECTION FRACTION 60-65%, NORMAL WALL MOTION 2. NORMAL DIASTOLIC FUNCTION 3. NORMAL PULMONARY HYPERTENSION (RIGHT VENTRICULAR SYSTOLIC PRESSURE 25-30 mmHg) TECHNOLOGIST: CORY MANNING
[2023-08-21] MEDS: lisinopriL 10 MG TAB PO SCH ×2 (07:50→20:23)
[2023-08-21] MEDS: MEMANTINE HCL 10 MG TABLET PO SCH (07:51)
[2023-08-21] MEDS: FOLIC ACID 1 MG TABLET PO SCH (07:51)
[2023-08-21] MEDS: UREA 15 GM POWDER PACKET PO SCH (08:53)
[2023-08-21] MEDS: SODIUM CHLORIDE 1 GM TAB PO SCH (08:53)
--- NOTE | 2023-08-21 10:02 | P.PN ---
Date of Service: 08/21/23 Subjective: remains confused. needing frequent reorientation attempting to get out of bed multiple times throughout the day/night Sister at bedside states this is how patient gets when her sodium is low ROS: 10 point ROS as noted above, otherwise negative Physical Exam: GEN: orientedx1, NAD, confused HEENT: Normal conjunctiva, sclera anicteric CV: Regular rate and rhythm, no edema Pulm: Nonlabored respirations on room air, clear bilaterally ABD: soft, nontender, nondistended Neuro: Normal speech, confused, moves extremities repeating same questions - due to not remembering Problem List: Acute on chronic hyponatremia with confusion h/o Hypertension Hypothyroidism advanced Alzhiemer's Dementia IDDM2 hx breast cancer s/p bilateral mastectomy Acute on chronic hyponatremia with confusion Unclear etiology, possibly multifactorial, workup partially consistent with hypervolemia / increased free water intake, possibly some SIADH in the background Presented to ED following outpatient bloodwork with sodium of 121, in ER was 114 abdominal u/s (08/19): no acute abnormalities. No hydro CXR negative for acute findings Nephrology consulted Restarted salt tabs, Ure-Na on 08/20 sodium ~same (08/20) Daily labs. strict I/Os. Fluid restriction 1.2L/day prior history of hypoNa as well in the last 6-12 months urine lytes ordered Hypertension Hypothyroidism Dementia resume home synthroid, memantine, folic acid, donepezil, klonopin lisinopril increased to 10 mg BID Sister reports patient's baseline is "5-minute memory" but typically "calm unless she doesn't get her way" was more closer to baseline 08/19 afternoon. this morning, more agitated son states melatonin helps at night, the klonopin doesn't see to help much at home IDDM2 accu-checks, SSI confirm home dose insulin hx breast cancer s/p bilateral mastectomy confirm home meds, restart as appropriate continue supportive care Code: Full Dispo: back to [facility], 1-2 days
[2023-08-21] MEDS ORDERED: ALBUTEROL 2.5 MG/3 ML NEB SOL NEB PRN (10:18)
--- NOTE | 2023-08-21 11:32 | P.PN ---
Date of Service: 08/21/23 Vital Signs Temp Pulse Resp BP Pulse Ox 97.6 F 57 14 172/77 H 100 08/21/23 07:00 08/21/23 10:00 08/21/23 10:00 08/21/23 10:00 08/21/23 10:00 Medications Albuterol Sulfate (Albuterol 2.5 Mg/3 Ml Neb Lidia) 2.5 mg NEB [id number] PRN PRN Reason: SHORTNESS OF BREATH Clonazepam (Clonazepam 0.5 Mg Tab) 0.25 mg PO DAILY PRN PRN Reason: ANXIETY Last Admin: 08/21/23 07:50 Dose: 0.25 mg Donepezil HCl (Donepezil Hcl 5 Mg Tab) 20 mg PO DAILY [facility] Last Admin: 08/21/23 07:50 Dose: 20 mg Folic Acid (Folic Acid 1 Mg Tablet) 1 mg PO DAILY [facility] Last Admin: 08/21/23 07:51 Dose: 1 mg Levothyroxine Sodium (Levothyroxine Sod 0.075 Mg Tab) 0.075 mg PO [id number] [facility] Last Admin: 08/21/23 06:24 Dose: 0.075 mg Lisinopril (Lisinopril 10 Mg Tab) 10 mg PO 1X ONE Stop: 08/21/23 12:01 Lisinopril (Lisinopril 10 Mg Tab) 10 mg PO BID [facility] Memantine (Memantine Hcl 10 Mg Tablet) 10 mg PO DAILY [facility] Last Admin: 08/21/23 07:51 Dose: 10 mg Morphine Sulfate (Morphine 2 Mg/Ml Syr) 2 mg IV Q4H PRN PRN Reason: Pain scale 8-10 (Severe) Ondansetron HCl (Ondansetron 4 Mg/2 Ml Vial) 4 mg IV Q8H PRN PRN Reason: NAUSEA / VOMITING Last Admin: 08/21/23 09:30 Dose: 4 mg Rosuvastatin Calcium (Rosuvastatin 10 Mg Tab) 10 mg PO BEDTIME [facility] Last Admin: 08/20/23 20:48 Dose: 10 mg Sodium Chloride (Sodium Chloride 1 Gm Tab) 1 gm PO TIDWM [facility] Last Admin: 08/21/23 08:53 Dose: 1 gm Urea (Urea 15 Gm Powder Packet) 30 gm PO DAILY [facility] Last Admin: 08/21/23 08:53 Dose: 30 gm Microbiology Results 08/19/23 17:04 Clean Catch Urine [place] Count - Preliminary >100,000 CFU/ML. 08/19/23 17:04 Clean Catch Urine - Preliminary MIXED [facility]AL[facility]. Assessment/ Plan: Nephrology Progress Note No Dyspnea No Chest Pain No Acute Events Overnight Limited IH/ ROS due to dementia Vital Signs, Medications, Blood Work, and Imaging reviewed in the chart General: In no apparent distress, Cooperative HEENT: Atraumatic Neck: Supple Respiratory: Clear to auscultation bilaterally Cardiovascular: No edema, Regular rate/rhythm Gastrointestinal: Soft and benign, Non-distended Musculoskeletal: No clubbing, No contractures Integumentary: No rashes, No cyanosis Neurological: Normal speech Laboratory Data (last 24 hrs) 08/19/23 08/19/23 08/19/23 19:31 17:06 17:06 WBC 9.20 Hgb 11.9 L Hct 32.5 L Plt Count 299 Sodium 114 L* Potassium 4.5 BUN 25 H Creatinine 0.83 Glucose 187 H Uric Acid Cancelled 2.7 Magnesium 1.5 L Imagings Data: [id number] EXAM DESCRIPTION: US - Abdomen Exam Complete - 08/19/2023 8:36 pm CLINICAL HISTORY: Acute renal failure COMPARISON: 2016 FINDINGS: The liver has a normal echotexture Cholecystectomy. The biliary tree is normal caliber. Poor visualization of the pancreas secondary to overlying bowel gas The right kidney measures 9 centimeters centimeters with a normal echotexture. . Partial right nephrectomy The left kidney measures 11 centimeters centimeters with a normal echotexture. No hydronephrosis The spleen measures 9 centimeters. Abdominal aorta/IVC do not demonstrate a significant abnormality IMPRESSION: No acute abnormality displayed. No hydronephrosis [id number] [facility] 5[facility]18 pm CLINICAL HISTORY: cough COMPARISON: June 2023 FINDINGS: The lungs appear clear of acute infiltrate. The heart is normal size IMPRESSION: No acute abnormalities displayed Conclusions/Impression: Hyponatremia -Encourage nutrition -Ure-na bid -Salt tab -Fluid restriction Hypomagnesemia -Replete prn HTN -Increase Lisinopril bid DM II -RISS prn Anemia in chronic illness -Monitor H&H Hospitalist note reviewed Case reviewed with hospitalist
[2023-08-21] MEDS: PROMETHAZINE INJ 25 MG/ML AMP IV ONE (12:01)
[2023-08-21] MEDS: lisinopriL 10 MG TAB PO ONE (12:01)
[2023-08-21] MEDS: LORazepam 2 MG/ML VIAL IV ONE ×2 (13:25→19:45)
[2023-08-21] MEDS ORDERED: WATER FOR INJ,STERILE 10 ML IM PRN (14:00)
[2023-08-21] MEDS: ZIPRASIDONE MESYLA 20 MG/VIAL IM ONE (14:00)
[2023-08-21 17:36] LABS: Anion Gap 8.8 mEq/L (5.0-15.0); Potassium 3.8 mEq/L (3.5-5.1)
[2023-08-21] MEDS: MELATONIN 5 MG TABLET PO SCH (20:23)
[2023-08-22 05:31] LABS: Anion Gap 8.8 mEq/L (5.0-15.0); Potassium 3.8 mEq/L (3.5-5.1)
--- NOTE | 2023-08-22 06:55 | P.PN ---
Date of Service: 08/22/23 Subjective: continues with intermittent agitation overnight more calm this morning breathing okay on room air Na improving not much appetite this morning ROS: 10 point ROS as noted above, otherwise negative Physical Exam: GEN: orientedx1, NAD, confused, calm HEENT: Normal conjunctiva, sclera anicteric CV: Regular rate and rhythm, no edema Pulm: Nonlabored respirations on room air, clear bilaterally ABD: soft, nontender, nondistended Neuro: Normal speech, confused, moves extremities Problem List: Acute on chronic hyponatremia with confusion h/o Hypertension Hypothyroidism advanced Alzhiemer's Dementia IDDM2 hx breast cancer s/p bilateral mastectomy Acute on chronic hyponatremia with confusion Unclear etiology, possibly multifactorial, workup partially consistent with hypervolemia / increased free water intake, possibly some SIADH in the background Presented to ED following outpatient bloodwork with sodium of 121, in ER was 114 abdominal u/s (08/19): no acute abnormalities. No hydro CXR negative for acute findings Nephrology consulted continue salt tabs, restarted (08/20) continue Ure-Na, decreased (08/21) sodium improving (08/21) Daily labs strict I/Os. Fluid restriction 1.2L/day prior history of hypoNa as well in the last 6-12 months urine cx with mixed reji urine lytes ordered h/o Hypertension Hypothyroidism advanced Alzhiemer's Dementia resume home synthroid, memantine, folic acid, donepezil, klonopin lisinopril increased to 10 mg BID Sister reports patient's baseline is "5-minute memory" but typically "calm unless she doesn't get her way" was more closer to baseline 08/19 afternoon. son states melatonin helps at night, the klonopin doesn't see to help much at home melatonin added (08/20) IDDM2 accu-checks, SSI confirm home dose insulin hx breast cancer s/p bilateral mastectomy confirm home meds, restart as appropriate continue supportive care Code: Full Dispo: back to [facility], 1-2 days
[2023-08-22] MEDS: lisinopriL 20 MG TAB PO SCH ×2 (07:58→20:14)
[2023-08-22] MEDS: UREA 15 GM POWDER PACKET PO SCH (07:59)
--- NOTE | 2023-08-22 11:57 | P.PN ---
(S) Pt known to me from hospitalization last yr and f/u clinic visits which in between her Na levels have maintained at 130 or higher but dropped again leading to ICU admission. Son at bedside, pt has had mild on going confusion, delirium although calm and more sleep this AM. BP labile (O) Vitals reviewed in the EMR General: Other (Appears mildly lethargic but NAD) HEENT: Atraumatic, Normocephalic Neck: Supple Respiratory: Clear to auscultation bilaterally, Normal air movement Cardiovascular: Regular rate/rhythm, Normal S1 S2 Gastrointestinal: Soft and benign, Non-distended, No tenderness Musculoskeletal: No swelling Integumentary: No rashes, No tenderness Neurological: Other (Awake, responds slowly/briefly, partially oriented, some confusion evident ) Conclusions/Impression: A/P) 1. Sub-acute on chronic severe hypotonic hyponatremia, euvolemic, symptomatic 2. Urine studies fit with SIADH pattern prev and here given random Sindi > 20 and Uosm > 100. 3. Initial more rapid correction of Na but rate of further correction over the past 48h has been acceptable. 4. Again counseled on fluid restriction which family reports pt does not follow, drinks through out the day. Cont salt tabs temp and cont Ure-Na, doses lowered 5. Chronic HTN -labile pressures here, cont to trend. Rarely, ACEi/lisinopril can be associated with SIADH, but for now will cont Sd Catherine MD, JASVIR
[2023-08-22 19:00] LABS: Albumin 3.3 g/dL (3.4-5.0); Albumin/Globulin Ratio 0.9 (1.1-1.8); Anion Gap 10.9 mEq/L (5.0-15.0); Bilirubin Total 0.8 mg/dL (0.2-1.0); Globulin 3.6 g/dL (2.3-3.5); Potassium 3.9 mEq/L (3.5-5.1); Protein, Total 6.9 g/dL (6.4-8.2)
[2023-08-22] MEDS: SODIUM CHLORIDE 1 GM TAB PO SCH (20:14)
[2023-08-23 05:22] LABS: Albumin 3.4 g/dL (3.4-5.0); Anion Gap 7.8 mEq/L (5.0-15.0); Magnesium 1.6 mg/dL (1.6-2.4); Phosphorus 3.3 mg/dL (2.5-4.9); Potassium 3.8 mEq/L (3.5-5.1)
[2023-08-23] MEDS: MORPHINE 4 MG/ML SYR IV PRN (05:47)
--- NOTE | 2023-08-23 07:24 | P.PN ---
Date of Service: 08/23/23 Subjective: more calm, close to baseline per sister at bedside ate dinner ~normal amount didn't eat much breakfast today weak ROS: 10 point ROS as noted above, otherwise negative Physical Exam: GEN: orientedx1, NAD, confused, calm HEENT: Normal conjunctiva, sclera anicteric CV: Regular rate and rhythm, no edema Pulm: Nonlabored respirations on room air, clear bilaterally ABD: soft, nontender, nondistended Neuro: Normal speech, confused, moves extremities Problem List: Acute on chronic hyponatremia with confusion Advanced Alzhiemer's Dementia h/o Hypertension Hypothyroidism IDDM2 hx breast cancer s/p bilateral mastectomy Acute on chronic hyponatremia with confusion Unclear etiology, possibly multifactorial, workup partially consistent with increased free water intake, possibly some SIADH in the background Discussed importance of maintaining fluid restriction with patient/family. Family reports patient drinks throughout the day at home Presented to ED following outpatient bloodwork with sodium of 121, in ER was 114 abdominal u/s (08/19): no acute abnormalities. No hydro CXR negative for acute findings Echo (08/18): with 60-65% EF, normal diastolic function. Nephrology consulted continue salt tabs, decreased (08/21) continue Ure-Na, decreased (08/21) sodium ~same (08/22) Daily labs strict I/Os. Fluid restriction 1.2L/day prior history of hypoNa as well in the last 6-12 months urine cx with mixed reji Advanced Alzhiemer's Dementia resume home memantine, folic acid, donepezil, klonopin Sister reports patient's baseline is "5-minute memory" but typically "calm unless she doesn't get her way" son states melatonin helps at night, the klonopin doesn't see to help much at home melatonin added (08/20) h/o Hypertension lisinopril increased to 20 mg BID (08/21) labile BP Hypothyroidism resume home synthroid IDDM2 accu-checks, SSI confirm home dose insulin hx breast cancer s/p bilateral mastectomy confirm home meds, restart as appropriate continue supportive care Code: Full Dispo: back to [facility] once sodium is improved/more stable, possibly tomorrow
[2023-08-23] MEDS: UREA 15 GM POWDER PACKET PO SCH (08:22)
[2023-08-23] MEDS ORDERED: ACETAMINOPHEN 325 MG TABLET PO PRN (16:12)
--- NOTE | 2023-08-23 20:36 | P.PN ---
Date of Service: 08/23/23 Vital Signs Temp Pulse Resp BP Pulse Ox 97.6 F 82 16 145/67 H 99 08/23/23 17:30 08/23/23 19:44 08/23/23 17:30 08/23/23 19:44 08/23/23 17:30 Medications Acetaminophen (Acetaminophen 325 Mg Tablet) 650 mg PO Q6H PRN PRN Reason: Pain scale 2-4 (Mild) Albuterol Sulfate (Albuterol 2.5 Mg/3 Ml Neb Lidia) 2.5 mg NEB [id number] PRN PRN Reason: SHORTNESS OF BREATH Clonazepam (Clonazepam 0.5 Mg Tab) 0.25 mg PO DAILY PRN PRN Reason: ANXIETY Last Admin: 08/23/23 14:02 Dose: 0.25 mg Donepezil HCl (Donepezil Hcl 5 Mg Tab) 20 mg PO DAILY [facility] Last Admin: 08/23/23 08:21 Dose: 20 mg Folic Acid (Folic Acid 1 Mg Tablet) 1 mg PO DAILY [facility] Last Admin: 08/23/23 08:21 Dose: 1 mg Levothyroxine Sodium (Levothyroxine Sod 0.075 Mg Tab) 0.075 mg PO [id number] [facility] Last Admin: 08/23/23 05:23 Dose: 0.075 mg Lisinopril (Lisinopril 20 Mg Tab) 20 mg PO BID [facility] Last Admin: 08/23/23 19:44 Dose: 20 mg Melatonin (Melatonin 5 Mg Tablet) 5 mg PO BEDTIME [facility] Last Admin: 08/23/23 19:43 Dose: 5 mg Memantine (Memantine Hcl 10 Mg Tablet) 10 mg PO DAILY [facility] Last Admin: 08/23/23 08:22 Dose: 10 mg Ondansetron HCl (Ondansetron 4 Mg/2 Ml Vial) 4 mg IV Q8H PRN PRN Reason: NAUSEA / VOMITING Last Admin: 08/21/23 09:30 Dose: 4 mg Rosuvastatin Calcium (Rosuvastatin 10 Mg Tab) 10 mg PO BEDTIME [facility] Last Admin: 08/23/23 19:42 Dose: 10 mg Sodium Chloride (Sodium Chloride 1 Gm Tab) 1 gm PO BID [facility] Last Admin: 08/23/23 19:43 Dose: 1 gm Sterile Water (Water For Inj,Sterile 10 Ml) 1.2 ml IM UD PRN PRN Reason: DILUTION OF MED Urea (Urea 15 Gm Powder Packet) 15 gm PO DAILY [facility] Last Admin: 08/23/23 08:22 Dose: 15 gm Microbiology Results 08/19/23 17:04 Clean Catch Urine [place] Count - Final >100,000 CFU/ML. 08/19/23 17:04 Clean Catch Urine - Final MIXED [facility]ALINA. Assessment/ Plan: Nephrology Progress Note No Dyspnea No Chest Pain No Acute Events Overnight Limited IH/ ROS due to dementia Vital Signs, Medications, Blood Work, and Imaging reviewed in the chart General: In no apparent distress, Cooperative HEENT: Atraumatic Neck: Supple Respiratory: Clear to auscultation bilaterally Cardiovascular: No edema, Regular rate/rhythm Gastrointestinal: Soft and benign, Non-distended Musculoskeletal: No clubbing, No contractures Integumentary: No rashes, No cyanosis Neurological: Normal speech Laboratory Data (last 24 hrs) 08/19/23 08/19/23 08/19/23 19:31 17:06 17:06 WBC 9.20 Hgb 11.9 L Hct 32.5 L Plt Count 299 Sodium 114 L* Potassium 4.5 BUN 25 H Creatinine 0.83 Glucose 187 H Uric Acid Cancelled 2.7 Magnesium 1.5 L Imagings Data: [id number] EXAM DESCRIPTION: US - Abdomen Exam Complete - 08/19/2023 8:36 pm CLINICAL HISTORY: Acute renal failure COMPARISON: 2016 FINDINGS: The liver has a normal echotexture Cholecystectomy. The biliary tree is normal caliber. Poor visualization of the pancreas secondary to overlying bowel gas The right kidney measures 9 centimeters centimeters with a normal echotexture. . Partial right nephrectomy The left kidney measures 11 centimeters centimeters with a normal echotexture. No hydronephrosis The spleen measures 9 centimeters. Abdominal aorta/IVC do not demonstrate a significant abnormality IMPRESSION: No acute abnormality displayed. No hydronephrosis [id number] EXAM DESCRIPTION: [facility] Single View08/19/2023 5:18 pm CLINICAL HISTORY: cough COMPARISON: June 2023 FINDINGS: The lungs appear clear of acute infiltrate. The heart is normal size IMPRESSION: No acute abnormalities displayed Conclusions/Impression: Hyponatremia -Encourage nutrition -Ure-na bid -Salt tab -Fluid restriction Hypomagnesemia -Replete prn HTN -Continue lisinopril bid DM II -RISS prn Anemia in chronic illness -Monitor H&H Hospitalist note reviewed Case reviewed with hospitalist
[2023-08-24 04:43] VITALS: BMI 23.6
[2023-08-24 05:03] LABS: Albumin 3.3 g/dL (3.4-5.0); Anion Gap 7.7 mEq/L (5.0-15.0); Magnesium 1.5 mg/dL (1.6-2.4); Phosphorus 3.1 mg/dL (2.5-4.9); Potassium 3.7 mEq/L (3.5-5.1)
[2023-08-24 07:48] VITALS: O2SAT 100
--- NOTE | 2023-08-24 08:58 | P.PN ---
Date of Service: 08/24/23 Subjective: remains confused but improving compared to mentation on admission attempting to get out of bed multiple days throughout the night appears more calm / relaxed. ~baseline denies any abdominal pains afebrile ROS: 10 point ROS as noted above, otherwise negative Physical Exam: GEN: orientedx2 (self and place) NAD, confused, calm HEENT: Normal conjunctiva, sclera anicteric CV: Regular rate and rhythm, no edema Pulm: Nonlabored respirations on room air, clear bilaterally ABD: soft, nontender, nondistended Neuro: Normal speech, confused, moves extremities Problem List: Acute on chronic hyponatremia with confusion Advanced Alzhiemer's Dementia h/o Hypertension Hypothyroidism IDDM2 hx breast cancer s/p bilateral mastectomy Acute on chronic hyponatremia with confusion Unclear etiology, possibly multifactorial, workup partially consistent with increased free water intake, possibly some SIADH in the background Discussed importance of maintaining fluid restriction with patient/family. Family reports patient drinks throughout the day at home Presented to ED following outpatient bloodwork with sodium of 121, in ER was 114 abdominal u/s (08/19): no acute abnormalities. No hydro CXR negative for acute findings Echo (08/18): with 60-65% EF, normal diastolic function. Nephrology consulted continue salt tabs, increased to TID from BID (08/23) continue Ure-Na, increased to BID from daily (08/23) slight bump to sodium 128 -> 127 (08/23) Daily labs strict I/Os. Fluid restriction 1.2L/day prior history of hypoNa as well in the last 6-12 months urine cx with mixed reji Advanced Alzhiemer's Dementia resume home memantine, folic acid, donepezil, klonopin Sister reports patient's baseline is "5-minute memory" but typically "calm unless she doesn't get her way" son states melatonin helps at night, the klonopin doesn't see to help much at home melatonin added (08/20) h/o Hypertension lisinopril increased to 20 mg BID (08/21) Hypothyroidism resume home synthroid IDDM2 accu-checks, SSI confirm home dose insulin hx breast cancer s/p bilateral mastectomy confirm home meds, restart as appropriate continue supportive care Code: Full Dispo: back to [facility] once sodium is improved/more stable, possibly tomorrow
--- NOTE | 2023-08-24 10:03 | P.PN ---
Date of Service: 08/24/23 Vital Signs Temp Pulse Resp BP Pulse Ox 98.2 F 80 14 157/63 H 96 08/24/23 08:00 08/24/23 08:19 08/24/23 08:00 08/24/23 08:19 08/24/23 08:00 Medications Acetaminophen (Acetaminophen 325 Mg Tablet) 650 mg PO Q6H PRN PRN Reason: Pain scale 2-4 (Mild) Albuterol Sulfate (Albuterol 2.5 Mg/3 Ml Neb Lidia) 2.5 mg NEB [id number] PRN PRN Reason: SHORTNESS OF BREATH Clonazepam (Clonazepam 0.5 Mg Tab) 0.25 mg PO DAILY PRN PRN Reason: ANXIETY Last Admin: 08/23/23 14:02 Dose: 0.25 mg Donepezil HCl (Donepezil Hcl 5 Mg Tab) 20 mg PO DAILY [facility] Last Admin: 08/24/23 08:18 Dose: 20 mg Folic Acid (Folic Acid 1 Mg Tablet) 1 mg PO DAILY [facility] Last Admin: 08/24/23 08:18 Dose: 1 mg Levothyroxine Sodium (Levothyroxine Sod 0.075 Mg Tab) 0.075 mg PO [id number] [facility] Last Admin: 08/24/23 05:35 Dose: 0.075 mg Lisinopril (Lisinopril 20 Mg Tab) 20 mg PO BID [facility] Last Admin: 08/24/23 08:19 Dose: 20 mg Melatonin (Melatonin 5 Mg Tablet) 5 mg PO BEDTIME [facility] Last Admin: 08/23/23 19:43 Dose: 5 mg Memantine (Memantine Hcl 10 Mg Tablet) 10 mg PO DAILY [facility] Last Admin: 08/24/23 08:18 Dose: 10 mg Ondansetron HCl (Ondansetron 4 Mg/2 Ml Vial) 4 mg IV Q8H PRN PRN Reason: NAUSEA / VOMITING Last Admin: 08/21/23 09:30 Dose: 4 mg Rosuvastatin Calcium (Rosuvastatin 10 Mg Tab) 10 mg PO BEDTIME [facility] Last Admin: 08/23/23 19:42 Dose: 10 mg Sterile Water (Water For Inj,Sterile 10 Ml) 1.2 ml IM UD PRN PRN Reason: DILUTION OF MED Microbiology Results 08/19/23 17:04 Clean Catch Urine [place] Count - Final >100,000 CFU/ML. 08/19/23 17:04 Clean Catch Urine - Final MIXED [facility]ALINA. Assessment/ Plan: Nephrology Progress Note No Dyspnea No Chest Pain No Acute Events Overnight Limited IH/ ROS due to dementia but feeling better today Vital Signs, Medications, Blood Work, and Imaging reviewed in the chart General: In no apparent distress, Cooperative HEENT: Atraumatic Neck: Supple Respiratory: Clear to auscultation bilaterally Cardiovascular: No edema, Regular rate/rhythm Gastrointestinal: Soft and benign, Non-distended Musculoskeletal: No clubbing, No contractures Integumentary: No rashes, No cyanosis Neurological: Normal speech Laboratory Data (last 24 hrs) 08/19/23 08/19/23 08/19/23 19:31 17:06 17:06 WBC 9.20 Hgb 11.9 L Hct 32.5 L Plt Count 299 Sodium 114 L* Potassium 4.5 BUN 25 H Creatinine 0.83 Glucose 187 H Uric Acid Cancelled 2.7 Magnesium 1.5 L Imagings Data: [id number] EXAM DESCRIPTION: US - Abdomen Exam Complete - 08/19/2023 8:36 pm CLINICAL HISTORY: Acute renal failure COMPARISON: 2016 FINDINGS: The liver has a normal echotexture Cholecystectomy. The biliary tree is normal caliber. Poor visualization of the pancreas secondary to overlying bowel gas The right kidney measures 9 centimeters centimeters with a normal echotexture. . Partial right nephrectomy The left kidney measures 11 centimeters centimeters with a normal echotexture. No hydronephrosis The spleen measures 9 centimeters. Abdominal aorta/IVC do not demonstrate a significant abnormality IMPRESSION: No acute abnormality displayed. No hydronephrosis [id number] EXAM DESCRIPTION: [facility] Single View08/19/2023 5:18 pm CLINICAL HISTORY: cough COMPARISON: June 2023 FINDINGS: The lungs appear clear of acute infiltrate. The heart is normal size IMPRESSION: No acute abnormalities displayed Conclusions/Impression: Hyponatremia -Encourage nutrition -Increase Ure-na bid -Increase Salt tab TID -Continue Fluid restriction -Pharmacy advised that tolvaptan is not available for today; requested availability for tomorrow Hypomagnesemia -Start Slo-Mag BID HTN -Continue Lisinopril bid DM II -RISS prn Anemia in chronic illness -Monitor H&H Hospitalist note reviewed Case reviewed with Dr. Archibald
[2023-08-24] MEDS: SODIUM CHLORIDE 1 GM TAB PO SCH (12:02)
[2023-08-24] MEDS: POTASSIUM CL SA 10 MEQ TAB PO ONE (12:02)
[2023-08-24] MEDS: MAGNESIUM CHLORIDE 64 MG TAB PO SCH (12:02)
[2023-08-24] MEDS: UREA 15 GM POWDER PACKET PO SCH (17:30)
[2023-08-25 05:09] LABS: Hematocrit 29.9 % (36.0-45.0); Hemoglobin 10.7 g/dL (12.0-15.0); MCH 29.5 pg (27.0-35.0); MCHC 35.7 g/dL (32.0-36.0); MCV 82.7 fL (80-100); MPV 7.5 fL (7.6-11.3); Platelets 256 thou/uL (152-406); RBC Red Blood Cell Count 3.62 M/uL (3.86-4.86); Red Cell Distribution Width 14.7 % (12.1-15.2)
[2023-08-25 05:19] LABS: Albumin 3.1 g/dL (3.4-5.0); Anion Gap 7.8 mEq/L (5.0-15.0); Magnesium 1.6 mg/dL (1.6-2.4); Phosphorus 3.1 mg/dL (2.5-4.9); Potassium 3.8 mEq/L (3.5-5.1); Uric Acid 2.4 mg/dL (2.6-6.0)
--- NOTE | 2023-08-25 08:36 | P.PN ---
Date of Service: 08/25/23 Subjective: Feeling better today. Doesn't feel anything is getting worse mentation improved ~baseline. Less agitated and more calm today reports usually drinks a glass of water when she wakes up and at bedtime at home denies any pains ROS: 10 point ROS as noted above, otherwise negative Physical Exam: GEN: orientedx2 (self and place) NAD, confused, calm HEENT: Normal conjunctiva, sclera anicteric CV: Regular rate and rhythm, no edema Pulm: Nonlabored respirations on room air, clear bilaterally ABD: soft, nontender, nondistended Neuro: Normal speech, confused, moves extremities Problem List: Acute on chronic hyponatremia with confusion Advanced Alzhiemer's Dementia h/o Hypertension Hypothyroidism IDDM2 hx breast cancer s/p bilateral mastectomy Acute on chronic hyponatremia with confusion Unclear etiology, possibly multifactorial, workup partially consistent with increased free water intake, possibly some SIADH in the background Discussed importance of maintaining fluid restriction with patient/family. Family reports patient drinks throughout the day at home Presented to ED following outpatient bloodwork with sodium of 121, in ER was 114 abdominal u/s (08/19): no acute abnormalities. No hydro CXR negative for acute findings Echo (08/18): with 60-65% EF, normal diastolic function. Nephrology consulted continue salt tabs, increased to TID from BID (08/23) continue Ure-Na, increased to BID from daily (08/23) sodium improving Daily labs strict I/Os. Fluid restriction 1.2L/day prior history of hypoNa as well in the last 6-12 months urine cx with mixed reji Advanced Alzhiemer's Dementia resume home memantine, folic acid, donepezil, klonopin Sister reports patient's baseline is "5-minute memory" but typically "calm unless she doesn't get her way" son states melatonin helps at night, the klonopin doesn't see to help much at home melatonin added (08/20) h/o Hypertension lisinopril increased to 20 mg BID (08/21) Hypothyroidism resume home synthroid IDDM2 accu-checks, SSI confirm home dose insulin hx breast cancer s/p bilateral mastectomy confirm home meds, restart as appropriate continue supportive care Code: Full Dispo: back to [facility] once sodium is improved/more stable, possibly tomorrow
--- NOTE | 2023-08-25 11:09 | P.PN ---
Date of Service: 08/25/23 Vital Signs Temp Pulse Resp BP Pulse Ox 97.7 F 80 14 157/97 H 98 08/25/23 08:00 08/25/23 08:13 08/25/23 08:00 08/25/23 08:13 08/25/23 08:00 Medications Acetaminophen (Acetaminophen 325 Mg Tablet) 650 mg PO Q6H PRN PRN Reason: Pain scale 2-4 (Mild) Albuterol Sulfate (Albuterol 2.5 Mg/3 Ml Neb Lidia) 2.5 mg NEB [id number] PRN PRN Reason: SHORTNESS OF BREATH Clonazepam (Clonazepam 0.5 Mg Tab) 0.25 mg PO DAILY PRN PRN Reason: ANXIETY Last Admin: 08/23/23 14:02 Dose: 0.25 mg Donepezil HCl (Donepezil Hcl 5 Mg Tab) 20 mg PO DAILY [facility] Last Admin: 08/25/23 08:13 Dose: 20 mg Folic Acid (Folic Acid 1 Mg Tablet) 1 mg PO DAILY [facility] Last Admin: 08/25/23 08:14 Dose: 1 mg Levothyroxine Sodium (Levothyroxine Sod 0.075 Mg Tab) 0.075 mg PO [id number] [facility] Last Admin: 08/25/23 06:22 Dose: 0.075 mg Lisinopril (Lisinopril 20 Mg Tab) 20 mg PO BID [facility] Last Admin: 08/25/23 08:13 Dose: 20 mg Magnesium Chloride (Magnesium Chloride 64 Mg Tab) 64 mg PO BID [facility] Last Admin: 08/25/23 08:14 Dose: 64 mg Melatonin (Melatonin 5 Mg Tablet) 5 mg PO BEDTIME [facility] Last Admin: 08/24/23 20:19 Dose: 5 mg Memantine (Memantine Hcl 10 Mg Tablet) 10 mg PO DAILY [facility] Last Admin: 08/25/23 08:14 Dose: 10 mg Ondansetron HCl (Ondansetron 4 Mg/2 Ml Vial) 4 mg IV Q8H PRN PRN Reason: NAUSEA / VOMITING Last Admin: 08/21/23 09:30 Dose: 4 mg Rosuvastatin Calcium (Rosuvastatin 10 Mg Tab) 10 mg PO BEDTIME [facility] Last Admin: 08/24/23 20:18 Dose: 10 mg Sodium Chloride (Sodium Chloride 1 Gm Tab) 1 gm PO TIDWM [facility] Last Admin: 08/25/23 08:14 Dose: 1 gm Sterile Water (Water For Inj,Sterile 10 Ml) 1.2 ml IM UD PRN PRN Reason: DILUTION OF MED Urea (Urea 15 Gm Powder Packet) 15 gm PO BIDPC [facility] Last Admin: 08/25/23 08:15 Dose: 15 gm Microbiology Results 08/19/23 17:04 Clean Catch Urine [place] Count - Final >100,000 CFU/ML. 08/19/23 17:04 Clean Catch Urine - Final MIXED KALINA. Assessment/ Plan: Nephrology Progress Note No Dyspnea No Chest Pain No Acute Events Overnight Limited IH/ ROS due to dementia Vital Signs, Medications, Blood Work, and Imaging reviewed in the chart General: In no apparent distress, Cooperative HEENT: Atraumatic Neck: Supple Respiratory: Clear to auscultation bilaterally Cardiovascular: No edema, Regular rate/rhythm Gastrointestinal: Soft and benign, Non-distended Musculoskeletal: No clubbing, No contractures Integumentary: No rashes, No cyanosis Neurological: Normal speech Laboratory Data (last 24 hrs) 08/19/23 08/19/23 08/19/23 19:31 17:06 17:06 WBC 9.20 Hgb 11.9 L Hct 32.5 L Plt Count 299 Sodium 114 L* Potassium 4.5 BUN 25 H Creatinine 0.83 Glucose 187 H Uric Acid Cancelled 2.7 Magnesium 1.5 L Imagings Data: [id number] EXAM DESCRIPTION: US - Abdomen Exam Complete - 08/19/2023 8:36 pm CLINICAL HISTORY: Acute renal failure COMPARISON: 2016 FINDINGS: The liver has a normal echotexture Cholecystectomy. The biliary tree is normal caliber. Poor visualization of the pancreas secondary to overlying bowel gas The right kidney measures 9 centimeters centimeters with a normal echotexture. . Partial right nephrectomy The left kidney measures 11 centimeters centimeters with a normal echotexture. No hydronephrosis The spleen measures 9 centimeters. Abdominal aorta/IVC do not demonstrate a significant abnormality IMPRESSION: No acute abnormality displayed. No hydronephrosis [id number] EXAM DESCRIPTION: [facility] Single View08/19/2023 5:18 pm CLINICAL HISTORY: cough COMPARISON: June 2023 FINDINGS: The lungs appear clear of acute infiltrate. The heart is normal size IMPRESSION: No acute abnormalities displayed Conclusions/Impression: Hyponatremia -Encourage nutrition -Continue Ure-na bid -Continue Salt tab TID -Continue Fluid restriction Hypomagnesemia -Continue Slo-Mag BID HTN -Continue Lisinopril bid DM II -RISS prn Anemia in chronic illness -Monitor H&H Hospitalist note reviewed Case reviewed with Dr. Archibald
[2023-08-26 05:19] LABS: Albumin 3.1 g/dL (3.4-5.0); Anion Gap 7.7 mEq/L (5.0-15.0); Magnesium 1.5 mg/dL (1.6-2.4); Phosphorus 2.5 mg/dL (2.5-4.9); Potassium 3.7 mEq/L (3.5-5.1)
--- NOTE | 2023-08-26 13:19 | P.PN ---
Subjective Date of Service: 08/26/23 Chief Complaint: Abnormal blood work Patient has no new complaint. No issues overnight. No reported agitation. Patient is eating well. Physical Examination - Vital Signs Temperature: 97.8 F Blood Pressure: 188/71 Pulse: 94 Respirations: 12 Pulse Ox (%): 97 Assessment And Plan - Plan Physical Exam: GEN: orientedx2 (self and place) NAD, confused, calm CV: Regular rate and rhythm, no edema Pulm: Nonlabored respirations on room air, clear bilaterally ABD: soft, nontender, nondistended Neuro: Normal speech, confused, moves extremities Problem List: Acute on chronic hyponatremia with confusion Advanced Alzhiemer's Dementia h/o Hypertension Hypothyroidism IDDM2 hx breast cancer s/p bilateral mastectomy Acute on chronic hyponatremia with confusion Unclear etiology, possibly multifactorial Presented to ED following outpatient bloodwork with sodium of 121, in ER was 114 SIADH versus increased water intake. Sodium level improve with sodium tablets, urea-Na and fluid restriction. Nephrology is assisting with management. Sodium level is up to 128 (08/25) abdominal u/s (08/19): no acute abnormalities. No hydro CXR negative for acute findings Echo (08/18): with 60-65% EF, normal diastolic function. Daily labs Fluid restriction 1.2L/day urine cx with mixed rjei Advanced Alzhiemer's Dementia Continue home memantine, folic acid, donepezil, klonopin Sister reports short-term memory. Continue melatonin for insomnia. No agitation overnight. Son reports Klonopin has not been effective at night. melatonin added (08/20) Occupational Therapy to assess ADLs. h/o Hypertension lisinopril increased to 20 mg BID (08/21) Added amlodipine 08/25 Hypothyroidism Continue home synthroid IDDM2 accu-checks, SSI hx breast cancer s/p bilateral mastectomy Outpatient follow-up. Code: Full Dispo: back to [facility] once sodium is improved/more stable and agitation improved.
[2023-08-26] MEDS: AMLODIPINE 5 MG TAB PO SCH (14:21)
[2023-08-26] MEDS: QUETIAPINE 25 MG TAB PO SCH (19:42)
[2023-08-26] MEDS: MAGNES/ALUMIN/SIMET 30ML UCUP PO PRN (19:42)
--- NOTE | 2023-08-26 20:08 | P.PN ---
Date of Service: 08/26/23 Vital Signs Temp Pulse Resp BP Pulse Ox 97.6 F 85 12 158/62 H 98 08/26/23 16:00 08/26/23 16:00 08/26/23 16:00 08/26/23 16:00 08/26/23 16:00 Medications Acetaminophen (Acetaminophen 325 Mg Tablet) 650 mg PO Q6H PRN PRN Reason: Pain scale 2-4 (Mild) Al Hydrox/Mg Hydrox/Simethicone (Magnes/Alumin/Simet 30ml Ucup) 30 ml PO Q6H PRN PRN Reason: INDIGESTION Last Admin: 08/26/23 19:42 Dose: 30 ml Albuterol Sulfate (Albuterol 2.5 Mg/3 Ml Neb Lidia) 2.5 mg NEB [id number] PRN PRN Reason: SHORTNESS OF BREATH Amlodipine Besylate (Amlodipine 5 Mg Tab) 5 mg PO DAILY [facility] Last Admin: 08/26/23 14:21 Dose: 5 mg Donepezil HCl (Donepezil Hcl 5 Mg Tab) 20 mg PO DAILY [facility] Last Admin: 08/26/23 08:27 Dose: 20 mg Folic Acid (Folic Acid 1 Mg Tablet) 1 mg PO DAILY [facility] Last Admin: 08/26/23 08:27 Dose: 1 mg Levothyroxine Sodium (Levothyroxine Sod 0.075 Mg Tab) 0.075 mg PO [id number] [facility] Last Admin: 08/26/23 06:30 Dose: 0.075 mg Lisinopril (Lisinopril 20 Mg Tab) 20 mg PO BID [facility] Last Admin: 08/26/23 08:27 Dose: 20 mg Magnesium Chloride (Magnesium Chloride 64 Mg Tab) 64 mg PO BID [facility] Last Admin: 08/26/23 19:42 Dose: 64 mg Melatonin (Melatonin 5 Mg Tablet) 5 mg PO BEDTIME [facility] Last Admin: 08/25/23 21:00 Dose: 5 mg Memantine (Memantine Hcl 10 Mg Tablet) 10 mg PO DAILY [facility] Last Admin: 08/26/23 08:27 Dose: 10 mg Metformin HCl (Metformin Er 500 Mg Tab) 500 mg PO DAILY [facility] Ondansetron HCl (Ondansetron 4 Mg/2 Ml Vial) 4 mg IV Q8H PRN PRN Reason: NAUSEA / VOMITING Last Admin: 08/21/23 09:30 Dose: 4 mg Quetiapine Fumarate (Quetiapine 25 Mg Tab) 12.5 mg PO BEDTIME [facility] Last Admin: 08/26/23 19:42 Dose: 12.5 mg Rosuvastatin Calcium (Rosuvastatin 10 Mg Tab) 10 mg PO BEDTIME [facility] Last Admin: 08/26/23 19:42 Dose: 10 mg Sodium Chloride (Sodium Chloride 1 Gm Tab) 1 gm PO TIDWM [facility] Last Admin: 08/26/23 16:44 Dose: 1 gm Sterile Water (Water For Inj,Sterile 10 Ml) 1.2 ml IM UD PRN PRN Reason: DILUTION OF MED Urea (Urea 15 Gm Powder Packet) 15 gm PO BIDPC [facility] Last Admin: 08/26/23 16:44 Dose: 15 gm Microbiology Results 08/19/23 17:04 Clean Catch Urine [place] Count - Final >100,000 CFU/ML. 08/19/23 17:04 Clean Catch Urine - Final MIXED KALINA. Assessment/ Plan: Nephrology Progress Note No Dyspnea No Chest Pain No Acute Events Overnight Limited IH/ ROS due to dementia Vital Signs, Medications, Blood Work, and Imaging reviewed in the chart General: In no apparent distress, Cooperative HEENT: Atraumatic Neck: Supple Respiratory: Clear to auscultation bilaterally Cardiovascular: No edema, Regular rate/rhythm Gastrointestinal: Soft and benign, Non-distended Musculoskeletal: No clubbing, No contractures Integumentary: No rashes, No cyanosis Neurological: Normal speech Laboratory Data (last 24 hrs) 08/19/23 08/19/23 08/19/23 19:31 17:06 17:06 WBC 9.20 Hgb 11.9 L Hct 32.5 L Plt Count 299 Sodium 114 L* Potassium 4.5 BUN 25 H Creatinine 0.83 Glucose 187 H Uric Acid Cancelled 2.7 Magnesium 1.5 L Imagings Data: [id number] EXAM DESCRIPTION: US - Abdomen Exam Complete - 08/19/2023 8:36 pm CLINICAL HISTORY: Acute renal failure COMPARISON: 2016 FINDINGS: The liver has a normal echotexture Cholecystectomy. The biliary tree is normal caliber. Poor visualization of the pancreas secondary to overlying bowel gas The right kidney measures 9 centimeters centimeters with a normal echotexture. . Partial right nephrectomy The left kidney measures 11 centimeters centimeters with a normal echotexture. No hydronephrosis The spleen measures 9 centimeters. Abdominal aorta/IVC do not demonstrate a significant abnormality IMPRESSION: No acute abnormality displayed. No hydronephrosis EXAM DESCRIPTION: [facility] Single View08/19/2023 5:18 pm CLINICAL HISTORY: cough COMPARISON: June 2023 FINDINGS: The lungs appear clear of acute infiltrate. The heart is normal size IMPRESSION: No acute abnormalities displayed Conclusions/Impression: Hyponatremia -Encourage nutrition -Continue Ure-na bid -Continue Salt tab TID -Continue Fluid restriction Hypomagnesemia -Continue Slo-Mag BID HTN -Continue Lisinopril bid DM II -RISS prn Anemia in chronic illness -Monitor H&H Hospitalist note reviewed
[2023-08-27 05:25] LABS: Anion Gap 8.9 mEq/L (5.0-15.0); Potassium 3.9 mEq/L (3.5-5.1); Uric Acid 1.8 mg/dL (2.6-6.0)
[2023-08-27] MEDS: METFORMIN ER 500 MG TAB PO SCH (08:17)
[2023-08-27] MEDS ORDERED: HOME MED 1 EA UNK (Lisinopril [Zestril] 40 MG Tablet) PO SCH (09:00)
--- NOTE | 2023-08-27 12:35 | P.DS ---
Admission Date: 08/19/23 Discharge Date: 08/27/23 Disposition: DC HOME/HOME HEALTH CARE Discharge Condition: FAIR Reason for Admission: Abnormal blood work Hospital Course: Diagnosis Acute on chronic hyponatremia with confusion Acute metabolic encephalopathy Advanced Alzhiemer's Dementia h/o Hypertension Hypothyroidism IDDM2 hx breast cancer s/p bilateral mastectomy Patient with past medical history of hypertension, dementia, history of breast cancer status post bilateral mastectomy, history of right kidney nephrectomy for kidney mass, recurrent chronic hyponatremia, status post hospitalization 6 mon ths ago and follows with nephrology Dr. Lawton, was referred to the emergency department due to have blood work showing hyponatremia with sodium of 121. Patient's sodium level in the ED was 114. 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 She was evaluated by nephrology and patient placed on sodium tablets, urea-Na and fluid restriction. Patient's sodium level improved to 131. abdominal u/s (08/19): no acute abnormalities. CXR negative for acute findings Echo (08/18): with 60-65% EF, normal diastolic function. urine cx done showed mixed reji Advanced Alzhiemer's Dementia Continued home memantine, folic acid, donepezil. Sister reports short-term memory. Continue melatonin for insomnia. No agitation overnight. Son reports Klonopin has not been effective and was discontinued due to potential anticholinergic effect in the context of dementia melatonin added (08/20) She was also started on low dose Seroquel at bedtime. Recommend Seroquel only for temporary use. Patient has not been agitated over the last couple of days. Recommend 24 x 7 supervision given patient's level of dementia. h/o Hypertension lisinopril increased to 20 mg BID (08/21) She was on low-dose amlodipine briefly but patient blood pressure today has been in the low teens so amlodipine has been discontinued on discharge. Hypothyroidism Continued home synthroid Vital Signs/Physical Exam: Temp Pulse Resp BP Pulse Ox 97.5 F 85 12 117/65 98 08/27/23 08:00 08/27/23 08:19 08/27/23 08:00 08/27/23 08:19 08/27/23 08:00 General: In no apparent distress, Other (Interacting appropriately.) HEENT: Mucous membr. moist/pink Neck: Supple, JVD not distended Respiratory: Clear to auscultation bilaterally, Normal air movement Cardiovascular: No edema, Regular rate/rhythm, Normal S1 S2 Gastrointestinal: Normal bowel sounds, Soft and benign, Non-distended, No tenderness Musculoskeletal: No swelling Integumentary: No rashes Neurological: Normal strength at 5/5 x4 extr, Cranial nerves 3-12 intact Laboratory Data at Discharge: WBC 6.10 thou/uL (4.3-10.9) 08/25/23 04:43 Hgb 10.7 g/dL (12.0-15.0) L 08/25/23 04:43 Hct 29.9 % (36.0-45.0) L 08/25/23 04:43 Plt Count 256 thou/uL (152-406) 08/25/23 04:43 Sodium 131 mEq/L (136-145) L 08/27/23 04:23 Potassium 3.9 mEq/L (3.5-5.1) 08/27/23 04:23 BUN 30 mg/dL (7-18) H 08/27/23 04:23 Creatinine 0.64 mg/dL (0.55-1.02) 08/27/23 04:23 Glucose 148 mg/dL (74-106) H 08/27/23 04:23 Uric Acid 1.8 mg/dL (2.6-6.0) L 08/27/23 04:23 Phosphorus 2.5 mg/dL (2.5-4.9) 08/26/23 04:42 Magnesium 1.5 mg/dL (1.6-2.4) L 08/26/23 04:42 Total Bilirubin 0.8 mg/dL (0.2-1.0) 08/22/23 18:18 AST 17 U/L (15-37) 08/22/23 18:18 ALT 22 U/L (13-56) 08/22/23 18:18 Alkaline Phosphatase 66 U/L (45-117) 08/22/23 18:18 Home Medications: Rosuvastatin [Crestor*] 1 tab PO BEDTIME 02/04/23 Levothyroxine [Synthroid*] 75 mcg PO [id number] 02/05/23 Folic Acid 1 mg PO DAILY 08/20/23 Memantine HCl 1 tab PO DAILY 08/20/23 Metformin ER [Glucophage ER*] 1 tab PO DAILY 08/20/23 Donepezil [Aricept*] 20 mg PO DAILY #30 tab 08/27/23 Magnesium Chloride [Slow-Mag*] 64 mg PO BID #30 tab 08/27/23 Melatonin 5 mg PO BEDTIME #60 tab 08/27/23 Quetiapine [Seroquel*] 12.5 mg PO BEDTIME #30 tab 08/27/23 Sodium Chloride Tab [Sodium Chloride*] 1 gm PO TIDWM #90 tab 08/27/23 Urea [Ure-Na] 15 gm PO BIDPC #60 packet 08/27/23 lisinopriL [Prinivil*] 20 mg PO BID #60 tab 08/27/23 New Medications: Donepezil [Aricept*] 20 mg PO DAILY #30 tab Melatonin 5 mg PO BEDTIME #60 tab lisinopriL [Prinivil*] 20 mg PO BID #60 tab Quetiapine [Seroquel*] 12.5 mg PO BEDTIME #30 tab Magnesium Chloride [Slow-Mag*] 64 mg PO BID #30 tab Sodium Chloride Tab [Sodium Chloride*] 1 gm PO TIDWM #90 tab Urea [Ure-Na] 15 gm PO BIDPC #60 packet Physician Discharge Instructions: Patient with past medical history of hypertension, dementia, history of breast cancer status post bilateral mastectomy, history of right kidney nephrectomy for kidney mass, recurrent chronic hyponatremia, status post hospitalization 6 months ago and follows with nephrology Dr. Lawton, was referred to the emergency department due to have blood work showing hyponatremia with sodium of 121. Patient's sodium level in the ED was 114. 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 She was evaluated by nephrology and patient placed on sodium tablets, urea-Na and fluid restriction. Patient's sodium level improved to 131. abdominal u/s (08/19): no acute abnormalities. CXR negative for acute findings Echo (08/18): with 60-65% EF, normal diastolic function. urine cx done showed mixed reji Advanced Alzhiemer's Dementia Continued home memantine, folic acid, donepezil. Sister reports short-term memory. Continue melatonin for insomnia. No agitation overnight. Son reports Klonopin has not been effective and was discontinued due to potential anticholinergic effect in the context of dementia melatonin added (08/20) She was also started on low dose Seroquel at bedtime. Recommend Seroquel only for temporary use. Patient has not been agitated over the last couple of days. Recommend 24 x 7 supervision given patient's level of dementia. h/o Hypertension lisinopril increased to 20 mg BID (08/21) She was on low-dose amlodipine briefly but patient blood pressure today has been in the low teens so amlodipine has been discontinued on discharge. Hypothyroidism Continued home synthroid Diet: AHA Activity: Fall precautions Followup: Maxine Catherine MD [Primary Care Provider] - 1 Week Time spent managing pt's care (in minutes): 38
[2023-08-27 12:42] VITALS: BP 132/85; TEMP 97.7
--- NOTE | 2023-08-27 20:05 | P.PN ---
Date of Service: 08/27/23 Vital Signs Temp Pulse Resp BP Pulse Ox 97.7 F 75 14 132/85 99 08/27/23 12:00 08/27/23 12:00 08/27/23 12:00 08/27/23 12:00 08/27/23 12:00 Microbiology Results 08/19/23 17:04 Clean Catch Urine [place] Count - Final >100,000 CFU/ML. 08/19/23 17:04 Clean Catch Urine - Final MIXED KALINA. Assessment/ Plan: Nephrology Progress Note No Dyspnea No Chest Pain No Acute Events Overnight Limited IH/ ROS due to dementia Vital Signs, Medications, Blood Work, and Imaging reviewed in the chart General: In no apparent distress, Cooperative HEENT: Atraumatic Neck: Supple Respiratory: Clear to auscultation bilaterally Cardiovascular: No edema, Regular rate/rhythm Gastrointestinal: Soft and benign, Non-distended Musculoskeletal: No clubbing, No contractures Integumentary: No rashes, No cyanosis Neurological: Normal speech Laboratory Data (last 24 hrs) 08/19/23 08/19/23 08/19/23 19:31 17:06 17:06 WBC 9.20 Hgb 11.9 L Hct 32.5 L Plt Count 299 Sodium 114 L* Potassium 4.5 BUN 25 H Creatinine 0.83 Glucose 187 H Uric Acid Cancelled 2.7 Magnesium 1.5 L Imagings Data: [id number] EXAM DESCRIPTION: US - Abdomen Exam Complete - 08/19/2023 8:36 pm CLINICAL HISTORY: Acute renal failure COMPARISON: 2016 FINDINGS: The liver has a normal echotexture Cholecystectomy. The biliary tree is normal caliber. Poor visualization of the pancreas secondary to overlying bowel gas The right kidney measures 9 centimeters centimeters with a normal echotexture. . Partial right nephrectomy The left kidney measures 11 centimeters centimeters with a normal echotexture. No hydronephrosis The spleen measures 9 centimeters. Abdominal aorta/IVC do not demonstrate a significant abnormality IMPRESSION: No acute abnormality displayed. No hydronephrosis EXAM DESCRIPTION: [facility] Single View08/19/2023 5:18 pm CLINICAL HISTORY: cough COMPARISON: June 2023 FINDINGS: The lungs appear clear of acute infiltrate. The heart is normal size IMPRESSION: No acute abnormalities displayed Conclusions/Impression: Hyponatremia -Encourage nutrition -Continue Ure-na bid -Continue Salt tab TID -Continue Fluid restriction Hypomagnesemia -Continue Slo-Mag BID HTN -Continue Lisinopril bid DM II -RISS prn Anemia in chronic illness -Monitor H&H Hospitalist note reviewed Case reviewed with Dr. Tay
== END 2023-08-27 12:55 | disposition home or self-care (01) | DRG 643 ==
LOC: ER 16:14 → ERHOLD 19:33 → 3RD-ICU 08-20 21:19
PROVIDERS: ADMIT Internal Medicine; ATTEND Internal Medicine
DX: E22.2 Syndrome of inappropriate secretion of antidiuretic hormone (principal); G93.41 Metabolic encephalopathy; F02.811 Dementia in other diseases classified elsewhere, unspecified severity, with agitation; R18.8 Other ascites; F05 Delirium due to known physiological condition; G30.9 Alzheimer's disease, unspecified; E03.9 Hypothyroidism, unspecified; E87.70 Fluid overload, unspecified; I10 Essential (primary) hypertension; G47.00 Insomnia, unspecified; E11.9 Type 2 diabetes mellitus without complications; D63.8 Anemia in other chronic diseases classified elsewhere; E83.42 Hypomagnesemia; Z90.5 Acquired absence of kidney; Z88.5 Allergy status to narcotic agent; Z88.2 Allergy status to sulfonamides; Z88.0 Allergy status to penicillin; Z85.3 Personal history of malignant neoplasm of breast; Z79.84 Long term (current) use of oral hypoglycemic drugs; Z90.13 Acquired absence of bilateral breasts and nipples; Z90.49 Acquired absence of other specified parts of digestive tract; Z79.890 Hormone replacement therapy; Z79.899 Other long term (current) drug therapy
CPT/HCPCS: 36415; 71045; 76700; 80048; 80053; 80069; 81001; 82533; 82570; 82947; 83735; 83930; 83935; 84100; 84132; 84295; 84300; 84443; 84550; 85025; 85027; 87086; 87088; 93005; 93306; 97116; 97161; 99285; J2405; J2550; J3475; J3486; J7030

== ENCOUNTER 2023-09-12 14:50 | Observation (INO) | payer OTHER ==
[2023-09-12] MEDS ORDERED: NA CHLORIDE 0.9% 500 ML ONE ×2 (15:49→19:06)
[2023-09-12 15:53] LABS: Absolute Eosinophils 0.1 K/uL (0-0.5); Absolute Lymphocytes (CBC) 1.5 K/uL (0.7-4.9); Absolute Monocytes 0.4 K/uL (0.1-1.3); Absolute Neutrophil 4.2 K/uL (1.8-8.0); Basophils % 0.6 % (0-1.3); Eosinophils % 1.3 % (0-4.4); Hematocrit 31.2 % (36.0-45.0); Hemoglobin 10.8 g/dL (12.0-15.0); Lymphocytes % 24.2 % (15.3-44.8); MCH 29.4 pg (27.0-35.0); MCHC 34.8 g/dL (32.0-36.0); MCV 84.6 fL (80-100); MPV 7.9 fL (7.6-11.3); Monocytes % 6.2 % (3.3-12.3); Neutrophils % 67.7 % (41.7-73.7); Nucleated Red Blood Cells % 0.2 % (0-0); Platelets 308 thou/uL (152-406); RBC Red Blood Cell Count 3.68 M/uL (3.86-4.86); Red Cell Distribution Width 14.9 % (12.1-15.2)
--- NOTE | 2023-09-12 15:55 | RAD REPORT ---
EXAM DESCRIPTION: CT - Head Brain Wo Cont - 09/12/2023 3:41 pm CLINICAL HISTORY: Alteration of awareness/confusion COMPARISON: June 2023 TECHNIQUE: Computed axial tomography of the head was obtained. IV contrast was not requested. All CT scans are performed using dose optimization technique as appropriate and may include automated exposure control or mA/KV adjustment according to patient size. FINDINGS: An intracranial bleed is not seen The ventricles are normal in caliber No extra-axial fluid collection is noted. No significant hyperdensity within the brain is noted. Prominent cerebral atrophy Fluid within the sinuses/ mastoids is not seen. IMPRESSION: No acute intracranial abnormality is seen If patient's symptoms persist MRI of the brain would be recommended
[2023-09-12 16:23] LABS: ALT/SGPT 16 U/L (13-56); AST/SGOT 14 U/L (15-37); Albumin 3.4 g/dL (3.4-5.0); Alkaline Phosphatase 73 U/L (45-117); BUN Blood Urea Nitrogen 11 mg/dL (7-18); Bicarbonate 27 mEq/L (21-32); Bilirubin Total 0.5 mg/dL (0.2-1.0); Globulin 3.4 g/dL (2.3-3.5); Glomerular Filtration Rate 90 ml/min (=/>90); Glucose Level 147 mg/dL (74-106); Magnesium 1.9 mg/dL (1.6-2.4); Protein, Total 6.8 g/dL (6.4-8.2); Sodium Level 136 mEq/L (136-145); Troponin High Sensitivity 6.2 pg/mL (<58.9)
[2023-09-12 16:38] LABS: Bilirubin Direct < 0.2 mg/dL (0-0.2); Bilirubin Indirect, Calculated 0.3 mg/dL (0.2-0.8)
--- NOTE | 2023-09-12 16:43 | RAD REPORT ---
EXAM DESCRIPTION: [facility] Single View09/12/2023 4:04 pm CLINICAL HISTORY: Confusion COMPARISON: June 2023 FINDINGS: The lungs appear clear of acute infiltrate. The heart is normal size IMPRESSION: No acute abnormalities displayed
[2023-09-12] MEDS ORDERED: NA CHLORIDE 0.9% 0 ML ONE (19:05)
--- NOTE | 2023-09-12 19:05 | EDPHYS ---
Physician Documentation [facility] Name: More Bledsoe Age: 73 yrs Sex: Female : 1950 Arrival Date: 09/12/2023 Time: 14:50 Bed 15 Private MD: ED Physician Twan Girard HPI: 09/11 15:20 This 73 yrs old Female presents to ER via Ambulatory with complaints of Dizziness, rt General Weakness. 15:20 Patient with history of dementia, episodes of hyponatremia presents to the ED with rt confusion, lightheadedness, generalized weakness starting today. Son states that this is consistent with prior episodes of hyponatremia. Denies other acute complaints at this time, symptoms are moderate in severity, no other aggravating or alleviating factors.. Historical: - Allergies: 15:00 Codeine; aa5 15:00 Demerol; aa5 15:00 PENICILLINS; aa5 15:00 Sulfa (Sulfonamide Antibiotics); aa5 - PMHx: 15:00 Alzheimer's disease; BREAST CA; Diabetes - IDDM; Hypertension; aa5 - PSHx: 15:00 bilateral breast mastectomy; Cholecystectomy; aa5 - Immunization history:: Adult Immunizations up to date. - Infectious Disease History:: Denies. - Social history:: Smoking status: Patient denies any tobacco usage or history of. ROS: 15:20 Unable to obtain ROS due to baseline dementia, rt Exam: 15:20 Constitutional: This is a well developed, well nourished patient who is awake, alert, rt and in no acute distress. Head/Face: Normocephalic, atraumatic. Chest/axilla: Normal chest wall appearance and motion. Nontender with no deformity. No lesions are appreciated. Cardiovascular: Regular rate and rhythm with a normal S1 and S2. No gallops, murmurs, or rubs. Normal PMI, no JVD. No pulse deficits. Respiratory: Lungs have equal breath sounds bilaterally, clear to auscultation and percussion. No rales, rhonchi or wheezes noted. No increased work of breathing, no retractions or nasal flaring. Abdomen/GI: Soft, non-tender, with normal bowel sounds. No distension or tympany. No guarding or rebound. No evidence of tenderness throughout. Skin: Warm, dry with normal turgor. Normal color with no rashes, no lesions, and no evidence of cellulitis. MS/ Extremity: Pulses equal, no cyanosis. Neurovascular intact. Full, normal range of motion. Neuro: Awake and alert, GCS 15, oriented to person, place, time, and situation. Cranial nerves II-XII grossly intact. Motor strength 5/5 in all extremities. Sensory grossly intact. Cerebellar exam normal. Normal gait. 15:20 ENT: Dry mucous membranes. 15:37 ECG was reviewed by the Attending Physician. rt Vital Signs: 15:00 BP 158 / 65; Pulse 67; Resp 18 S; Temp 97.8(TE); Pulse Ox 100% on R/A; aa5 18:10 BP 141 / 77; Pulse 72; Resp 17; Pulse Ox 99% on R/A; rs5 19:00 BP 192 / 73; Pulse 56; Resp 16 S; Pulse Ox 100% on R/A; jw7 20:59 BP 190 / 75; Pulse 60; Resp 16 S; Pulse Ox 99% on R/A; jw7 MDM: 15:02 Patient medically screened. rt 19:14 Differential diagnosis: Electrolyte disturbance, cranial hemorrhage, AMS. Data rt reviewed: vital signs, nurses notes, lab test result(s), EKG, radiologic studies. Consideration of Admission/Observation Patient was admitted/placed on observation. Management of patient was discussed with the following: Hospitalist: Agrees to admit. I considered the following discharge prescriptions or medication management in the emergency department Medications were administered in the Emergency Department. See MAR. Independent interpretation of the following test(s) in the Emergency Department CT Scan: My interpretation is No intracranial hemorrhage seen on interpretation of CT scan images. Care significantly affected by the following chronic conditions: Dementia. Counseling: I had a detailed discussion with the patient and/or guardian regarding the historical points, exam findings, and any diagnostic results supporting the discharge/admit diagnosis, lab results, radiology results, the need for further work-up and treatment in the hospital. Response to treatment: There is no appreciated change of the patient's symptoms at this time. 09/11 15:17 Order name: Basic Metabolic Panel; Complete Time: 16:40 rt 09/11 15:17 Order name: CBC with Diff; Complete Time: 16:40 rt 09/11 15:17 Order name: LFT's; Complete Time: 16:40 rt 09/11 15:17 Order name: Magnesium; Complete Time: 16:40 rt 09/11 15:17 Order name: Troponin HS; Complete Time: 16:40 rt 09/11 15:20 Order name: Osmolality, Serum; Complete Time: 18:06 rt 09/11 15:20 Order name: Urine Osmolality; Complete Time: 18:06 rt 09/11 15:20 Order name: Urine Sodium Random; Complete Time: 16:40 rt 09/11 16:44 Order name: UAM rt 09/11 19:41 Order name: Urinalysis w/ reflexes EDMS 09/11 19:41 Order name: CBC with Automated Diff EDMS 09/11 19:41 Order name: CBC with Automated Diff EDMS 09/11 19:41 Order name: Comprehensive Metabolic Panel EDMS 09/11 19:41 Order name: Comprehensive Metabolic Panel EDMS 09/11 15:17 Order name: XRAY Chest (1 view); Complete Time: 16:43 rt 09/11 15:17 Order name: CT Head Brain wo Cont; Complete Time: 16:40 rt 09/11 15:17 Order name: EKG; Complete Time: 15:17 rt 09/11 15:17 Order name: Cardiac monitoring; Complete Time: 15:43 rt 09/11 15:17 Order name: EKG - Nurse/Tech; Complete Time: 15:43 rt 09/11 15:17 Order name: IV Saline Lock; Complete Time: 15:43 rt 09/11 15:17 Order name: Labs collected and sent; Complete Time: 15:44 rt 09/11 15:17 Order name: O2 Per Protocol; Complete Time: 15:44 rt 09/11 15:17 Order name: O2 Sat Monitoring; Complete Time: 15:44 rt EC:37 Rate is 63 beats/min. Rhythm is regular, Normal Sinus Rhythm with No ectopy. QRS [place] rt is Normal. NM interval is normal. QRS interval is normal. QT interval is normal. No Q waves. T waves are Normal. No ST changes noted. Interpreted by me. Administered Medications: 15:22 Drug: NS 0.9% IV 500 ml IV at bolus continuous Route: IV; Rate: bolus; Site: right rs5 wrist; 16:00 Follow up: Response: No adverse reaction rs5 21:01 Follow up: Response: No adverse reaction; IV Status: Completed infusion; IV Intake: jw7 500ml 19:16 Drug: NS 0.9% IV 500 ml IV at bolus once Route: IV; Rate: bolus; Site: right wrist; jw7 21:01 Follow up: Response: No adverse reaction; IV Status: Completed infusion; IV Intake: jw7 500ml Disposition Summary: 09/12/23 19:04 Hospitalization Ordered Notes: Hospitalization Status: Observation rt Provider: Chito Del Angel rt Location: Telemetry/MedSurg (observation) rt Condition: Stable rt Problem: new rt Symptoms: are unchanged rt Bed/Room Type: Standard rt Room Assignment: 208(09/12/23 19:49) [facility] Diagnosis - Altered mental status rt Forms: - Medication Reconciliation Form rt - SBAR form rt - Leadership Thank You Letter rt Signatures: Dispatcher [employer] Delores Paris, RN RN aa5 Kathy Sanchez RN RN jw7 Twan Girard MD MD rt Haroldo Freed RN RN rs5 Vivien James kmf Corrections: (The following items were deleted from the chart) 15:17 15:17 BASIC METABOLIC PANEL+C.LAB.BRZ ordered. EDMS EDMS 15:17 15:17 CBC+H.LAB.BRZ ordered. EDMS EDMS 15:17 15:17 HEPATIC FUNCTION+C.LAB.BRZ ordered. EDMS EDMS 15:17 15:17 MAGNESIUM+C.LAB.BRZ ordered. EDMS EDMS 15:17 15:17 Troponin High Sensitivity+C.LAB.BRZ ordered. EDMS EDMS 19:49 19:04 rt kmf
--- NOTE | 2023-09-12 19:05 | ER ---
Nurse's Notes [facility] Name: More Bledsoe Age: 73 yrs Sex: Female : 1950 Arrival Date: 09/12/2023 Time: 14:50 Bed 15 Private MD: Diagnosis: Altered mental status Presentation: 09/11 15:00 Chief complaint: Pt's son reports confusion since today. Pt's son reports hx of aa5 hyponatremia. Coronavirus screen: At this time, the client does not indicate any symptoms associated with coronavirus-19. Ebola Screen: Patient denies travel to an Ebola-affected area in the 21 days before illness onset. Initial Sepsis Screen: Does the patient meet any 2 criteria? No. Patient's initial sepsis screen is negative. Does the patient have a suspected source of infection? No. Patient's initial sepsis screen is negative. Risk Assessment: Do you want to hurt yourself or someone else? Unable to obtain. Onset of symptoms was September 12, 2023. 15:00 Method Of Arrival: Ambulatory aa5 15:00 Acuity: KAMALJIT 2 aa5 Historical: - Allergies: 15:00 Codeine; aa5 15:00 Demerol; aa5 15:00 PENICILLINS; aa5 15:00 Sulfa (Sulfonamide Antibiotics); aa5 - PMHx: 15:00 Alzheimer's disease; BREAST CA; Diabetes - IDDM; Hypertension; aa5 - PSHx: 15:00 bilateral breast mastectomy; Cholecystectomy; aa5 - Immunization history:: Adult Immunizations up to date. - Infectious Disease History:: Denies. - Social history:: Smoking status: Patient denies any tobacco usage or history of. Screenin:00 [facility] ED Fall Risk Assessment (Adult) History of falling in the last 3 months, rs5 including since admission No falls in past 3 months (0 pts) Confusion or Disorientation No (0 pts) Intoxicated or Sedated No (0 pts) Impaired Gait No (0 pts) Mobility Assist Device Used No (0 pt) Altered Elimination No (0 pt) Score/Fall Risk Level 0 - 2 = Low Risk Oriented to surroundings, Maintained a safe environment. Abuse screen: Denies threats or abuse. Nutritional screening: No deficits noted. Tuberculosis screening: No symptoms or risk factors identified. Assessment: 15:00 General: Appears in no apparent distress. uncomfortable, Behavior is calm, cooperative. rs5 Pain: Denies pain. Neuro: Level of Consciousness is awake, alert, obeys commands, Oriented to person, place, not oriented to time or situation . Cardiovascular: Patient's skin is warm and dry. Respiratory: Airway is patent Respiratory effort is even, unlabored, Respiratory pattern is regular, symmetrical. GI: Abdomen is round non-distended, Abd is soft and non tender X 4 quads. : No signs and/or symptoms were reported regarding the genitourinary system. EENT: No signs and/or symptoms were reported regarding the EENT system. Derm: Skin is intact, Skin is pink, warm \T\ dry. Musculoskeletal: Range of motion: intact in all extremities, Reports generalized weakness. 16:06 Reassessment: Patient and/or family updated on plan of care and expected duration. Pain rs5 level reassessed. Patient is alert, oriented x 3, equal unlabored respirations, skin warm/dry/pink. Patient states feeling better. Patient states symptoms have improved. 17:10 Reassessment: No changes from previously documented assessment. rs5 18:09 Reassessment: Patient and/or family updated on plan of care and expected duration. Pain rs5 level reassessed. Patient is alert, oriented x 3, equal unlabored respirations, skin warm/dry/pink. 19:05 General: Appears in no apparent distress. comfortable, Behavior is calm, cooperative, jw7 appropriate for age. Pain: Denies pain. Neuro: Level of Consciousness is awake, alert, obeys commands, Oriented to person, place. Cardiovascular: Heart tones S1 S2 present Capillary refill < 3 seconds Clubbing of nail beds is absent JVD is absent Patient's skin is warm and dry. Respiratory: Airway is patent Trachea midline Respiratory effort is even, unlabored, Respiratory pattern is regular, symmetrical. GI: Abdomen is flat, non-distended, Bowel sounds present X 4 quads. Abd is soft and non tender X 4 quads. : No deficits noted. No signs and/or symptoms were reported regarding the genitourinary system. EENT: No deficits noted. No signs and/or symptoms were reported regarding the EENT system. Derm: Skin is intact, is healthy with good turgor, Skin is dry, Skin is normal, Skin temperature is warm. Derm: Skin is intact, is healthy with good turgor, Skin is dry, Skin is normal, Skin temperature is warm. Musculoskeletal: Circulation, motion, and sensation intact. Range of motion: intact in all extremities. Vital Signs: 15:00 BP 158 / 65; Pulse 67; Resp 18 S; Temp 97.8(TE); Pulse Ox 100% on R/A; aa5 18:10 BP 141 / 77; Pulse 72; Resp 17; Pulse Ox 99% on R/A; rs5 19:00 BP 192 / 73; Pulse 56; Resp 16 S; Pulse Ox 100% on R/A; jw7 20:59 BP 190 / 75; Pulse 60; Resp 16 S; Pulse Ox 99% on R/A; jw7 ED Course: 14:53 Patient arrived in ED. ts1 14:53 Twan Girard MD is Attending Physician. rt 15:00 Arm band placed on. aa5 15:00 Patient has correct armband on for positive identification. Placed in gown. Bed in low rs5 position. Call light in reach. Side rails up X2. 15:01 Triage completed. aa5 15:10 Inserted saline lock: 22 gauge in right wrist, using aseptic technique. rs5 15:10 No provider procedures requiring assistance completed. rs5 15:18 Haroldo Freed, RN is Primary Nurse. rs5 15:42 CT Head Brain wo Cont In Process Unspecified. EDMS 16:06 XRAY Chest (1 view) In Process Unspecified. EDMS 19:00 Provided Education on: Use of Call Light. jw7 19:04 Chito Del Angel MD is Hospitalizing Provider. rt 21:00 Patient admitted, IV remains in place. jw7 Administered Medications: 15:22 Drug: NS 0.9% IV 500 ml IV at bolus continuous Route: IV; Rate: bolus; Site: right rs5 wrist; 16:00 Follow up: Response: No adverse reaction rs5 21:01 Follow up: Response: No adverse reaction; IV Status: Completed infusion; IV Intake: jw7 500ml 19:16 Drug: NS 0.9% IV 500 ml IV at bolus once Route: IV; Rate: bolus; Site: right wrist; jw7 21:01 Follow up: Response: No adverse reaction; IV Status: Completed infusion; IV Intake: jw7 500ml Medication: 21:01 VIS not applicable for this client. jw7 Intake: 21:01 IV: 500ml; Total: 500ml. jw7 21:01 IV: 500ml; Total: 1000ml. jw7 Outcome: 19:04 Decision to Hospitalize by Provider. rt 21:00 Admitted to Med/surg accompanied by tech, via stretcher, room 208, jw7 21:00 Condition: stable 21:00 Instructed on the need for admit, Demonstrated understanding of instructions, 21:02 Patient left the ED. jw7 Signatures: Dispatcher [employer] EDMS Delores Turner, RN RN aa5 Kathy Sanchez RN RN jw7 Twan Girard MD MD rt Haroldo Freed RN RN rs5 Lucia Sebastian PAS PAS ts1 Corrections: (The following items were deleted from the chart) 18:10 15:00 Neuro: Level of Consciousness is awake, alert, obeys commands, Oriented to rs5 person, place, time, situation, rs5
[2023-09-12] MEDS ORDERED: ONDANSETRON 4 MG/2 ML VIAL IV PRN (19:35)
[2023-09-12] MEDS ORDERED: ACETAMINOPHEN 325 MG TABLET PO PRN (19:35)
--- NOTE | 2023-09-12 19:35 | P.HP ---
Certification for Inpatient Patient admitted to: Observation With expected LOS: <2 Midnights Practitioner: I am a practitioner with admitting privileges, knowledge of patient current condition, hospital course, and medical plan of care. Services: Services provided to patient in accordance with Admission requirements found in Title 42 Section 412.3 of the Code of Federal Regulations Patient History Date of Service: 09/13/23 Reason for admission: AMS History of Present Illness: 73 yrs old Female with past medical history of Diabetes , Dementia , Hyperten fan , Dementia , Breast Cancer status post bilateral mastectomy, history of cholecystectomy and history of hyponatremia previously came to ER with dizziness and generalized weakness which has been going on for the last 2 days. Denies any fever or chills. No nausea vomiting or diarrhea. Denies any fall. No chest pain or shortness of breath. She had multiple episodes of hyponatremic previously. Family stated that the patient has been hyponatremic similar to previous episodes. Patient was assessed in the ER and was admitted for close monitoring. Allergies Penicillins Allergy (Verified 09/12/23 21:02) Hives/Rash Sulfa (Sulfonamide Antibiotics) Allergy (Verified 09/12/23 21:02) Rash codeine Adverse Reaction (Verified 09/12/23 21:02) hyper, agitated meperidine [From Demerol] Adverse Reaction (Verified 09/12/23 21:02) "made me run all over, then cldnt move,could hear everthing" Home medications list reviewed: Yes Home Medications: Rosuvastatin [Crestor*] 1 tab PO BEDTIME 02/04/23 Levothyroxine [Synthroid*] 75 mcg PO [id number] 02/05/23 Folic Acid 1 mg PO DAILY 08/20/23 Memantine HCl 1 tab PO DAILY 08/20/23 Metformin ER [Glucophage ER*] 1 tab PO DAILY 08/20/23 Urea [Ure-Na] 15 gm PO BIDPC #60 packet 08/27/23 lisinopriL [Prinivil*] 20 mg PO BID #60 tab 08/27/23 - Past Medical/Surgical History Diabetic: Yes Past Medical History: Reviewed- Non-Contributory -: Insulin-dependent diabetes -: History of breast cancer -: Hypertension -: Alzheimer's Past Surgical History: Reviewed- Non-Contributory -: Bilateral mastectomy -: Cholecystectomy Psychosocial/ Personal History: Patient lives at home with her - Family History Family History: Reviewed- Non-Contributory - Family History Mother -: Diabetes - Social History Smoking Status: Never smoker Alcohol use: No CD- Drugs: No Caffeine use: Yes Review of Systems 10-point ROS is otherwise unremarkable Physical Examination - Vital Signs Temperature: 97.8 F Blood Pressure: 156/64 Pulse: 66 Respirations: 18 Pulse Ox (%): 94 - Physical Exam General: Alert, In no apparent distress, Confused HEENT: Atraumatic, Normocephalic Neck: Supple, 2+ carotid pulse no bruit Respiratory: Clear to auscultation bilaterally, Normal air movement Cardiovascular: Regular rate/rhythm, Normal S1 S2 Capillary refill: <2 Seconds Gastrointestinal: Soft and benign, W/out hepatosplenomegaly, No tenderness Musculoskeletal: No clubbing Integumentary: No rashes, No breakdown Neurological: Normal strength at 5/5 x4 extr, Cranial nerves 3-12 intact, Normal reflexes 2+ Lymphatics: No axilla or inguinal lymphadenopathy - Studies Laboratory Data (last 24 hrs) 09/12/23 09/12/23 15:35 15:35 WBC 6.20 Hgb 10.8 L Hct 31.2 L Plt Count 308 Sodium 136 Potassium 4.0 BUN 11 Creatinine 0.70 Glucose 147 H Magnesium 1.9 Total Bilirubin 0.5 AST 14 L ALT 16 Alkaline Phosphatase 73 Assessment and Plan - Problems (Diagnosis) (1) Acute encephalopathy Current Visit: Yes Status: Acute Plan: Acute Encephalopathy Monitor under wildlife biology internship Neurovital Signs CT head negative UA pending Hypertension Antihypertensives titrated Continue home medications and titrate as needed Hyperlipidemia Continue statin Diabetes Insulin sliding scale Accu-Chek before every meal and at bedtime Hypothyroidism History of dementia Continue home medications and titrate as needed Will get a TSH level Anemia of chronic disease Monitor H&H closely No overt bleeding at this time GI/DVT prophylaxis Advanced directive full code Discharge Plan: Home Plan to discharge in: 48 Hours - Advance Directives Does patient have a Living Will: No Does patient have a Durable POA for Healthcare: No - Code Status/Comfort Care Code Status: Full Code Time Spent Managing Pts Care (In Minutes): 48
[2023-09-12 21:41] VITALS: BMI 25.7
[2023-09-12 22:05] VITALS: O2SAT 99
[2023-09-12] MEDS: NA CHLORIDE 0.9% 1,000 ML IV SCH (22:32)
[2023-09-12] MEDS: lisinopriL 20 MG TAB PO SCH (23:29)
[2023-09-12] MEDS: AMLODIPINE 5 MG TAB PO SCH (23:29)
[2023-09-13 00:59] LABS: Renal Epithelial <5 /HPF (None Seen); Specific Gravity 1.007 (1.005-1.030); Sqamous Epithelial <5 /HPF (None Seen); Urine Bacteria None Seen /HPF (<20); Urine Bilirubin NEGATIVE (Negative); Urine Blood Negative (Negative); Urine Clarity Clear (Clear); Urine Color Colorless (Yellow); Urine Culture Reflex Order NOT NEEDED; Urine Glucose NEGATIVE (Negative); Urine Ketones NEGATIVE (Negative); Urine Micro Reflex YN NO BILL MICROSCOPIC; Urine Nitrite NEGATIVE (Negative); Urine Protein NEGATIVE (Negative); Urine RBC None Seen /HPF (None Seen); Urine Urobilinogen Normal (Normal); Urine WBC <5 /HPF (<5)
[2023-09-13] MEDS: LEVOTHYROXINE SOD 0.075 MG TAB PO SCH (05:29)
[2023-09-13 05:41] LABS: Absolute Eosinophils 0.2 K/uL (0-0.5); Absolute Lymphocytes (CBC) 1.3 K/uL (0.7-4.9); Absolute Monocytes 0.4 K/uL (0.1-1.3); Absolute Neutrophil 2.9 K/uL (1.8-8.0); Basophils % 0.5 % (0-1.3); Eosinophils % 3.2 % (0-4.4); Hematocrit 29.2 % (36.0-45.0); Hemoglobin 10.3 g/dL (12.0-15.0); Lymphocytes % 27.2 % (15.3-44.8); MCH 29.7 pg (27.0-35.0); MCHC 35.4 g/dL (32.0-36.0); MCV 83.9 fL (80-100); MPV 7.7 fL (7.6-11.3); Monocytes % 8.9 % (3.3-12.3); Neutrophils % 60.2 % (41.7-73.7); Nucleated Red Blood Cells % 0.1 % (0-0); Platelets 261 thou/uL (152-406); RBC Red Blood Cell Count 3.48 M/uL (3.86-4.86); Red Cell Distribution Width 14.8 % (12.1-15.2)
[2023-09-13 05:54] LABS: Albumin 2.9 g/dL (3.4-5.0); Alkaline Phosphatase 59 U/L (45-117); Anion Gap 8.7 mEq/L (5.0-15.0); BUN Blood Urea Nitrogen 6 mg/dL (7-18); Bicarbonate 28 mEq/L (21-32); Bilirubin Total 0.7 mg/dL (0.2-1.0); Globulin 2.9 g/dL (2.3-3.5); Glomerular Filtration Rate 97 ml/min (=/>90); Glucose Level 111 mg/dL (74-106); Potassium 3.7 mEq/L (3.5-5.1); Protein, Total 5.8 g/dL (6.4-8.2); Sodium Level 142 mEq/L (136-145)
[2023-09-13 05:59] LABS: ALT/SGPT < 14 U/L (13-56); AST/SGOT < 10 U/L (15-37)
[2023-09-13] MEDS: POTASSIUM CL SA 10 MEQ TAB PO ONE (06:34)
--- NOTE | 2023-09-13 07:32 | P.PN ---
Date of Service: 09/13/23 Subjective Admitted with altered mental status, presented with dizziness, Review of Systems Per HPI Physical Examination - Vital Signs reviewed - Physical Exam General: Alert, In no apparent distress, Confused HEENT: Atraumatic, Normocephalic Neck: Supple, 2+ carotid pulse no bruit, Respiratory: Clear to auscultation bilaterally, Normal air movement Cardiovascular: Regular rate/rhythm, Normal S1 S2 Capillary refill: <2 Seconds, no edema Gastrointestinal: Soft and benign, W/out hepatosplenomegaly, No tenderness Musculoskeletal: No clubbing Integumentary: No rashes, No breakdown Neurological: Normal strength at 5/5 x4 extr, Cranial nerves 3-12 intact, Normal reflexes 2+ Lymphatics: No axilla or inguinal lymphadenopathy Assessment and Plan - Problems (Diagnosis) Acute Encephalopathy Monitor under merchandise presentation associate Neurovital Signs CT head negative UA pending Hypertensive urgency As needed antihypertensives titrated Continue home medications and titrate as needed Bradycardic patient will need hydralazine instead of Lopressor to avoid Hyperlipidemia Continue statin Diabetes Insulin sliding scale Accu-Chek before every meal and at bedtime Hypothyroidism History of dementia Continue home medications and titrate as needed Will get a TSH level Anemia of chronic disease Monitor H&H closely No overt bleeding at this time GI/DVT prophylaxis Advanced directive full code Discharge Plan: Home Plan to discharge in: 48 Hours - Advance Directives Does patient have a Living Will: No Does patient have a Durable POA for Healthcare: No - Code Status/Comfort Care Code Status: Full Code Time Spent Managing Pts Care (In Minutes): 35
[2023-09-13] MEDS: MEMANTINE HCL 10 MG TABLET PO SCH (08:16)
[2023-09-13] MEDS: FOLIC ACID 1 MG TABLET PO SCH (08:17)
[2023-09-13] MEDS: ENOXAPARIN 40 MG/0.4 ML SQ SCH (08:17)
[2023-09-13 12:11] VITALS: BP 162/73; TEMP 98.5
--- NOTE | 2023-09-13 14:05 | EKG ---
Test Date: 2023-09-12 Test Time: 15:27:32 Fisher Spear: VANDANA MEASUREMENT RESULTS: Intervals: Rate: 63 RI: 136 QRSD: 74 QT: 400 QTc: 409 Sparkill: P: 59 RI: 136 QRS: 29 T: 44 INTERPRETIVE STATEMENTS: Normal sinus rhythm with sinus arrhythmia Normal ECG Compared to ECG 08/19/2023 16:53:43 No significant changes Electronically Signed On 09-13-23 14:05:01 CDT by Erik De La Fuente
--- NOTE | 2023-09-13 19:17 | PN ---
Code 44 note. The patient is an elderly female with advanced Alzheimer's who came in with change in mental status. Workup was negative. At this time family wants to take her home and I agreed with the code 44. I d iscussed the case with Dr. Bowman. ENA/JENNIFER Voice ID: [id number] Report ID: [id number]
[2023-09-13] MEDS ORDERED: ROSUVASTATIN 10 MG TAB PO SCH (21:00)
--- NOTE | 2023-09-14 15:44 | P.DS ---
Admission Date: 09/12/23 Discharge Date: 09/13/23 Disposition: ROUTINE DISCHARGE Discharge Condition: GOOD Reason for Admission: AMS Brief History of Present Illness: 73 yrs old Female with past medical history of Diabetes , Dementia , Hypertension , Dementia , Breast Cancer status post bilateral mastectomy, history of cholecystectomy and history of hyponatremia previously came to ER with dizziness and generalized weakness which has been going on for the last 2 days. Denies any fever or chills. No nausea vomiting or diarrhea. Denies any fall. No chest pain or shortness of breath. She had multiple episodes of hyponatremic previously. Family stated that the patient has been hyponatremic similar to previous episodes. Patient was assessed in the ER and was admitted for close monitoring. - Physical Exam General: Alert, In no apparent distress, Confused HEENT: Atraumatic, Normocephalic Neck: Supple, 2+ carotid pulse no bruit Respiratory: Clear to auscultation bilaterally, Normal air movement Cardiovascular: Regular rate/rhythm, Normal S1 S2 Capillary refill: <2 Seconds Gastrointestinal: Soft and benign, W/out hepatosplenomegaly, No tenderness Musculoskeletal: No clubbing Integumentary: No rashes, No breakdown Neurological: Normal strength at 5/5 x4 extr, Cranial nerves 3-12 intact, Normal reflexes 2+ Lymphatics: No axilla or inguinal lymphadenopathy Hospital Course: 73 yrs old Female with past medical history of Diabetes , Dementia , Hypertension , Dementia , Breast Cancer status post bilateral mastectomy, history of cholecystectomy and history of hyponatremia previously came to ER with dizziness and generalized weakness. Was noted to have Condition improved with metabolic encephalopathy, dementia, microcytic anemia. Patient tolerating diet, stable for discharge to home with follow-up appointment with primary care physician. PROBLEM: Weakness, dizziness-was noted to be hypertensive, resume home amlodipine, prescription for amlodipine Microcytic anemia Rad/Lab/Micro: CT of the head Prominent cerebral atrophy Fluid within the sinuses/ mastoids is not seen. IMPRESSION: No acute intracranial abnormality is seen If patient's symptoms persist MRI of the brain would be recommended Chest x-ray IMPRESSION: No acute abnormalities displayed Continue home medicines as previously prescribed GOAL: Clear understanding of disease process INSTRUCTIONS: Physician Discharge Instructions: -Follow-up with PCP in 1 to 2 weeks -Please call Dr. Bowman at [phone] if any questions regarding hospital stay -Please call nursing station at [phone] if any nursing or medication questions -Return to the emergency room if symptoms worsen Diet: ADA, low sodium Activity: Fall precautions Vital Signs/Physical Exam: Temp Pulse Resp BP Pulse Ox 98.5 F 63 16 162/73 H 98 09/13/23 12:00 09/13/23 12:00 09/13/23 12:00 09/13/23 12:00 09/13/23 12:00 Laboratory Data at Discharge: WBC 4.90 thou/uL (4.3-10.9) 09/13/23 05:11 Hgb 10.3 g/dL (12.0-15.0) L 09/13/23 05:11 Hct 29.2 % (36.0-45.0) L 09/13/23 05:11 Plt Count 261 thou/uL (152-406) 09/13/23 05:11 Sodium 142 mEq/L (136-145) D 09/13/23 05:11 Potassium 3.7 mEq/L (3.5-5.1) 09/13/23 05:11 BUN 6 mg/dL (7-18) L 09/13/23 05:11 Creatinine 0.52 mg/dL (0.55-1.02) L 09/13/23 05:11 Glucose 111 mg/dL (74-106) H 09/13/23 05:11 Magnesium 1.9 mg/dL (1.6-2.4) 09/12/23 15:35 Total Bilirubin 0.7 mg/dL (0.2-1.0) 09/13/23 05:11 AST < 10 U/L (15-37) L 09/13/23 05:11 ALT < 14 U/L (13-56) 09/13/23 05:11 Alkaline Phosphatase 59 U/L (45-117) 09/13/23 05:11 Home Medications: Rosuvastatin [Crestor*] 1 tab PO BEDTIME 02/04/23 Levothyroxine [Synthroid*] 75 mcg PO [id number] 02/05/23 Folic Acid 1 mg PO DAILY 08/20/23 Memantine HCl 1 tab PO DAILY 08/20/23 Metformin ER [Glucophage ER*] 1 tab PO DAILY 08/20/23 Urea [Ure-Na] 15 gm PO BIDPC #60 packet 08/27/23 lisinopriL [Prinivil*] 20 mg PO BID #60 tab 08/27/23 Amlodipine [Norvasc*] 5 mg PO DAILY #30 tab 09/13/23 New Medications: Amlodipine [Norvasc*] 5 mg PO DAILY #30 tab Physician Discharge Instructions: -DC IV and DC home -Follow-up with PCP in 1 to 2 weeks -Follow-up with Neurology in 1 to 2 weeks -Please call Dr. Bowman at [phone] if any questions regarding hospital stay -Please call nursing station at [phone] if any nursing or medication questions -Return to the emergency room if symptoms worsen Diet: Regular Activity: Fall precautions Followup: NONE,NONE [Primary Care Provider] - Time spent managing pt's care (in minutes): 55
== END 2023-09-13 14:36 | disposition home or self-care (01) ==
LOC: ER 14:50 → ERHOLD 19:35 → INTOOBSV 19:35 → 2ND 20:11
PROVIDERS: ADMIT Family Medicine; ATTEND Hospitalist
DX: G93.40 Encephalopathy, unspecified (principal); E03.9 Hypothyroidism, unspecified; D63.1 Anemia in chronic kidney disease; R41.82 Altered mental status, unspecified; E11.9 Type 2 diabetes mellitus without complications; I10 Essential (primary) hypertension; F03.90 Unspecified dementia, unspecified severity, without behavioral disturbance, psychotic disturbance, mood disturbance, and anxiety; Z85.3 Personal history of malignant neoplasm of breast; R53.1 Weakness; R42 Dizziness and giddiness; Z88.0 Allergy status to penicillin; Z88.2 Allergy status to sulfonamides; Z88.5 Allergy status to narcotic agent
CPT/HCPCS: 96361; 93005; 85025 ×2; 81001; 80048; 36415; 83735; 84300; 82947 ×2; 80076; 84484; 80053; 83930; 83935; 70450; 71045; 96360; 99285; J1650; J7040 ×2; J7030; G0378 ×3

== ENCOUNTER 2024-01-06 13:28 | Inpatient (IN) | payer OTHER ==
[2024-01-06] MEDS ORDERED: HYDRALAZINE HCL 20 MG/ML VIAL ONE ×2 (14:10→19:18)
--- NOTE | 2024-01-06 14:35 | RAD REPORT ---
EXAMINATION: CT HEAD WITHOUT CONTRAST CLINICAL INDICATION: Female, 73 years old.ams TECHNIQUE: Axial CT images from the skull base to the vertex without intravenous contrast. Coronal an d sagittal reformatted images were created from the data set. One or more of the following dose reduction techniques were used: Automated exposure control, adjustment of the mA and/or kV according to patient size, and/or iterative reconstruction. Unless otherwise specified, incidental findings do not require dedicated imaging follow-up. [id number]. COMPARISON: 09/12/2023 FINDINGS: INTRACRANIAL: No acute intracranial hemorrhage. No hydrocephalus. No mass effect or midline shift. No significant white matter disease. Cerebral atrophy. VASCULATURE: No visualized abnormalities in the arteries or dural venous sinuses. SCALP/SKULL: No significant soft tissue or osseous abnormalities. SINUSES: The visualized paranasal sinuses and mastoid air cells are predominantly clear. IMPRESSION: No acute intracranial abnormality.
--- NOTE | 2024-01-06 14:41 | RAD REPORT ---
EXAMINATION: ONE VIEW CHEST XR CLINICAL INDICATION: Female, 73 years old.ams TECHNIQUE: 1 View, AP supine, X-ray of the chest was performed. [id number]. COMPARISON: 09/12/2023 FINDINGS: Lungs and pleura: Clear lungs. No effusion. Heart and mediastinum: Normal heart size. Unremarkable mediastinal contours. Osseous structures: No acute abnormality. Tubes/lines: None Other: Surgical clips in the right axilla and right upper quadrant. IMPRESSION: No acute intrathoracic abnormality.
[2024-01-06 15:24] LABS: Absolute Monocytes 1.4 K/uL (0.1-1.3); Absolute Neutrophil 7.1 K/uL (1.8-8.0); Basophils % 0.4 % (0-1.3); Eosinophils % 0.1 % (0-4.4); Hemoglobin 13.6 g/dL (12.0-15.0); Lymphocytes % 10.8 % (15.3-44.8); MCH 29.4 pg (27.0-35.0); MCHC 34.9 g/dL (32.0-36.0); MCV 84.3 fL (80-100); MPV 7.4 fL (7.6-11.3); Monocytes % 14.4 % (3.3-12.3); Neutrophils % 74.3 % (41.7-73.7); Platelets 100 thou/uL (152-406); RBC Red Blood Cell Count 4.62 M/uL (3.86-4.86); Red Cell Distribution Width 17.3 % (12.1-15.2)
[2024-01-06 17:12] LABS: Albumin/Globulin Ratio 0.7 (1.1-1.8); Anion Gap 9.4 mEq/L (5.0-15.0); Bilirubin Direct 0.4 mg/dL (0-0.2); Bilirubin Indirect, Calculated 0.7 mg/dL (0.2-0.8); Bilirubin Total 1.1 mg/dL (0.2-1.0); Globulin 4.5 g/dL (2.3-3.5); Potassium 3.4 mEq/L (3.5-5.1); Protein, Total 7.5 g/dL (6.4-8.2); Troponin High Sensitivity 16.9 pg/mL (<58.9)
--- NOTE | 2024-01-06 18:03 | ER ---
Nurse's Notes [facility] Name: More Bledsoe Age: 73 yrs Sex: Female : 1950 Arrival Date: 01/06/2024 Time: 13:28 Bed 17 Private MD: Diagnosis: Altered mental status, unspecified Presentation: 01/05 13:39 Chief complaint: EMS states: Pt from [place], hx of dementia but usually speaks and ph ambulates, has been lethargic, not ambulating or speaking since last night, family reports hx of low sodium levels. BGL 193, BP 200s/100s, did not take morning BP medications. Coronavirus screen: Vaccine status: Patient reports receiving the 2nd dose of the covid vaccine. Ebola Screen: No symptoms or risks identified at this time. Initial Sepsis Screen: Does the patient meet any 2 criteria? No. Patient's initial sepsis screen is negative. Does the patient have a suspected source of infection? No. Patient's initial sepsis screen is negative. Risk Assessment: Do you want to hurt yourself or someone else? Patient reports no desire to harm self or others. Onset of symptoms was January 06, 2024. 13:39 Method Of Arrival: EMS: [facility] 13:39 Acuity: KAMALJIT 2 ph Triage Assessment: 13:50 General: Appears in no apparent distress. well groomed, Behavior is quiet. Pain: Unable ph to use pain scale. Patient is disoriented. Does not appear to understand pain scale. Patient appears quiet. Neuro: Level of Consciousness is lethargic, Oriented to none. Cardiovascular: Capillary refill < 3 seconds in bilateral fingers Patient's skin is warm and dry. Respiratory: Airway is patent Respiratory effort is even, unlabored. GI: No signs and/or symptoms were reported involving the gastrointestinal system. Abdomen is flat, non-distended. Derm: Skin is pink, warm \T\ dry. Musculoskeletal: Circulation, motion, and sensation intact. Range of motion: intact in all extremities. Historical: - Allergies: 13:47 Codeine; ph 13:47 Demerol; ph 13:47 PENICILLINS; ph 13:47 Sulfa (Sulfonamide Antibiotics); ph - PMHx: 13:47 Alzheimer's disease; BREAST CA; Diabetes - IDDM; Hypertension; ph - PSHx: 13:47 bilateral breast mastectomy; Cholecystectomy; ph - Immunization history:: Adult Immunizations unknown. - Infectious Disease History:: Denies. - Social history:: Smoking status: unknown. Screenin:02 [facility] ED Fall Risk Assessment (Adult) History of falling in the last 3 months, ph including since admission No falls in past 3 months (0 pts) Confusion or Disorientation Yes (5 pts) Intoxicated or Sedated No (0 pts) Impaired Gait No (0 pts) Mobility Assist Device Used No (0 pt) Altered Elimination Yes (1 pt) Score/Fall Risk Level 3 or more points = High Risk Oriented to surroundings, Maintained a safe environment, Hourly rounding (assess needs \T\ fall precautionary measures) done, Used ambulatory aids as needed (educated on \T\ assisted with). Abuse screen: Denies threats or abuse. Denies injuries from another. Nutritional screening: No deficits noted. Tuberculosis screening: No symptoms or risk factors identified. Assessment: 14:00 General: SEE TRIAGE ASSESSMENT. ph 15:15 Reassessment: Pt more alert, opening eyes and mumbling to son at bedside. ph 15:35 Reassessment: Multiple IV attempts by staff unsuccessful, charge nurse at bedside to ph attempt IV start, family states that they do not want pt to be stuck anymore. 16:18 Reassessment: Phlebotomy at bedside. ph 18:15 Reassessment: Patient appears in no apparent distress at this time. No changes from ph previously documented assessment. Patient and/or family updated on plan of care and expected duration. Pain level reassessed. 19:01 Reassessment: Patient appears in no apparent distress at this time. No changes from ph previously documented assessment. Patient and/or family updated on plan of care and expected duration. Pain level reassessed. 20:39 Reassessment: Pt resting in bed, no s/s of pain or distress noted. respirations are jb4 even and unlabored. Son reports pt is normally A\T\Ox0. Vital Signs: 13:39 BP 223 / 93; Pulse 68; Resp 18; Temp 98.8; Pulse Ox 98% on R/A; Weight 56.7 kg; Height ph 5 ft. 2 in. ; 15:00 BP 189 / 78; Pulse 74; Resp 18; Pulse Ox 98% on R/A; ph 16:00 BP 186 / 92; Pulse 75; Resp 18; Pulse Ox 99% on R/A; ph 17:00 BP 198 / 87; Pulse 76; Resp 18; Pulse Ox 99% on R/A; ph 18:30 BP 221 / 85; Pulse 74; Resp 18; Pulse Ox 98% on R/A; ph 20:39 BP 176 / 91; Pulse 95; Resp 12; Pulse Ox 99% on R/A; jb4 13:39 Body Mass Index 22.86 (56.70 kg, 157.48 cm) ph ED Course: 13:38 Patient arrived in ED. ph 13:38 Jonnie Doran DO is Attending Physician. ms3 13:47 Triage completed. ph 13:48 Arm band placed on Patient placed in an exam room, on a stretcher. ph 13:58 Patricia Donaldson, RN is Primary Nurse. ph 14:24 CT Head Brain wo Cont In Process Unspecified. EDMS 14:34 XRAY Chest (1 view) In Process Unspecified. EDMS 14:37 Missed attempt(s): 22 gauge in right antecubital area. Bleeding controlled, band aid ph applied, catheter tip intact. 15:01 Missed attempt(s): 24 gauge in right hand. Bleeding controlled, band aid applied, ph catheter tip intact. Missed attempt(s): 24 gauge in right wrist. Bleeding controlled, band aid applied, catheter tip intact. 16:02 Patient has correct armband on for positive identification. Client placed on continuous ph cardiac and pulse oximetry monitoring. NIBP monitoring applied. automobile rental clerk on. Door closed. Noise minimized. Warm blanket given. 16:18 No provider procedures requiring assistance completed. ph 18:02 Srinivas Archibald MD is Hospitalizing Provider. ms3 19:56 Urine Culture Sent. jb4 19:56 Urinalysis w/ reflexes Sent. jb4 19:56 Collazo cath inserted, using sterile technique, 16 Fr., returned lesly urine. Patient oe tolerated well. 19:57 Urinalysis w/ reflexes Sent. jb4 21:35 Provided Education on: family updated on plan of care. jb4 21:35 Patient admitted, IV remains in place. jb4 Administered Medications: 19:22 Drug: hydrALAZINE IVP 10 mg IVP once Route: IVP; Site: right hand; jb4 Medication: 16:02 VIS not applicable for this client. ph Outcome: 18:02 Decision to Hospitalize by Provider. ms3 21:35 Admitted to Med/surg accompanied by tech, via wheelchair, room 229, with chart, Report jb4 called to SHONA Chen 21:35 Condition: stable 21:35 Discharge instructions given to family, Instructed on the need for admit, Demonstrated understanding of instructions, 21:37 Patient left the ED. jb4 Signatures: Dispatcher [employer] EDPatricia Smith RN RN Jeff Arias RN RN jb4 Felton Ndiaye oe Jonnie Doran, DO ms3 Corrections: (The following items were deleted from the chart) 20:01 19:56 Collazo cath inserted, using sterile technique, 16 Fr., returned lesly urine. oe Patient tolerated well. oe
--- NOTE | 2024-01-06 18:03 | EDPHYS ---
Physician Documentation [facility] Name: More Bledsoe Age: 73 yrs Sex: Female : 1950 Arrival Date: 01/06/2024 Time: 13:28 Bed 17 Private MD: ED Physician Jonnie Doran HPI: 01/05 15:54 This 73 yrs old Female presents to ER via EMS with complaints of Altered Mental Status. ms3 15:54 73-year-old female with past medical history of Alzheimer's disease, breast cancer, ms3 diabetes, hypertension presents to the emergency department for altered mental status that has been ongoing for 2 days according to patient's fpc. Patient's son states they were unable to wake the patient up today. Patient is currently on hospice and patient's son is unaware of hospice has given patient any medications. Patient's son states patient is normally more active. Historical: - Allergies: 13:47 Codeine; ph 13:47 Demerol; ph 13:47 PENICILLINS; ph 13:47 Sulfa (Sulfonamide Antibiotics); ph - PMHx: 13:47 Alzheimer's disease; BREAST CA; Diabetes - IDDM; Hypertension; ph - PSHx: 13:47 bilateral breast mastectomy; Cholecystectomy; ph - Immunization history:: Adult Immunizations unknown. - Infectious Disease History:: Denies. - Social history:: Smoking status: unknown. ROS: 15:54 Unable to obtain ROS due to altered mental status, ms3 Exam: 15:54 Head/Face: Normocephalic, atraumatic. Neck: Trachea midline, no cervical ms3 lymphadenopathy. Supple, full range of motion without nuchal rigidity, or vertebral point tenderness. No Meningismus. Chest/axilla: Normal chest wall appearance and motion. Nontender with no deformity. Cardiovascular: Regular rate and rhythm with a normal S1 and S2. No gallops, murmurs, or rubs. Normal PMI, no JVD. No pulse deficits. Respiratory: Lungs have equal breath sounds bilaterally, clear to auscultation and percussion. No rales, rhonchi or wheezes noted. No increased work of breathing, no retractions or nasal flaring. Abdomen/GI: Soft, non-tender, with normal bowel sounds. No distension or tympany. No guarding or rebound. No evidence of tenderness throughout. Skin: Warm, dry with normal turgor. Normal color with no rashes, no lesions, and no evidence of cellulitis. MS/ Extremity: Pulses equal, no cyanosis. Neurovascular intact. Full, normal range of motion. 15:54 Neuro: Patient rousable in ED room with touch, 15:59 ECG was reviewed by the Attending Physician. ms3 Vital Signs: 13:39 BP 223 / 93; Pulse 68; Resp 18; Temp 98.8; Pulse Ox 98% on R/A; Weight 56.7 kg; Height ph 5 ft. 2 in. ; 15:00 BP 189 / 78; Pulse 74; Resp 18; Pulse Ox 98% on R/A; ph 16:00 BP 186 / 92; Pulse 75; Resp 18; Pulse Ox 99% on R/A; ph 17:00 BP 198 / 87; Pulse 76; Resp 18; Pulse Ox 99% on R/A; ph 18:30 BP 221 / 85; Pulse 74; Resp 18; Pulse Ox 98% on R/A; ph 20:39 BP 176 / 91; Pulse 95; Resp 12; Pulse Ox 99% on R/A; jb4 13:39 Body Mass Index 22.86 (56.70 kg, 157.48 cm) ph MDM: 13:56 Medical Screening Exam initiated ms3 19:57 Differential Diagnosis: electrolyte abnormality, intracranial bleed, Polypharmacy. Data ms3 reviewed: vital signs, nurses notes, lab test result(s), EKG, radiologic studies, and as a result, I will admit patient. Consideration of Admission/Observation Patient was admitted/placed on observation. Management of patient was discussed with the following: Hospitalist: Angelique Blanco NP. Independent interpretation of the following test(s) in the Emergency Department EKG: See my EKG interpretation above court monitor: rate is 74 beats/min, Rhythm is normal sinus rhythm, regular, with no ectopy, Interpretation: normal rate, normal rhythm. Care significantly affected by the following chronic conditions: Dementia, DM, HTN. Counseling: I had a detailed discussion with the patient and/or guardian regarding the historical points, exam findings, and any diagnostic results supporting the discharge/admit diagnosis, lab results, radiology results, the need for further work-up and treatment in the hospital. ED course: Discussed observation with patient's family and they agree with that. All questions were answered. 01/05 13:57 Order name: Basic Metabolic Panel; Complete Time: 17:30 ms3 01/05 13:57 Order name: CBC with Diff; Complete Time: 15:31 ms3 01/05 13:57 Order name: LFT's; Complete Time: 17:30 ms3 01/05 13:57 Order name: Troponin HS; Complete Time: 17:30 ms3 01/05 18:00 Order name: Urinalysis w/ reflexes ms3 01/05 18:40 Order name: Urinalysis w/ reflexes; Complete Time: 20:45 snw 01/05 18:40 Order name: Urine Culture snw 01/05 20:26 Order name: Urinalysis w/ reflexes EDMS 01/05 20:27 Order name: Urinalysis w/ reflexes EDMS 01/05 20:27 Order name: CBC with Automated Diff EDMS 01/05 20:27 Order name: CBC with Automated Diff EDMS 01/05 20:27 Order name: Comprehensive Metabolic Panel EDMS 01/05 20:27 Order name: Comprehensive Metabolic Panel EDMS 01/05 20:27 Order name: Magnesium EDMS 01/05 20:27 Order name: Magnesium EDMS 01/05 13:57 Order name: XRAY Chest (1 view); Complete Time: 15:31 ms3 01/05 13:57 Order name: CT Head Brain wo Cont; Complete Time: 15:31 ms3 01/05 13:57 Order name: Cardiac monitoring; Complete Time: 15:01 ms3 01/05 13:57 Order name: EKG - Nurse/Tech; Complete Time: 16:01 ms3 01/05 13:57 Order name: IV Saline Lock; Complete Time: 19:13 ms3 01/05 13:57 Order name: Labs collected and sent; Complete Time: 16:01 ms3 01/05 13:57 Order name: O2 Per Protocol; Complete Time: 15:01 ms3 01/05 13:57 Order name: O2 Sat Monitoring; Complete Time: 15:01 ms3 01/05 15:43 Order name: Labs - recollect needed: recollect green top; Complete Time: 16:20 bd 01/05 18:40 Order name: Cath; Complete Time: 19:56 snw EC:59 Rate is 80 beats/min. Rhythm is irregular. QRS [place] is Normal. QRS interval is normal. ms3 Clinical impression: NSR w/ Non-specific ST/T Changes. Interpreted by me. Reviewed by me. Administered Medications: 19:22 Drug: hydrALAZINE IVP 10 mg IVP once Route: IVP; Site: right hand; jb4 Disposition: 19:59 Chart complete. ms3 Disposition Summary: 01/06/24 18:02 Hospitalization Ordered Notes: Hospitalization Status: Observation ms3 Provider: Srinivas Archibald ms3 Location: Telemetry/MedSurg (observation) ms3 Condition: Stable ms3 Problem: new ms3 Symptoms: are unchanged ms3 Bed/Room Type: Standard ms3 Room Assignment: 229(01/06/24 20:31) lg3 Diagnosis - Altered mental status, unspecified ms3 Forms: - Medication Reconciliation Form ms3 - SBAR form ms3 - Leadership Thank You Letter ms3 Signatures: Dispatcher [employer] EDMS Ana Anderson Shelly, CERTIFIED DRUG COUNSELOR-C CERTIFIED DRUG COUNSELOR-Csnw Patricia Donaldson, RN RN Jeff Arias, RN SHONA jb4 Lori Goodson RN RN lg3 Jonnie Doran DO DO ms3 Corrections: (The following items were deleted from the chart) 13:58 13:58 BASIC METABOLIC PANEL+C.LAB.BRZ ordered. EDMS EDMS 13:58 13:58 CBC+H.LAB.BRZ ordered. EDMS EDMS 13:58 13:58 HEPATIC FUNCTION+C.LAB.BRZ ordered. EDMS EDMS 13:58 13:58 Troponin High Sensitivity+C.LAB.BRZ ordered. EDMS EDMS 13:58 13:58 Chest Single View+RAD.RAD.BRZ ordered. EDMS EDMS 13:58 13:58 Head Brain Wo Cont+CT.RAD.BRZ ordered. EDMS EDMS 20:31 18:02 ms3 lg3
[2024-01-06] MEDS ORDERED: lisinopriL 20 MG TAB ONE (18:46)
--- NOTE | 2024-01-06 20:20 | P.HP ---
Certification for Inpatient Patient admitted to: Observation Practitioner: I am a practitioner with admitting privileges, knowledge of patient current condition, hospital course, and medical plan of care. Services: Services provided to patient in accordance with Admission requirements found in Title 42 Section 412.3 of the Code of Federal Regulations Patient History Date of Service: 01/07/24 Reason for admission: Altered mental status History of Present Illness: 73 yrs old Female with a past medical history advanced Alzheimer's disease; BREAST CA with bilateral mastectomy; Diabetes - IDDM; Hypertension; presents to the emergency room with altered mental status. HPI Per medical record, confusion started 2 days ago. Reports patient was difficult to arouse, patient is currently on hospice at [facility], son reported patient is normally more alert reactive. ER evaluation BP 223 / 93; Pulse 68; Resp 18; Temp 98.8; Pulse Ox 98% on R/A; Weight 56.7 kg; Height p 5 ft. 2 in. ; EKG 9 Rate is 80 beats/min. Rhythm is irregular. QRS [place] is Normal. QRS interval is normal. Clinical impression: NSR w/ Non-specific ST/T Changes. Laboratory evaluation, mild hypokalemia 3.4 CBC, no leukocytosis, thrombocytopenia platelets 100, early left shift at 74.3, CT of the head, no acute abnormality, chest x-ray no acute abnormality Allergies Penicillins Allergy (Verified 09/12/23 21:02) Hives/Rash Sulfa (Sulfonamide Antibiotics) Allergy (Verified 09/12/23 21:02) Rash codeine Adverse Reaction (Verified 09/12/23 21:02) hyper, agitated meperidine [From Demerol] Adverse Reaction (Verified 09/12/23 21:02) "made me run all over, then cldnt move,could hear everthing" Home Medications: Levothyroxine [Synthroid*] 75 mcg PO [id number] 02/05/23 Folic Acid 1 mg PO DAILY 08/20/23 Metformin ER [Glucophage ER*] 1 tab PO DAILY 08/20/23 Diazepam [Valium] 5 mg PO Q8HP 01/07/24 Divalproex Sodium [Depakote Sprinkle] 4 cap PO BID 01/07/24 LORazepam [Ativan] 0.5 mg PO Q2HP PRN 01/07/24 Melatonin [Melatoninmax] 10 mg PO BEDTIME 01/07/24 Sodium Chloride Tab [NaCl Tabs] 1 gm PO TID 01/07/24 lisinopriL [Lisinopril] 40 mg PO DAILY 01/07/24 - Past Medical/Surgical History Diabetic: Yes -: Insulin-dependent diabetes -: History of breast cancer -: Hypertension -: Advance Alzheimer's -: Bilateral mastectomy -: Cholecystectomy Psychosocial/ Personal History: Patient lives at home with her - Family History Mother -: Diabetes - Social History Alcohol use: No CD- Drugs: No Caffeine use: Yes Review of Systems is unable to be obtained General: As per HPI Physical Examination - Physical Exam General: Confused, Other (Lethargic) HEENT: Atraumatic, Normocephalic Neck: 2+ carotid pulse no bruit, JVD not distended Respiratory: Normal air movement, Diminished Cardiovascular: Normal pulses, Regular rate/rhythm Gastrointestinal: Normal bowel sounds, Soft and benign Musculoskeletal: No clubbing, No swelling Integumentary: No breakdown, No significant lesion Neurological: Abnormal gait, Abnormal speech, Abnormal strength, Dementia - Studies Laboratory Data (last 24 hrs) 01/06/24 01/06/24 16:17 15:14 WBC 9.50 Hgb 13.6 Hct 39.0 Plt Count 100 L Sodium 139 Potassium 3.4 L BUN 15 Creatinine 0.56 Glucose 165 H Total Bilirubin 1.1 H AST 19 ALT 15 Alkaline Phosphatase 75 Assessment and Plan - Problems (Diagnosis) (1) Alzheimer's dementia Current Visit: Yes Status: Acute (2) History of breast cancer Current Visit: Yes Status: Acute (3) H/O bilateral mastectomy Current Visit: Yes Status: Acute (4) Hypertensive urgency Current Visit: Yes Status: Acute (5) Acute encephalopathy Current Visit: No Status: Acute - Plan Patient from [facility] on hospice Admitted for altered mental status Patient has a history of advanced dementia, Fall precautions Hypertensive urgency, as needed antihypertensives Hypothyroidism resume home med Normal saline, Urine cultures, trend cultures O2 2 L keep sats greater than 92% rn support services to discuss hospice with patient and family for discharge plan Discharge Plan: Shelter - Advance Directives Does patient have a Living Will: No Does patient have a Durable POA for Healthcare: No - Code Status/Comfort Care Code Status: Do Not Attempt Resuscitat Critical Care: No Time Spent Managing Pts Care (In Minutes): 55
[2024-01-06 20:21] LABS: Specific Gravity 1.028 (1.005-1.030); Sqamous Epithelial <5 /HPF (None Seen); Urine Bacteria None Seen /HPF (<20); Urine Bilirubin NEGATIVE (Negative); Urine Blood 1+ (Negative); Urine Clarity Turbid (Clear); Urine Color Yellow (Yellow); Urine Culture Reflex Order NOT NEEDED; Urine Glucose 3+ (Negative); Urine Ketones 1+ (Negative); Urine Microscopic Reflex YN ORDER UMIC; Urine Mucus 1+ /HPF (None Seen); Urine Nitrite NEGATIVE (Negative); Urine Protein 3+ (Negative); Urine RBC >50 /HPF (None Seen); Urine Urobilinogen 4+ (Over) (Normal); Urine WBC <5 /HPF (<5); Urine pH 6.5 (5.0-7.0)
[2024-01-06] MEDS ORDERED: ONDANSETRON 4 MG/2 ML VIAL IV PRN (20:24)
[2024-01-06] MEDS: HYDRALAZINE HCL 20 MG/ML VIAL IV PRN (23:22)
[2024-01-06] MEDS: NA CHLORIDE 0.9% 1,000 ML IV SCH (23:23)
[2024-01-07] MEDS: HYDRALAZINE HCL 20 MG/ML VIAL IV ONE (03:53)
[2024-01-07 05:00] LABS: Absolute Monocytes 1.6 K/uL (0.1-1.3); Absolute Neutrophil 6.8 K/uL (1.8-8.0); Basophils % 0.5 % (0-1.3); Hematocrit 33.5 % (36.0-45.0); Hemoglobin 11.9 g/dL (12.0-15.0); Lymphocytes % 10.2 % (15.3-44.8); MCH 29.4 pg (27.0-35.0); MCHC 35.5 g/dL (32.0-36.0); MCV 82.8 fL (80-100); Monocytes % 16.6 % (3.3-12.3); Neutrophils % 72.7 % (41.7-73.7); Platelets 122 thou/uL (152-406); RBC Red Blood Cell Count 4.05 M/uL (3.86-4.86)
[2024-01-07 05:24] LABS: AST/SGOT 17 U/L (15-37); Albumin 2.5 g/dL (3.4-5.0); Albumin/Globulin Ratio 0.6 (1.1-1.8); Alkaline Phosphatase 72 U/L (45-117); BUN Blood Urea Nitrogen 21 mg/dL (7-18); Bicarbonate 28 mEq/L (21-32); Bilirubin Total 0.9 mg/dL (0.2-1.0); Globulin 4.5 g/dL (2.3-3.5); Glomerular Filtration Rate 99 ml/min (=/>90); Glucose Level 176 mg/dL (74-106); Magnesium 1.5 mg/dL (1.6-2.4); Sodium Level 141 mEq/L (136-145)
[2024-01-07 05:25] LABS: ALT/SGPT < 14 U/L (13-56)
[2024-01-07] MEDS: Magnesium Sulfate 2gm IVPB 2 G/50 ML BAG IV ONE (06:12)
[2024-01-07] MEDS: INSULIN REGULAR (HUMAN) 100 UNIT/ML SQ SCH (07:30)
[2024-01-07] MEDS ORDERED: INSULIN REGULAR (HUMAN) 100 UNIT/ML SQ SCH (07:30)
[2024-01-07] MEDS: lisinopriL 20 MG TAB PO SCH (09:00)
[2024-01-07] MEDS: DIVALPROEX NA 125 MG CAP PO SCH (09:00)
[2024-01-07] MEDS: KCL 20 MEQ/100 mL IVPB 20 MEQ/100 ML BAG IV SCH (10:11)
--- NOTE | 2024-01-07 11:11 | P.PN ---
Date of Service: 01/07/24 Subjective: remains confused ~same. +somnolent/fatigued family updated at bedside no significant changes overnight afebrile able to tell me her first name, then doesn't seem to want to answer any further questions ROS: 10 point ROS unable to be fully obtained secondary to mentation Physical Exam: GEN: awake, confused, somnolent. responds to verbal stimuli, tells me her name HEENT: Normal conjunctiva, sclera anicteric, CV: Regular rate and rhythm, no edema Pulm: Nonlabored respirations on room air, clear bilaterally ABD: soft, nontender, nondistended Neuro: Normal speech, normal affect Problem List: Acute encephalopathy, unknown etiology Advanced Alzheimer's dementia IDDM2 Hypertension Hypothyroidism Hx breast cancer s/p bilateral mastectomy Hx chronic hyponatremia Acute encephalopathy , unknown etiology Advanced Alzheimer's dementia on admission, presents with worsening confusion, decreased responsiveness for last 2 days. family reports increased difficulty waking patient up recently. Reports patient is normally more active. seen at [facility] ER ~1 month ago for worsening confusion/behavioral issues at [facility]. son at bedside - describes overall progression of patient's dementia, and for last ~4-6 weeks has been minimally speaking, but has maintained her ability to ambulate. with her progression, she was transitioned to hospice in last 1-2 months. Son feels she has progressed more rapidly since on hospice feels like they may be giving too much meds to make her this way. Currently no available MAR to review what exactly she has received in last few days. several sedating medications are listed on her home med list, and no longer on her previous dementia medications unclear if acute encephalopathy vs progression of her dementia at this time - no clear infectious source Previously on hospice services CXR (01/05): no acute findings CT head (01/05): no acute intracranial abnormalities urinalysis negative for nitritites/ leuk est / WBC / bacteria Monitor on telemetry. Fall precautions continue IV fluids monitor and replete electrolytes as needed continue to monitor renal function confirm and restart home meds IDDM2 accu-cheks, SSI confirm home dose insulin Hypertension resume home lisinopril PRN IV hydralazine Hypothyroidism Hx breast cancer s/p bilateral mastectomy confirm home meds, restart as appropriate Hx chronic hyponatremia Sodium stable VTE: SCD for now Code: Full discussed with son at bedside - states he does not feel comfortable making a decision on code status, and does not have any advance directive from patient I explained in the absence of a decision, it would default to full code - and explained what this would entail. Son was in agreement. Time Spent Managing Pts Care (In Minutes): 51
[2024-01-08 05:02] LABS: Absolute Lymphocytes (CBC) 1.2 K/uL (0.7-4.9); Absolute Monocytes 1.2 K/uL (0.1-1.3); Absolute Neutrophil 5.1 K/uL (1.8-8.0); Basophils % 0.6 % (0-1.3); Eosinophils % 0.4 % (0-4.4); Hematocrit 31.6 % (36.0-45.0); Hemoglobin 10.9 g/dL (12.0-15.0); Lymphocytes % 15.5 % (15.3-44.8); MCH 29.3 pg (27.0-35.0); MCHC 34.4 g/dL (32.0-36.0); Monocytes % 16.3 % (3.3-12.3); Neutrophils % 67.2 % (41.7-73.7); Nucleated RBC Absolute Count 0.1 (0-0); Nucleated Red Blood Cells % 0.9 % (0-0); Platelets 132 thou/uL (152-406); RBC Red Blood Cell Count 3.72 M/uL (3.86-4.86); Red Cell Distribution Width 17.2 % (12.1-15.2)
[2024-01-08 05:24] LABS: Albumin 2.4 g/dL (3.4-5.0); Albumin/Globulin Ratio 0.6 (1.1-1.8); Anion Gap 9.2 mEq/L (5.0-15.0); Globulin 4.3 g/dL (2.3-3.5); Magnesium 1.7 mg/dL (1.6-2.4); Phosphorus 2.5 mg/dL (2.5-4.9); Potassium 3.2 mEq/L (3.5-5.1); Protein, Total 6.7 g/dL (6.4-8.2)
--- NOTE | 2024-01-08 08:44 | P.PN ---
Date of Service: 01/08/24 Subjective: remains confused but appears more awake and talkative today able to tell me her full name this morning no new issues overnight denies any pains ROS: 10 point ROS unable to be fully obtained secondary to mentation Physical Exam: GEN: confused, oriented x1. More awake/talkative HEENT: Normal conjunctiva, sclera anicteric, CV: Regular rate and rhythm, no edema Pulm: Nonlabored respirations on room air, clear bilaterally ABD: soft, nontender, nondistended Neuro: Normal speech, normal affect Problem List: Acute encephalopathy, unknown etiology Advanced Alzheimer's dementia IDDM2 Hypertension Hypothyroidism Hx breast cancer s/p bilateral mastectomy Hx chronic hyponatremia Acute encephalopathy , unknown etiology Advanced Alzheimer's dementia on admission, presents with worsening confusion, decreased responsiveness for last 2 days. family reports increased difficulty waking patient up recently. Reports patient is normally more active. seen at [facility] ER ~1 month ago for worsening confusion/behavioral issues at [facility]. son at bedside - describes overall progression of patient's dementia, and for last ~4-6 weeks has been minimally speaking, but has maintained her ability to ambulate. with her progression, she was transitioned to hospice in last 1-2 months. Son feels she has progressed more rapidly since on hospice feels like they may be giving too much meds to make her this way. Currently no available MAR to review what exactly she has received in last few days. several sedating medications are listed on her home med list, and no longer on her previous dementia medications unclear if acute encephalopathy vs progression of her dementia at this time - no clear infectious source urine culture prelim without growth CXR (01/05): no acute findings CT head (01/05): no acute intracranial abnormalities Monitor on telemetry. Fall precautions continue IV Fluids confirm and restart home meds more awake/interactive this morning IDDM2 accu-cheks, SSI confirm home dose insulin Hypertension resume home lisinopril PRN IV hydralazine Hypothyroidism Hx breast cancer s/p bilateral mastectomy confirm home meds, restart as appropriate Hx chronic hyponatremia Sodium stable monitor and replete electrolytes as needed continue to monitor renal function VTE: SCD for now Code: Full anticipate dc back to NH in ~1-2 days son revoked hospice and does not intend to restart Time Spent Managing Pts Care (In Minutes): 51
--- NOTE | 2024-01-08 12:22 | EKG ---
Test Date: 2024-01-06 Test Time: 15:18:45 Muff Winder: PH MEASUREMENT RESULTS: Intervals: Rate: 80 ID: QRSD: 78 QT: 394 QTc: 454 Wiggins: P: ID: QRS: 167 T: 152 INTERPRETIVE STATEMENTS: Accelerated Junctional rhythm with occasional premature ventricular complexes Right axis deviation Nonspecific ST and T wave abnormality Abnormal ECG Compared to ECG 09/12/2023 15:27:32 Accelerated junctional rhythm now present Ventricular premature complex(es) now present Right-axis deviation now present ST (T wave) deviation now present Sinus rhythm no longer present Sinus arrhythmia no longer present Electronically Signed On 01-08-24 12:17:06 CDT by Erik De La Fuente
[2024-01-09 02:47] VITALS: BMI 21.5
--- NOTE | 2024-01-09 08:06 | P.PN ---
Date of Service: 01/09/24 Subjective: remains confused ~same Responding to some questions appropriately +left hand swelling from IV attempting to get out of bed overnight per nursing staff this morning, patient is calm, resting comfortably in bed ROS: 10 point ROS unable to be fully obtained secondary to mentation Physical Exam: GEN: confused/dementia, oriented x1. HEENT: Normal conjunctiva, sclera anicteric, CV: Regular rate and rhythm, no edema Pulm: Nonlabored respirations on room air, clear bilaterally ABD: soft, nontender, nondistended Neuro: Normal speech, moves all extremities equally Problem List: Acute encephalopathy, unknown etiology; suspect secondary to medication Advanced Alzheimer's dementia IDDM2 Hypertension Hypothyroidism Hx breast cancer s/p bilateral mastectomy Hx chronic hyponatremia Acute encephalopathy , unknown etiology; suspect secondary to medication Advanced Alzheimer's dementia on admission, presents with worsening confusion, decreased responsiveness for last 2 days. family reports increased difficulty waking patient up recently. Reports patient is normally more active. seen at [facility] ER ~1 month ago for worsening confusion/behavioral issues at [facility]. son at bedside - describes overall progression of patient's dementia, and for last ~4-6 weeks has been minimally speaking, but has maintained her ability to ambulate. with her progression, she was transitioned to hospice in last 1-2 months. Son feels she has progressed more rapidly since on hospice feels like they may be giving too much meds to make her this way. Currently no available MAR to review what exactly she has received in last few days. several sedating medications are listed on her home med list, and no longer on her previous dementia medications unclear if acute encephalopathy vs progression of her dementia at this time - no clear infectious source urine culture prelim without growth CXR (01/05): no acute findings CT head (01/05): no acute intracranial abnormalities Monitor on telemetry. Fall precautions confirm and restart home meds more awake/interactive this morning dc IVF advance diet as tolerated speech consulted, to re-eval today PT consult IDDM2 accu-cheks, SSI confirm home dose insulin Hypertension resume home lisinopril PRN IV hydralazine Hypothyroidism Hx breast cancer s/p bilateral mastectomy confirm home meds, restart as appropriate Hx chronic hyponatremia Sodium stable monitor and replete electrolytes as needed continue to monitor renal function VTE: SCD for now Code: Full anticipate dc back to NH in ~1-2 days son revoked hospice and does not intend to restart Time Spent Managing Pts Care (In Minutes): 51
[2024-01-09 08:16] LABS: Anion Gap 10.1 mEq/L (5.0-15.0); Magnesium 1.3 mg/dL (1.6-2.4); Potassium 3.1 mEq/L (3.5-5.1)
[2024-01-09] MEDS: MEMANTINE HCL 10 MG TABLET PO SCH (09:04)
[2024-01-09] MEDS: ENSURE ENLIVE 237 ML CAN PO SCH (21:00)
[2024-01-10 05:57] LABS: Anion Gap 8.1 mEq/L (5.0-15.0); Magnesium 1.2 mg/dL (1.6-2.4); Potassium 3.1 mEq/L (3.5-5.1)
[2024-01-10] MEDS: POTASSIUM 25 MEQ EFFERV TAB PO ONE ×2 (06:21→12:00)
[2024-01-10] MEDS: LEVOTHYROXINE SOD 0.075 MG TAB PO SCH (06:21)
[2024-01-10] MEDS: Magnesium Sulfate 2gm IVPB 2 G/50 ML BAG IV ONE (06:21)
--- NOTE | 2024-01-10 09:15 | P.PN ---
Subjective Date of Service: 01/10/24 Chief Complaint: Past dementia awaiting assisted placement Subjective: Improving (No new change patient denies any complaints) Review of Systems is unable to be obtained Physical Examination - Vital Signs Temperature: 97.6 F Blood Pressure: 190/98 Pulse: 67 Respirations: 14 Pulse Ox (%): 99 - Physical Exam General: Alert, Unresponsive Respiratory: Clear to auscultation bilaterally Cardiovascular: No edema, Normal pulses - Studies Microbiology Data (last 24 hrs): 01/06/24 19:54 Catheterized Urine [place] Count - Final No growth. 01/06/24 19:54 Catheterized Urine - Final No growth. Assessment And Plan - Current Problems (Diagnosis) (1) Alzheimer's dementia Current Visit: Yes Status: Acute Plan: Patient has advanced dementia advanced diet pressure elevated hydrochlorothiazide awaiting assisted placement stable discharged to a assisted without hospice patient patient has mild hypokalemia Qualifiers: Dementia severity: severe (2) Hypertension Current Visit: Yes Status: Acute Plan: Add spironolactone due to hypokalemia Qualifiers: Hypertension type: primary hypertension Qualified Code(s): I10 - Essential (primary) hypertension
[2024-01-10] MEDS: hydroCHLOROthiazide 25 MG TAB PO SCH (09:51)
--- NOTE | 2024-01-10 10:44 | P.DS ---
Admission Date: 01/07/24 Discharge Date: 01/11/24 Disposition: ROUTINE DISCHARGE Discharge Condition: FAIR Reason for Admission: Past dementia awaiting care home placement - Problems (1) Alzheimer's dementia Current Visit: Yes Status: Acute Qualifiers: Dementia severity: severe (2) Hypertension Current Visit: Yes Status: Acute Qualifiers: Hypertension type: primary hypertension Qualified Code(s): I10 - Essential (primary) hypertension Brief History of Present Illness: Patient is 73 years of age care home resident admitted with altered mental status she has end-stage dementia Hospital Course: Patient was admitted to the floor head CT scan and chest x-ray unremarkable was mildly anemic also has underlying hypokalemia have added spironolactone patient is doing better with spironolactone no new complaints vital signs all stable blood pressure controlled hypokalemia resolved on examination alert responsive cooperative chest clear cardiovascular system heart sounds normal back to the care home on spironolactone Vital Signs/Physical Exam: Temp Pulse Resp BP Pulse Ox 97.6 F 67 14 190/98 H 99 01/10/24 10:42 01/10/24 10:42 01/10/24 10:42 01/10/24 10:42 01/10/24 10:42 Laboratory Data at Discharge: WBC 7.60 thou/uL (4.3-10.9) 01/08/24 04:37 Hgb 10.9 g/dL (12.0-15.0) L D 01/08/24 04:37 Hct 31.6 % (36.0-45.0) L 01/08/24 04:37 Plt Count 132 thou/uL (152-406) L 01/08/24 04:37 Sodium 140 mEq/L (136-145) 01/10/24 04:32 Potassium 3.1 mEq/L (3.5-5.1) L 01/10/24 04:32 BUN 13 mg/dL (7-18) 01/10/24 04:32 Creatinine 0.46 mg/dL (0.55-1.02) L 01/10/24 04:32 Glucose 174 mg/dL (74-106) H 01/10/24 04:32 Phosphorus 2.5 mg/dL (2.5-4.9) 01/08/24 04:37 Magnesium 1.2 mg/dL (1.6-2.4) L 01/10/24 04:32 Total Bilirubin 1.0 mg/dL (0.2-1.0) 01/08/24 04:37 AST 29 U/L (15-37) 01/08/24 04:37 ALT 20 U/L (13-56) 01/08/24 04:37 Alkaline Phosphatase 70 U/L (45-117) 01/08/24 04:37 Home Medications: Levothyroxine [Synthroid*] 75 mcg PO [id number] 02/05/23 Folic Acid 1 mg PO DAILY 08/20/23 Metformin ER [Glucophage ER*] 1 tab PO DAILY 08/20/23 Diazepam [Valium] 5 mg PO Q8HP 01/07/24 Divalproex Sodium [Depakote Sprinkle] 4 cap PO BID 01/07/24 LORazepam [Ativan*] 0.5 mg PO Q2HP PRN 01/07/24 Melatonin [Melatoninmax] 10 mg PO BEDTIME 01/07/24 Sodium Chloride Tab [Sodium Chloride*] 1 gm PO TID 01/07/24 lisinopriL [Lisinopril] 40 mg PO DAILY 01/07/24 Spironolactone 25 mg PO DAILY 30 Days #30 tab 01/10/24 New Medications: Spironolactone 25 mg PO DAILY 30 Days #30 tab Followup: Sd Catherine [Primary Care Provider] -
[2024-01-11 04:56] LABS: Anion Gap 6.6 mEq/L (5.0-15.0); Magnesium 1.5 mg/dL (1.6-2.4); Potassium 3.6 mEq/L (3.5-5.1)
[2024-01-11 08:44] VITALS: BP 146/67; TEMP 97.9
[2024-01-11] MEDS: Magnesium Sulfate 2gm IVPB 2 G/50 ML BAG IV ONE (09:02)
[2024-01-11] MEDS: POTASSIUM CL SA 10 MEQ TAB PO ONE (09:02)
[2024-01-11 10:06] VITALS: O2SAT 96
== END 2024-01-11 13:25 | DRG 92 ==
LOC: ER 13:28 → 2ND 20:21 → OBSVTOIN 01-07 15:43
PROVIDERS: ADMIT Hospitalist; ATTEND Internal Medicine Sleep Medicine
DX: G92.8 Other toxic encephalopathy (principal); E87.1 Hypo-osmolality and hyponatremia; I16.0 Hypertensive urgency; E11.9 Type 2 diabetes mellitus without complications; E87.6 Hypokalemia; I10 Essential (primary) hypertension; D64.9 Anemia, unspecified; G30.9 Alzheimer's disease, unspecified; F02.80 Dementia in other diseases classified elsewhere, unspecified severity, without behavioral disturbance, psychotic disturbance, mood disturbance, and anxiety; T50.905A Adverse effect of unspecified drugs, medicaments and biological substances, initial encounter; Z66 Do not resuscitate; Z88.0 Allergy status to penicillin; Z88.5 Allergy status to narcotic agent; Z88.2 Allergy status to sulfonamides; Z85.3 Personal history of malignant neoplasm of breast; Z90.13 Acquired absence of bilateral breasts and nipples; Z79.84 Long term (current) use of oral hypoglycemic drugs; Z90.49 Acquired absence of other specified parts of digestive tract; Z79.890 Hormone replacement therapy; Z79.899 Other long term (current) drug therapy
CPT/HCPCS: 36415; 51702; 70450; 71045; 80048; 80053; 80076; 81001; 82947; 83735; 84100; 84484; 85025; 87086; 87088; 92610; 93005; 96374; 97161; 97530; 99285; G0378; J0360; J3475; J3480; J7030

== ENCOUNTER 2024-10-24 19:19 | Emergency (ER) | payer OTHER ==
--- NOTE | 2024-10-24 20:02 | ER ---
Nurse's Notes [facility] Name: More Bledsoe Age: 74 yrs Sex: Female : 1950 Arrival Date: 10/24/2024 Time: 19:19 Bed 4 Private MD: Diagnosis: Person with feared health complaint in whom no diagnosis is made;Alzheimer's disease, unspecified Presentation: 10/24 19:41 Chief complaint: EMS states: Per ems, facility states that they found a small black kj2 worm in her stool yesterday, patient a/o x 2, hx of dementia on Hospice. Coronavirus screen: At this time, the client does not indicate any symptoms associated with coronavirus-19. Ebola Screen: No symptoms or risks identified at this time. Initial Sepsis Screen: Does the patient meet any 2 criteria? No. Patient's initial sepsis screen is negative. Does the patient have a suspected source of infection? No. Patient's initial sepsis screen is negative. Risk Assessment: Do you want to hurt yourself or someone else? Patient reports no desire to harm self or others. Onset of symptoms was October 23, 2024. 19:41 Method Of Arrival: EMS kj2 19:41 Acuity: KAMALJIT 4 kj2 Triage Assessment: 19:41 General: Appears in no apparent distress. Behavior is restless. Pain: Denies pain. kj2 Neuro: Level of Consciousness is awake, alert, obeys commands, confused, Oriented to person, place. Respiratory: No deficits noted. Historical: - Allergies: 19:59 Codeine; kj2 19:59 Demerol; kj2 19:59 PENICILLINS; kj2 19:59 Sulfa (Sulfonamide Antibiotics); kj2 - PMHx: 19:59 Alzheimer's disease; BREAST CA; Diabetes - IDDM; Hypertension; kj2 - PSHx: 19:59 bilateral breast mastectomy; Cholecystectomy; kj2 - Immunization history:: Adult Immunizations unknown. - Infectious Disease History:: Denies. - Social history:: Smoking status: Patient denies any tobacco usage or history of. Screenin:45 [facility] ED Fall Risk Assessment (Adult) History of falling in the last 3 months, kj2 including since admission Yes- single mechanical fall (1 pt) Confusion or Disorientation Yes (5 pts) Intoxicated or Sedated No (0 pts) Impaired Gait Yes (1 pt) Mobility Assist Device Used Yes (1 pt) Altered Elimination Yes (1 pt) Score/Fall Risk Level 3 or more points = High Risk Oriented to surroundings, Maintained a safe environment, Educated pt \T\ family on fall prevention, incl call for assistance when getting out of bed, Assessed \T\ reinforced patient's understanding of fall precautions, Provided non-skid footwear, Hourly rounding (assess needs \T\ fall precautionary measures) done. Abuse screen: Denies threats or abuse. Tuberculosis screening: No symptoms or risk factors identified. 20:00 Nutritional screening: No deficits noted. kj2 Assessment: 19:45 General: Appears in no apparent distress. Behavior is cooperative, restless. Pain: kj2 Denies pain. Neuro: Level of Consciousness is awake, alert, obeys commands, confused, Oriented to person, place. Respiratory: No deficits noted. 19:50 General: MD assess patient , rectal exam done at bedside by MD.. kj2 20:00 General: Patient stable, ambulate out with Facility medical apparatus model maker марина.. kj2 Vital Signs: 19:41 BP 154 / 73; Pulse 69; Resp 20; Temp 98.6; Pulse Ox 97% on R/A; Pain 0/10; kj2 19:57 Weight 54.43 kg; Height 5 ft. 0 in. ; kj2 19:57 Body Mass Index 23.44 (54.43 kg, 152.4 cm) kj2 19:41 Pain Scale: Adult kj2 [place] Coma Score: 19:45 Eye Response: spontaneous(4). Motor Response: obeys commands(6). Verbal Response: kj2 confused(4). Total: 14. ED Course: 19:37 Patient arrived in ED. kmf 19:40 Jonnie Doran DO is Attending Physician. ms3 19:41 Aurelia Butterfield, RN is Primary Nurse. kj2 19:41 Arm band placed on left wrist. kj2 19:44 Triage completed. kj2 19:57 Served as a driller's assistant during rectal exam. Patient did not have IV access during this kj2 emergency room visit. 19:59 Patient has correct armband on for positive identification. Bed in low position. Adult kj2 w/ patient. Provided Education on: D/c instruction. 20:01 Pulse ox on. NIBP on. kj2 Administered Medications: No medications were administered Medication: 20:00 VIS not applicable for this client. kj2 Outcome: 19:41 Discharge ordered by . ms3 19:57 Discharged to assisted. D/c with facility medical apparatus model maker Марина that came with kj2 patient. 19:57 Condition: stable 19:57 Discharge instructions given to assisted, 20:02 Patient left the ED. kj2 Signatures: Jonnie Doran DO DO ms3 Vivien James [facility] Aurelia Butterfield, RN RN kj2
--- NOTE | 2024-10-24 20:02 | EDPHYS ---
Physician Documentation [facility] Name: More Bledsoe Age: 74 yrs Sex: Female : 1950 Arrival Date: 10/24/2024 Time: 19:19 Bed 4 Private MD: ED Physician Jonine Doran HPI: 10/24 19:50 This 74 yrs old Female presents to ER via EMS with unknown complaint. ms3 19:50 74-year-old female with past medical history of Alzheimer's presents to the emergency fl3 department via [facility] from her [facility] for possible worms in her feces. Patient's healthcare aide found a black worm in the toilet after patient had a bowel movement. Career Guidance Technician denies patient having fever, vomiting. EMS states patient's blood glucose level 276, room air oxygen saturation was normal. Per patient's care facility patient is at her neurologic baseline.. Historical: - Allergies: 19:59 Codeine; kj2 19:59 Demerol; kj2 19:59 PENICILLINS; kj2 19:59 Sulfa (Sulfonamide Antibiotics); kj2 - PMHx: 19:59 Alzheimer's disease; BREAST CA; Diabetes - IDDM; Hypertension; kj2 - PSHx: 19:59 bilateral breast mastectomy; Cholecystectomy; kj2 - Immunization history:: Adult Immunizations unknown. - Infectious Disease History:: Denies. - Social history:: Smoking status: Patient denies any tobacco usage or history of. ROS: 19:50 Unable to obtain ROS due to baseline dementia, ms3 Exam: 19:50 Constitutional: This is a well developed, well nourished patient who is awake, alert, ms3 and in no acute distress. Cardiovascular: Regular rate and rhythm with a normal S1 and S2. No gallops, murmurs, or rubs. Normal PMI, no JVD. No pulse deficits. Respiratory: Lungs have equal breath sounds bilaterally, clear to auscultation and percussion. No rales, rhonchi or wheezes noted. No increased work of breathing, no retractions or nasal flaring. Abdomen/GI: Soft, non-tender, with normal bowel sounds. No distension or tympany. No guarding or rebound. No evidence of tenderness throughout. Skin: Warm, dry with normal turgor. Normal color with no rashes, no lesions, and no evidence of cellulitis. 19:50 Abdomen/GI: Rectal exam: hemorrhoid(s), external, without bleeding, without inflammation, without thrombosis, mass, is not appreciated, No worms noted on exam or in diaper. Stool brown, no blood.. Vital Signs: 19:41 BP 154 / 73; Pulse 69; Resp 20; Temp 98.6; Pulse Ox 97% on R/A; Pain 0/10; kj2 19:57 Weight 54.43 kg; Height 5 ft. 0 in. ; kj2 19:57 Body Mass Index 23.44 (54.43 kg, 152.4 cm) kj2 19:41 Pain Scale: Adult kj2 Ray Coma Score: 19:45 Eye Response: spontaneous(4). Motor Response: obeys commands(6). Verbal Response: kj2 confused(4). Total: 14. MDM: 19:40 Medical Screening Exam initiated ms3 19:50 Differential Diagnosis Enterobiasis (Pinworm) vs Ascaris vs Unfounded complaint. Data ms3 reviewed: vital signs, nurses notes, and as a result, I will discharge patient. Counseling: I had a detailed discussion with the patient and/or guardian regarding the historical points, exam findings, and any diagnostic results supporting the discharge/admit diagnosis, the need for outpatient follow up, to return to the emergency department if symptoms worsen or persist or if there are any questions or concerns that arise at home. Special discussion: I discussed with the patient/guardian in detail that at this point there is no indication for admission to the hospital. It is understood, however, that if the symptoms persist or worsen the patient needs to return immediately for re-evaluation. ED course: No worms noted on inspection of diaper or rectal exam. Patient's abdomen is without tenderness. Patient is at her neurologic baseline. Patient's type copy examiner present and all questions were answered. Patient to follow-up with primary care physician as needed. All questions were answered. Return precautions discussed including any worsening symptoms, fevers, or any other concerns.. Administered Medications: No medications were administered Disposition: 10/25 00:12 Chart complete. ms3 Disposition Summary: 10/24/24 19:41 Discharge Ordered Notes: Location: Home ms3 Condition: Stable ms3 Diagnosis - Person with feared health complaint in whom no diagnosis is made ms3 - Alzheimer's disease, unspecified ms3 Followup: ms3 - With: Private Physician - When: 2 - 3 days - Reason: Recheck today's complaints Discharge Instructions: - Discharge Summary Sheet ms3 - Alzheimer's Disease ms3 Forms: - Medication Reconciliation Form ms3 - Antibiotic Education ms3 - Prescription Opioid Use ms3 - Patient Portal Instructions ms3 - Leadership Thank You Letter ms3 Signatures: Jonnie Doran DO DO ms3 Aurelia Butterfield, RN RN kj2
[2024-10-24 20:26] VITALS: BP 154/73; TEMP 98.6; O2SAT 97
== END 2024-10-24 20:02 | disposition home or self-care (01) ==
LOC: ER 19:19
DX: Z71.1 Person with feared health complaint in whom no diagnosis is made (principal); G30.9 Alzheimer's disease, unspecified; F02.80 Dementia in other diseases classified elsewhere, unspecified severity, without behavioral disturbance, psychotic disturbance, mood disturbance, and anxiety
CPT/HCPCS: 99283